=== PATIENT | female | born 1980 | race Caucasian/White ===

== ENCOUNTER 2019-05-26 18:03 | Observation (INO) | payer OTHER, SELFPAY ==
[2019-05-26] VITALS (8 sets, daily range): BP systolic 129–156; BP diastolic 66–86; PULSE 96–112; RESP 18–20; TEMP 36.6–36.7; O2SAT 95–99; BMI 58.2
--- NOTE | ~2019-05-26 | CT_ITS ---
EXAMINATION: CTA chest PE protocol DATE: 05/26/2019 19:54 COMMUTATOR TESTER INDICATION: Chest pain TECHNIQUE: Computed tomographic angiography (CTA) of the chest was performed with 100 mL Omnipaque-35 0 intravenous contrast. The dose-length product was 905.96 mGy-cm. Maximum intensity projection 3D-re constructions of the aorta and other arteries were constructed by the technologist on a separate work station. Automated exposure control and iterative reconstruction technique were employed. COMPARISON: Chest x-ray dated 05/26/2019 FINDINGS: The study is technically adequate without evidence for pulmonary embolism. No thoracic lymp hadenopathy. Heart size normal. No significant pleural or pericardial effusion. No evidence for aorti c dissection or aneurysm. The upper abdomen is unremarkable. No pneumothorax. No endobronchial lesion s. No focal airspace disease. No pulmonary nodules. IMPRESSION: 1. No acute cardiopulmonary disease. No evidence for pulmonary embolism. Reviewed, dictated and finalized at location A. UTATOR TESTER
--- NOTE | ~2019-05-26 | XR_ITS ---
EXAMINATION: XR chest 2V 05/26/2019 18:38 INDICATION: Midsternal chest pain PROCEDURE: 2 view chest COMPARISON: 12/01/2015 FINDINGS: The lungs are clear. The cardiomediastinal silhouette is within normal limits. There are no pleural effusions. There is no pneumothorax suspected. IMPRESSION: 1: NO ACUTE CARDIOPULMONARY DISEASE. Reviewed, dictated and finalized at location A. NISTRATIVE MANAGER
--- NOTE | 2019-05-26 18:12 | ECG_ITS ---
Measurements Intervals [place] Rate: 115 P: 42 DC: 137 QRS: 16 QRSD: 102 T: 5 QT: 307 QTc: 426 Interpretive Statements SINUS TACHYCARDIA INCOMPLETE RIGHT BUNDLE BRANCH BLOCK LOW QRS VOLTAGE IN PRECORDIAL LEADS BORDERLINE ST-T WAVE ABNORMALITY- INFERIOR LEADS BASELINE ARTIFACT- I, III, AVL, V2 ABNORMAL ECG Electronically Signed On 05-27-2019 7:09:16 WINDING DEPARTMENT SUPERVISOR by Melchor Arvizu D.O.
--- NOTE | 2019-05-26 18:15 | ED.CHESTPAIN ---
HPI - Chest Pain General Chief Complaint: Chest Pain Stated Complaint: cp Time Seen by Provider: 05/26/19 18:10 Source: patient Mode of arrival: EMS Limitations: no limitations History of Present Illness HPI narrative: A 38 y/o female presents to the ED, via EMS, with c/o constant midsternal CP that radiates to her back and jaw. Pt woke up with the pain this morning and states that it has worsened since onset. There are no aggravating or alleviating factors. Pt took Omeprazole and GasX at home with no relief. Pt notes that she has a PMHx of a cardiac ablation for SVT and her mother of an [place] at 38 years old. She reports SOB, nausea, and blurred vision, but denies leg pain and a PSHx of a cardiac catheterization. Pertinent past history: other (cardiac ablation for SVT) Onset (ago): hour(s) Timing of current episode: constant Onset: awoke with symptoms Pain location: other (midsternal) Pain radiation: back and jaw/teeth Relieving factors: nothing Exacerbating factors: nothing Related Data Home Medications Medication Instructions Recorded Confirmed omeprazole 20 mg PO DAILY 05/26/19 Allergies Allergy/AdvReac Type Severity Reaction Status Date / Time clarithromycin Allergy Unknown Hives Verified 05/26/19 18:19 metformin Allergy Unknown Rash Verified 05/26/19 18:19 Sulfa (Sulfonamide Allergy Unknown Hives Verified 05/26/19 18:19 Antibiotics) Review of Systems Review of Systems: All systems reviewed & are unremarkable except as noted in HPI and below Eyes: Comments: Reports: blurred vision Cardiovascular: Cardiovascular: Reports chest pain (midsternal, radiates to back and jaw) Respiratory: Respiratory: Reports dyspnea Gastrointestinal: Gastrointestinal: Reports nausea Musculoskeletal: Comments: Denies: leg pain [facility] Past Medical History Medical History (Updated 05/26/19 @ 20:45 by Ted Sykes DO) History of angina PCOS (polycystic ovarian syndrome) SVT (supraventricular tachycardia) with ablation Surgical History Surgical History (Updated 05/26/19 @ 18:18 by Africa Conley) History of cholecystectomy Family History Family History Other Diabetes mellitus Family history of arthritis Family history of cardiovascular disease Family history of malignant neoplasm Hypertension Social History Social History Smoking status: Never smoker Alcohol intake: current Gender identity (if verbalized by the patient): Female Comments No PCP on file. Exam Narrative: Exam Narrative: APPEARANCE: No acute distress, nontoxic, resting in bed EYES: EOMI HEENT: Normocephalic, atraumatic, OMM RESPIRATORY: No respiratory distress Clear to auscultation bilaterally with no rhonchi wheezing or rales. CARDIOVASCULAR: Regular rate and rhythm without murmurs rubs or gallops. ABDOMINAL: Obese soft, nontender, nondistended, no rebound or guarding MUSCULOSKELETAl: Moves all extremities. No clubbing, cyanosis or edema. NEURO: Awake and alert. Following commands, speech normal, no focal deficits SKIN:: Warm, dry. No rashes lesions or abrasions PSYCHIATRIC: Normal affect/mood, Course Course Emergency Course: Patient has no change in chest pain GI cocktail. States pain is resolved following morphine Discussed with patient and family results of workup and diagnosis. Discussed need for admission. Patient and family understand and agree to current treatment plan Consultations Consultation #1: Discussed case with Dr. Ordonez and accepts admission. Date: 05/26/19 Time: 20:31 Vital Signs Vital signs: Vital Signs Temperature 98.1 F 05/26/19 18:11 Pulse Rate 112 H 05/26/19 18:11 Respiratory Rate 20 05/26/19 18:11 Blood Pressure 154/86 H 05/26/19 18:11 Pulse Oximetry 98 05/26/19 18:11 Temperature 98.1 F 05/26/19 18:11 Pulse Rate 104 H 05/26/19 20:07 Respiratory Rate
[2019-05-26 18:50] LABS: Basophils Percent Auto 0.3 % (0.2-1.2); Eosinophils Absolute Auto 0.2 K/mm3 (0-0.3); Eosinophils Percent Auto 2.1 % (0-4.4); Hematocrit 44.3 % (37.0-47.0); Hemoglobin 13.7 g/dL (12.0-15.0); Immature Granulocyte Absolute 0.03 K/mm3 (0.00-0.031); Immature Granulocyte Percent A 0.3 % (0-0.5); Lymphocytes Absolute Auto 1.94 K/mm3 (0.9-3.2); Lymphocytes Percent Auto 21.1 % (18.3-44.2); Mean Corpuscular HGB Conc 30.9 g/dl (32-36); Mean Corpuscular Volume 87.4 fl (80-100); Mean Platelet Volume 9.1 fl (7.4-10.4); Monocytes Absolute Auto 0.6 K/mm3 (0.1-0.6); Neutrophils Absolute Auto 6.5 K/mm3 (1.3-6.7); Neutrophils Percent Auto 70.2 % (45.5-73.1); Platelet Count Result 226 k/mm3 (150-375); Red Blood Count 5.07 M/mm3 (4.2-5.4); Red Cell Distribution Width 14.7 % (11.5-14.5); White Blood Count 9.2 K/mm3 (4.5-10.0)
[2019-05-26 19:00] LABS: Prothrombin Time 12.9 Seconds (11.1-14.7)
[2019-05-26 19:01] LABS: Partial Thromboplastin Time 27.3 SECONDS (22.3-36.8)
[2019-05-26 19:03] LABS: Alanine Aminotransferase 79 U/L (4-35); Alkaline Phosphatase 108 U/L (38-126); Aspartate Amino Transferase 87 U/L (14-36); Bilirubin,Total 0.6 mg/dL (0.2-1.3); Blood Urea Nitrogen 11 mg/dL (7-17); Carbon Dioxide 27 mmol/L (22-30); Chloride 101 mmol/L (98-107); Estimated CRCL calculation 126 ml/min; Estimated Glomerular Filt Rate > 60; Glucose 217 mg/dL (65-105); Lipase 65 U/L (23-300); Potassium 4.2 mmol/L (3.4-5.0); Sodium 140 mmol/L (137-145)
[2019-05-26 19:14] LABS: Troponin I < 0.012 ng/mL (0.000-0.034)
[2019-05-26] MEDS: MORPHINE SULFATE 4 MG/ML INJ IV PUSH (19:36)
[2019-05-26 21:06] LABS: Cholesterol 157 mg/dL (0-200); HDL Direct 36 mg/dL; Triglycerides 118 mg/dL (<150)
[2019-05-26 21:17] LABS: LDL Cholesterol Direct 104 mg/dL
[2019-05-26 21:18] LABS: Troponin I < 0.012 ng/mL (0.000-0.034)
[2019-05-26] MEDS: LACTATED RINGERS 1,000 ML 999 ML IV CONT (21:19)
--- NOTE | 2019-05-26 22:30 | PC.NURSE ---
This patient, Latanya Haynes, was admitted to IMU Room 207-01. Patient/family oriented to hospital policies and general routines including ID bracelet, bed and alarms, visiting hours, pain management, procedures, bathroom and other care routines, personal items, smoking policy, room service/diet, and visiting hours. Valuables list has been completed. Information on how to activate the Rapid Response Team has been discussed. Patient/Family are encouraged to report perceived risks to care and to ask questions if they do not understand what they are told or what they should do.
[2019-05-27] VITALS (17 sets, daily range): BP systolic 101–143; BP diastolic 47–87; PULSE 63–114; RESP 16–20; TEMP 36.2–36.8; O2SAT 98–100
--- NOTE | 2019-05-27 00:10 | ADMIMU ---
This patient, Latanya Haynes, was admitted to IMU status, and placed in IMU Room 207-01 at 2150 05/26/19. Patient/family oriented to hospital policies and general routines including ID bracelet, bed and alarms, visiting hours, pain management, procedures, bathroom and other care routines, personal items, smoking policy, room service/diet, and visiting hours. Valuables list has been completed. Information on how to activate the Rapid Response Team has been discussed. Patient/Family are encouraged to report perceived risks to care and to ask questions if they do not understand what they are told or what they should do.
[2019-05-27] MEDS: NITROGLYCERIN SL 0.4 MG TABLET SUBLINGUAL ×2 (00:11→00:31)
[2019-05-27 00:56] LABS: Troponin I < 0.012 ng/mL (0.000-0.034)
--- NOTE | 2019-05-27 09:41 | PM.IMHP ---
H&P: HPI History of Present Illness Chief complaint: chest pain Narrative: Date of service: 05/27/2019 Chief complaint: Chest pain HPI: Latanya Haynes is a 38 year old female with past medical history of SVT status post radiofrequency ablation in 2007 in [facility] (as per patient, procedure report not available); PCOS, morbid obesity, depression. Patient was admitted to [facility] on 05/26/2019 with complaints of chest discomfort. She states that she was at a on the day of admission, started having substernal chest discomfort which she described as sharp chest pain with radiation to right shoulder and right jaw. Patient states that her chest discomfort was tolerable early in the morning, however, in the later part of the day, her chest pain got worse associated with some dizziness without syncope. She denies shortness of breath. With these symptoms, patient came to the [facility]. Patient's EKG which I personally evaluated shows sinus tachycardia, heart rate 115 beats per minute, incomplete right bundle-branch block, low voltage in the precordial leads, nonspecific ST-T abnormalities. Patient had CT scan of the chest in the emergency room which did not show pulmonary embolism. Chest x-ray is unremarkable. Serial troponins are negative. Patient's random blood sugar is elevated at 217. Patient's symptoms have resolved since admission to the hospital. Patient gives history of SVT. 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 She had radiofrequency ablation in 2007 at [place], [place]. Procedure note not available. She has not had cardiology follow-up over the years. 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 She is morbidly obese, but denies any major limitations to her activities from cardiovascular standpoint. Patient does not recall being diagnosed with diabetes in the past, however, her random blood sugars are significantly elevated. As regards patient's family history, she states her mother suddenly at age 38 from what she describes as heart attack , however, she states that she was told that she had tear of the aorta. Father had stents placed when he was in 60s. Review of Systems Constitutional: Constitutional: Denies chills, Denies fatigue, Denies fever(s) and Denies headache(s) Eyes: Eyes: Reports as per HPI, Denies change in vision, Denies loss of vision and Denies eye pain ENT: Reports as per HPI, Reports Normal hearing present, Denies headache(s), Denies lip swelling, Denies epistaxis and Denies sore throat Cardiovascular: Cardiovascular: Reports as per HPI, Reports chest pain, Denies syncope, Reports lightheadedness and Denies dyspnea Respiratory: Respiratory: Reports as per HPI, Denies cough, Denies dyspnea and Denies wheezing Gastrointestinal: Gastrointestinal: Reports as per HPI, Denies abdominal pain, Denies melena, Denies nausea and Denies vomiting Genitourinary: Genitourinary: Reports as per HPI Musculoskeletal: Musculoskeletal: Reports as per HPI, Denies myalgias, Denies muscle cramps and Denies muscle weakness Integumentary/Breasts: Skin/Breast: Reports as per HPI, Denies pruritus and Denies rash Neurologic: Reports as per HPI, Reports Normal hearing present, Denies behavioral changes, Denies syncope, Denies headache(s) and Denies loss of vision Psychiatric: Psychiatric: Reports as per HPI, Reports anxiety, Denies behavioral changes and Reports depression Endocrine: Endocrine: Reports as per HPI, Denies fatigue, Denies polydipsia and Denies polyuria Hematologic/Lymphatic: Hematologic/Lymphatic: Reports as per HPI, Denies easy bleeding and Denies easy bruising Allergic/Immunologic: Allergic/Immunologic: Reports as per HPI, Denies lip swelling and Denies wheezing [facility] Past Medical History Medical History History of angina PCOS (polyc
[2019-05-27 11:14] LABS: Hemoglobin A1C 7.5 % (<5.7)
[2019-05-27] MEDS: ASPIRIN 81 MG CHEWABLE TABLET PO (12:32)
[2019-05-27] MEDS: ACETAMINOPHEN 325 MG TABLET 650 MG PO (18:11)
[2019-05-27 20:40] LABS: Glucose Point of Care 208 (65-105)
[2019-05-28] VITALS (8 sets, daily range): BP systolic 123–135; BP diastolic 66–74; PULSE 62–93; RESP 16–20; TEMP 36–36.7; O2SAT 97–100; BMI 57.9
--- NOTE | 2019-05-28 | ECHO_ITS ---
Patient Info Name: Latanya Haynes Age: 38 years : 1980 Gender: Female Ht: 64 in Wt: 347 lbs BSA: 2.77 m2 HR: 61 bpm BP: 127 / 66 mmHg Heart Rhythm: Sinus Rhythm Technical Quality: Good Exam Date: 05/28/2019 9:36 AM Exam Location: [facility] Patient Status: Outpatient Admit Date: 05/26/2019 Staff Ordering Physician: Joe Maddox MD Fleet Sales Manager: Bigg Barker, RDCS, RT Attending Provider: Joe Maddox MD Exam Type: CA echo doppler color flow Study Info Indications R07.89 - Other chest pain Complete two-dimensional, color flow and Doppler transthoracic echocardiogram is performed. Summary 1. Left ventricular chamber dimension is normal. 2. Left ventricular systolic function is normal, estimated at 60-65%. 3. There is mildly increased left ventricular wall thickness. 4. Left ventricular septal wall motion is normal. 5. The left ventricular diastolic function is normal. 6. The mitral valve has thickened leaflets. 7. There is mild tricuspid valve regurgitation. Left Ventricle Left ventricular chamber dimension is normal. Left ventricular systolic function is normal, estimated at 60-65%. There is mildly increased left ventricular wall thickness. Left ventricular septal wall motion is normal. The left ventricular diastolic function is normal. Right Ventricle Right ventricular chamber dimension is normal. Right ventricular systolic function is normal. Left Atria Left atrial chamber dimension is normal. Right Atria Right atrial chamber dimension is normal. Atrial Septum Intact interatrial septum visualized by color flow imaging. Aortic Valve The aortic valve is trileaflet. There is no aortic valve sclerosis. There is no aortic valve stenosis. There is trace aortic valve regurgitation. Pulmonic Valve The pulmonic valve is normal. There is no pulmonic valve stenosis. There is trace pulmonic regurgitation. Mitral Valve The mitral valve has thickened leaflets. There is no mitral valve stenosis. There is trace mitral valve regurgitation. Tricuspid Valve The tricuspid valve leaflets are normal. There is no significant tricuspid valve stenosis. There is mild tricuspid valve regurgitation. No pulmonary hypertension, estimated pulmonary arterial systolic pressure is 31 mmHg. Pericardium/Pleural The pericardium appears normal. There is no pericardial effusion. Aorta The aortic root size at the sinus of Valsalva is normal. Left Ventricular Outflow Tract Name Value Normal LVOT 2D LVOT Diameter 2.0 cm LVOT Doppler LVOT Peak Gradient 4 mmHg LVOT Mean Gradient 2 mmHg LVOT VTI 19 cm LVOT VTI/AV VTI Ratio 0.6 LVOT Stroke Volume 56 ml LVOT CO 4.6 l/min LVOT CI 1.6 l/min/m2 Pulmonic Valve Name Value Normal
--- NOTE | 2019-05-28 00:12 | PM.IMCN ---
Assessment and Plan Assessment and plan (1) Diabetes mellitus, new onset: Code(s): E11.9 - Type 2 diabetes mellitus without complications Status: Acute Assessment and Plan: If the patient does negative turner apprentice to have coronary artery disease she would benefit from a medications such as Ozempic, Victoza, Trulicity, Jardiance or Invokana. Since Invokana is available on our hospital formulary I will initiate the patient on Invokana starting in the a.m.. Literature suggests that we could give the patient more time for diet and lifestyle modification to affect her hemoglobin A1c. However given that the patient has already lost 120 lb over the last 2 years with diet and lifestyle modification and her A1c demonstrates that she is still now diabetic will opt to start the patient on medication therapy. I would be surprised the patient's A1c had been higher when her weight was more elevated. (2) Morbid obesity: Code(s): E66.01 - Morbid (severe) obesity due to excess calories Status: Acute Assessment and Plan: Given the patient does have some history of snoring, issues with fatigue and history of cardiac arrhythmia she would benefit from an outpatient sleep study. By the time of my evaluation the patient was already 11:15 at night and too late to place the patient on an apnea link. I congratulated the patient on her significant weight loss over the last 2 years 10 encouraged her to continue with her current diet. She is typically on a ketogenic diet of approximately 30 carbohydrates. Her lipid panel is relatively good and she does not seem to have any significant adverse effects from her ketogenic diet. (3) Chest pain: Code(s): R07.9 - Chest pain, unspecified Status: Acute Assessment and Plan: Management per per Cardiology Service. HPI Data of Consult Consult date: 05/27/19 Requesting Physician: Jillian Ordonez DO Primary Care Provider: Aristides HernandezZoe Consult Narrative Narrative: Date and time of patient contact: 05/27/2019 at 23:15 Latanya Haynes is a 38 year old female with a past medical history of SVT, morbid obesity and PPI usage who presented to the ER via EMS from home with chest pain. The patient was admitted for chest pain rule out to the cardiology service. She reported that her chest pain was substernal in nature and radiating through to her back it also radiated up to her jaw. The pain is started on the morning of the and had been persistent all day long. It did not wax or wane to fluctuate in intensity until the end of the day were suddenly became worse and she had what sounds like a near syncopal event and became diaphoretic. The patient had 3 sets of negative cardiac enzymes. The patient is NPO at midnight in anticipation of echocardiogram and possible stress test. However the patient's glucose on arrival to the ER was 217 and subsequently hemoglobin A1c was performed. Patient's hemoglobin A1c came back at 7.5 in the hospitals with consulted to help manage the patient's diabetes. Patient denies any burning numbness or tingling to her hands or feet. She reported some blurred vision when she was having the worst of her chest pain. But overall she has not noticed any significant vision changes. Her blurred vision has since resolved. She denies any headaches, nausea or vomiting. She denies any increased urinary frequency. She has been on a ketogenic diet for the last 2 years and has lost 130 lb. She does occasionally snore. 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 She denies any polydipsia, polyuria or polyphagia. The patient has an allergy to metformin it causes overall pruritus. She had been prescribed it in the distant past due to her PCOS. Review of Systems Review of Systems: Narrative: Except as documented in the HPI, all other systems were reviewed and are negative. [facility] Past Medical History Me
[2019-05-28] MEDS: ASPIRIN 81 MG CHEWABLE TABLET PO (08:56)
[2019-05-28] MEDS: CANAGLIFLOZIN 100 MG TABLET PO (08:56)
[2019-05-28 09:21] LABS: Glucose Point of Care 152 (65-105)
--- NOTE | 2019-05-28 13:10 | PM.PNCARD ---
Progress Note: A&P Additional Plan Episode of atypical chest pain and not suggestive of myocardial ischemia and acute coronary syndrome has been ruled out. Echocardiogram done today shows no evidence of any ischemic wall motion abnormalities. My plan is to allow for discharge today follow-up will be with her PCP. I would not recommend initiating an ischemia workup at this time because of the atypical nature of her symptoms and the high probability with the morbid obesity a stress test will be high probability of being a false-positive and would potentially result in otherwise unnecessary angiogram needing to be done. Time Spent With Patient Time with patient: 15 - 25 minutes Subjective Date/time seen: Date of service: 05/28/19 13:10 Interval history: Follow-up visit for 38-year-old patient with atypical chest pain, also with morbid obesity and previous history of SVT. Patient has no complaints today and feels well would like to be discharged Review of chart demonstrates no evidence of acute coronary syndrome troponins are all negative and echocardiogram done today showed no ischemic wall motion abnormalities. Exam Const: General: comfortable and no acute distress Other: Morbidly obese white female sedated in bed with no complaints of any kind comfortable and cooperative. HENMT: Mouth: Yes moist mucous membranes Eyes: Sclera: sclerae normal Pupils: Equal, round and reactive pupils present Neck: Neck: supple Thyroid: thyroid normal Resp: Effort & Inspection: normal respiratory effort Auscultation: clear to auscultation bilaterally Cardio: Rate: regular rate Rhythm: regular rhythm Other: No murmur no gallop, PMI is not palpable because of her body habitus GI: Auscultation: normal bowel sounds Neuro: Cognition (Neuro): normal cognition Objective Data Vital Signs Vital Signs: Vital Signs - 24 hr 05/27/19 14:00 05/27/19 16:00 05/27/19 18:00 Temperature 36.7 C Pulse Rate 95 75 87 Respiratory Rate 20 Blood Pressure 139/83 Pulse Oximetry 98 05/27/19 20:00 05/27/19 20:20 05/27/19 22:00 Temperature 36.8 C Pulse Rate 90 75 75 Respiratory Rate 20 Blood Pressure 125/56 L Pulse Oximetry 98 98 05/27/19 23:55 05/28/19 00:00 05/28/19 02:00 Temperature 36.6 C Pulse Rate 63 70 71 Respiratory Rate 20 Blood Pressure 101/47 L Pulse Oximetry 98 05/28/19 04:00 05/28/19 06:00 05/28/19 08:00 Temperature 36.0 C L 36.5 C Pulse Rate 65 62 93 Respiratory Rate 20 16 Blood Pressure 127/66 123/74 Pulse Oximetry 97 100 05/28/19 10:00 05/28/19 12:00 Temperature Pulse Rate 87 87 Respiratory Rate Blood Pressure Pulse Oximetry Intake/Output Intake/Output: Intake & Output 05/25/19 05/26/19 05/27/19 05/28/19 23:59 23:59 23:59 23:59 Intake Total 770 350 Output Total 300 2225 550 Balance -300 -1455 -200 Meds/Results Medications: Active Medications Generic Name Dose Route Start Last Admin Trade Name Freq PRN Reason Stop Dose Admin Acetaminophen 650 mg 05/26/19 20:34 05/27/19 18:11 Tylenol Tablet PO 650 mg Q4H PRN Administration Mild Pain (1-3) Al Hydrox/Mg Hydrox/Simethicone 30 ml 05/26/19 20:34 Mylanta PO Q6H PRN Indigestion Aspirin 81 mg 05/27/19 08:00 05/28/19 08:56 Aspirin Chewable PO 81 mg DAILY@0800 [facility] Administration Canagliflozin 100 mg 05/28/19 08:00 05/28/19 08:56 Invokana PO 100 mg DAILY@0800 [facility] Administration Dextrose 12.5 gm 05/27/19 20:13 Dextrose 50% Syringe IV PUSH PRN PRN Hypoglycemia Protocol Glucagon 1 mg 05/27/19 20:13 Glucagon For Inj IM PRN PRN Hypoglycemia Protocol Glucose 15 gm 05/27/19 20:13 Glutose 15 PO PRN PRN Hypoglycemia Protocol Dextrose 1,000 mls @ 100 mls/hr 05/27/19 20:13 Dextrose 5% 1,000 Ml IVPB PRN PRN Hypoglycemia Protocol Insulin Aspart 2 - 5 units 05/28/19 08:
--- NOTE | 2019-05-28 13:13 | PM.DS ---
DS: Diagnosis Admitting Diagnosis Admitting Diagnosis: Chest pain, unspecified DS: Summary Hospital Course Reason for hospitalization: Chest pain Hospital Course: This is a 38-year-old white female with a history of supraventricular tachycardia that was ablated about 11 years ago. She also has a history of morbid obesity and came to the emergency room the day of admission reporting episodes of chest pain that were clinically very atypical of are not suggestive of myocardial ischemia. Following admission to the hospital there was no evidence of acute coronary syndrome troponins were negative x3 sets. An echocardiogram was done which was read this morning is showing normal appearing left ventricular function with no ischemic wall motion abnormalities. The patient was found to have evidence of non insulin-dependent diabetes at the time of this admission and for that reason the hospitalists were consulted. Medical therapy of this was initiated all again with recommendations for the PCP to follow-up this following discharge. Patient was stable for discharge today was no longer having any symptoms that would raise concern regarding the possibility of coronary disease and plans are for discharge again with follow-up with her PCP. Status at Discharge Functional status at discharge: independent ambulation Time Spent with Patient Time attestation: Total time spent providing and/or coordinating discharge services: Time spent: Less than 30 minutes Exam Const: General: comfortable and no acute distress Limitations: no limitations HENMT: Mouth: Yes moist mucous membranes Eyes: Sclera: sclerae normal Pupils: Equal, round and reactive pupils present Neck: Neck: supple Thyroid: thyroid normal Other: No bruits jet jugular veins cannot be assessed given obesity Resp: Effort & Inspection: normal respiratory effort Auscultation: clear to auscultation bilaterally Cardio: Rate: regular rate Rhythm: regular rhythm Other: No murmur no gallop no rub PMI is not palpable GI: GI Palp: Yes Soft to palpation Auscultation: normal bowel sounds Skin: General skin exam: normal color Extrem: General: normal to inspection DS: Data Data Completed and Pending Labs on day of discharge: Labs from last 24 hours 05/28/19 05/27/19 08:19 20:28 POC Capillary Glucose 152 H 208 H Discharge Plan Discharge Attending physician on discharge: Joe Maddox Consulting providers: Kerry Aguillon Discharging Clinician: Dwight Trevino Anticipated Discharge Date/Time: 05/28/19 13:16 Patient Disposition: Home, Self-Care Activity: as tolerated Diet: diabetic Discharge Instructions: Hospitalist service: Continue to eat a consistent carbohydrate, and in the the patient's case ketogenic diet seems to be working well for her, and is technically a consistent carbohydrate diet. Check fasting glucose each day prior to eating. You may also check your glucose 1-2 hours after eating 1 meal a day. Keep a log of these values in take them with you to your primary care physician follow-up in 1 week. This will help your primary care provider assess effectiveness of your medication. You will need a yearly dilated eye exam to monitor your eye health. Patient Instructions: Chest Pain (DC), Hypoglycemia in a Person with Diabetes (GEN), Antibiotic Form Stand Alone Forms: General Discharge Information Follow-up/Referrals: David,Aristides Dobson M.D. [Primary Care Provider] - Discharge Medications: New Invokana 100 mg tablet 100 mg PO DAILY Qty: 30 RF: 0 Continued omeprazole 20 mg Tablet,Delayed Release (Dr/Ec) 20 mg PO DAILY RF: 0 Date of admission: 05/26/19 20:34 Primary Care Provider: DavidAristides Admitting Provider: Joe Maddox Attending physician on admission: Joe Maddox Condition: Stable
[2019-05-28 13:15] LABS: Glucose Point of Care 103 (65-105)
--- NOTE | 2019-05-28 14:12 | PM.IMPN ---
Progress Note: A&P Assessment and Plan (1) Diabetes mellitus, new onset: Code(s): E11.9 - Type 2 diabetes mellitus without complications Status: Acute Assessment and Plan: If the patient does inspector returned materials to have coronary artery disease and new onset DM. HBaic is 7.5 diet, exercise, invokana ordered, pt to follow with pcp. pt met with DM educator prior to dischrage. (2) Morbid obesity: Code(s): E66.01 - Morbid (severe) obesity due to excess calories Status: Acute Assessment and Plan: Given the patient does have some history of snoring, issues with fatigue and history of cardiac arrhythmia she would benefit from an outpatient sleep study. (3) Chest pain: Code(s): R07.9 - Chest pain, unspecified Status: Acute Assessment and Plan: Pt cleared by cardiology stable for discharge Subjective Date/time seen: 05/28/19 14:12 Interval history: Latanya Haynes is a 38 year old female with a past medical history of SVT, morbid obesity and PPI usage who presented to the ER via EMS from home with chest pain. The patient was admitted for chest pain, troponins were negative. Echo shows EF 60%. Pt found to be a new DM, started on invokana by the hospitalist service. Pt seen by DM educator prior to discharge. Pt to follow with her PCP as DM is a new diagnosis. History of PCOS and obesity. Review of Systems Review of Systems: All systems reviewed & are unremarkable except as noted in HPI and below Exam Narrative: Exam Narrative: General: Morbidly obese HEENT: Mucous membranes are normal Neck: Trachea midline Respiratory: Clear to auscultation bilaterally, no increased work of breathing Cardiovascular: Normal S1-S2, no murmurs rubs or gallops, regular rate and rhythm Gastrointestinal: Soft, nontender, positive bowel sounds Skin: No jaundice, no pallor, Extremities: No clubbing, cyanosis or edema Neurological: Alert and oriented, speech is clear, no facial asymmetry Psychiatric: Appropriate mood and affect, pleasant and cooperative Objective Data Vital Signs Vital Signs: Vital Signs - 24 hr 05/27/19 16:00 05/27/19 18:00 05/27/19 20:00 Temperature 36.7 C Pulse Rate 75 87 90 Respiratory Rate 20 Blood Pressure 139/83 Pulse Oximetry 98 98 05/27/19 20:20 05/27/19 22:00 05/27/19 23:55 Temperature 36.8 C 36.6 C Pulse Rate 75 75 63 Respiratory Rate 20 20 Blood Pressure 125/56 L 101/47 L Pulse Oximetry 98 98 05/28/19 00:00 05/28/19 02:00 05/28/19 04:00 Temperature 36.0 C L Pulse Rate 70 71 65 Respiratory Rate 20 Blood Pressure 127/66 Pulse Oximetry 97 05/28/19 06:00 05/28/19 08:00 05/28/19 10:00 Temperature 36.5 C Pulse Rate 62 93 87 Respiratory Rate 16 Blood Pressure 123/74 Pulse Oximetry 100 05/28/19 12:00 Temperature Pulse Rate 87 Respiratory Rate Blood Pressure Pulse Oximetry Intake/Output Intake/Output: Intake & Output 05/25/19 05/26/19 05/27/19 05/28/19 23:59 23:59 23:59 23:59 Intake Total 770 350 Output Total 300 1265 550 Balance -300 -3865 -200 Meds/Results Medications: Active Medications Generic Name Dose Route Start Last Admin Trade Name Freq PRN Reason Stop Dose Admin Acetaminophen 650 mg 05/26/19 20:34 05/27/19 18:11 Tylenol Tablet PO 650 mg Q4H PRN Administration Mild Pain (1-3) Al Hydrox/Mg Hydrox/Simethicone 30 ml 05/26/19 20:34 Mylanta PO Q6H PRN Indigestion Aspirin 81 mg 05/27/19 08:00 05/28/19 08:56 Aspirin Chewable PO 81 mg DAILY@0800 [facility] Administration Canagliflozin 100 mg 05/28/19 08:00 05/28/19 08:56 Invokana PO 100 mg DAILY@0800 [facility] Administration Dextrose 12.5 gm 05/27/19 20:13 Dextrose 50% Syringe IV PUSH PRN PRN Hypoglycemia Protocol Glucagon 1 mg 05/27/19 20:13 Glucagon For Inj IM PRN PRN Hypoglycemia Protocol Glucose 15 gm 05/27/19 20:13 Glutose 15
== END 2019-05-28 14:55 | disposition home or self-care (01) ==
LOC: ANHED 20:45 → ANHIMU 05-27 00:08
PROVIDERS: Internal Medicine Cardiovascular Disease; Admitting Provider Internal Medicine Cardiovascular Disease; Emergency Provider Emergency Medicine; PCP Family Medicine; Visit Provider Specialist
DX: R07.89 Other chest pain (principal); E11.9 Type 2 diabetes mellitus without complications; E66.01 Morbid (severe) obesity due to excess calories; Z68.43 Body mass index [BMI] 50.0-59.9, adult; E28.2 Polycystic ovarian syndrome; Z79.899 Other long term (current) drug therapy; Z82.49 Family history of ischemic heart disease and other diseases of the circulatory system; Z86.79 Personal history of other diseases of the circulatory system; Z88.1 Allergy status to other antibiotic agents; Z88.2 Allergy status to sulfonamides; Z88.8 Allergy status to other drugs, medicaments and biological substances; Z98.890 Other specified postprocedural states
CPT/HCPCS: 36415; 71046; 71275; 80053; 80061; 81025; 83036; 83690; 84484; 85025; 85610; 85730; 93005; 93306; 96374; 99285; A9270; G0378; J2270; J7120; Q9967

== ENCOUNTER 2019-06-07 11:40 | Outpatient (CLI) | payer OTHER, SELFPAY ==
--- NOTE | ~2019-06-07 | MMUS_ITS ---
EXAMINATION: MM diagnostic carline BI w mounika, US breast RT limited HISTORY: Palpable right breast abnormality TECHNIQUE: Additional 3-D tomosynthesis images of were performed and synthetic 2-D images were genera evangelist. CAD analysis was submitted and interpreted. High resolution right breast ultrasound was performe d. COMPARISON: None FINDINGS: MAMMOGRAPHIC FINDINGS: Breast composed of scattered areas of fibroglandular density. There are no suspicious masses, calcifi cations or calcifications to suggest malignancy. There are benign appearing peripherally calcified oi l cysts in the medial aspect of the right breast. ULTRASOUND: Limited right breast ultrasound demonstrates multiple anechoic masses with echogenic rims exhibiting posterior shadowing, compatible with benign peripherally calcified oil cysts present on mammography. IMPRESSION: 1. No evidence for malignancy in the right breast. Benign oral cysts. 2. Routine yearly screening mammogram and regular clinical breast examination are recommended. BI-RADS Category 2: Benign finding(s). Reviewed, dictated and finalized at location A. ERLESS GRINDER IMPRESSION: 1. No evidence for malignancy in the right breast. Benign oral cysts. 2. Routine yearly screening mammogram and regular clinical breast examination a re recommended. BI-RADS Category 2: Benign finding(s).
== END 2019-06-07 11:41 | disposition home or self-care (01) ==
LOC: ANHIMG 11:43
PROVIDERS: PCP Family Medicine; Visit Provider Nurse Practitioner Women's Health
DX: N63.14 Unspecified lump in the right breast, lower inner quadrant (principal)
CPT/HCPCS: 76642; 77062; 77066; G0279

== ENCOUNTER 2020-05-02 06:38 | Outpatient (CLI) | payer OTHER, SELFPAY ==
[2020-05-02 07:55] LABS: Cholesterol 105 mg/dL (0-200); HDL Direct 35 mg/dL; Triglycerides 123 mg/dL (<150)
[2020-05-02 08:06] LABS: LDL Cholesterol Direct 48 mg/dL
[2020-05-02 08:16] LABS: Hemoglobin A1C 7.2 % (<5.7)
== END 2020-05-02 06:39 | disposition home or self-care (01) ==
LOC: ANHLAB 06:40
PROVIDERS: PCP Family Medicine; Visit Provider Family Medicine
DX: E11.69 Type 2 diabetes mellitus with other specified complication (principal); E78.5 Hyperlipidemia, unspecified
CPT/HCPCS: 36415; 80061; 83036

== ENCOUNTER 2020-08-06 09:30 | Outpatient (RCR) | payer OTHER, SELFPAY ==
--- NOTE | 2020-07-04 10:25 | PTOPEVAL ---
PHYSICAL THERAPY EVALUATION Thank you for referring Latanya Haynes to [facility].? Latanya was evaluated for the dx of low back pain with left leg radiculopathy. The patient is scheduled to be seen for therapy?2 x/week for 4 weeks. Please review, sign, date and return this plan of care SIRISHA. I agree with and certify that the following plan of care is medically necessary. Referring Physician Date Referring Provider: Aristides HernandezZoe *PT Outpatient Evaluation Start: 07/04/20 09:05 Freq: Status: Active Protocol: Document 07/04/20 09:05 MLV (Rec: 07/04/20 10:09 MLV [id number]) Therapy Assessment Status Assessment Status Evaluation Evaluation Information Problem Diagnosis low back pain with sciatica Onset mid May 2020 Cause scooting up in bed Additional Evaluation Detail Pt reports she was trying to scoot in bed on her elbows and felt a pop in her back. Pt has severe pain with most movements, especially rolling, supine to sit and sit to stand. The pain is at the low back but more at left hip to foot. Prior to scooting, the pt had no pain in these areas with daily activity. 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 The pt was given Naproxyn and flexoril but is not helping much. Pt has had no tests yet. Pain affects ability to roll over, son helps put her shoes on, son does laundry now, and unable to stand more than 1/2 hour. Previous Treatments Previous Treatments For This Problem none Pain Assessment Timing of Pain Assessment Timing of Pain Assessment Assessment Pain Scale Pain Scale Used Numeric (1 - 10) Self Report Pain Assessment Lower Back Reported Pain Level 8 Pain Description Sharp,Tightness Pain Frequency Continuous Greatest Pain Intensity 10 Pain Aggravating Factors Bending,Exercise/Activity, Lifting,Weight Bearing/ Standing Pain Behaviors Guarding Pain Score Pain Score 8: Self Report Interventions Used Interventions Used By Clinicians Education,Electrical Stimulation,Exercise,Heat Pain Relief Interventions Used By Heat,Inactivity/Rest,
--- NOTE | 2020-08-06 10:13 | PTOPEVAL ---
PHYSICAL THERAPY DISCHARGE Thank you for referring Latanya Haynes to [facility].? The patient has been seen 8 visits for dx of low back pain/sciatica. Her goals are partially met and status for skilled PT peaked. DC PT . Please review, sign, date and return this plan of care. I agree with and certify the following plan of care. Referring Physician Date Attending Provider: Aristides Hernandez, Zoe Referring Provider: Aristides HernandezZoe *PT Outpatient Discharge Start: 07/04/20 09:05 Freq: Status: Active Protocol: Document 08/06/20 09:25 MLV (Rec: 08/06/20 10:13 MLV [id number]) Therapy Assessment Status Assessment Status Assessment Status Discharge Evaluation Information Problem Diagnosis low back pain with sciatica Onset mid May 2020 Cause scooting up in bed Additional Evaluation Detail Overall, the patient feels she is about 50% better. The patient reports having pain down her leg and in her back for the last 4 days w/o a known cause for change. The patient does not have an appt with the MD but plans to make one. Pt denies trouble with HEP Pain Assessment Timing of Pain Assessment Timing of Pain Assessment Assessment Pain Scale Pain Scale Used Numeric (1 - 10) Self Report Pain Assessment Lower Back Reported Pain Level 7 Radicular Pain Location left leg pain 6 currently Other Pain Aggravating Factors rolling in bed, laying to sitting, and sit to stand Pain Score Pain Score 7: Self Report Interventions Used Interventions Used By Clinicians Electrical Stimulation,Heat, Manual Therapy Techniques Pain Relief Interventions Used By Exercise,Heat,Position Change Patient Other Alleviating Interventions naproxyn, muscle relaxer at night Cervical and Lumbar ROM Lumbar ROM Lumbar Flexion Active Knee,Mid Mi Query Text:Hands to: Lumbar Extension (0-40) 10 Query Text:Active in Degrees Lumbar Lateral Flexion Right (0-40) 30 Query Text:Active in Degrees Lumbar Lateral Flexion Left (0-40) 40 Query Text:Active in Degrees Lateral Rotation Right (0-45) 40 Query Text:Active in Degrees Lateral Rotation Left (0-45) 40 Query Text:Active in Degrees Lumbar Comments continues to have left back pain with right sidebend and
== END 2020-08-06 14:45 | disposition home or self-care (01) ==
LOC: ANHPT 09:30
PROVIDERS: PCP Family Medicine; Referring Provider Family Medicine; Visit Provider Family Medicine
DX: M54.5 Low back pain (principal)
CPT/HCPCS: 97014; 97110; 97140; 97162; G0283

== ENCOUNTER 2021-03-23 16:52 | Emergency (ER) | payer OTHER, SELFPAY ==
[2021-03-23 17:00] VITALS: BP 113/81; PULSE 114; RESP 16; TEMP 36.9; O2SAT 100
[2021-03-23 17:11] VITALS: BP 113/81; PULSE 114; RESP 16; TEMP 36.9; O2SAT 100
--- NOTE | 2021-03-23 17:26 | ED.URI ---
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 No fever, earache, sig cough, wheezing -she does have triggers/pets [dog] at home. Symptoms are mild worse when sleeping/supine; she reports a Biaxin allergy but can take a Z-Rohan. Related Data Home Medications Medication Instructions Recorded Confirmed omeprazole 40 mg PO DAILY 05/26/19 03/23/21 aspirin [Adult Low Dose Aspirin] 81 mg PO DAILY 03/23/21 03/23/21 atorvastatin 40 mg PO DAILY 03/23/21 03/23/21 cetirizine [Zyrtec] 10 mg PO DAILY 03/23/21 03/23/21 glipizide 10 mg PO BID 03/23/21 03/23/21 Allergies Allergy/AdvReac Type Severity Reaction Status Date / Time clarithromycin Allergy Unknown Hives Verified 03/23/21 17:10 metformin Allergy Unknown Rash Verified 03/23/21 17:10 Sulfa (Sulfonamide Allergy Unknown Hives Verified 03/23/21 17:10 Antibiotics) Review of Systems Review of Systems: General/Constitutional: No weight loss,fever Eyes: N0: Redness,discharge Ears/Nose/Throat: No: Epistaxis,ear discharge Respiratory: Denies: Hemoptysis Gastrointestinal: No Vomiting, Bleeding-rectal Skin: No Lumps, eruption Neurologic: No Focal Weakness,Sz Hematologic: Denies: Petechiae/Purpura Psychiatric: No: Suicida ideationl All Other Systems: Reviewed and Negative [facility] Past Medical History Medical History (Updated 03/23/21 @ 17:35 by Vic Yin MD) History of angina History of supraventricular tachycardia PCOS (polycystic ovarian syndrome) SVT (supraventricular tachycardia) with ablation 2007 Surgical History Surgical History (Updated 05/28/19 @ 00:28 by Kerry Aguillon DO) H/O LEEP 2017 History of chemical tubal occlusion essure tubal occlusion approximately 2010 History of cholecystectomy Family History Family History (Updated 05/28/19 @ 00:30 by Kerry Aguillon DO) Grandparent Acute myocardial infarction Diabetes mellitus History of blood clots Mother , Mother of coronary disease age 42 Acute myocardial infarction Hypertension Tobacco abuse disorder Father Hypertension Cerebrovascular accident Heart disease History of blood clots Sibling History of blood clots Hypertension Grandparent Diabetes mellitus Grandparent Colon cancer Sibling Hypertension Social History Social History (Updated 05/28/19 @ 00:33 by Kerry Aguillon DO) Social History: Primary care physician: Dr. Aristides Hernandez Code status: Full code Smoking status: Never smoker Second hand tobacco smoke exposure: Yes Alcohol intake: current Drinks per week: 0 Alcohol use details: The patient drinks approximately 1 drink a year. Substance use: never Additional living arrangements comments: Patient lives with her 14-year-old daughter and 9-year-old autistic son. 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 Gender identity (if verbalized by the patient): Female Spiritual care concerns: No Comments At time of signature, agree with nursing past medical, surgical, social and family history. There is no relevant family history pertinent to the presenting complaint Exam Narrative: General Appearance: Well appearing, overweight/well nourished EYE: PERRLA, Conjunctiva clear Ears: Auditory canal normal, TM normal Nose: Rhinorrhea, Mucousal erythema Mouth/Throat: MM moist, Uvula midline, Pharyngeal erythema Neck: Supple, No adenopathy Respiratory: No respiratory distress, distant BS equal, Clear to auscultation Cardiovascular: RRR, No JVD Musculoskeletal: Non ten
== END 2021-03-23 17:36 | disposition home or self-care (01) ==
PROVIDERS: Emergency Provider Emergency Medicine; PCP Family Medicine
DX: R07.0 Pain in throat (principal); I20.9 Angina pectoris, unspecified; E28.2 Polycystic ovarian syndrome
CPT/HCPCS: 99213; G0463

== ENCOUNTER 2024-11-22 09:02 | Outpatient (CLI) | payer BC, SELFPAY ==
--- OUTSIDE RECORDS SUMMARY | 2019-06-07 01:00 | XMS_ITS | Encounter Summary ---
Author Organization [facility] Healthcare Address [address] [place] [address] Care Team Providers Care Slip Tender Name Role Phone Aristides Hernandez MD Primary Care Provider [phone] [phone] Reason for Visit * Diagnostic Imaging (Routine) - Closed Specialty Diagnoses / Procedures Referred By Francesca cheung Referred To Contact Procedures Breast Imaging Diagnostic Outside Reference Evita Montenegro NP Phone: tel: fax: Referral ID Status Reason Start Date Expiration Date Visits Re quested Visits Authorized [id number] Closed 02/04/2022 03/06/2023 1 1 Encounter Details Date Type Department Care Team (Late st Contact Info) Description 06/07/2019 Hospital Encounter [facility] [address] [place] [id number] Social History Tobacco Use Types Packs/Day Years Used Date Smoking Tobacco: Never Smokeless Tobacco: Never Alcohol Use Standard [...] week 04/14/2022 How often do you attend chur or mu-ism services? Patient declined 04/14/2022 Do you belong to any clubs o r organizations such as yarsanism groups, unions, fraternal or athletic groups, or [...] on file Legal Sex Female 2:38 AM SCLEROSCOPE TESTER Gender Identity Female 12/30/2023 11:42 PM CDT Sexual Orientation Straight 12/13/2018 10 :54 AM CDT documented as of this encounter Functional Status * AUDIT-C Score Answer Date of Assessment Author 1 03/16/2023 7:36 AM SCLEROSCOPE TESTER Kash Augustin, RN * Question Answer Date of Assessment Author Q1: How often do you have a drink containing alcohol? Monthly or less 03/16/2023 7:36 AM Hallie Burns R N Q2: How many drinks containing alcohol do you have on a typical day when you are drinking? Patient does not drink 03/16/2023 7:36 AM Hallie Burns, MITCHELL Q3: How often do you have six or more drinks on one occasion? Never 03/16/2023 7:36 AM Hallie Burns, Elsy Downing documented as of this encounter Plan of Treatment Not on file documented as of this encounter Procedures Procedure Name Priority Date/Time Associated Diagnosis Comments BREAST IMAGING MG DIAGNOSTIC OUTSIDE REFERENCE Routine 06/07/2019 12:00 AM SCLEROSCOPE TESTER documented in this encounter Results * Breast Imaging Diagnostic Outside Reference (06/07/2019 12:00 AM SCLEROSCOPE TESTER) Impressions [facility] - 02/04/2022 1:34 PM CDT These images are for Reference purposes only and have not been reviewed by [facility] Radiology. There will be no report generated by a [facility] Radiologist. Narrative [facility] - 02/04/2022 1:34 PM CDT EXAMINATION: Images For Reference Purposes Only us Evita Montenegro WEIGHT REDUCING TECHNICIAN IMG MAMMO PROCEDURES Final Result [facility] documented in this encounter Visit Diagnoses Not on filedocumented in this encounter Care Teams Slip Tender Relationship Specialty Start Date End [place] [address] PCP - General Family Medicine 10/11/18 documented as of this encounter
--- OUTSIDE RECORDS SUMMARY | 2019-06-07 01:05 | XMS_ITS | Encounter Summary ---
Author Organization [facility] Healthcare Address [address] [place] [address] Care Team Providers Care Federal Java Developer Name Role Phone Aristides Hernandez MD Primary Care Provider [phone] [phone] Reason for Visit * Diagnostic Imaging (Routine) - Closed Specialty Diagnoses / Procedures Referred By Francesca cheung Referred To Contact Procedures Breast Imaging US Outside Reference Evita Montenegro NP Phone: tel: fax: Referral ID Status Reason Start Date Expiration Date Visits Re quested Visits Authorized [id number] Closed 02/04/2022 03/06/2023 1 1 Encounter Details Date Type Department Care Team (Late st Contact Info) Description 06/07/2019 12:05 AM COMMERCIAL SOLAR SALES CONSULTANT Hospital Encounter [facility]) [address] [place] [address] Social History Tobacco Use Types Packs/Day [...] week 04/14/2022 How often do you attend [facility] or zoroastrianism services? Patient declined 04/14/2022 Do you belong to any clubs o r organizations such as adventist groups, unions, fraternal or athletic groups, or [...] on file Legal Sex Female 2:38 AM COMMERCIAL SOLAR SALES CONSULTANT Gender Identity Female 12/30/2023 11:42 PM CDT [...] US OUTSIDE REFERENCE Routine 06/07/2019 12:05 AM COMMERCIAL SOLAR SALES CONSULTANT documented in this encounter Results * Breast Imaging US Outside Reference (06/07/2019 12:05 AM COMMERCIAL SOLAR SALES CONSULTANT) Impressions [facility] - 02/04/2022 1:34 PM CDT These images are for Reference purposes only and have not been reviewed by [facility]. There will be no report generated by a [facility] Radiologist. Narrative [facility] - 02/04/2022 1:34 PM CDT EXAMINATION: Images For Reference Purposes Only us Evita Montenegro PAINTER AND DECORATOR IMG MAMMO PROCEDURES Final Result [facility] documented in this encounter Visit Diagnoses Not on filedocumented in this encounter Care Teams Federal Java Developer Relationship Specialty Start Date End Date [place] [address] PCP - General Family Medicine 10/11/18 documented as of this encounter
--- NOTE | 2024-11-22 09:20 | ECG_ITS ---
Test Date: 2024-11-22 09:28:26 Measurements Intervals Marshall Rate: 49 P: 46 VT: 120 QRS: 30 QRSD: 110 T: 17 QT: 392 QTc: 354 Interpretive Statements SINUS BRADYCARDIA INCOMPLETE RIGHT BUNDLE BRANCH BLOCK BASELINE ARTIFACT- I, II, III, AVR, AVL, AVF, V1-V6 BORDERLINE ECG No previous ECG available for comparison Electronically Signed On 11-22-2024 09:30:51 CDT by Melchor Arvizu D.O.
--- OUTSIDE RECORDS SUMMARY | 2024-11-22 09:38 | XMS_ITS | Clinical Summary ---
Author Organization [facility] [address] [facility] Address [address] [place] [address] Care Team Providers Care Bindery Machine Tender Name Role Phone Aristides Hernandez MD Primary Care Provider [phone] Alonso Cason MD Unavailable [phone] Allergies Active Allergy Reactions Criticality Noted Date Comments Clarithromycin Rash Medium 10/10/2018 Latex Rash Medium 04/30/2022 Sensitivity, Metformin Itching Low 10/10/2018 Sulfa (Sulfonamide Antibiotics) Hives,Rash Medium 12/2018 Tissue Adhesive Itching,Rash Medium 04/12/2023 Dermabond Medications aspirin 81 mg enteric coated tablet Take 1 tablet (81 mg total) by mouth daily Active cetirizine (ZyrTEC) 10 mg tablet Take 1 tablet (10 mg total) by mouth daily Active vitamin B complex capsule Take 1 capsule by mouth daily Active calcium carbonate-vitami n D3 1,500 mg (600 mg elemental)-400 unit tablet,chewable Take by mouth 2 (two) times a day Active clobetasoL (TEMOVATE) 0.05 % cream Apply topically 2 (two) times a day APPLY TO AFFECTED AREA 04/01/20 Active fluticasone propionate (FLONASE) 50 mcg/actuation nasal spray 1 spray daily as needed 03/26/20 Active multivit with min-folic acid (Adult Multivitamin Gummies) 200 mcg tablet,chewable 03/21/20 23 Active metoprolol XL (TOPROL-XL) 50 mg extended release tablet Take 1 tablet (50 mg total) by mouth daily Active ascorbic acid/vitamin E/biotin (HAIR, SKIN, NAILS WITH BIOTIN ORAL) Take 1 tablet by mouth daily Active FLUoxetine (PROzac) 10 mg tablet/capsule Take 1 tablet/capsul e (10 mg total) by mouth daily 90 capsule 4 01/31/20 24 025 Active hydrOXYzine (ATARAX) 25 mg tablet Take 1 tablet (25 mg total) by mouth every 8 (eight) hours as needed for anxiety 30 tablet 1 01/31/20 24 Active famotidine (PEPCID) 20 mg tablet TAKE 1 TABLET BY MOUTH TWICE A DAY 180 tablet 3 07/11/19 25 Active Linzess 145 mcg capsuleIndicatio ns:Constipation, unspecified constipation type TAKE 1 CAPSULE BY MOUTH EVERY DAY 30 capsule 3 07/25/19 25 Active atorvastatin (LIPITOR) 40 mg tablet TAKE 1 TABLET BY MOUTH EVERY DAY 90 tablet 09/16/19 25 Active tirzepatide (Mounjaro) 10 mg/0.5 mL pen injector injection INJECT 10 MG UNDER THE SKIN EVERY 7 DAYS 2 mL 1 11/08/19 25 Active tirzepatide (Mounjaro) 10 mg/0.5 mL pen injector injection INJECT 10 MG UNDER THE SKIN EVERY 7 DAYS 2 mL 1 09/11/19 25 025 Discontinued Active Problems Problem Noted Date Diagnosed Date Type 2 diabetes mellitus with hyperlipidemia Assessment & Plan (10/08/2024 9:12 AM CDT): Continue atorvastatin. Will check lipid panel today and plan accordingly. Assessment & Plan (05/01/2024 10:35 AM WIND SITE MANAGER): Stable on atorvastatin and will continue to follow repsonse. Mood disorder 05/01/2024 Assessment & Plan (10/08/2024 9:12 AM CDT): Reports well controlled on fluoxetine and will continue. Assessment & Plan (05/01/2024 10:35 AM WIND SITE MANAGER): COntinues on fluoxetine. Good response. Excellent insight. Stress 01/31/2024 Assessment & Plan (01/31/2024 10:10 AM CDT): Discussed options. Will intitiate prozac and PRN hydroxyzine. Discuss possible sedative affect with hydroxyzine tab take with caution. She has follow-up scheduled in April and will keep to re-evaluate. We reviewed red flags. She is in agreement with plan states understanding. Hypertension associated with diabetes 01/31/2024 Assessment & Plan (10/08/2024 9:13 AM CDT): BP soft when rechecked by me. She is on half tablet metoprolol through Cardiology. Recommend monitoring and ensuring hydration. Change positions slowly. Continue following with cardiology. Need to ensure rate control as well. Red flags reviewed. Assessment & Plan (05/01/2024 10:35 AM WIND SITE MANAGER): Stable on metoprolol XL. COntinue on BP and HR montiring. Assessment & Plan (01/31/2024 9:56 AM CDT): Normotensive. Continue metoprolol. Will continue to monitor. Hospital discharge follow-up 01/31/2024 Assessment & Plan (01/31/2024 10:11 AM CDT): IGisell NP have personally reviewed pertinent inpatient and/or ED records, including discharge medications and Cl[employer]esk if applicable. This patient's discharge medication list has been reviewed and reconciled with her outpatient medication list and has also been reviewed with patient and/or caregiver. I have noted any changes. Fungal rash of torso 07/21/2023 Assessment & Plan (10/13/2023 10:01 AM CDT): I will make a referral to Plastic surgery for consideration for the persistent fungal infection in the pannus folds. Other constipation 05/26/2023 S/P gastric sleeve procedure 03/25/2023 Assessment & Plan (04/12/2023 11:04 AM WIND SITE MANAGER): It looks like she is trying to reject some sutures as there was clearly some suture material in the small incisions that opened. We have removed the sutures at bedside and remove the fibrinous tissue. We are going to pack the small openings with a little bit of a 4 x 4 cut to size and saline. She will change this daily. We will see her back next week to reassess. Abdominal pannus 03/25/2023 Assessment & Plan (04/12/2023 11:05 AM WIND SITE MANAGER): The patient continues to have significant issues with fungal infections in the pannus. The entirety of it is be read. She is tried the nystatin powder that we will continue her on. She was also going to try InterDry to try and help in wick the moisture away. I would like to see what her final weight is going to be prior to referring her to plastics her potential intervention, however we can not get these infections to clear up because of the moisture will have to send her there before all weight loss as completed Tonsil pain 02/28/2023 Heartburn 11/02/2022 Controlled type 2 diabetes tamia hickey without complication, without long-term current use of insulin 06/30/2022 Assessment & Plan (10/08/2024 9:11 AM CDT): Has been well controlled with Mounjaro and excellent weight loss. Will check A1c today and plan accordingly. Assessment & Plan (05/01/2024 10:34 AM WIND SITE MANAGER): Secondary prevneiton. Reviewed glycmeic control targets. No side effects to saxenda and responding well. Assessment & Plan (01/31/2024 10:10 AM CDT): Reports well controlled on Mounjaro and tolerating without side effects. Will continue to monitor. Assessment & Plan (06/30/2022 4:01 PM CDT): Lab Results Component Value Date HGBA1C 6.9 (H) 04/15/2022 HGBA1C 6.2 (H) 10/16/2021 HGBA1C 9.0 (H) 07/10/2021 Diabetes well controlled, a1c at goal of <7 %. No changes in current medication management. Will continue to monitor. Abnormal cardiovascular stress test 06/21/2022 SVT (supraventricular tachycardia) 05/07/2022 Chest pain 04/14/2022 Abnormal mammogram of right breast 03/24/2022 Atrial fibrillation with normal ventricular rate (CMS/HCC) 05/30/2019 Assessment & Plan (10/08/2024 9:11 AM CDT): Clinically sinus rhythm. Rate controlled. Following closely with Cardiology. Assessment & Plan (04/21/2022 3:38 PM WIND SITE MANAGER): Eliquis History of loop electrical excision procedure (L EEP) 05/15/2019 Assessment & Plan (07/20/2022 9:09 AM CDT): Given the persistent erythema a 1 cm incision was made at the inferior aspect of the wound. Predominantly serous fluid was removed with little bit of fat necrosis as well. The wound was then packed with [id number] iodoform packing. She will continue to do this on a daily basis. We will see her back next week to reassess the wound. Assessment & Plan (07/13/2022 10:52 AM CDT): Drain will be removed at bedside. I will send in a course of oral antibiotics for the superficial erythema at the inferior aspect of the incision. We will see her back next week to reassess. She will call sooner if anything changes Dysthymia 05/30/2017 Allergic rhinitis due to pollen 12/02/2016 Hyperglycemia 07/15/2016 Polycystic ovaries 04/16/2016 Idiopathic osteoarthritis 08/25/2015 Reaction to chronic stress 08/25/2015 Premature rupture of membranes 12/05/2009 labor 11/20/2009 Resolved Problems Problem Noted Date Diagnosed Date Resolved Date BMI 39.0-39.9,adult 05/01/2024 10/09/19 25 Assessment & Plan (05/01/2024 10:35 AM WIND SITE MANAGER): [place] 150min/week aerobic exercise. Healthy food chocies. Severe obesity (BMI 35.0-39. 9) with comorbidity 05/01/2024 10/08/2024 Assessment & Plan (05/01/2024 10:35 AM WIND SITE MANAGER): As aboive. Chest pain, unspecified type 01/23/2024 10/08/2024 Assessment & Plan (01/31/2024 10:09 AM CDT): Relates to stress episodes. Cardiac workup in the hospital unremarkable. Will initiate anxiety medication. Discussed referral to follow up with Cardiology but she declines today. I feel this is agreeable. Will monitor response with treating the stress. Red flags reviewed. Muscle strain 05/26/2023 10/08/2024 Mixed hyperlipidemia 02/28/2023 025 Newly diagnosed diabetes 02/28/202310/2024 Rhinosinusitis 02/28/2023 10/08/2024 Open wound anterior abdominal wall 07/28/2022 04/24/2024 Splenic artery aneurysm 07/05/2022 04/0 07/2022 Aneurysm, splenic artery 04/21/202207/2022 Assessment & Plan (06/08/2022 11:20 AM WIND SITE MANAGER): I have had discussions with the vascular surgeon that referred her to us. Unfortunately given the patient's anatomy coiling was not going to be possible. They referred her to us to discuss splenectomy. We have discussed risk of needing to do this via an open approach. We have discussed post splenectomy infections in the need for vaccinations. We have discussed hospital length of stay. She will get cardiac clearance given her multiple comorbid conditions and then we will set her up for surgery. I will also preemptively order vaccines in preparation for her splenectomy. Assessment & Plan (05/21/2022 11:13 AM WIND SITE MANAGER): Multiple splenic artery aneurysms, 1.8 cm saccular aneurysms in the hilum and about a 1 cm aneurysms in the mid splenic artery, discussed findings with the patient. Given her age we discussed the recommendation would be for intervention, coil embolization versus a splenectomy. Discussed given multiple aneurysms in 1 in the hilum a splenectomy may be more appropriate. We will discuss with our general surgery colleagues and get back to her. Assessment & Plan (04/21/2022 3:19 PM WIND SITE MANAGER): 1.8 cm splenic artery aneurysm found incidentally on CT PA. Discussed at length the management of splenic artery aneurysms with repair indicated for aneurysms measuring 3 cm or any aneurysms in a woman of childbearing age due to concern for rupture during . CTA abdomen pelvis ordered for further evaluation, pending this she is either going to need coil embolization or splenectomy. We will follow-up following her CT scan. Elevated d-dimer 04/14/2022 07/06/2022 Asymptomatic bacteriuria 04/14/202207/2022 Dyslipidemia 04/14/2022 10/08/2024 Assessment & Plan (06/30/2022 4:00 PM CDT): Reviewed labs, cholesterol well controlled. Continue atorvastatin 40 mg daily. Assessment & Plan (05/21/2022 11:13 AM WIND SITE MANAGER): Stable continue Lipitor 40 mg. Assessment & Plan (04/21/2022 3:38 PM WIND SITE MANAGER): Lipitor New onset a-fib 04/13/2022 10/08/2024 Assessment & Plan (06/30/2022 3:59 PM CDT): Scheduled with cardiology 04/28/2022, at [facility]. Denies any chest pain, palpitations, dizziness, syncope or fatigue. Rate controlled; patient is taking Eliquis and metoprolol or prescribed. Morbid (severe) obesity due to excess calories 07/10/2021 10/08/2024 Assessment & Plan (01/06/2023 9:04 AM CDT): The patient has done well during her six-months. She has shown nice consistent weight loss. She has had pre-admission laboratory testing with everything returning normal. She will continue to attend the monthly support group meetings. She will continue to work with the dietitian. Continue small frequent meals and cardiovascular exercise regimen as tolerates. Body mass index (BMI) 50.0-59.9, adult 07/10/2021 10/08/2024 Assessment & Plan (10/13/2023 10:03 AM CDT): Continue to work with her personal care assistant. Continue small frequent meals. Continue calcium, multivitamin vitamin-D. Continue to attend the weight loss groups. We will see her back in 6 months to reassess her progress. Assessment & Plan (02/07/2023 10:42 AM WIND SITE MANAGER): The patient has done well having lost a little over 12 lb since the start. We will encourage her to continue with an exercise regimen of at least 30 minutes today 3 times a week. We will encourage her to do small frequent meals with a goal calorie intake of 1600. She will continue to work with the dietitian. We will encourage her to continue to attend the monthly support group sessions. For the preoperative diet has been given to the patient which she knows to start 2 weeks before him. We will encourage her not to become for at least 18 months following surgery. We have discussed hospital length of stay and postoperative restrictions. All questions answered. Assessment & Plan (12/09/2022 8:19 AM CDT): Continue to work with the dietitian. We will encourage her to continue to attend the monthly support group meetings. Small frequent meals. Exercise as tolerates. We will see her back in 1 month to reassess her progress. Assessment & Plan (09/14/2022 9:08 AM CDT): The patient will continue to pack the small open area with 1 quarter-inch packing. She is back on track and has cut out sodas and carbohydrates from her diet. We will see her back in 1 month to reassess her progress. Continue to work with the dietitian and exercise as tolerates BMI 50.0-59.9, adult 05/30/2019 023 Assessment & Plan (05/21/2022 11:13 AM WIND SITE MANAGER): Super morbid obesity, discussed given her body habitus any repair would be more difficult and higher risk. Morbid obesity 05/15/2019 10/08/2024 Encounters Date Type Department Care Team Description 11/21/2024 Orders Only [facility] [address] [address] Aristides Hernandez MD Hypotension, unspecified hypotension type (Primary Dx) 10/09/2024 Results Follow-Up [facility] [address] [address] Gisell Walker, PRITI CBC with auto differential, Lipid panel, Hemoglobin A1c, Differential, auto 10/09/2024 Telephone [facility] [address] [address] Gisell Walker, PRITI 10/09/2024 Orders Only [facility] [address] [address] Gisell Walker, PRITI Elevated ferritin (Primary Dx) 10/08/2024 9:00 AM CDT Lab [facility] [address] [place] [address] Class 1 obesity due to excess calories with serious comorbidity and body mass index (BMI) of 34.0 to 34.9 in adult; Type 2 diabetes mellitus with hyperlipidemia (HCC); Hypertension associated with diabetes (HCC); Elevated ferritin 10/08/2024 8:30 AM CDT Office Visit [facility] [address] [address] Gislel Walker, PRITI Hypertension associated with diabetes (HCC) (Primary Dx); Class 1 obesity due to excess calories with serious comorbidity and body mass index (BMI) of 34.0 to 34.9 in adult; Type 2 diabetes mellitus with hyperlipidemia (HCC); Mood disorder; Controlled type 2 diabetes mellitus without complication, without long-term current use of insulin (HCC); Atrial fibrillation with normal ventricular rate (CMS/HCC) (HCC) 09/26/2024 Results Follow-Up [facility] [address] [place] [address] Fannie Son NP Vitamin D 25 hydroxy, TSH, Vitamin B12, Additional followed-up results: 3 09/25/2024 3:30 PM CDT Lab [facility] at [address] [address] 09/25/2024 3:25 PM CDT - 09/25/2024 11:59 PM CDT Hospital Encounter [address] [address] S/P gastric sleeve procedure; Elevated AST (SGOT) Discharge Disposition: Discharge to home or self care from Last 3 Months Immunizations Immunization Administration Dates Next Due DTP 10/15/1986, 6,08/06/1982,04/09,02/14/1982 Hep B Vaccine 02/14/2007 Hib (PRP-T) 06/15/2022 Influenza, Quadrivalent, Nina l Culture-based MDCK, Preservative Free, Antibiotic Free, Intramuscular 12/08/2022 Influenza, Trivalent, Cell Culture-based MDCK, Preservative Free, Antibiotic Free, Intramuscular 12/03/2023,12/08/2022 Influenza, Unspecified 01/06/2022,2021(Deferred: Patient Refused),01/06/2021,01/03/2020, 019,01/02/2018 MMR 09/11/1991,02/22/1984 Meningococcal Conjugate (Menveo) 06/09/2022 Moderna SARS-CoV-2 Monovalen t Vaccination (12+ YRS) 06/03/2020,05/06/2020 OPV 10/15/1986, 6,02/22/1984,04/09,02/14/1982 Pneumococcal Conjugate Pcv20 06/09/2022 Td, adsorbed 02/14/2007,09/22/1995 Tdap 01/01/2022,2009 Surgical History Surgery Date Site/Laterality Comments CHOLECYSTECTOMY 06/02/2002 - 07/02/2002 SPLENECTOMY ESSURE TUBAL LIGATION 04/04/2009 - 04/03/2010 SLEEVE GASTROPLASTY 03/16/2023 TUBAL LIGATION Essure procedure mar 2010 SPLENECTOMY, TOTAL 07/05/22 BARIATRIC SURGERY 03/16/23 COLPOSCOPY 10/01/2024 Dr. Beer in [place] Medical History Medical History Date Comments PCOS (polycystic ovarian syndrome) Depression SVT (supraventricular tachycardia) Cervical dysplasia 12/2016 Plantar fasciitis 2009 Atrial fibrillation (HCC) GERD (gastroesophageal reflux disease) Type 2 diabetes mellitus Aneurysm, splenic artery 04/21/2022 Splenic artery aneurysm 07/05/2022 Asymptomatic bacteriuria 04/14/2022 Elevated d-dimer 04/14/2022 Acute chest pain 04/14/2022 Open wound anterior abdominal wall 07/28/2022 Menstrual problem Since age 14 Family History Medical History Relation Name Comments COPD Father Lino Heart disease Father Lino Hyperlipidemia Father Lino Hypertension Father Lino Memory loss Father Lino Skin cancer Father Lino Stroke Father Lino Diabetes Maternal Grandmother Randee Heart attack Maternal Grandmother Randee Cancer Mother Mom Heart attack Mother Mom Heart disease Mother Mom Hypertension Mother Mom Obesity Mother Mom Diabetes Paternal Grandmother Alma Rosa Clotting disorder Sister 1 Estrella Mental illness Sister 1 Estrella Miscarriages / Stillbirths Sister 2 Ammi Relation Name Status Comments Father Lino Alive Maternal Grandmother Randee Alive Mother Mom Paternal Grandmother Alma Rosa Alive Sister 1 Estrella Alive Sister 2 Ammi Alive Social History Tobacco Use Types Packs/Day Years Used Date Smoking Tobacco: Never Smokeless Tobacco: Never Tobacco Cessation:Counseling Given: Not Answered Alcohol Use Standard Drinks/Week Comments Not Currently [...] week 04/14/2022 How often do you attend [facility] or restorationist services? Patient declined 04/14/2022 Do you belong to any clubs o r organizations such as latter-day groups, unions, fraternal or athletic groups, or [...] on file Legal Sex Female 2:38 AM WIND SITE MANAGER Gender Identity Female 12/30/2023 11:42 PM CDT Sexual Orientation Straight 12/13/2018 10 :54 AM CDT Obstetrics History Last Filed Vital Signs Vital Sign Reading Time Taken Comments Blood Pressure 98/56 10/08/2024 8:19 AM CDT Pulse 88 10/08/2024 8:19 AM CDT Temperature 36.4 C (97.5 F) 10/08/2024 8:19 AM CDT Respiratory Rate 20 10/08/2024 8:19 AM CDT Oxygen Saturation 99% 10/08/2024 8:19 AM CDT Inhaled Oxygen Concentration - - Weight 92.8 kg (204 lb 9.6 oz) 10/08/2024 8:19 A M CDT Height 165.1 cm (5' 5) 10/08/2024 8:19 AM CDT Body Mass Index 34.05 10/08/2024 8:19 AM CDT Plan of Treatment Health Maintenance Due Date Last Done Comments Cervical Cancer Screening 1981 Hepatitis C Screening 1981 HPV Vaccines (1 - 3-dose SCD M series) 2008 Regular Well Visit/Exam 18-64 07/10/2022 07/10/2021 Covid-19 Vaccine (3 - 2023-2 5 season) 2023 06/03/2020, 05/06/2020 Dilated Eye Exam 10/06/2024 10/07/2023 Influenza Vaccine (#1) 2024 , 12/08/2022, 12/08/2022, Additional history exists Foot Exam 01/30/2025 01/31/2024, 04/0 11/2021, 05/30/2019 Hemoglobin A1C 04/10/2025 10/08/2024, 04/05, 10/25/2023, Additional history exists Breast Cancer Screening-Mammogram 04/27/2025 04/27/2024, 04/14/2023, 04/14/2023, Additional history exists Albumin Creatinine Ratio, Urine 05/01/2025 05/01/2024, 10/25/2023, 09/28/2022, Additional history exists Depression Screening 05/01/2025 05/01/2024, 10/25/2023, 07/19/2023, Additional history exists eGFR 05/01/2025 05/01/2024, 01/03, 10/25/2023, Additional history exists Lipid Panel 10/08/2025 10/08/2024, 04/05, 10/25/2023, Additional history exists DTaP/Tdap/Td Vaccine (8 - Td or Tdap) 01/02/2032 01/01/2022, 2009, 02/14/2007, Additional history exists Hepatitis B Screening Completed 02/14/2007 Pneumococcal vaccine <65 Completed 06/09/2022 Varicella Vaccines Discontinued Medical Devices Implanted Type Area Functional Skills Tutor Device Identifier Shelf Expiration Date Model / Serial / Lot [employer] Symmetry Vesolock Large Clip Internal [id number] - [id number] Implanted:Qty: 3 on 07/05/2022 by Vic Castellon MD at [facility] N/A: Abdomen [employer] 10/03/2023 [id number] / [id number] Description:7 applied Procedures Procedure Name Priority Date/Time Associated Diagnosis Comments IRON PROFILE W/ IBC Routine 10/08/2024 8 :59 AM CDT Elevated ferritin DIFFERENTIAL AUTO Routine 10/08/2024 8:5 9 AM CDT Class 1 obesity due to excess calories with serious comorbidity and body mass index (BMI) of 34.0 to 34.9 in adult Type 2 diabetes mellitus with hyperlipidemia (HCC) Hypertension associated with diabetes (HCC) HEMOGLOBIN A1C Routine 10/08/2024 8:59 AM CDT Class 1 obesity due to excess calories with serious comorbidity and body mass index (BMI) of 34.0 to 34.9 in adult Type 2 diabetes mellitus with hyperlipidemia (HCC) Hypertension associated with diabetes (HCC) LIPID PANEL Routine 10/08/2024 8:59 AM CDT Class 1 obesity due to excess calories with serious comorbidity and body mass index (BMI) of 34.0 to 34.9 in adult Type 2 diabetes mellitus with hyperlipidemia (HCC) Hypertension associated with diabetes (HCC) CBC WITH AUTO DIFFERENTIAL Routine 10/08/2024 8:59 AM CDT Class 1 obesity due to excess calories with serious comorbidity and body mass index (BMI) of 34.0 to 34.9 in adult Type 2 diabetes mellitus with hyperlipidemia (HCC) Hypertension associated with diabetes (HCC) FOLATE Routine 09/25/2024 3:25 PM CDT S/P gastric sleeve procedure HEPATIC FUNCTION PANEL Routine 09/25/2024 3:25 PM CDT S/P gastric sleeve procedure Elevated AST (SGOT) FERRITIN Routine 09/25/2024 3:25 PM CDT S/P gastric sleeve procedure VITAMIN B12 Routine 09/25/2024 3:25 PM CDT S/P gastric sleeve procedure TSH Routine 09/25/2024 3:25 PM CDT S/P gastric sleeve procedure VITAMIN D 25 HYDROXY Routine 09/25/2024 3:25 PM CDT S/P gastric sleeve procedure EGFR Routine 05/01/2024 9:52 AM WIND SITE MANAGER Controlled type 2 diabetes mellitus with hyperglycemia, without long-term current use of insulin (HCC) ALBUMIN CREATININE RATIO, URINE Routine 05/01/2024 9:52 AM WIND SITE MANAGER Controlled type 2 diabetes mellitus with hyperglycemia, without long-term current use of insulin (HCC) SCREENING MAMMOGRAM BILATERAL W NAEL Schedule Routine, Read Routine (OP Routine) 04/27/2024 3:13 PM WIND SITE MANAGER 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 breast, unspecified estrogen receptor status, unspecified laterality (HCC) Abnormal mammogram of both breasts Abnormal mammogram of right breast HM DIABETES EYE EXAM Routine 10/07/2023 2:06 PM CDT from Last 3 Months or Most Recently Relevant to Health Maintenance Results * (ABNORMAL) Differential, auto (10/08/2024 8:59 AM CDT) Neutrophil abs 5.01 1.50 - 6.50 K/cumm Comment:Testing performed by : [facility], [address] [place] [address]., [id number] Imm gran abs 0.02 0.00 - 0.10 K/cumm ROBY YOUNG (LADAN) Comment:Testing performed by : [address] [address] Lymphocyte abs 4.65(H) 0.80 - 3.30 K/cumm ROBY YOUNG (LADAN) Comment:Testing performed by : [address], [address] Monocyte abs 1.05(H) 0.20 - 0.80 K/cumm [facility] ([place]) Comment:Testing performed by : [facility], [address] [place] [address]., [id number] Eosinophil abs 0.16 0.00 - 0.50 K/cumm [facility] ([place]AD[place]) Comment:Testing performed by : [facility], [address] [place] [address]., [id number] Basophil abs 0.10 0.00 - 0.10 K/cumm [facility] ([place]) Comment:Testing performed by : [facility], [address] [place] [address]., [id number] Neutrophil pct 45.5 % [facility] ([place]AD[place]) Comment: Interpretive Data Percent cell count reference ranges are not reported, since discordance with absolute values may lead to misinterpretation of CBC data. Current Interpretive Data was last revised on 2017. Testing performed by: [facility], [address] [place] [address]., [address] Imm gran pct 0.2 % [facility] (LADAN) Comment: Interpretive Data Percent cell count reference ranges are not reported, since discordance with absolute values may lead to misinterpretation of CBC data. Current Interpretive Data was last revised on 2017. Testing performed by: [address] [address] Lymphocyte pct 42.3 % [facility] (LADAN) Comment: Interpretive Data Percent cell count reference ranges are not reported, since discordance with absolute values may lead to misinterpretation of CBC data. Current Interpretive Data was last revised on 2017. Testing performed by: [address] [address] Monocyte pct 9.6 % [facility] ([place]AD[place]) Comment: Interpretive Data Percent cell count reference ranges are not reported, since discordance with absolute values may lead to misinterpretation of CBC data. Current Interpretive Data was last revised on 2017. Testing performed by: [address] [address] Eosinophil pct 1.5 % [facility] ([place]AD[place]) Comment: Interpretive Data Percent cell count reference ranges are not reported, since discordance with absolute values may lead to misinterpretation of CBC data. Current Interpretive Data was last revised on 2017. Testing performed by: [facility], [address] [place] [address]., [address] Basophil pct 0.9 % ROBY YOUNG (LADAN) Comment: Interpretive Data Percent cell count reference ranges are not reported, since discordance with absolute values may lead to misinterpretation of CBC data. Current Interpretive Data was last revised on 2017. Testing performed by: [facility], [address] [place] [address], [address] Blood 10/08/2024 8:59 AM CDT 10/08/2024 2:07 PM CDT Gisell Walker NP LAB BLOOD ORDERABLES Final Result Performing Organization Address [facility] Co de Phone Number ROBY YUONG (MONTREAL) 1 [facility] [address] * Iron profile w/ IBC (10/08/2024 8:59 AM CDT) Iron 78 35 - 145 mcg/dl Comment:Testing performed by : [facility], [address] [place] [address], [address] TIBC 264 250 - 400 mcg/dL ROBY YOUNG (LADAN) Comment:Testing performed by : [facility], [address] [place] [address], [address] Transferrin saturation 30 20 - 50 % ROBY YOUNG (LADAN) Comment:Testing performed by : [address] [address] Blood 10/08/2024 8:59 AM CDT 10/09/2024 3:34 PM CDT Gisell Walker NP LAB BLOOD ORDERABLES Final Result Performing Organization Address City/[facility] Co de Phone Number ROBY YOUNG (MONTREAL) 1 [facility] [place] [address] * (ABNORMAL) CBC with auto differential (10/08/2024 8:59 AM CDT) WBC 10.99(H) 3.80 - 9.90 K/cumm Comment:Testing performed by : [facility], [address] [place] [address], [address] Hgb 14.4 11.9 - 15.5 g/dL [facility] ([place]AD[place]) Comment:Testing performed by : [facility], [address] [place] [address], [address] Hct 46.9(H) 35.6 - 45.5 % [facility] ([place]AD[place]) Comment:Testing performed by : [facility], [address] [place] [address], [address] Plt 407(H) 150 - 400 K/cumm [facility] ([place]AD[place]) Comment:Testing performed by : [address], [address] MPV 10.3 9.1 - 12.3 fL [facility] ([place]AD[place]) Comment:Testing performed by : [address], [address] RBC 4.78 3.90 - 5.20 M/cumm [facility] ([place]) Comment:Testing performed by : [address], [address] MCV 98.1(H) 81.3 - 96.4 fL [facility] ([place]AD[place]) Comment:Testing performed by : [address], [address] MCH 30.1 27.1 - 33.3 pg [facility] ([place]) Comment:Testing performed by : [address], [address] MCHC 30.7(L) 32.3 - 35.7 g/dL [facility] ([place]) Comment:Testing performed by : [address], [address] RDW CV 15.0(H) 11.1 - 14.9 % [facility] ([place]AD[place]) Comment:Testing performed by : [address], [address] RDW SD 54.7(H) 35.7 - 48.1 fL [facility] ([place]AD[place]) Comment:Testing performed by : [address], [address] NRBC abs 0.00 0.00 - 0.01 K/cumm ROBY YOUNG (LADAN) Comment:Testing performed by : [facility], [address] [place] [address]., [address] Blood 10/08/2024 8:59 AM CDT 10/08/2024 2:07 PM CDT Gisell Walker NP LAB BLOOD ORDERABLES Final Result Performing Organization Address [facility] Co de Phone Number ROBY YOUNG (MONTREAL) 1 [facility] [place] [address] * Hemoglobin A1c (10/08/2024 8:59 AM CDT) Hgb A1C 5.3 4.0 - 5.6 % Comment:Testing performed by : [facility], [address] [place] [address]., [address] Estimated Average Glucose 105 mg/dL ROBY YOUNG (MONTREAL) Comment: The ADA recommends reporting an estimated Average Glucose (eAG) with all Hemoglobin A1c results using the equation derived from a study of 507 normal and diabetic adults. Minority populations were underrepresented and children were not included. (Diabetes Care 31:1389-4243, 2008). The eAG is not equivalent to a fasting glucose. Testing performed by: [facility], [address] [place] [address]., [address] Blood 10/08/2024 8:59 AM CDT 10/08/2024 2:07 PM CDT Gisell Walker NP LAB BLOOD ORDERABLES Final Result Performing Organization Address [facility] Co de Phone Number ROBY YOUNG (LADAN) 1 [facility] [place] [address] * Lipid panel (10/08/2024 8:59 AM CDT) Cholesterol 127 30 - 199 mg/dL Comment: Interpretive Data Ages < or = 19 years Acceptable: <170 mg/dL Borderline high: 170-199 mg/dL High: >or= 200 mg/dL Ages > or = 20 years Desirable: <200 mg/dL Borderline high: 200-239 mg/dL High: >or= 240 mg/dL Literature References: 1. Expert Panel on Integrated Guidelines for Cardiovascular Health and Risk Reduction in Children and Adolescents. Pediatrics 2011;128:S213 2. NCEP Expert Panel. Circulation 2004;110:227 Current Interpretive Data was last revised on 2017. Testing performed by: [facility], [address] [place] [address]., [address] Triglycerides 78 <=149 mg/dL [facility] ([place]ADAN) Comment: Interpretive Data Ages < or = 9 years Acceptable: <75 mg/dL Borderline high: 75-99 mg/dL High: >or= 100 mg/dL Ages 10 to 20 years Acceptable: <90 mg/dL Borderline high: 90-129 mg/dL High: >or= 130 mg/dL Ages > or = 20 years Desirable: <150 mg/dL Borderline high: 150-199 mg/dL High: 200-499 mg/dL Very high: >or= 499 mg/dL Literature References: 1. Expert Panel on Integrated Guidelines for Cardiovascular Health and Risk Reduction in Children and Adolescents. Pediatrics 2011;128:S213 2. NCEP Expert Panel. Circulation 2004;110:227 Current Interpretive Data was last revised on 2017. Testing performed by: [facility], [address] [place] [address]., [address] HDL 47 >=40 mg/dL ROBY STUART H (LADAN) Comment: Interpretive Data Ages < or = 19 years Acceptable: >45 mg/dL Borderline low: 40-45 mg/dL Low: <40 mg/dL Ages > or = 20 years Desirable: >or= 60 mg/dL Low: <40 mg/dL Literature References: 1. Expert Panel on Integrated Guidelines for Cardiovascular Health and Risk Reduction in Children and Adolescents. Pediatrics 2011;128:S213 2. NCEP Expert Panel. Circulation 2004;110:227 Current Interpretive Data was last revised on 2017. Testing performed by: [address] [address] LDL, calculated 64 <=129 mg/dL [facility] ([place]ADAN) Comment: Interpretive Data Ages < or = 19 years Acceptable: <110 mg/dL Borderline high: 110-129 mg/dL High: >or= 130 mg/dL Ages > or = 20 years Optimal: <100 mg/dL Near optimal: 100-129 mg/dL Borderline high: 130-159 mg/dL High: >160 mg/dL Calculated using the Mickey LDL-C estimating equation. This equation was implemented on 2023. Prior to this date LDL-C was estimated using the Friedewald equation. Literature References: 1. Expert Panel on Integrated Guidelines for Cardiovascular Health and Risk Reduction in Children and Adolescents. Pediatrics 2011;128:S213 2. NCEP Expert Panel. Circulation 2004;110:227 3. Mickey Rome et al. MARIBEL Cardiol. 2020 August 02;5(5):540-548. doi: 10.1001/jamacardio.2020.0013 Current Interpretive Data was last revised on 2023. Testing performed by: [address] [address] Non-HDL Cholesterol 80 mg/dL ROBY YOUNG (LADAN) Comment: Interpretive Data Ages < or = 19 years Acceptable: <120 mg/dL Borderline high: 120-144 mg/dL High: >145 mg/dL Ages > or = 20 years When triglycerides are >200 mg/dL, Non-HDL cholesterol is a secondary target of therapy with treatment goals that are 30 mg/dL greater than the LDL cholesterol target. Literature References: 1. Expert Panel on Integrated Guidelines for Cardiovascular Health and Risk Reduction in Children and Adolescents. Pediatrics 2011;128:S213 2. NCEP Expert Panel. Circulation 2004;110:227 Current Interpretive Data was last revised on 2017. Testing performed by: [address] [address] Chol/HDL ratio 3 DAPHNEY YOUNG (LADAN) Comment:Testing performed by : [address] [address] Blood 10/08/2024 8:59 AM CDT 10/08/2024 2:07 PM CDT us Gisell Walker NP LAB BLOOD ORDERABLES Final Result ROBY YOUNG (LADAN) 1 [facility] [place] [address] * Vitamin D 25 hydroxy (09/25/2024 3:25 PM CDT) Vitamin D 25-OH 54 30 - 80 ng/mL Blood 09/25/2024 3:25 PM CDT 09/25/2024 9:16 PM CDT Fannie Son CATTLE TRADER LAB BLOOD ORDERABLES Final Res ult Performing Organization Address [facility] Co de Phone Number ROBY BOUDREAUX [address] [address] [facility] [place] [address] * TSH (09/25/2024 3:25 PM CDT) Thyroid Stimulating Hormone 1.04 0.30 - 4.20 mcIUnit/mL Blood 09/25/2024 3:25 PM CDT 09/25/2024 9:16 PM CDT Fannie Son CATTLE TRADER LAB BLOOD ORDERABLES Final Res ult Performing Organization Address [facility] de Phone Number ROBY [phone] [facility] [place] [address] * Folate (09/25/2024 3:25 PM CDT) Pathologist [facility] Folic acid 5.9 >=5.0 ng/mL Comment:Hemolysis present. R esults may be affected. Blood 09/25/2024 3:25 PM CDT 09/25/2024 9:16 PM CDT Fannie Son CATTLE TRADER LAB BLOOD ORDERABLES Final Res ult Performing Organization Address [facility] de Phone Number MOSHEGRETTA [address] [facility] [place] [address] * (ABNORMAL) Ferritin (09/25/2024 3:25 PM CDT) Pathologist [facility] Ferritin 218(H) 13 - 150 ng/mL Blood 09/25/2024 3:25 PM CDT 09/25/2024 9:16 PM CDT Fannie Son CATTLE TRADER LAB BLOOD ORDERABLES Final Res ult Performing Organization Address City/[facility]/ZIP Co de Phone Number ROBY BOUDREAUX [phone] [facility] [place] [address] * Vitamin B12 (09/25/2024 3:25 PM CDT) Vitamin B12 979 230 - 1,250 pg/mL Blood 09/25/2024 3:25 PM CDT 09/25/2024 9:16 PM CDT Fannie Son CATTLE TRADER LAB BLOOD ORDERABLES Final Res ult Performing Organization Address [facility] de Phone Number ROBY BOUDREAUX [address] [place] [address] * Hepatic function panel (09/25/2024 3:25 PM CDT) Pathologist [facility] Bilirubin, total 0.4 0.1 - 1.2 mg/dL Bilirubin, direct 0.1 0.1 - 0.3 mg/dL [facility] Protein, pl 7.0 6.5 - 8.5 g/dL [facility] Albumin 4.0 3.5 - 5.0 g/dL [facility] Alk phos 75 40 - 130 Units/L [facility] ALT 16 7 - 45 Units/L [facility] AST 34 10 - 45 Units/L [facility] Blood 09/25/2024 3:25 PM CDT 09/25/2024 9:16 PM CDT Fannie Son CATTLE TRADER LAB BLOOD ORDERABLES Final Res ult Performing Organization Address [facility] Co de Phone Number ROBY BOUDREAUX [address] [facility] [place] [address] * eGFR (05/01/2024 9:52 AM WIND SITE MANAGER) eGFR >90 >=60 mL/min/1. 73 m2 Comment: Interpretive Data Reference Interval Normal >/= 90 mL/min/1.73m2 Mildly decreased* 60 - 89 mL/min/1.73m2 Mildly to moderately decreased 45 - 59 mL/min/1.73m2 Moderately to severely decreased 30 - 44 mL/min/1.73m2 Severely decreased 15 - 29 mL/min/1.73m2 Kidney Failure < 15 mL/min/1.73m2 *Relative to young adult level Estimated glomerular filtration rate is determined by the 2020 CKD-EPI equation recommended by the National Kidney Foundation (A Unifying Approach to GFR Estimation: Recommendations of the NKF-ASK Task Force on Reassessing the Inclusion of Race in Diagnosing Kidney Disease, JASN 2020). The CKD-EPI equation should not be used for patients with unstable renal function and has not been validated in children and those over 70. Current interpretive data was last reviewed 2021. Blood 05/01/2024 9:52 AM WIND SITE MANAGER 05/01/2024 5:02 PM WIND SITE MANAGER Aristides Hernandez MD LAB BLOOD ORDERABLES Abeba l Result Performing Organization Address [facility] Co de Phone Number ROBY [phone] [address] [place] [address] * Albumin Creatinine Ratio, Urine (05/01/2024 9:52 AM WIND SITE MANAGER) Albumin Ur 15.4 mg/L Comment: Interpretive Data No reference range established. Current interpretive data was last revised 2018. Creatinine Ur 226.6 mg/dL ROBY Comment: Interpretive Data No reference range established. Current interpretive data was last revised 2018. Albumin Creatinine Ratio, Ur 7 1 - 29 mg/g ROBY BOUDREAUX Urine 05/01/2024 9:52 AM WIND SITE MANAGER 05/01/2024 4:44 PM WIND SITE MANAGER Aristides Hernandez MD LAB URINE ORDERABLES Abeba l Result Performing Organization Address [facility] Co de Phone Number ROBY [phone] [facility] [place] [address] * Screening Mammogram Bilateral W Nael (04/27/2024 3:13 PM WIND SITE MANAGER) Anatomical Region Laterality Modality Breast Bilateral Mammography Narrative 04/30/2024 10:17 AM WIND SITE MANAGER Mammogram Technique: Bilateral Digital Breast Tomosynthesis, Bilateral C-view 2D Screening mammogram. Views obtained: bilateral craniocaudal and bilateral mediolateral oblique. Computer Aided Detection was performed. Mammogram Findings: The present examination has been compared to prior imaging studies performed at [facility] on 03/24/2022 and 04/14/2023, at [facility]. [facility] on 12/10/2021, and at [place], [place] on 06/07/2019. There are scattered areas of fibroglandular density. There is asymmetry in the central breast on the craniocaudal view of the left breast. There is no suspicious abnormality in the right breast. Impression: Asymmetry in the left breast requires additional evaluation. Diagnostic mammogram and possible ultrasound of the left breast are recommended at this time. OVERALL FINAL ASSESSMENT: BI-RADS CATEGORY 0: Incomplete: Need additional imaging evaluation. Procedure Note Germán Hernandez MD - 04/30/2024 Mammogram Technique: Bilateral Digital Breast Tomosynthesis, Bilateral C-view 2D Screening mammogram. Views obtained: bilateral craniocaudal and bilateral mediolateral oblique. Computer Aided Detection was performed. Mammogram Findings: The present examination has been compared to prior imaging studies performed at [facility] on 03/24/2022 and 04/14/2023, [facility]. [facility] on 12/10/2021, and at [place], [place] on 06/07/2019. There are scattered areas of fibroglandular density. There is asymmetry in the central breast on the craniocaudal view of the left breast. There is no suspicious abnormality in the right breast. Impression: Asymmetry in the left breast requires additional evaluation. Diagnostic mammogram and possible ultrasound of the left breast are recommended at this time. OVERALL FINAL ASSESSMENT: BI-RADS CATEGORY 0: Incomplete: Need additional imaging evaluation. Evita Montenegro NP IMG MAMMO PROCEDURES Final Result * DIABETES EYE EXAM (10/07/2023 2:06 PM CDT) SCRIBED DIABETIC DILATED EYE EXAM Normal Historical Provider HEALTH MAINTENANCE Edited Result - Final from Last 3 Months or Most Recently Relevant to Health Maintenance Insurance [id number] [id number] [facility] [facility] Advance Directives For more information, please contact: [phone] * Full Code (Latest Code Status on File) Date Activated Date Inactivated Comments 01/23/2024 11:09 AM 01/24/2024 10:02 PM * Full Code Date Activated Date Inactivated Comments 03/16/2023 12:28 PM 03/17/2023 4:33 PM * Full Code Date Activated Date Inactivated Comments 11/23/2022 1:06 PM 11/23/2022 7:34 PM * Full Code Date Activated Date Inactivated Comments 07/05/2022 2:26 PM 07/06/2022 7:35 PM * Full Code Date Activated Date Inactivated Comments 04/13/2022 3:22 PM 04/14/2022 4:35 PM Care Teams Bindery Machine Tender Relationship Specialty Start Date End Date Aristides Hernandez MD [address] [place] [address] PCP - General Family Medicine 10/11/18 Alonso Cason MD [address] [place] [address] [address] Graduate Recruiter Obstetrics and Gynecology 01/21/22
--- OUTSIDE RECORDS SUMMARY | 2024-11-22 09:38 | XMS_ITS | Encounter Summary ---
Author Organization [facility] Address [facility] [place] [address] Care Team Providers Care Tie Carrier Name Role Phone Aristides Hernandez MD Primary Care Provider [phone] Don Oliver MD Unavailable [phone] Encounter Details Date Type Department Care Team (Late Contact Info) Description 06/25/2022 Hospital Orders Only [facility] Host/Hostess Restaurant [employer] [address] [place] [address] Don Oliver MD [address] [place] [address] Social History Tobacco Use Types Packs/Day Years Used Date Smoking Tobacco: Never Passive Smoke Exposure: Never Smokeless Tobacco: Never Alcohol Use Standard Drinks/Week Comments Not Currently 0 (1 standard drink = 0.6 oz pur e alcohol) Comments Unknown Sex and Gender Information Value Date Recorded Sex Assigned at Female 05/11/2024 12:29 PM CUSTOMER CONTACT SPECIALIST Legal Sex Female 10:33 PM CDT Gender Identity Not on file Sexual Orientation Not on file 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 No / Unsure 06/24/2022 8:27 AM CDT documented as of this encounter Plan of Treatment Upcoming Encounters Date Type Department Care Team (Late Contact Info) Description 11/26/2024 9:30 AM CDT Office Visit [facility] eld [address] [place] [phone] Don Oliver MD [address] [place] [phone] 05/06/2025 2:30 PM CUSTOMER CONTACT SPECIALIST Office Visit [facility] [address] [place] [phone] Don Oliver MD [address] [place] [phone] documented as of this encounter Visit Diagnoses Not on filedocumented in this encounter Care Teams Tie Carrier Relationship Specialty Start Date End Date Aristides Hernandez MD [address] [place] [address] PCP - General INTERNAL MEDICINE 04/01/22 Don Oliver MD [address] [place] [phone] EP [employer] CLINICAL CARDIAC ELECTROPHYSIOLOGY 05/04/22 documented as of this encounter
--- OUTSIDE RECORDS SUMMARY | 2024-11-22 09:38 | XMS_ITS | Encounter Summary ---
Author Organization [facility] Address [address] [place] [address] Care Team Providers Care Racehorse Trainer Name Role Phone Aristides Hernandez MD Primary Care Provider [phone] Alonso Cason MD Unavailable [phone] Encounter Details Date Type Department Care Team (Late st Contact Info) Description 10/09/2024 Results [facility] [address] [address] Gisell Walker, PRIT[address] [place] [address] CBC with auto differential, Lipid panel, Hemoglobin A1c, Differential, auto Social History Tobacco Use Types Packs/Day Years [...] How often do you attend chur or buddhism services? Patient declined 04/14/2022 Do you belong to any clubs o r organizations such as congregational groups, unions, fraternal or athletic groups, or [...] on file Legal Sex Female 2:38 AM UNIFORM ATTENDANT Gender Identity Female 12/30/2023 11:42 PM CDT Sexual Orientation Straight 12/13/2018 10 :54 AM CDT documented as of this encounter Miscellaneous Notes * Result Encounter Note - Toya Gore CMA - 10/10/2024 8:29 AM CDT Patient reached out via patient message and forward to provider. documented in this encounter Plan of Treatment Not on file documented as of this encounter Visit Diagnoses Not on filedocumented in this encounter Care Teams Racehorse Trainer Relationship Specialty Start Date End Date Aristides Hernandez MD [address] [place] [address] PCP - General Family Medicine 10/11/18 Alonso Cason MD [address] [place] [address] [address] Bronze Plater Obstetrics and Gynecology 01/21/22 documented as of this encounter
--- OUTSIDE RECORDS SUMMARY | 2024-11-22 09:38 | XMS_ITS | Continuity of Care Document ---
Author Organization [facility] Address [address] [facility] [address] [place] [address] Insurance Providers Payer Plan Claims Address Claims Phone Policy Number Group Number Relation Employer Guarantor Name Guarantor Guarantor Address Guarantor Phone [facility] [place] [id number] [facility] Shree son [id number] Self Latanya Haynes 1980 [address], [place] [id number] [facility] [address] [address], [place] [address] Self Latanya Haynes 1980 [address], [place] [id number] [facility] [id number] Self Latanya Haynes 1980 [address], [place] [id number] Problems Condition ICD9 code ICD10 code SNOMED code Start Date End Date S tatus Encounter for screening for other metabolic disorders Z13.228 Results Test Value / Unit Interpretation Reference Ran Comp. Metabolic Panel (14)[[id number]] Collected: 11/27/2020 04:29 PM Specimen Received: 11/27/2020 05:00 AM Source: [facility] Glucose [518167] 160 mg/dL H 65-99 mg/dL BUN [002162] 9 mg/dL 6-20 mg/dL Creatinine [311625] 0.93 mg/dL 0.57-1.0 0 mg/dL eGFR If NonAfricn Am [352515] 78 mL/min/1.73 >59 mL/min/1.73 eGFR If Africn Am [652518] 90 mL/min/1.73 >59 mL/min/1.73 [facility] currently reports eGFR in compliance with the current recommendations of the National Kidney Foundation. [facility] will update reporting as new guidelines are published from the NKF-ASN Task force. BUN/Creatinine Ratio [679807] 10 9-23 Sodium [685122] 141 mmol/L 134-144 mmol /L Potassium [648601] 3.9 mmol/L 3.5-5.2 m mol/L Chloride [477124] 106 mmol/L 96-106 mmo l/L Carbon Dioxide, Total [897949] 23 mmol/L 20-29 mmol/L Calcium [122161] 8.9 mg/dL 8.7-10.2 mg /dL Protein, Total [496417] 6.9 g/dL 6.0- 8.5 g/dL Albumin [258204] 3.8 g/dL 3.8-4.8 g/d L Globulin, Total [360353] 3.1 g/dL 1.5 -4.5 g/dL A/G Ratio [507907] 1.2 1.2-2.2 Bilirubin, Total [358291] 0.6 mg/dL 0. 0-1.2 mg/dL Alkaline Phosphatase [749082] 136 IU/L H 48-121 IU/L AST (SGOT) [984258] 33 IU/L 0-40 IU/ L ALT (SGPT) [846319] 31 IU/L 0-32 IU/ L Lipid Panel[289005] Collected: 11/27/2020 04:29 PM Specimen Received: 11/27/2020 05:00 AM Source: [facility] Cholesterol, Total [034016] 156 mg/dL 100-199 mg/dL Triglycerides [905654] 112 mg/dL 0-149 mg/dL HDL Cholesterol [202961] 38 mg/dL L >39 mg/dL VLDL Cholesterol Kraig [527758] 20 mg/dL 5-40 mg/dL LDL Chol Calc (NIH) [819438] 98 mg/dL 0-99 mg/dL Albumin/Creatinine Ratio,Uri ne[165176] Collected: 11/27/2020 04:29 PM Specimen Received: 11/27/2020 05:00 AM Source: [facility] Creatinine, Urine [169467] 164.2 mg/dL N ot Estab. mg/dL Albumin, Urine [723717] 11.1 ug/mL Not Estab. ug/mL Alb/Creat Ratio [738267] 7 mg/g creat 0-2 9 mg/g creat Normal: 0 - 29 Moderately i ncreased: 30 - 300 Severely increased: >300 Hemoglobin A1c[555925] Collected: 11/27/2020 04:29 PM Specimen Received: 11/27/2020 05:00 AM Source: [facility] Hemoglobin A1c [868838] 7.8 % H 4.8- 5.6 % . Prediabetes: 5.7 - 6.4 Miguelina betes: >6.4 Glycemic control for adults with diabetes: 7.0 Allergies, adverse reactions, alerts No known allergies and adverse reactions Medications No administered medications reported Vital Signs No vital signs reported Social History No smoking Hx information available
--- OUTSIDE RECORDS SUMMARY | 2024-11-22 09:38 | XMS_ITS | Clinical Summary ---
Author Organization [facility] Address [facility] [place] [address] Care Team Providers Care Gas Appliance Servicer Helper Name Role Phone Aristides Hernandez MD Primary Care Provider [phone] Don Oliver MD Unavailable [phone] Allergies Active Allergy Reactions Criticality Noted Date Comments Clarithromycin Hives,Itching,Rash High 12/05/2009 Latex Other (see comment) 04/30/2022 Metformin Itching Low 10/10/2018 Sulfa Antibiotics Hives,Rash,Itching Medium 11/20/2009 Wound Dressing Adhesive Itching,Rash Medium 04/12/2023 Dermabond Medications aspirin EC (ECOTRIN) 81 MG tablet Take 1 tablet (81 mg total) by mouth daily. Active atorvastatin (LIPITOR) 40 MG tablet Take 1 tablet (40 mg total) by mouth daily. 2 Active B Complex Vitamins Cap Take 1 capsule by mouth daily. Active cetirizine (ZYRTEC) 10 MG tablet Take 1 tablet (10 mg total) by mouth daily. Active Vitamin D, Ergocalciferol, 28004 units Cap Take 1 tablet by mouth once a week. Active Ferrous Sulfate (IRON) 325 (65 Fe) MG tablet Take 325 mg by mouth daily with breakfast. 3 Active Pediatric Multivit-Minerals -C (CHEWABLES MULTIVITAMIN OR) 3 Active famotidine (PEPCID) 10 MG tablet Take 1 tablet (10 mg total) by mouth 2 (two) times daily. Active Calcium-Magnesium -Vitamin D (CALCIUM 1200+D3 OR) 3 Active FLUoxetine (PROZAC) 10 MG tablet Take 1 tablet (10 mg total) by mouth daily. Active linaCLOtide (LINZESS) 290 MCG capsule Take 1 capsule (290 mcg total) by mouth every morning before breakfast. Take on empty stomach at least 30 minutes prior to first meal of the day. Swallow whole. Do not open capsule or chew. Active metoprolol succinate ER (TOPROL XL) 12.5 mg TABLET SR 24 HR 24 hr tablet Take 1 split tab (12.5 mg total) by mouth daily. 90 tablet 1 5 Active Active Problems Problem Noted Date Diagnosed Date Abnormal cardiovascular stress test 06/21/2022 Other chest pain 05/09/2022 SVT (supraventricular tachycardia) ([facility]) 06/2022 Mixed hyperlipidemia Family history of coronary artery disease Overview (05/09/2022): Mother at 38 with mi; father with cad Encounters Date Type Department Care Team Description 11/15/2024 [facility] [address] [place] [address] Don Oliver MD Low blood pressure 10/09/2024 Ne[employer] Message [employer] field [address] [place] [address] Don Oliver MD Low blood pressure from Last 3 Months Family History Medical History Relation Comments Heart Attack Father Stent Cardiac Father Stroke Father Valve Disease Father Heart Attack Maternal Grandmother Stent Cardiac Maternal Grandmother Valve Disease Maternal Grandmother Heart Attack Mother Valve Disease Mother Relation Status Comments Father Maternal Grandfather Maternal Grandmother Mother Paternal Grandfather Social History Tobacco Use Types Packs/Day Years Used Date Smoking Tobacco: Never Passive Smoke Exposure: Never Smokeless Tobacco: Never Tobacco Cessation:Counseling Given: Not Answered Alcohol Use Standard Drinks/Week Comments Not Currently 0 (1 standard drink = 0.6 oz pur e alcohol) Comments Unknown Sex and Gender Information Value Date Recorded Sex Assigned at Female 05/11/2024 12:29 PM SALES AND EVENTS COORDINATOR Legal Sex Female 10:33 PM CDT Gender Identity Not on file Sexual Orientation Not on file 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 Not on file Last Filed Vital Signs Vital Sign Reading Time Taken Comments Blood Pressure 110/70 05/11/2024 1:20 PM SALES AND EVENTS COORDINATOR Pulse 65 05/11/2024 1:20 PM SALES AND EVENTS COORDINATOR Temperature 35.7 C (96.3 F) 07/01/2022 9:00 AM CDT Respiratory Rate 16 05/11/2024 1:20 PM SALES AND EVENTS COORDINATOR Oxygen Saturation 94% 05/11/2024 1:20 PM SALES AND EVENTS COORDINATOR Inhaled Oxygen Concentration - - Weight 107.3 kg (236 lb 9.6 oz) 05/11/2024 1:20 PM SALES AND EVENTS COORDINATOR Height 165.1 cm (5' 5) 05/11/2024 1:20 PM SALES AND EVENTS COORDINATOR Body Mass Index 39.37 05/11/2024 1:20 PM SALES AND EVENTS COORDINATOR Plan of Treatment Upcoming Encounters Date Type Department Care Team (Late st Contact Info) Description 11/26/2024 9:30 AM CDT Office Visit [facility] [address] [place] [address] Don Oliver MD [address] [place] [address] 05/06/2025 2:30 PM SALES AND EVENTS COORDINATOR [facility] [address] [place] [address] Don Oliver MD [address] [place] [address] Health Maintenance Due Date Last Done Comments Annual Physical 1984 Hepatitis B Vaccines (2 of 3 - 19+ 3-dose series) 03/14/2007 02/14/2007 HPV Vaccines (1 - 3-dose SCDM series) 2008 Cervical Cancer Screening Pap with HPV Testing (Age 30 to 64) Every 5 Years 12/07/2011 COVID-19 Vaccine ( season) 2023 06/03/2020, 05/06/2020 Mammogram Screening 04/27/2026 04/27/2024, 04/14/2023, 03/24/2022 Cervical Cancer Screening Pap Smear (Age 30 to 64) Every 3 Years 08/09/2026 08/10/2023, 05/31/2022, 05/29/2021, Additional history exists Cervical Cancer Screening with HPV 08/09/2026 DTaP, Tdap and Td Vaccines (8 - Td or Tdap) 01/02/2032 01/01/2022, 2009, 02/14/2007, Additional history exists Hepatitis C Completed 01/15/2022 Meningococcal Vaccine Aged Out 06/09/2022 No deepika rhea eligible based on patient's age to complete this topic Pneumococcal Vaccine: Pediatrics (0 to 5 Years) and At-Risk Patients (6 to 49 Years) Aged Out 06/09/2022 No longer eligible based on patient's age to complete this topic Meningococcal B Vaccine Aged Out No l onger eligible based on patient's age to complete this topic RSV Immunizations Under 20 Months Aged Out No longer eligible based on patient's age to complete this topic Insurance [facility] Advance Directives * Full Code (Latest Code Status on File) Date Activated Date Inactivated Comments 07/01/2022 12:00 PM 07/01/2022 3:52 PM Care Teams Gas Appliance Servicer Helper Relationship Specialty Start Date End Date Aristides Hernandez MD [address] [facility] [place] [address] PCP - General INTERNAL MEDICINE 04/01/22 Don Oliver MD [address] [place] [address] EP Stitcher Set Up Operator Automatic CLINICAL CARDIAC ELECTROPHYSIOLOGY 05/04/22
--- OUTSIDE RECORDS SUMMARY | 2024-11-22 09:38 | XMS_ITS | Clinical Summary ---
Author Organization [facility] Address [address] [place] [address] Phone Care Team Providers Care Examination Proctor Name Role Phone Provider, Unknown Primary Care Provider Unavaila ble Allergies Active Allergy Reactions Criticality Noted Date Comments Clarithromycin Rash Medium 10/10/2018 Metformin Itching Low 10/10/2018 Sulfa Antibiotics Hives,Rash Medium 10/10/2018 Medications aspirin EC 81 MG Tablet Delayed Response Take 81 mg by mouth. Active atorvastatin (LIPITOR) 40 MG Tablet TAKE ONE TABLET BY MOUTH DAILY 11/28/2019 Active omeprazole (PriLOSEC) 20 MG CAPSULE DELAYED RELEASE Take 20 mg by mouth. Active cetirizine (ZyrTEC) 10 MG Tablet Take 10 mg by mouth. Active Active Problems Problem Noted Date Diagnosed Date Family history of coronary artery disease 2024 Overview (04/16/2024): Mother at 38 with mi; father with cad Hypertension associated with diabetes 01/31/2024 S/P gastric sleeve procedure 03/25/2023 Mixed hyperlipidemia 02/28/2023 Controlled type 2 diabetes m ellitus with hyperglycemia, without long-term current use of insulin 06/30/2022 Abnormal cardiovascular stress test 06/21/2022 SVT (supraventricular tachycardia) 05/07/2022 Dyslipidemia 04/14/2022 Abnormal mammogram of right breast 03/24/2022 Morbid (severe) obesity due to excess calories 0 07/10/2021 Atrial fibrillation 05/30/2019 History of loop electrical excision procedure (L EEP) 05/15/2019 Dysthymia 05/30/2017 Allergic rhinitis due to pollen 12/02/2016 Polycystic ovaries 04/16/2016 Idiopathic osteoarthritis 08/25/2015 Encounters Date Type Department Care Team Description 10/22/2024 Telephone [facility] [address] [place] [address] Ewelina Ram RN [facility] 10/12/2024 Patient Outreach [facility] [address] [place] [address] Daiana Rodriguez, [employer] MEAT CUT[employer], [employer] from Last 3 Months Immunizations Immunization Administration Dates Next Due DTP Vaccine 10/15/1986, 6,08/06/1982,1982,02/14/1982 Hepatitis B Vaccine 02/14/2007 Influenza Vaccine,unspecifie d Formulation 01/03/2020,01/02/2019,01/02/2018 MMR Vaccine 09/11/1991,02/22/1984 OPV 10/15/1986, 6,02/22/1984,1982,02/14/1982 TD VACCINE 02/14/2007,09/22/1995 TDAP Vaccine 01/01/2022,2009 Social History Tobacco Use Types Packs/Day Years Used Date Smoking Tobacco: Never Smokeless Tobacco: Never Comments No Sex and Gender Information Value Date Recorded Sex Assigned at Not on file Legal Sex Female 11:08 AM TREADLE CUT OFF SAW OPERATOR Gender Identity Not on file Sexual Orientation Not on file Last Filed Vital Signs Vital Sign Reading Time Taken Comments Blood Pressure 146/80 03/09/2020 12:24 PM TREADLE CUT OFF SAW OPERATOR Pulse 81 03/09/2020 12:24 PM TREADLE CUT OFF SAW OPERATOR Temperature 36.4 C (97.6 F) 03/09/2020 12:24 PM TREADLE CUT OFF SAW OPERATOR Respiratory Rate 16 03/09/2020 12:24 PM TREADLE CUT OFF SAW OPERATOR Oxygen Saturation 98% 03/09/2020 12:24 PM TREADLE CUT OFF SAW OPERATOR Inhaled Oxygen Concentration - - Weight - - Height - - Body Mass Index - - Plan of Treatment Health Maintenance Due Date Last Done Comments Diabetes: Eye Exam 1980 Diabetes: Foot Exam 1980 Hepatitis C Virus (HCV) Screening 1980 Diabetes: Nephropathy Screening 12/07/1999 Pap Smear 2002 Hepatitis B Immunization (2 of 3 - 19+ 3-dose series) 03/14/2007 02/14/2007 Human Papillomavirus (HPV) Immunization (1 - 3-dose SCDM series) 2008 Cervical Cancer Screening (CCS) 12/07/2011 HPV/Cotest 12/07/2011 SARS-COV-2 Immunization ( season) 2023 06/03/2020, 05/06/2020 Influenza Immunization (#1) 12/03/202411/04, 12/08/2022, 01/06/2022, Additional history exists Diabetes: Hemoglobin A1c 04/10/2025 025, 10/25/2023, 09/28/2022, Additional history exists Mammogram 04/27/2025 04/27/2024, 04/14/2023 DTaP/Tdap/Td Immunization (8 - Td or Tdap) 01/02/2032 01/01/2022, 2009, 02/14/2007, Additional history exists Respiratory Syncytial Virus (RSV) Immunization (Adult) (1 - 1-dose 75+ series) 2056 Meningococcal Immunization (ACWY) Aged Out 06/09/2022 No longer eligible based on patient's age to complete this topic Pneumococcal Immunization Combined Completed 06/09/2022 Discussion re Starting/Frequency of Mammograms Completed 05/18/2024, 04/27/2024, 04/14/2023 Rotavirus Immunization Aged Out No lo nger eligible based on patient's age to complete this topic Insurance [facility] [employer] * Guarantor: [employer] Account Type Relation to Patient Date of Phone Billing Address Institutional Other [address] [place] [address] Care Teams Examination Proctor Relationship Specialty Start Date End Date Provider, Unknown UNKNOWN PCP - General 03/04/20
--- OUTSIDE RECORDS SUMMARY | 2024-11-22 09:38 | XMS_ITS | Encounter Summary ---
Author Organization [facility] Address [facility] [place] [address] Care Team Providers Care Civil Preparedness Coordinator Name Role Phone Aristides Hernandez MD Primary Care Provider [phone] Don Oliver MD Unavailable [phone] Encounter Details Date Type Department Care Team (Late Contact Info) Description 11/15/2024 MyChart Message [facility] [address] [place] [address] Don Oliver MD [address] [place] [address] Low blood pressure Social History Tobacco Use Types Packs/Day Years Used Date Smoking Tobacco: Never Passive Smoke Exposure: Never Smokeless Tobacco: Never Alcohol Use Standard Drinks/Week Comments Not Currently 0 (1 standard drink = 0.6 oz pur e alcohol) Comments Unknown Sex and Gender Information Value Date Recorded Sex Assigned at Female 05/11/2024 12:29 PM SENIOR SHAREPOINT ARCHITECT Legal Sex Female 10:33 PM CDT Gender Identity Not on file Sexual Orientation Not on file 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 Not on file documented as of this encounter Plan of Treatment Upcoming Encounters Date Type Department Care Team ([facility] Contact Info) Description 11/26/2024 9:30 AM CDT Office Visit [facility] [address] [place] [address] Don Oliver MD [address] [place] [address] 05/06/2025 2:30 PM SENIOR SHAREPOINT ARCHITECT Office Visit [facility] [address] [place] [address] Don Oliver MD [address] [place] [address] documented as of this encounter Visit Diagnoses Not on filedocumented in this encounter Care Teams Civil Preparedness Coordinator Relationship Specialty Start Date End Date Aristides Hernandez MD [address] [place] [address] PCP - General INTERNAL MEDICINE 04/01/22 Don Oliver MD [address] [place] [id number] EP Hops Farmworker CLINICAL CARDIAC ELECTROPHYSIOLOGY 05/04/22 documented as of this encounter
--- OUTSIDE RECORDS SUMMARY | 2024-11-22 09:38 | XMS_ITS ---
Author Organization [facility] Address [address] [place] [address] Phone Care Team Providers Care Mobile Sales Expert Name Role Phone Provider, Unknown Primary Care Provider Unavaila anival Chua Chronic Condition Monitoring Status:Enrolled (Active) Start date:03/16/2023 Enrollment date:03/17/2023 Current support & services provided:Diabetes Management, Hypertension Management Related social drivers of health:Intimate Partner Violence, Social Connections, Alcohol Use, Tobacco Use, Financial Resource Strain,Depression, Stress, Physical Activity, Food Insecurity, Transportation Needs, Housing Stability, Utilities Continued Care and Services Coordination
--- OUTSIDE RECORDS SUMMARY | 2024-11-22 09:38 | XMS_ITS | Encounter Summary ---
Author Organization [facility] Address [address] [place] [address] Phone Care Team Providers Care Construction Analyst Name Role Phone Provider, Unknown Primary Care Provider Unavaila ble Encounter Details Date Type Department Care Team (Late st Contact Info) Description 01/15/[address] [facility] [address] [place] [address] Nirali Coulter, REPRODUCTIVE SURGEON, BROOMCORN THRESHER [address] [place] [address] Encounter for pre-employment examination Social History Tobacco Use Types Packs/Day Years Used Date Smoking Tobacco: Never Smokeless Tobacco: Never Comments No Sex and Gender Information Value Date Recorded Sex Assigned at Not on file Legal Sex Female 11:08 AM FIRE HYDRANT OPERATOR Gender Identity Not on file Sexual Orientation Not on file COVID-19 Exposure Response Date Recorded In the last 10 days, have yo u been in contact with someone who was confirmed or suspected to have Coronavirus/COVID-19? No / Unsure 01/15/2022 9:41 AM CDT documented as of this encounter Plan of Treatment Not on file documented as of this encounter Procedures Procedure Name Priority Date/Time Associated Diagnosis Comments QUANTIFERON-TB GOLD PLUS Routine 01/15/2022 10:20 AM CDT Encounter for pre-employment examination MMRV PANEL Routine 01/15/2022 10:20 AM CDT Encounter for pre-employment examination MUMPS IGG Routine 01/15/2022 10:20 AM CDT Encounter for pre-employment examination HERPES ZOSTER (VARICELLA) IGG Routine 01/15/2022 10:20 AM CDT Encounter for pre-employment examination RUBEOLA (MEASLES) IGG Routine 01/15/2022 10:20 AM CDT Encounter for pre-employment examination RUBELLA IMMUNITY IGG Routine 01/15/2022 10:20 AM CDT Encounter for pre-employment examination HEPATITIS B SURFACE ANTIBODY (HBSAB) Routine 01/15/2022 10:20 AM CDT Encounter for pre-employment examination documented in this encounter Results * HERPES ZOSTER (VARICELLA) IGG (01/15/2022 10:20 AM CDT) VARICELLA ZOSTER IGG 3.6 >=1.1 AI 01/15/2022 10:30 PM CDT [facility] Blood No Phlebotomy Charged / Unknown 01/15/2022 10:20 AM CDT 01/15/2022 12:45 PM CDT Narrative [facility] - 01/15/2022 10:30 PM CDT <= 0.8 Negative. No detectable VZV IgG antibody. 0.9 - 1.0 Equivocal >=1.1 Positive Antibody testing was performed by multiplex flow immunoassay on the Tbricks platform. us Nirali L Behrends REPRODUCTIVE SURGEON, BROOMCORN THRESHER IMMUNOLOGY ORDERABL ES Final Result [facility] [address] [place] [address], * RUBEOLA (MEASLES) IGG (01/15/2022 10:20 AM CDT) MEASLES AB IGG 1.9 >=1.1 AI 01/15/2022 10:30 PM CDT [facility] Blood No Phlebotomy Charged / Unknown 01/15/2022 10:20 AM CDT 01/15/2022 12:45 PM CDT Narrative [facility] - 01/15/2022 10:30 PM CDT <= 0.8 Negative. No detectable Measles IgG antibody. 0.9 - 1.0 Equivocal >=1.1 Positive Antibody testing was performed by multiplex flow immunoassay on the BioPlex platform. us Nirali Coulter APRN, CNP IMMUNOLOGY ORDERABL ES Final Result Performing Organization Address [facility] Co de Phone Number [facility] [address] [place] [address], [place] * RUBELLA IMMUNITY IGG (01/15/2022 10:20 AM CDT) RUBELLA IMMUNITY Immune Immune, Invalid 01/15/2022 10:30 PM CDT [facility] Blood No Phlebotomy Charged / Unknown 01/15/2022 10:20 AM CDT 01/15/2022 12:45 PM CDT Narrative [facility] - 01/15/2022 10:30 PM CDT Antibody testing was performed by multiplex flow immunoassay on the BioPlex platform. us Nirali Coulter APRN, CNP CHEMISTRY ORDERABLE S Final Result Performing Organization Address [facility] Co de Phone Number [facility] [address] [place] [address], [place] * MUMPS IGG (01/15/2022 10:20 AM CDT) Mumps Ab IgG 2.8 >=1.1 AI 01/15/2022 10:30 PM CDT [facility] Blood No Phlebotomy Charged / Unknown 01/15/2022 10:20 AM CDT 01/15/2022 12:45 PM CDT Narrative [facility] - 01/15/2022 10:30 PM CDT <= 0.8 Negative. No detectable Mumps IgG antibody. 0.9 - 1.0 Equivocal >=1.1 Positive Antibody testing was performed by multiplex flow immunoassay on the Tbricks platform. us Nirali Coulter APRN, CNP IMMUNOLOGY ORDERABL ES Final Result [facility] [address] [place] [address], [place] * QUANTIFERON-TB GOLD PLUS (01/15/2022 10:20 AM CDT) NIL CONTROL 0.03 <8.01 IU/mL 01/18/2022 2:10 PM CDT [facility] TB ANTIGEN 1 0.00 <0.35 IU/mL 01/18/2022 2:10 PM CDT [facility] TB ANTIGEN 2 0.00 <0.35 IU/mL 01/18/2022 2:10 PM CDT [facility] MITOGEN CONTROL >10.00 >0.49 IU/mL 01/19/20 2:10 PM CDT [facility] INTEPRETATION TB NEGATIVE NEGATIVE, NEGATIVE (TB antigen response less than 25% of internal negative control value) 01/18/2022 2:10 PM CDT [facility] Comment:No immune response t o Mycobacterium tuberculosis antigens was noted. M. tuberculosis infection unlikely. Blood No Phlebotomy Charged / Unknown 01/15/2022 10:20 AM CDT 01/15/2022 12:45 PM CDT Narrative [facility] - 01/18/2022 2:10 PM CDT A POSITIVE QUANTIFERON-TB GOLD PLUS RESULT SHOULD NOT BE THE SOLE OR DEFINITIVE BASIS FOR DETERMINING INFECTION WITH M.TUBERCULOSIS. Diagnosing or excluding tuberculosis disease, and assessing the probability of LTBI, requires a combination of epidemiological, historical, medical and diagnostic findings (e.g., acid fast bacilli (AFB) smear and culture, chest xray) that should be taken into account when interpreting QFT-Plus results. Furthermore, the magnitude of the measured gamma interferon level cannot be correlated to stage or degree of infection, level of immune responsiveness, or likelihood for progression to active disease. The Nil control adjusts for background (e.g., elevated levels of circulating gamma interferon or presence of heterophile antibodies). The Mitogen control serves as an internal positive control and verifies each specimen tested can produce a gamma interferon response. Low mitogen may occur with insufficient lymphocytes, reduced lymphocyte activity due to improper specimen handling, filling/mixing of the mitogen tube, or inability of the patient's lymphocytes to generate gamma interferon. Infection with other Mycobacteria, including M. kansasii, M. szulgai, and M. marinum, may cause false positive results. A negative QuantiFERON-TB Gold Plus result does not preclude the possibility of M. tuberculosis infection or tuberculosis disease: false negative results can be due to incorrect blood sample collection/ improper handling of the specimen, stage of infection (e.g., specimen obtained prior to the development of cellular immune response), co-morbid conditions which affect immune function, or other individual immunological factors. The minimum number of lymphocytes required for a reliable test has not been established and may also be variable. Diagnostic testing for Mycobacterium tuberculosis using Interferon Gamma Release Assays should follow applicable published guidelines, including when testing in populations such as children, women, and HIV-infected or otherwise immunocompromised individuals. https://www.cdc.gov/tb/publications/guidelines/testing.htm us Nirali Coulter REPRODUCTIVE SURGEON, BROOMCORN THRESHER IMMUNOLOGY ORDERABL ES Final Result Performing Organization Address [facility] Co de Phone Number [facility] [address] [place] [address], * HEPATITIS B SURFACE ANTIBODY (HBSAB) (01/15/2022 10:20 AM CDT) HEPATITIS B SURFACE ANTIBODY 134.00 mIU/mL [facility] ARCH [id number] 01/15/2022 10:17 PM CDT [facility] Comment: Detected Range: >12.00 Individual is considered immune to HBV infection Blood No Phlebotomy Charged / Unknown 01/15/2022 10:20 AM CDT 01/15/2022 12:45 PM CDT us Nirali Coulter REPRODUCTIVE SURGEON, BROOMCORN THRESHER CHEMISTRY ORDERABLE S Final Result Performing Organization Address [facility] Co de Phone Number [facility] [address] [place] [address], documented in this encounter Visit Diagnoses Diagnosis Encounter for pre-employment examination Health examination of defined subpopulation documented in this encounter Care Teams Construction Analyst Relationship Specialty Start Date End Date Provider, Unknown UNKNOWN PCP - General 03/04/20 documented as of this encounter
--- OUTSIDE RECORDS SUMMARY | 2024-11-22 09:38 | XMS_ITS | Encounter Summary ---
Author Organization [facility] Address [address] [place] [address] Care Team Providers Care Program Project Analyst Name Role Phone Aristides Hernandez MD Primary Care Provider [phone] Alonso Cason MD Unavailable [phone] Encounter Details Date Type Department Care Team (Late st Contact Info) Description 11/21/2024 Orders Only [facility] [address] [facility] [place] [address] Aristides Hernandez MD [address] [place] [address] Hypotension, unspecified hypotension type (Primary Dx) Social History Tobacco Use Types Packs/Day Years [...] How often do you attend chur or confucianist services? Patient declined 04/14/2022 Do you belong to any clubs o r organizations such as jew groups, unions, fraternal or athletic groups, or [...] money to buy more. Never true 04/14/19 Within the past 12 months, t he [...] on file Legal Sex Female 2:38 AM INTERNATIONAL PROJECT MANAGER Gender Identity Female 12/30/2023 11:42 PM CDT Sexual Orientation Straight 12/13/2018 10 :54 AM CDT documented as of this encounter Plan of Treatment Scheduled Orders Name Type Priority Associated Diagnoses Orde r Schedule Cortisol Lab Routine Hypotension, unspecified hypotension type Expected: 11/24/2024, Expires: 11/21/2025 TSH Lab Routine Hypotension, unspecified hypotension type Expected: 11/24/2024, Expires: 11/21/2025 T4, free Lab Routine Hypotension, unspecified hypotension type Expected: 11/24/2024, Expires: 11/21/2025 documented as of this encounter Visit Diagnoses Diagnosis Hypotension, unspecified hypotension type- Primary documented in this encounter Care Teams Program Project Analyst Relationship Specialty Start Date End Date Aristides Hernandez MD [address] [place] [address] PCP - General Family Medicine 10/11/18 Alonso Cason MD [address] [place] [address] [address] Yellow Pages Space Salesperson Obstetrics and Gynecology 01/21/22 documented as of this encounter
[2024-11-22 10:04] LABS: Anion Gap 8 mmol/L (4-12); Blood Urea Nitrogen 12 mg/dL (7-17); Calcium 9.6 mg/dL (8.4-10.2); Carbon Dioxide 23 mmol/L (22-30); Chloride 108 mmol/L (98-107); Estimated Glomerular Filt Rate > 60; Glucose 109 mg/dL (65-110); Potassium 3.9 mmol/L (3.4-5.0); Sodium 139 mmol/L (137-145)
== END 2024-11-22 09:03 | disposition home or self-care (01) ==
PROVIDERS: Anesthesiology; PCP Family Medicine; Visit Provider Obstetrics & Gynecology
DX: Z01.818 Encounter for other preprocedural examination (principal); R94.31 Abnormal electrocardiogram [ECG] [EKG]; R10.2 Pelvic and perineal pain
CPT/HCPCS: 36415; 80048; 86850; 86900; 86901; 93005

== ENCOUNTER 2024-11-28 00:29 | Day surgery (SDC) | payer BC, SELFPAY ==
--- OUTSIDE RECORDS SUMMARY | 2019-06-07 01:00 | XMS_ITS | Encounter Summary ---
Author Organization [facility] Healthcare Address [address] [place] [address] Care Team Providers Care Ring Packer Name Role Phone Aristides Hernandez MD Primary Care Provider [phone] Reason for Visit * Diagnostic Imaging (Routine) - Closed Specialty Diagnoses / Procedures Referred By Francesca cheung Referred To Contact Procedures Breast Imaging Diagnostic Outside Reference Evita Montenegro NP Phone: tel: fax: Referral ID Status Reason Start Date Expiration Date Visits Re quested Visits Authorized [id number] Closed 02/04/2022 03/06/2023 1 1 Encounter Details Date Type Department Care Team (Late st Contact Info) Description 06/07/2019 Hospital Encounter [facility] [address] [place] [id number] Social History Tobacco Use Types Packs/Day Years [...] How often do you attend chur or mormon services? Patient declined 04/14/2022 Do you belong to any clubs o r organizations such as yarsani groups, unions, fraternal or athletic groups, or [...] on file Legal Sex Female 2:38 AM COST ACCOUNTING MANAGER Gender Identity Female 12/30/2023 11:42 PM CDT Sexual Orientation Straight 12/13/2018 10 :54 AM CDT documented as of this encounter Functional Status * AUDIT-C Score Answer Date of Assessment Author 1 03/16/2023 7:36 AM COST ACCOUNTING MANAGER Kash Augustin, RN * Question Answer Date [...] DIAGNOSTIC OUTSIDE REFERENCE Routine 06/07/2019 12:00 AM COST ACCOUNTING MANAGER documented in this encounter Results * Breast Imaging Diagnostic Outside Reference (06/07/2019 12:00 AM COST ACCOUNTING MANAGER) Impressions [facility] - 02/04/2022 1:34 PM CDT These images are for Reference purposes only and have not been reviewed by [facility] Radiology. There will be no report generated by a [facility] Radiologist. Narrative [facility] - 02/04/2022 1:34 PM CDT EXAMINATION: Images For Reference Purposes Only us Evita Montenegro COMBINE MECHANIC IMG MAMMO PROCEDURES Final Result [facility] documented in this encounter Visit Diagnoses Not on filedocumented in this encounter Care Teams Ring Packer Relationship Specialty Start Date End [place] [address] PCP - General Family Medicine 10/11/18 documented as of this encounter
--- OUTSIDE RECORDS SUMMARY | 2019-06-07 01:05 | XMS_ITS | Encounter Summary ---
Author Organization [facility] Healthcare Address [address] [place] [address] Care Team Providers Care News Videotape Editor Name Role Phone Aristides Hernandez MD Primary Care Provider [phone] Reason for Visit * Diagnostic Imaging (Routine) - Closed Specialty Diagnoses / Procedures Referred By Francesca cheung Referred To Contact Procedures Breast Imaging US Outside Reference Evita Montenegro NP Phone: tel: fax: Referral ID Status Reason Start Date Expiration Date Visits Re quested Visits Authorized [id number] Closed 02/04/2022 03/06/2023 1 1 Encounter Details Date Type Department Care Team (Late st Contact Info) Description 06/07/2019 12:05 AM PONY ROUGHER Hospital Encounter [facility] [address] [place] [address] Social History Tobacco Use Types Packs/Day [...] week 04/14/2022 How often do you attend [facility] or hindu services? Patient declined 04/14/2022 Do you belong to any clubs o r organizations such as taoist groups, unions, fraternal or athletic groups, or [...] on file Legal Sex Female 2:38 AM PONY ROUGHER Gender Identity Female 12/30/2023 11:42 PM CDT [...] US OUTSIDE REFERENCE Routine 06/07/2019 12:05 AM PONY ROUGHER documented in this encounter Results * Breast Imaging US Outside Reference (06/07/2019 12:05 AM PONY ROUGHER) Impressions [facility] - 02/04/2022 1:34 PM CDT These images are for Reference purposes only and have not been reviewed by [facility]. There will be no report generated by a [facility] Radiologist. Narrative [facility] - 02/04/2022 1:34 PM CDT EXAMINATION: Images For Reference Purposes Only us Evita Montenegro BAIT PAINTER IMG MAMMO PROCEDURES Final Result [facility] documented in this encounter Visit Diagnoses Not on filedocumented in this encounter Care Teams News Videotape Editor Relationship Specialty Start Date End Date [place] [place] [address] PCP - General Family Medicine 10/11/18 documented as of this encounter
--- NOTE | 2024-11-20 12:50 | SUR.PREOP ---
Report to the Outpatient Waiting Room, entrance under the green pavilion located off [facility], at time _1130_ on date _11/28/24_. Planned Procedure Time: _1330_.? Time changes happen often and if your time is changed the preop area will call you the afternoon before. - You and your visitor will be asked to self-screen and do not enter if you have any COVID symptoms. Please call surgeon if you need to reschedule. - A mask is optional within the hospital at this time. Patients may have clear liquids (water, carbonated beverages, clear teas, apple juice) until 3 hours (1030) prior to surgery with a maximum of 20 ounces. - No food from midnight until time of surgery and no smoking, or chewing tobacco (or any form of nicotine). No chewing gum, candy or mints. Take only the following medications with a SIP of water on the morning of surgery: _FLUOXETINE, METOPROLOL_ DO NOT STOP ANY OF YOUR OTHER PRESCRIPTION MEDICATIONS PRIOR TO SURGERY EXCEPT THE FOLLOWING Hold all vitamins and supplements for 3 days per anesthesiologist. Medications to discontinue per physician _NA_ Please no make-up, nail greek, hairspray, perfume, deodorant, or body powder the day of surgery.? No jewelry (including any body piercings) or valuables the day of surgery, leave them at home.? Please take a shower or bath the night before, or the morning of, surgery with an antibacterial soap.? Wear comfortable, loose fitting clothing.? - Jewelry must be removed prior to entering the operating room.? Rings and piercings that are not removed may be cut off. - The hospital will not accept responsibility for valuables.? - Please leave all valuables, including medications, at home the day of surgery. If you are going home after surgery, a licensed cryogenic transport driver must drive you home.? - NO public transportation without another adult if you receive anesthesia. - We recommend that an adult stay with you for 24 hours following discharge. - We also recommend that you do not drive, make important decision, drink alcoholic beverages, or take any drugs that were not prescribed by your health care provider for at least 24 hours after your discharge time. Follow any additional instructions given to you from your surgeon. Telephone instructions given to _DAIANA_and asked if any additional questions and then verbalized understanding. Patient advised to call surgeon office or pre surgery nurse liaison [phone] if any additional questions.
[2024-11-20 12:59] VITALS: BMI 33.5
[2024-11-28] VITALS (12 sets, daily range): BP systolic 95–130; BP diastolic 41–77; PULSE 66–98; RESP 16–18; TEMP 36.2–37.1; O2SAT 95–100
--- OUTSIDE RECORDS SUMMARY | 2024-11-28 00:33 | XMS_ITS | Encounter Summary ---
Author Organization [facility] Address [address] [place] [address] Phone Care Team Providers Care Boiling Off Winder Name Role Phone Provider, Unknown Primary Care Provider Unavaila ble Encounter Details Date Type Department Care Team (Late st Contact Info) Description 01/15/2022 Lab Requisition [facility] [address] [place] [address] Nirali Coulter, LETTER OF CREDIT CLERK, POLYMERIZATION OVEN TENDER [address] [place] [address] Encounter for pre-employment examination Social History Tobacco Use Types Packs/Day Years Used Date Smoking Tobacco: Never Smokeless Tobacco: Never Comments No Sex and Gender Information Value Date Recorded Sex Assigned at Not on file Legal Sex Female 11:08 AM 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 No detectable VZV IgG antibody. 0.9 - 1.0 Equivocal >=1.1 Positive Antibody testing was performed by multiplex flow immunoassay on the VytronUS platform. us Nirali L Behrends LETTER OF CREDIT CLERK, POLYMERIZATION OVEN TENDER IMMUNOLOGY ORDERABL ES Final Result [facility] [address] [place] [address], * RUBEOLA (MEASLES) IGG (01/15/2022 10:20 AM CDT) MEASLES AB IGG 1.9 >=1.1 AI 01/15/2022 10:30 PM CDT [facility] Blood No Phlebotomy Charged / Unknown 01/15/2022 10:20 AM CDT 01/15/2022 12:45 PM CDT Narrative [facility] - 01/15/2022 10:30 PM CDT <= 0.8 Negative. No detectable Measles IgG antibody. 0.9 - 1.0 Equivocal >=1.1 Positive Antibody testing was performed by multiplex flow immunoassay on the BioPlex platform. us Nirali Coulter APRN, CNP IMMUNOLOGY ORDERABL ES Final Result Performing Organization Address [facility] Co de Phone Number [facility] [address] [place] [address], [place] * RUBELLA IMMUNITY IGG (01/15/2022 10:20 AM CDT) RUBELLA IMMUNITY Immune Immune, Invalid 01/15/2022 10:30 PM CDT [facility] Blood No Phlebotomy Charged / Unknown 01/15/2022 10:20 AM CDT 01/15/2022 12:45 PM CDT Narrative [facility] - 01/15/2022 10:30 PM CDT Antibody testing was performed by multiplex flow immunoassay on the BioPlex platform. us Nirali Coulter APRN, CNP CHEMISTRY ORDERABLE S Final Result Performing Organization Address [facility] Co de Phone Number [facility] [address] [place] [address], [place] * MUMPS IGG (01/15/2022 10:20 AM CDT) Mumps Ab IgG 2.8 >=1.1 AI 01/15/2022 10:30 PM CDT [facility] Blood No Phlebotomy Charged / Unknown 01/15/2022 10:20 AM CDT 01/15/2022 12:45 PM CDT Narrative [facility] - 01/15/2022 10:30 PM CDT <= 0.8 Negative. No detectable Mumps IgG antibody. 0.9 - 1.0 Equivocal >=1.1 Positive Antibody testing was performed by multiplex flow immunoassay on the VytronUS platform. us Nirali Coulter APRN, CNP IMMUNOLOGY ORDERABL ES Final Result [facility] [address] [place] [address], [place] * QUANTIFERON-TB GOLD PLUS (01/15/2022 10:20 AM CDT) NIL CONTROL 0.03 <8.01 IU/mL 01/18/2022 2:10 PM CDT [facility] TB ANTIGEN 1 0.00 <0.35 IU/mL 01/18/2022 2:10 PM CDT [facility] TB ANTIGEN 2 0.00 <0.35 IU/mL 01/18/2022 2:10 PM CDT [facility] MITOGEN CONTROL >10.00 >0.49 IU/mL 01/19/20 2:10 PM CDT [facility] INTEPRETATION TB NEGATIVE NEGATIVE, NEGATIVE (TB antigen response less than 25% of internal negative control value) 01/18/2022 2:10 PM CDT [facility] Comment:No immune response t o Mycobacterium tuberculosis antigens was noted. M. tuberculosis infection unlikely. Blood No Phlebotomy Charged / Unknown 01/15/2022 10:20 AM CDT 01/15/2022 12:45 PM CDT Narrative [facility] - 01/18/2022 2:10 PM CDT A [...] otherwise immunocompromised individuals. https://www.cdc.gov/tb/publications/guidelines/testing.htm us Nirali Coulter LETTER OF CREDIT CLERK, POLYMERIZATION OVEN TENDER IMMUNOLOGY ORDERABL ES Final Result Performing Organization Address [facility] Co de Phone Number [facility] [address] [place] [address], * HEPATITIS B SURFACE ANTIBODY (HBSAB) (01/15/2022 10:20 AM CDT) HEPATITIS B SURFACE ANTIBODY 134.00 mIU/mL [facility] ARCH [id number] B 01/15/2022 10:17 PM CDT [facility] Comment: Detected Range: >12.00 Individual is considered immune to HBV infection Blood No Phlebotomy Charged / Unknown 01/15/2022 10:20 AM CDT 01/15/2022 12:45 PM CDT us Nirali Coulter LETTER OF CREDIT CLERK, POLYMERIZATION OVEN TENDER CHEMISTRY ORDERABLE S Final Result Performing Organization Address [facility] Co de Phone Number [facility] [address] [place] [address], documented in this encounter Visit Diagnoses Diagnosis Encounter for pre-employment examination Health examination of defined subpopulation documented in this encounter Care Teams Boiling Off Winder Relationship Specialty Start Date End Date Provider, Unknown UNKNOWN PCP - General 03/04/20 documented as of this encounter
--- OUTSIDE RECORDS SUMMARY | 2024-11-28 00:33 | XMS_ITS | Clinical Summary ---
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..] patient's age to complete this topic Insurance [facility] [employer] * Guarantor: [employer] Account Type Relation to Patient Date of Phone Billing Address Institutional Other [id number] [place] [address] Care Teams Chicken Sexer Relationship Specialty Start Date End Date Provider, Unknown UNKNOWN PCP - General 03/04/20
--- OUTSIDE RECORDS SUMMARY | 2024-11-28 00:33 | XMS_ITS | Clinical Summary ---
Author Organization [facility] [address] [facility] Address [address] [place] [address] Care Team Providers Care Square Dance Caller Name Role Phone Aristides Hernandez MD Primary Care Provider [phone] Alonso Cason MD Unavailable [phone] Allergies Active Allergy Reactions Criticality Noted [...] accordingly. Assessment & Plan (05/01/2024 10:35 AM LINOTYPE MACHINIST): Stable on atorvastatin and will continue to follow repsonse. Mood disorder 05/01/2024 Assessment & Plan (10/08/2024 9:12 AM CDT): Reports well controlled on fluoxetine and will continue. Assessment & Plan (05/01/2024 10:35 AM LINOTYPE MACHINIST): COntinues on fluoxetine. Good response. Excellent insight. [...] reviewed. Assessment & Plan (05/01/2024 10:35 AM LINOTYPE MACHINIST): Stable on metoprolol XL. COntinue on BP [...] 03/25/2023 Assessment & Plan (04/12/2023 11:04 AM LINOTYPE MACHINIST): It looks like she is trying to [...] 03/25/2023 Assessment & Plan (04/12/2023 11:05 AM LINOTYPE MACHINIST): The patient continues to have significant issues [...] accordingly. Assessment & Plan (05/01/2024 10:34 AM LINOTYPE MACHINIST): Secondary prevneiton. Reviewed glycmeic control targets. No [...] Cardiology. Assessment & Plan (04/21/2022 3:38 PM LINOTYPE MACHINIST): Eliquis History of loop electrical excision procedure (L EEP) 05/15/2019 Assessment & Plan (07/20/2022 9:09 AM CDT): Given the persistent erythema a 1 cm incision was made at the inferior aspect of the wound. Predominantly serous fluid was removed with little bit of fat necrosis as well. The wound was then packed with [id number] iodoform packing. She will continue to do [...] 25 Assessment & Plan (05/01/2024 10:35 AM LINOTYPE MACHINIST): [place]cor[place] 150min/week aerobic exercise. Healthy food chocies. Severe obesity (BMI 35.0-39. 9) with comorbidity 05/01/2024 10/08/2024 Assessment & Plan (05/01/2024 10:35 AM LINOTYPE MACHINIST): As aboive. Chest pain, unspecified type 01/23/2024 [...] 04/21/202207/2022 Assessment & Plan (06/08/2022 11:20 AM LINOTYPE MACHINIST): I have had discussions with the vascular [...] splenectomy. Assessment & Plan (05/21/2022 11:13 AM LINOTYPE MACHINIST): Multiple splenic artery aneurysms, 1.8 cm saccular [...] her. Assessment & Plan (04/21/2022 3:19 PM LINOTYPE MACHINIST): 1.8 cm splenic artery aneurysm found incidentally [...] daily. Assessment & Plan (05/21/2022 11:13 AM LINOTYPE MACHINIST): Stable continue Lipitor 40 mg. Assessment & Plan (04/21/2022 3:38 PM LINOTYPE MACHINIST): Lipitor New onset a-fib 04/13/2022 10/08/2024 Assessment & Plan (06/30/2022 3:59 PM CDT): Scheduled [facility]20[facility]. Denies any chest pain, palpitations, dizziness, syncope [...] AM CDT): Continue to work with her certified personal trainer. Continue small frequent meals. Continue calcium, multivitamin vitamin-D. Continue to attend the weight loss groups. We will see her back in 6 months to reassess her progress. Assessment & Plan (02/07/2023 10:42 AM LINOTYPE MACHINIST): The patient has done well having lost [...] 023 Assessment & Plan (05/21/2022 11:13 AM LINOTYPE MACHINIST): Super morbid obesity, discussed given her body habitus any repair would be more difficult and higher risk. Morbid obesity 05/15/2019 10/08/2024 Encounters Date Type Department Care Team Description 11/23/2024 7:20 AM CDT Lab [facility] [address] [place], [place] Hypotension, unspecified hypotension type 11/22/2024 Orders Only [facility] Health Information Management [address] [place] [id number] Scanning, Provider 11/21/2024 Orders Only [facility] [address] [address] Aristides Hernandez MD Hypotension, unspecified hypotension type (Primary Dx) 10/09/2024 Results Follow-Up [facility] [address] [address] Gisell Walker, PRITI CBC with auto differential, Lipid panel, Hemoglobin A1c, Differential, auto 10/09/2024 Telephone [facility] [address] [address] Gisell Walker NP 10/09/2024 Orders Only [facility] [address] [address] Gisell Walker, STRINGS TEACHER Elevated ferritin (Primary Dx) 10/08/2024 9:00 AM CDT Lab [facility] Laboratory [address] [place] [address] Class 1 obesity due to excess calories with serious comorbidity and body mass index (BMI) of 34.0 to 34.9 in adult; Type 2 diabetes mellitus with hyperlipidemia (HCC); Hypertension associated with diabetes (HCC); Elevated ferritin 10/08/2024 8:30 AM CDT Office Visit [facility] [address] [address] Gisell Walker, PRITI Hypertension associated with diabetes (HCC) [...] ventricular rate (CMS/HCC) (HCC) 09/26/2024 Results Follow-Up [facility] [address] [place] [address] Fannie Son NP Vitamin D 25 hydroxy, TSH, Vitamin B12, Additional followed-up results: 3 09/25/2024 3:30 PM CDT Lab [facility] Outpatient Lab at [address] [address] 09/25/2024 3:25 PM CDT - 09/25/2024 11:59 PM CDT Hospital Encounter [place] [id number] S/P gastric sleeve procedure; Elevated AST (SGOT) [...] 07/05/22 BARIATRIC SURGERY 03/16/23 COLPOSCOPY 10/01/2024 Dr. Barrett in [place] Medical History Medical History Date Comments PCOS [...] 04/14/2022 How often do you attend chur ch or hoahaoism services? Patient declined 04/14/2022 Do you belong to any clubs o r organizations such as sabianism groups, unions, fraternal or athletic groups, or [...] on file Legal Sex Female 2:38 AM LINOTYPE MACHINIST Gender Identity Female 12/30/2023 11:42 PM CDT [...] Visit/Exam 18-64 07/10/2022 07/10/2021 Covid-19 Vaccine (3 2023-2 5 season) 2023 06/03/2020, 05/06/2020 Dilated Eye Exam 10/06/2024 10/07/2023 Influenza Vaccine (#1) 2024 , 12/08/2022, 12/08/2022, Additional history exists Foot Exam 01/30/2025 01/31/2024, 04/0 11/2021, 05/30/2019 Hemoglobin A1C 04/10/2025 10/08/2024, 04/05, 10/25/2023, Additional history exists Breast Cancer Screening-Mammogram 04/27/2025 04/27/2024, 04/14/2023, 12/10/2021 Albumin Creatinine Ratio, Urine 05/01/2025 05/01/2024, 10/25/2023, [...] Vaccines Discontinued Medical Devices Implanted Type Area Electrician Helper [employer]otive Device Identifier Shelf Expiration Date Model / Serial / Lot [employer] Symmetry Vesolock Large Clip Internal [id number] - [id number] Implanted:Qty: 3 on 07/05/2022 by Vic Castellon MD at [facility] N/A: Abdomen [employer] 10/03/2023 [id number] / / [id number] Description:7 applied Procedures Procedure Name Priority Date/Time Associated Diagnosis Comments CORTISOL Routine 11/23/2024 7:18 AM CDT Hypotension, unspecified hypotension type TSH Routine 11/23/2024 7:18 AM CDT Hypotension, unspecified hypotension type T4, FREE Routine 11/23/2024 7:18 AM CDT Hypotension, unspecified hypotension type SCAN - LABS 11/22/2024 IRON PROFILE W/ IBC Routine 10/08/2024 8 [...] sleeve procedure EGFR Routine 05/01/2024 9:52 AM LINOTYPE MACHINIST Controlled type 2 diabetes mellitus with hyperglycemia, without long-term current use of insulin (HCC) ALBUMIN CREATININE RATIO, URINE Routine 05/01/2024 9:52 AM LINOTYPE MACHINIST Controlled type 2 diabetes mellitus with hyperglycemia, without long-term current use of insulin (HCC) SCREENING MAMMOGRAM BILATERAL W NAEL Schedule Routine, Read Routine (OP Routine) 04/27/2024 3:13 PM LINOTYPE MACHINIST 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 breast, unspecified estrogen receptor status, unspecified laterality (HCC) Abnormal mammogram of both breasts Abnormal mammogram of right breast HM DIABETES EYE EXAM Routine 10/07/2023 2:06 PM CDT from Last 3 Months or Most Recently Relevant to Health Maintenance Results * TSH (11/23/2024 7:18 AM CDT) Pathologist [facility] [place] Thyroid Stimulating Hormone 1.40 0.30 - 4.20 mcIUnit/mL ROYB YOUNG (CONDON) Blood 11/23/2024 7:18 AM CDT 11/23/2024 10:45 AM CDT Aristides Hernandez MD LAB BLOOD ORDERABLES Abeba l Result ROBY YOUNG (CONDON) 1 [facility] [place] [address] * T4, free (11/23/2024 7:18 AM CDT) Pathologist [facility] [place] Free T4 1.12 0.90 - 1.70 ng/dL ROBY YOUNG (CONDON) Blood 11/23/2024 7:18 AM CDT 11/23/2024 10:45 AM CDT Aristides Hernandez MD LAB BLOOD ORDERABLES Abeba l Result Performing Organization Address [facility] de Phone Number ROBY YOUNG (CONDON) 1 [place] [address] * (ABNORMAL) Cortisol (11/23/2024 7:18 AM CDT) [facility] Cortisol 4.1(L) 4.8 - 19.5 mcg/dl Comment: Interpretive Data Normal Range: 4.8 - 19.5 mcg/dL; Evening: Half of morning value. This analyte undergoes marked diurnal variation. Ranges indicated apply to morning specimens. Current interpretive data was last revised 2018. Testing performed by: [facility], [address] [place] [address], [place]., [address] Blood 11/23/2024 7:18 AM CDT 11/23/2024 3:24 PM CDT Aristides Hernandez MD LAB BLOOD ORDERABLES Abeba l Result [facility] (LADAN) 1 [facility] Department [place] [address] * SCAN - LABS (11/22/2024) us Provider Scanning Final Result * (ABNORMAL) Differential, auto (10/08/2024 8:59 AM CDT) Neutrophil abs 5.01 1.50 - 6.50 K/cumm Comment:Testing performed by : [facility], [address] [place] [address]., [address] Imm gran abs 0.02 0.00 - 0.10 K/cumm [facility] (LADAN) Comment:Testing performed by : [address] [address] Lymphocyte abs 4.65(H) 0.80 - 3.30 K/cumm [facility] (LADAN) Comment:Testing performed by : [facility], [address] [place] [address], [address] Monocyte abs 1.05(H) 0.20 - 0.80 K/cumm [facility] (LADAN) Comment:Testing performed by : [facility], [address] [place] [address]., [address] Eosinophil abs 0.16 0.00 - 0.50 K/cumm [facility] (LADAN) Comment:Testing performed by : [address], [address] Basophil abs 0.10 0.00 - 0.10 K/cumm [facility] (LADAN) Comment:Testing performed by : [address], [address] Neutrophil pct 45.5 % [facility] (LADAN) Comment: Interpretive Data Percent cell count reference ranges are not reported, since discordance with absolute values may lead to misinterpretation of CBC data. Current Interpretive Data was last revised on 2017. Testing performed by: [address], [address] Imm gran pct 0.2 % [facility] (LADAN) Comment: Interpretive Data Percent cell count reference ranges are not reported, since discordance with absolute values may lead to misinterpretation of CBC data. Current Interpretive Data was last revised on 2017. Testing performed by: [facility], [address] [place] [address]., [address] Lymphocyte pct 42.3 % [facility] (LADAN) Comment: Interpretive Data Percent cell count reference ranges are not reported, since discordance with absolute values may lead to misinterpretation of CBC data. Current Interpretive Data was last revised on 2017. Testing performed by: [address] [address] Monocyte pct 9.6 % [facility] (LADAN) Comment: Interpretive Data Percent cell count reference ranges are not reported, since discordance with absolute values may lead to misinterpretation of CBC data. Current Interpretive Data was last revised on 2017. Testing performed by: [facility], [address] [place] [address]., [address] Eosinophil pct 1.5 % [facility] (LADAN) Comment: Interpretive Data Percent cell count reference ranges are not reported, since discordance with absolute values may lead to misinterpretation of CBC data. Current Interpretive Data was last revised on 2017. Testing performed by: [address] [address] Basophil pct 0.9 % [facility] (LADAN) Comment: Interpretive Data Percent cell count reference ranges are not reported, since discordance with absolute values may lead to misinterpretation of CBC data. Current Interpretive Data was last revised on 2017. Testing performed by: [address] [address] Blood 10/08/2024 8:59 AM CDT 10/08/2024 2:07 PM CDT us Gisell Walker NP LAB BLOOD ORDERABLES Final Result ROBY YOUGN (LADAN) 1 [facility] Department [place] [address] * Iron profile w/ IBC (10/08/2024 8:59 AM CDT) [facility] Iron 78 35 - 145 mcg/dl Comment:Testing performed by : [address] [address] TIBC 264 250 - 400 mcg/dL [facility] (LADAN) Comment:Testing performed by : [facility], [address] [place] [address], [address] Transferrin saturation 30 20 - 50 % [facility] (LADAN) Comment:Testing performed by : [facility], [address] [place] [address], [address] Blood 10/08/2024 8:59 AM CDT 10/09/2024 3:34 PM CDT Gisell Walker STRINGS TEACHER LAB BLOOD ORDERABLES Final Result [facility] (LADAN) 1 [facility] Department [place] [address] * (ABNORMAL) CBC with auto differential (10/08/2024 8:59 AM CDT) WBC 10.99(H) 3.80 - 9.90 K/cumm Comment:Testing performed by : [address], [address] Hgb 14.4 11.9 - 15.5 g/dL [facility] (LADAN) Comment:Testing performed by : [address], [address] Hct 46.9(H) 35.6 - 45.5 % [facility] (LADAN) Comment:Testing performed by : [address], [address] Plt 407(H) 150 - 400 K/cumm [facility] (LADAN) Comment:Testing performed by : [address], [address] MPV 10.3 9.1 - 12.3 fL [facility] (LADAN) Comment:Testing performed by : [address], [address] RBC 4.78 3.90 - 5.20 M/cumm [facility] (LADAN) Comment:Testing performed by : [address], [address] MCV 98.1(H) 81.3 - 96.4 fL ROBY YOUNG (LADAN) Comment:Testing performed by : [facility], [address] [place] [address]., [address] MCH 30.1 27.1 - 33.3 pg ROBY YOUNG (LADAN) Comment:Testing performed by : [facility], [address] [place] [address], [address] MCHC 30.7(L) 32.3 - 35.7 g/dL ROBY YOUNG (LADAN) Comment:Testing performed by : [facility], [address] [place] [address], [address] RDW CV 15.0(H) 11.1 - 14.9 % ROBY YOUNG (LADAN) Comment:Testing performed by : [facility], [address] [place] [address], [address] RDW SD 54.7(H) 35.7 - 48.1 fL ROBY YOUNG (LADAN) Comment:Testing performed by : [facility], [address] [place] [address], [address] NRBC abs 0.00 0.00 - 0.01 K/cumm ROBY YOUNG (LADAN) Comment:Testing performed by : [facility], [address] [place] [address], [address] Blood 10/08/2024 8:59 AM CDT 10/08/2024 2:07 PM CDT Gisell Walker NP LAB BLOOD ORDERABLES Final Result ROBY YOUNG (LADAN) 1 [facility] Department [place] [address] * Hemoglobin A1c (10/08/2024 8:59 AM CDT) [facility] Hgb A1C 5.3 4.0 - 5.6 % Comment:Testing performed by : [address], [address] Estimated Average Glucose 105 mg/dL ROBY YOUNG (LADAN) Comment: The ADA recommends reporting an estimated Average Glucose (eAG) with all Hemoglobin A1c results using the equation derived from a study of 507 normal and diabetic adults. Minority populations were underrepresented and children were not included. (Diabetes Care 31:2557-3116, 2008). The eAG is not equivalent to a fasting glucose. Testing performed by: [facility], [address] [place] [address]., [address] Blood 10/08/2024 8:59 AM CDT 10/08/2024 2:07 PM CDT Gisell Walker NP LAB BLOOD ORDERABLES Final Result ROBY YOUNG (CONDON) 1 [facility] Department [place] [address] * Lipid panel (10/08/2024 8:59 AM CDT) [...] last revised on 2017. Testing performed by: [facility], [address] [place] [address]., [address] Triglycerides 78 <=149 mg/dL ROBY YOUNG (LADAN) Comment: Interpretive Data [...] last revised on 2017. Testing performed by: [facility], [address] [place] [address]., [address] HDL 47 >=40 mg/dL ROBY Hinds (LAADN) Comment: Interpretive Data Ages < or = [...] last revised on 2017. Testing performed by: [address] [address] LDL, calculated 64 <=129 mg/dL ROBY YOUNG (LADAN) Comment: Interpretive Data [...] NCEP Expert Panel. Circulation 2004;110:227 3. Mickey Godinez al. MARIBEL Cardiol. 2020 August 02;5(5):540-548. doi: 10.1001/jamacardio.2020.0013 Current Interpretive Data was last revised on 2023. Testing performed by: [facility], [address] [place] [address]., [address] Non-HDL Cholesterol 80 mg/dL ROBY YOUNG (LADAN) [...] last revised on 2017. Testing performed by: [facility], [address] [place] [address]., [address] Chol/HDL ratio 3 DAPHNEY YOUNG (CONDON) Comment:Testing performed by : [facility], [address] [place] [address]., [address] Blood 10/08/2024 8:59 AM CDT 10/08/2024 2:07 PM CDT Gisell Walker STRINGS TEACHER LAB BLOOD ORDERABLES Final Result Performing Organization Address [facility] de Phone Number ROBY YOUNG (CONDON) 1 [facility] Department [place] [address] * Vitamin D 25 hydroxy (09/25/2024 3:25 PM CDT) Vitamin D 25-OH 54 30 - 80 ng/mL Blood 09/25/2024 3:25 PM CDT 09/25/2024 9:16 PM CDT Fannie Son STRINGS TEACHER LAB BLOOD ORDERABLES Final Re sult Performing Organization Address [facility] Co de Phone Number [facility] [address] [facility] [place] [address] * TSH (09/25/2024 3:25 PM CDT) Thyroid Stimulating Hormone 1.04 0.30 - 4.20 mcIUnit/mL Blood 09/25/2024 3:25 PM CDT 09/25/2024 9:16 PM CDT Fannie Son STRINGS TEACHER LAB BLOOD ORDERABLES Final Re sult Performing Organization Address [facility] Co de Phone Number ROBY BOUDREAUX [phone] [address] [facility] [address] * Folate (09/25/2024 3:25 PM CDT) Pathologist [facility] [place] Folic acid 5.9 >=5.0 ng/mL Comment:Hemolysis present. R esults may be affected. Blood 09/25/2024 3:25 PM CDT 09/25/2024 9:16 PM CDT Fannie Son STRINGS TEACHER LAB BLOOD ORDERABLES Final Re sult Performing Organization Address [facility] Co de Phone Number ROBY BOUDREAUX [phone] [address] [facility] [address] * (ABNORMAL) Ferritin (09/25/2024 3:25 PM CDT) Pathologist [facility] [place] Ferritin 218(H) 13 - 150 ng/mL Blood 09/25/2024 3:25 PM CDT 09/25/2024 9:16 PM CDT Fannie Son STRINGS TEACHER LAB BLOOD ORDERABLES Final Re sult Performing Organization Address [facility] de Phone Number ROBY BOUDREAUX [address] [address] [facility] [address] * Vitamin B12 (09/25/2024 3:25 PM CDT) Pathologist [facility] [place] Vitamin B12 979 230 - 1,250 pg/mL Blood 09/25/2024 3:25 PM CDT 09/25/2024 9:16 PM CDT Fannie Son STRINGS TEACHER LAB BLOOD ORDERABLES Final Re sult Performing Organization Address [facility] Co de Phone Number ROBY BOUDREAUX [phone] [address] [facility] [address] [place], [place] [id number] * Hepatic function panel (09/25/2024 3:25 PM CDT) Pathologist [facility] [place] Bilirubin, total 0.4 0.1 - 1.2 mg/dL [...] 3:25 PM CDT 09/25/2024 9:16 PM CDT us Fannie Son STRINGS TEACHER LAB BLOOD ORDERABLES Final Re sult Performing Organization Address City/[facility]/ZIP Co de Phone Number [facility] [address] [address] [place] [address] * eGFR (05/01/2024 9:52 AM LINOTYPE MACHINIST) eGFR >90 >=60 mL/min/1. 73 m2 Comment: [...] last reviewed 2021. Blood 05/01/2024 9:52 AM LINOTYPE MACHINIST 05/01/2024 5:02 PM LINOTYPE MACHINIST us Aristides Hernandez MD LAB BLOOD ORDERABLES Abeba l Result ROBY BOUDREAUX [address] [address] [place] [address] * Albumin Creatinine Ratio, Urine (05/01/2024 9:52 AM LINOTYPE MACHINIST) Albumin Ur 15.4 mg/L Comment: Interpretive Data No reference range established. Current interpretive data was last revised 2018. Creatinine Ur 226.6 mg/dL [facility] Comment: Interpretive Data No reference range established. Current interpretive data was last revised 2018. Albumin Creatinine Ratio, Ur 7 1 - 29 mg/g [facility] Urine 05/01/2024 9:52 AM LINOTYPE MACHINIST 05/01/2024 4:44 PM LINOTYPE MACHINIST us Aristides Hernandez MD LAB URINE ORDERABLES Abeba hoffman Result Performing Organization Address [facility] Co de Phone Number ROBY BOUDREAUX [address] [address] [place] [address] * Screening Mammogram Bilateral W Nael (04/27/2024 3:13 PM LINOTYPE MACHINIST) Anatomical Region Laterality Modality Breast Bilateral Mammography Narrative 04/30/2024 10:17 AM LINOTYPE MACHINIST Mammogram Technique: Bilateral Digital Breast Tomosynthesis, Bilateral C-view 2D Screening mammogram. Views obtained: bilateral craniocaudal and bilateral mediolateral oblique. Computer Aided Detection was performed. Mammogram Findings: The present examination has been compared to prior imaging studies performed at [facility] on 03/24/2022 and 04/14/2023, at [facility] on 12/10/2021, and at [facility] [place], [place] on 06/07/2019. There are scattered areas [...] compared to prior imaging studies performed at [facility] on 03/24/2022 and 04/14/2023, [facility] on 12/10/2021, and at [place], [place] on 06/07/2019. There are scattered areas [...] Most Recently Relevant to Health Maintenance Insurance [facility] BLUE ACCESS [place] BLUE ACCESS [place] Advance Directives For more information, please contact: [phone] * Full Code (Latest Code Status on [...] 3:22 PM 04/14/2022 4:35 PM Care Teams Square Dance Caller Relationship Specialty Start Date End Date Aristides Hernandez MD [address] [place] [address] PCP - General Family Medicine 10/11/18 Alonso Cason MD [address] [place] [address] [place] [address] Automotive Customer Experience Advisor Obstetrics and Gynecology 01/21/22
--- OUTSIDE RECORDS SUMMARY | 2024-11-28 00:33 | XMS_ITS | Encounter Summary ---
Author Organization [facility] Address [address] [place] [address] Care Team Providers Care Manager Event Name Role Phone Aristides Hernandez MD Primary Care Provider [phone] Alonso Cason MD Unavailable [phone] Encounter Details Date Type Department Care Team (Late st Contact Info) Description 10/09/2024 Results Follow-Up [facility] [address] [address] Gisell Walker, PRITI [address] [place] [address] CBC with auto differential, Lipid panel, Hemoglobin [...] How often do you attend chur or latter-day services? Patient declined 04/14/2022 Do you belong to any clubs o r organizations such as anglican groups, unions, fraternal or athletic groups, or [...] on file Legal Sex Female 2:38 AM TRANSFORMATION ARCHITECT Gender Identity Female 12/30/2023 11:42 PM CDT [...] on filedocumented in this encounter Care Teams Manager Event Relationship Specialty Start Date End Date Aristides Hernandez MD [address] [place] [address] PCP - General Family Medicine 10/11/18 Alonso Cason MD [address] [place] [address] [address] Instructional Leader Obstetrics and Gynecology 01/21/22 documented as of this encounter
--- OUTSIDE RECORDS SUMMARY | 2024-11-28 00:33 | XMS_ITS ---
Author Organization [facility] Address [address] [place] [address] Phone Care Team Providers Care Retail Merchandiser Technician Name Role Phone Provider, Unknown Primary Care [...]
--- OUTSIDE RECORDS SUMMARY | 2024-11-28 00:33 | XMS_ITS | Encounter Summary ---
Author Organization [facility] Healthcare Address [address] [place] [address] Care Team Providers Care Color Maker Formulator Name Role Phone Aristides Hernandez MD Primary Care Provider [phone] Alonso Cason MD Unavailable [phone] Encounter Details Date Type Department Care Team (Late st Contact Info) Description 11/22/2024 Orders Only [facility] Information Management [address] [place] [id number] Scanning, Provider Social History Tobacco Use Types Packs/Day Years [...] often do you attend chur ch or tenriism services? Patient declined 04/14/2022 Do you belong to any clubs o r organizations such as shinto groups, unions, fraternal or athletic groups, or [...] on file Legal Sex Female 2:38 AM COLUMNIST Gender Identity Female 12/30/2023 11:42 PM CDT Sexual Orientation Straight 12/13/2018 10 :54 AM CDT documented as of this encounter Plan of Treatment Not on file documented as of this encounter Procedures Procedure Name Priority Date/Time Associated Diagnosis Comments SCAN - LABS 11/22/2024 documented in this encounter Results * SCAN - LABS (11/22/2024) us Provider Scanning Final Result documented in this encounter Visit Diagnoses Not on filedocumented in this encounter Care Teams Color Maker Formulator Relationship Specialty Start Date End Date Aristides Hernandez MD [address] [place] [address] PCP - General Family Medicine 10/11/18 Alonso Cason MD [address] [place] [address] [address] Public Records Researcher Obstetrics and Gynecology 01/21/22 documented as of this encounter
[2024-11-28 12:14] LABS: BEDSIDEPREGUCG Negative (Negative)
[2024-11-28] MEDS: LACTATED RINGERS 1,000 ML 30 ML IV CONT ×2 (12:14→15:58)
--- NOTE | 2024-11-28 12:48 | WPDHPUPDATE1 ---
History and Physical Update Update Date/Time: 11/28/24 12:48 History and Physical has been reviewed, including an updated exam of the patient. There are NO changes in the patient's condition. Risks, benefits, and alternatives have been discussed and questions answered. Patient agrees to proceed with procedure.
[2024-11-28] MEDS: KETOROLAC 15 MG/ML VIAL (*BKC) IV PUSH (13:00)
[2024-11-28] MEDS: ACETAMINOPHEN 500 MG TABLET 1000 MG PO ×2 (13:00→19:30)
--- NOTE | 2024-11-28 13:13 | WPDANESEPPF ---
Anes - Initial Pre Proc Eval Procedure: Operation Date: 11/28/24 13:30 Proposed Procedures p Robotic Assisted Hysterectomy with Bilateral Salpingectomy, Bilateral Salpingo Oophorectomy - Lai Barrett MD Date/Time: 11/28/24 13:13 Surgeon: Lai Barrett MD Pre Op Diagnosis: pelvic pain Patient Data Age: 43 Gender: F Height: 1.63 m Weight: 87.6 kg Last Vital Signs Temp 37.1 C 11/28/24 11:45 Pulse 79 11/28/24 11:45 Resp 18 11/28/24 11:45 BP 129/51 L 11/28/24 11:45 Pulse Ox 100 11/28/24 11:45 O2 Del Method Room Air 11/28/24 11:45 Allergies Allergy/AdvReac Type Severity Reaction Status Date / Time latex Allergy Mild Rash Verified 11/20/24 12:32 clarithromycin Allergy Unknown Hives Verified 11/20/24 12:32 metformin Allergy Unknown Rash Verified 11/20/24 12:32 Sulfa (Sulfonamide Allergy Unknown Hives Verified 11/20/24 12:32 Antibiotics) dermabond Allergy Intermediate Rash Uncoded 11/20/24 12:32 Home Medications ?Medication ?Instructions ?Recorded ?Confirmed ?Type atorvastatin 40 mg tablet 40 mg PO DAILY 03/23/21 11/20/24 History cetirizine 10 mg tablet (Zyrtec) 10 mg PO DAILY 03/23/21 11/20/24 History azelastine 137 mcg (0.1 %) nasal 137 mcg intranasal Q12H PRN 11/20/24 11/20/24 History spray allergy symptoms famotidine 20 mg tablet 20 mg PO DAILY 11/20/24 11/20/24 History fluoxetine 10 mg capsule 10 mg PO DAILY 11/20/24 11/20/24 History linaclotide 145 mcg capsule 145 mcg PO DAILY 11/20/24 11/20/24 History (Linzess) metoprolol succinate 25 mg 12.5 mg PO DAILY 11/20/24 11/20/24 History tablet,extended release 24 hr tirzepatide 10 mg/0.5 mL 10 mg subcut WEEKLY 11/20/24 11/20/24 History subcutaneous pen injector (Jessica) Laboratory Tests 11/28/24 11:45 POC Urine HCG, Qual Negative (Negative) Patient hx anesthesia problems: none Family hx anesthesia problems: none Results Review: All pre-operative results and documents have been reviewed as part of the pre-operative evaluation. [facility] Past Medical History Medical History (Updated 11/27/24 @ 14:22 by Sunny Pemberton DO) Diabetes type 2, controlled GERD (gastroesophageal reflux disease) History of supraventricular tachycardia PCOS (polycystic ovarian syndrome) History of angina SVT (supraventricular tachycardia) with ablation 2007 Surgical History Surgical History (Updated 11/27/24 @ 14:22 by Sunny Pemberton DO) History of gastric bypass H/O LEEP 2017 History of chemical tubal occlusion essure tubal occlusion approximately 2009 History of cholecystectomy Family History Family History (Updated 05/28/19 @ 00:30 by Kerry Aguillon DO) Grandparent Acute myocardial infarction Diabetes mellitus History of blood clots Mother , Mother of coronary disease age 42 Acute myocardial infarction Hypertension Tobacco abuse disorder Father Hypertension Cerebrovascular accident Heart disease History of blood clots Sibling History of blood clots Hypertension Grandparent Diabetes mellitus Grandparent Colon cancer Sibling Hypertension Social History Social History (Updated 05/28/19 @ 00:33 by Kerry Aguillon DO) Social History: Primary care physician: Dr. Aristides Hernandez Code status: Full code Smoking status: Never smoker Second hand tobacco smoke exposure: No Alcohol intake: never Drinks per week: 0 Alcohol use details: The patient drinks approximately 1 drink a year. Substance use: never Substance use type: does not use Living arrangements: with friend(s) Additional living arrangements comments: Patient lives with her 14-year-old daughter and 9-year-old autistic son. 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 Gender identity (if verbalized by the patient): Female Spiritual care concerns: No Anes - Eval Final PreProcedure Day of Procedure 11/28/24 13:13 Patient weight: obese Heart: regular rate and rhythm Lungs: clear to auscultation Airway: Mallampati scale class III Neurological: alert and oriented Last oral intake: >/= 8 hours ASA classification: III Emergent: no Anesthetic plan: proceed Anesthesia type and monitoring: general ETT and standard monitoring Results Review: All pre-operative results and documents have been reviewed as part of the pre-operative evaluation. Informed Consent: The patient's anesthetic plan and its attendant risks and benefits were discussed with the patient/family/POA. Questions were solicited and answers provided to the satisfaction of the patient/family/POA.
[2024-11-28] MEDS: DEXTROSE 50% 25 GM/50 ML SYRINGE IV PUSH (13:25)
[2024-11-28] MEDS: ceFAZolin 2 GM in SODIUM CHLORIDE 0.9% IV 50 ML 100 ML IVPB (14:28)
--- NOTE | 2024-11-28 15:06 | S_PTH ---
PATIENT: Latanya Haynes LOC: [facility] U#:[id number] AGE/SX: 43/F ROOM: RE11/28/[address]: Lai Barrett MD : 1980 BED: DIS: 11/29/2024 SPEC #: [id number] RECD: 11/29/24 07:31 STATUS: TOM REDee #: [id number] TRAVIS: 11/28/24 15:[address]: Lai Barrett DEPT: [facility] Surgical RECD BY: Luann Cerda ENTERED: 11/29/24 07:33 SP TYPE: Surgical OTHR DR: Aristides Hernandez, MJenniferDJennifer Tissues: A - Uterus Procedures: Hematoxylin and Eosin Stain Gross and Microscopic Level 5
[2024-11-28] MEDS: METHYLENE BLUE 0.5% INJ 10 ML AMPULE 5 ML IV PUSH (15:08)
--- NOTE | 2024-11-28 15:38 | W.PM.PROC2 ---
Procedure Note - Detailed Date of Procedure 11/28/24 Pre-op Diagnosis pelvic pain Post-op Diagnosis Same Procedure Performed Robot assisted Total hysterectomy with bilateral salpingo-oophorectomy. Surgeon Lai Barrett MD Anesthesia General Indications heavy vaginal bleeding, pelvic pain Findings normal-appearing uterus, ovaries, and Fallopian tubes Description of Procedure This patient was taken to the operating room. She was prepped and draped in the dorsal lithotomy position after induction of general anesthesia. The uterine manipulator and Ashia cup were placed. This was done with a speculum and tenaculum. The speculum was placed. The cervix was grasped with a tenaculum. The stay sutures were placed at 3 and 9:00 a.m.. The stay sutures of 0 Vicryl were tied to the appropriately Size scope after it was slipped around the cervix.. The tip of the POLO manipulator was placed in the intrauterine cavity. The cup was slid into place around the cervix and into the fornices. It was locked into place. The sutures were then wrapped around the handle and tied under tension. A 8 mm skin incision was made in the left upper quadrant the abdomen. a 5 mm Visiport trocar was inserted into abdominal cavity and pneumoperitoneum was achieved. A 8 mm supraumbilical incision was made and a 8 mm trocar was inserted into the intrauterine cavity under direct visualization of the scope. an 8 mm incision was made in the right upper quadrant of the abdomen and an 8 mm robotic trocar was placed the inter uterine cavity under direct visualization the scope. An 11 mm trocar was inserted in the right upper quadrant of the abdomen rectal is a cystoscope after an incision was made there as well. The robot was docked. Electronic Orientation of the robot was performed. Bilateral ureteral lysis was performed. This was done from the pelvic brim down to the uterine artery. This was done with careful dissection using sharp and blunt dissection.Bilateral salpingo-oophorectomy was performed. The bilateral infundibulopelvic ligaments were cauterized thoroughly and transected after visualization of the ureter passing over the pelvic brim. In stepwise fashion around the ovary the mesosalpinx was cauterized transected. The Fallopian tube tissue/ mesosalpinx was cauterized transected a stepwise fashion medially to the cornua of the uterus. the tube was transected at the cornua and cauterized thoroughly. The bilateral tubes and ovaries were taken out through the large air lock port. Then In a stepwise fashion along the lateral aspects of the uterus the round ligament and broad ligaments were cauterized transected down to the level of the uterine arteries. A bladder flap was created in the bladder was moved distally to the end of the cervix and over the Ashia cup. The bilateral uterine arteries were cauterized and transected. Colpotomy was then performed. In a circumferential fashion the vagina was transected using unipolar cautery. The incision was made down on the Ashia cup. The uterus and cervix were taken out through the vagina. A pneumo occluder was placed in the vagina. The vaginal cuff was closed with a 0 V lock suture in a running fashion. The pelvis was irrigated with copious amounts antibiotic irrigation. The ureters were again examined and found to be intact and flowing freely under the uterine arteries into the bladder. The bladder was intact. It was examined directly. Cystoscopy was performed after administration of methylene blue. The cystoscope was inserted. Bladder was distended with fluid. The ureteric meatus was observed bilaterally. Blue fluid was seen to egress bilaterally. The bladder was drained and the cystoscope was withdrawn. The vagina was irrigated with Betadine solution after removal of the Pneumo occluder. the trocars were removed after the robot was undocked. The skin was closed with subacute or Dermabond. The patient was taken to recovery room. She was stable condition. Sponge lap and needle counts were correct x2. Estimated Blood Loss 125 Urine Output 800 Drains Yes Packing No Pathology Yes Complications No immediate complications Condition Stable Disposition Floor
[2024-11-28] MEDS: fentaNYL CITRATE INJ (*CRX) 100 MCG/2 ML VIAL 25 MCG IV PUSH ×2 (16:40→16:42)
[2024-11-28] MEDS: ONDANSETRON INJ 4 MG/2 ML VIAL IV PUSH (17:11)
--- NOTE | 2024-11-28 17:17 | SUR.PHASEI ---
1714: RN tried to call report but floor RN has to call back.
--- NOTE | 2024-11-28 17:35 | SUR.PHASEI ---
1650: Patient meets PACU discharge criteria, Floor RN unavailable for report. Patient placed in extended recovery status.
[2024-11-28] MEDS: SIMETHICONE 80 MG TAB.CHEW PO (18:57)
[2024-11-28] MEDS: oxyCODONE HCL (*CRX) 5 MG TAB IR PO (18:58)
[2024-11-28] MEDS: DOCUSATE SODIUM 100 MG CAPSULE PO (18:58)
[2024-11-28] MEDS: DEXTROSE 5%/0.45% SOD CHL 1,000 ML 125 ML IV CONT ×2 (19:01→22:40)
[2024-11-28] MEDS: KETOROLAC 30 MG/ML VIAL (*BKC) IV PUSH (19:28)
[2024-11-29] VITALS: BP 118/65; PULSE 66; RESP 16; TEMP 36.3; O2SAT 99
[2024-11-29] MEDS: KETOROLAC 30 MG/ML VIAL (*BKC) IV PUSH ×2 (01:26→08:12)
[2024-11-29] MEDS: ACETAMINOPHEN 500 MG TABLET 1000 MG PO ×2 (01:26→08:14)
[2024-11-29 04:10] VITALS: BP 94/55; PULSE 67; RESP 16; TEMP 36.4; O2SAT 99
[2024-11-29 07:30] VITALS: BP 97/50; PULSE 72; RESP 16; TEMP 36.3; O2SAT 100
[2024-11-29] MEDS: DOCUSATE SODIUM 100 MG CAPSULE PO (08:13)
[2024-11-29] MEDS: LINACLOTIDE 145 MCG CAPSULE PO (08:13)
[2024-11-29] MEDS: FAMOTIDINE 20 MG TABLET PO (08:13)
[2024-11-29] MEDS: SIMETHICONE 80 MG TAB.CHEW PO (08:13)
[2024-11-29] MEDS: ATORVASTATIN 40 MG TABLET PO (08:13)
[2024-11-29] MEDS: LORATADINE 10 MG TABLET PO (08:14)
[2024-11-29 08:15] VITALS: PULSE 72
--- NOTE | 2024-11-29 09:47 | WPDANESPN ---
Anes - Prog Note Post-Op Date/Time: 11/29/24 09:47 Cardiovascular status: normal Respiratory status: normal Airway patency: baseline Mental status: baseline Post-Op hydration status: normal Vital Signs: Last Vital Signs Temp 36.3 C L 11/29/24 07:30 Pulse 72 11/29/24 08:15 Resp 16 11/29/24 07:30 BP 97/50 L 11/29/24 07:30 Pulse Ox 100 11/29/24 07:30 O2 Del Method Room Air 11/29/24 07:12 O2 Flow Rate 8 11/28/24 16:25 Pain Score (VAS): 2 I/O: Intake & Output 11/28/24 11/29/24 11/29/24 23:59 07:59 15:59 Intake Total 2000 1500 Output Total 150 550 250 Balance 1850 950 -250 11/28/24 11/28/24 11/28/24 11:45 13:21 13:22 POC Capillary Glucose 52 L* 56 L* POC Urine HCG, Qual Negative 11/28/24 16:15 POC Capillary Glucose 90 POC Urine HCG, Qual Patient Feedback: Patient satisfied with anesthetic care.
== END 2024-11-29 10:20 | disposition home or self-care (01) ==
LOC: ANHSURGERY 16:34 → ANHOB2 18:01
PROVIDERS: PCP Family Medicine; Visit Provider Obstetrics & Gynecology
PROC: (CPT 58571; principal; 2024-11-28 13:30)
DX: R10.2 Pelvic and perineal pain (principal); N92.0 Excessive and frequent menstruation with regular cycle; E11.9 Type 2 diabetes mellitus without complications; E66.9 Obesity, unspecified; Z68.33 Body mass index [BMI] 33.0-33.9, adult
CPT/HCPCS: 58571; S2900; 82948; 88307; 99199; J0690; A9270; J1100; J1200; J1885; J2003; J2250; J2405; J3010; J7030; J7120; Q9968

== ENCOUNTER 2024-12-05 18:35 | Emergency (ER) | payer BC, SELFPAY ==
--- OUTSIDE RECORDS SUMMARY | 2019-06-07 01:00 | XMS_ITS | Encounter Summary ---
Author Organization [facility] Healthcare Address [address] [place] [address] Care Team Providers Care Poultry Breeder Name Role Phone Aristides Hernandez MD Primary Care Provider [phone] [phone] Reason for Visit * Diagnostic Imaging (Routine) - Closed Specialty Diagnoses / Procedures Referred By Francesca cheung Referred To Contact Procedures Breast Imaging Diagnostic Outside Reference Evita Montenegro NP Phone: tel: fax: Referral ID Status Reason Start Date Expiration Date Visits Re quested Visits Authorized [id number] Closed 02/04/2022 03/06/2023 1 1 Encounter Details Date Type Department Care Team (Late st Contact Info) Description 06/07/2019 Hospital Encounter [facility] [address] [place] [id number] Social History Tobacco Use Types Packs/Day Years Used Date Smoking Tobacco: Never Passive Smoke Exposure: Never Smokeless Tobacco: Never Alcohol Use Standard Drinks/Week Comments Not Currently 0 (1 standard drink = 0.6 oz pur e alcohol) Social Connection and Isolation Panel Answer Date Recorded In a typical week, how many times do you talk on the phone with family, friends, or neighbors? More than three times a week 04/14/2022 How often do you get togethe r with friends or relatives? More than three times a week 04/14/2022 How often do you attend [facility] or alevism services? Patient declined 04/14/2022 Do you belong to any clubs o r organizations such as protestant groups, unions, fraternal or athletic groups, or school groups? No 04/14/2022 How often do you attend meet ings of the clubs or organizations you belong to? Patient declined 04/14/2022 Marital Status Not on file 04/14/2022 AUDIT-C Answer Date Recorded Q1: How often do you have a drink containing alcohol? Monthly or less 03/16/2023 Q2: How many drinks containi ng alcohol do you have on a typical day when you are drinking? Patient does not drink Q3: How often do you have si x or more drinks on one occasion? Never 03/16/2023 Overall Financial Resource Strain (CARDIA) Answe r Date Recorded How hard is it for you to pa y for the very basics like food, housing, medical care, and heating? Not hard at all 04/14/2022 PHQ-2 Answer Date Recorded PHQ-2 Total Score (If total score is 3 or more points, staff should administer the PHQ-9) 0 05/01/2024 Hunger Vital Sign Answer Date Recorded Within the past 12 months, y ou worried that your food would run out before you got the money to buy more. Never true 04/14/19 23 Within the past 12 months, t he food you bought just didn't last and you didn't have money to get more. Never true 04/14/2022 PRAPARE - Transportation Answer Date Re corded In the past 12 months, has l ack of transportation kept you from medical appointments or from getting medications? No 04/04 In the past 12 months, has l ack of transportation kept you from meetings, work, or from getting things needed for daily living? No 04/14/2022 Personal Safety Answer Date Recorded Have you ever been in or are you currently in a harmful physical or emotional relationship or is someone making you feel afraid or unsafe? Denies 01/23/2024 Comments No Sex and Gender Information Value Date Recorded Sex Assigned at Not on file Legal Sex Female 2:38 AM AIRPORT ATTENDANT Gender Identity Female 12/30/2023 11:42 PM CDT Sexual Orientation Straight 12/13/2018 10 :54 AM CDT documented as of this encounter Functional Status * AUDIT-C Score Answer Date of Assessment Author 1 03/16/2023 7:36 AM Kash Burns, RN * Question Answer Date of Assessment Author Q1: How often do you have a drink containing alcohol? Monthly or less 03/16/2023 7:36 AM Hallie Burns, Elsy N Q2: How many drinks containing alcohol do you have on a typical day when you are drinking? Patient does not drink 03/16/2023 7:36 AM Hallie Burns, RN Q3: How often do you have six or more drinks on one occasion? Never 03/16/2023 7:36 AM Hallie Burns, R N documented as of this encounter Plan of Treatment Not on file documented as of this encounter Procedures Procedure Name Priority Date/Time Associated Diagnosis Comments BREAST IMAGING MG DIAGNOSTIC OUTSIDE REFERENCE Routine 06/07/2019 12:00 AM AIRPORT ATTENDANT documented in this encounter Results * Breast Imaging Diagnostic Outside Reference (06/07/2019 12:00 AM AIRPORT ATTENDANT) Impressions [facility] - 02/04/2022 1:34 PM CDT These images are for Reference purposes only and have not been reviewed by [facility] Radiology. There will be no report generated by a [facility] Radiologist. Narrative [facility] - 02/04/2022 1:34 PM CDT EXAMINATION: Images For Reference Purposes Only us Evita Montenegro ASSISTANT ASSOCIATE FULL PROFESSOR IMG MAMMO PROCEDURES Final Result [facility] documented in this encounter Visit Diagnoses Not on filedocumented in this encounter Care Teams Poultry Breeder Relationship Specialty Start Date End Date [place] [address] [place] [id number] PCP - General Family Medicine 10/11/18 documented as of this encounter
--- OUTSIDE RECORDS SUMMARY | 2019-06-07 01:05 | XMS_ITS | Encounter Summary ---
Author Organization [facility] Healthcare Address [address] [place] [address] Care Team Providers Care Zinc Plate Cutter Name Role Phone Aristides Hernandez MD Primary Care Provider [phone] [phone] Reason for Visit * Diagnostic Imaging (Routine) - Closed Specialty Diagnoses / Procedures Referred By Francesca cheung Referred To Contact Procedures Breast Imaging US Outside Reference Evita Montenegro NP Phone: tel: fax: Referral ID Status Reason Start Date Expiration Date Visits Re quested Visits Authorized [id number] Closed 02/04/2022 03/06/2023 1 1 Encounter Details Date Type Department Care Team (Late st Contact Info) Description 06/07/2019 12:05 AM INSPECTOR SALVAGE Hospital Encounter [facility]) [address] [place] [id number] Social History Tobacco Use Types Packs/Day Years [...] week 04/14/2022 How often do you attend [facility] or tenriism services? Patient declined 04/14/2022 Do you belong to any clubs o r organizations such as hindu groups, unions, fraternal or athletic groups, or [...] on file Legal Sex Female 2:38 AM INSPECTOR SALVAGE Gender Identity Female 12/30/2023 11:42 PM CDT [...] Priority Date/Time Associated Diagnosis Comments BREAST IMAGING US OUTSIDE REFERENCE Routine 06/07/2019 12:05 AM INSPECTOR SALVAGE documented in this encounter Results * Breast Imaging US Outside Reference (06/07/2019 12:05 AM INSPECTOR SALVAGE) Impressions [facility] - 02/04/2022 1:34 PM CDT These images are for Reference purposes only and have not been reviewed by [facility]. There will be no report generated by a [facility]iologist. Narrative [facility] - 02/04/2022 1:34 PM CDT EXAMINATION: Images For Reference Purposes Only us Evita Montenegro PAPER CLEANER IMG MAMMO PROCEDURES Final Result [facility] documented in this encounter Visit Diagnoses Not on filedocumented in this encounter Care Teams Zinc Plate Cutter Relationship Specialty Start Date End [place] [address] PCP - General Family Medicine 10/11/18 documented as of this encounter
--- OUTSIDE RECORDS SUMMARY | 2024-11-26 09:30 | XMS_ITS | Encounter Summary ---
Author Organization [facility] Address [facility] [place] [address] Care Team Providers Care City Engineer Name Role Phone Aristides Hernandez MD Primary Care Provider [phone] Bren Carmichael MD Unavailable [phone] Reason for Visit * Reason Comments Follow Up Encounter Details Date Type Department Care Team ([facility] Contact Info) Description 11/26/2024 9:30 AM CDT [facility] [address] [place] [address] Bren Carmichael MD [address] [place] [id number] Follow Up Social History Tobacco Use Types Packs/Day Years Used Date Smoking Tobacco: Never Passive Smoke Exposure: Never Smokeless Tobacco: Never Alcohol Use Standard Drinks/Week Comments Not Currently 0 (1 standard drink = 0.6 oz pur e alcohol) Comments Unknown Sex and Gender Information Value Date Recorded Sex Assigned at Female 05/11/2024 12:29 PM TRADE 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 Legal Sex Female 10:33 PM CDT Gender Identity Not on file Sexual Orientation Not on file 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 Not on file documented as of this encounter Last Filed Vital Signs Vital Sign Reading Time Taken Comments Blood Pressure 112/74 11/26/2024 9:22 AM CDT Pulse 83 11/26/2024 9:22 AM CDT Temperature - - Respiratory Rate 16 11/26/2024 9:22 AM CDT Oxygen Saturation 99% 11/26/2024 9:22 AM CDT Inhaled Oxygen Concentration - - Weight 88.8 kg (195 lb 12.8 oz) 11/26/2024 9:22 AM CDT Height 165.1 cm (5' 5) 11/26/2024 9:22 AM CDT Body Mass Index 32.58 11/26/2024 9:22 AM CDT documented in this encounter Patient Instructions * Attachments The following attachments cannot be sent through Care Everywhere. * Heart Healthy Diet (Divehi) documented in this encounter Progress Notes * Bren Carmichael MD - 11/26/2024 9:30 AM CDT Reason for Visit: hld History of Present Illness: This is a 43-year-old female with the following diagnosis. Patient Active Problem List Diagnosis Date Noted Orthostatic hypotension 12/03/2024 Abnormal cardiovascular stress test 06/21/2022 Other chest pain 05/09/2022 Mixed hyperlipidemia Family history of coronary artery disease Mother at 38 with mi; father with cad SVT (supraventricular tachycardia) ([facility]) 05/07/2022 Since last seen she denies syncope, denies TIA, denies CVA, denies palpitations, denies angina or anginal equivalents, denies fevers, chills, or rigor. No change in color or composition of stool. Pt with recent tot cortisol level - was somewhat low - random Has continued lightheaded spells with orthostatic challenge Also has had splenectomy for splenic aneurysms Pt feeling much better already since gastric sleeve. Had had a cc 2022 - negative Has lost 140# since weight loss surgery Metoprolol has helped tremendously with palpitations when used in assoc weight loss, but bp drifting lower Os sat 99% B12 and folate levels wnl Recommendations and Plan: Palpitations - metoprolol Hld - weight loss and statin Orthostatic hypotension symptoms - cortrosyn stim test, plan [facility]RISSIE Medications: Outpatient Medications Marked as Taking for the 05/06/23 encounter (Office Visit) with Bren Carmichael MD Medication Sig Dispense Refill aspirin EC (ECOTRIN) 81 MG tablet Take 1 tablet (81 mg total) by mouth daily. atorvastatin (LIPITOR) 40 MG tablet Take 1 tablet (40 mg total) by mouth daily. B Complex Vitamins Cap Take 1 capsule by mouth daily. Yhdzcet-Peboctyti-Xskzbue D (CALCIUM 1200+D3 OR) cetirizine (ZYRTEC) 10 MG tablet Take 1 tablet (10 mg total) by mouth daily. famotidine (PEPCID) 10 MG tablet Take 1 tablet (10 mg total) by mouth 2 (two) times daily. Ferrous Sulfate (IRON) 325 (65 Fe) MG tablet Take 325 mg by mouth daily with breakfast. glipiZIDE XL 5 MG 24 hr tablet Take 1 tablet (5 mg total) by mouth daily with breakfast. Do not break or crush tablet metoprolol succinate ER (TOPROL-XL) 50 MG 24 hr tablet TAKE 1 TABLET BY MOUTH EVERY DAY 90 tablet 1 MOUNJARO 7.5 MG/0.5ML injection Inject 7.5 mg into the skin once a week. Pediatric Glyjvbre-Ltxsrphb-B (CHEWABLES MULTIVITAMIN OR) Vitamin D, Ergocalciferol, 88425 units Cap Take 1 tablet by mouth once a week. Review of patient's allergies indicates: Allergen Reactions Clarithromycin Hives, Itching and Rash Sulfa Antibiotics Hives, Rash and Itching Wound Dressing Adhesive Itching and Rash Dermabond Latex Other (see comment) Tape Unknown Metformin Itching Past Medical History: Diagnosis Date Gallbladder disease GERD (gastroesophageal reflux disease) Mixed hyperlipidemia Type 2 diabetes mellitus without complications ([facility]) Past Surgical History: Procedure Laterality Date ESSURE PROCEDURE 2009 CATHETER ABLATION NON-CARDIAC ENDO T1 2008 LAPAROSCOPIC CHOLECYSTECTOMY 2003 Social History Tobacco Use Smoking status: Never Passive exposure: Never Smokeless tobacco: Never Vaping Use Vaping status: Never Used Substance Use Topics Alcohol use: Not Currently Drug use: Not Currently Family History Problem Relation Name Age of Onset Valve Disease Mother Heart Attack Mother Valve Disease Father Stroke Father Stent Cardiac Father Heart Attack Father Valve Disease Maternal Grandmother Stent Cardiac Maternal Grandmother Heart Attack Maternal Grandmother Family Status Relation Name Status Mother Father (Not Specified) MGM (Not Specified) MGF PGF No partnership data on file Review of Systems Constitutional: Positive for fatigue. Negative for recent unintentional weight gain and recent unintentional weight loss. HENT: Positive for headaches. Negative for new or significant hearing loss. Eyes: Positive for blurred vision. Negative for double vision. Respiratory: Negative for cough, new or significant shortness of breath and snoring. Cardiovascular: See HPI. Positive for light-headedness. Gastrointestinal: Positive for constipation. Negative for blood in stool and melena. Genitourinary: Negative for dysuria. Musculoskeletal: Negative for myalgias and new or worsening joint stiffness/pain. Skin: Negative for rash. Neurological: Positive for dizziness. Negative for tingling/numbness and focal weakness. Endo/Heme/Allergies: Negative for new or significant bruising/bleeding and polydipsia. Psychiatric/Behavioral: Negative for depression and new or significant memory loss. Vitals: 11/26/24 0922 BP: 112/74 Patient Position: Sitting BP Location: Right arm Pulse: 83 Weight: 88.8 kg (195 lb 12.8 oz) Height: 1.651 m (5' 5) Body mass index is 32.58 kg/m??. Cardiac Exam Rate/Rhythm: Normal rate and regular rhythm. PMI: PMI is not displaced. Pulses: Normal pulses. Femoral pulses are 2+ on the right side and 2+ on the left side. Heart Sounds: Normal heart sounds. Normal S1 sounds. Normal S2 sounds. No gallop present. No S3. NoS4. Murmurs: Physical Exam Constitutional: No distress. Healthy Appearance. HENT: Oropharynx clear. Eyes: Pupils equal, round, and reactive to light. Conjunctivae normal. Neck: Neck supple. No JVD. Abdomen: Abdomen soft. Bowel sounds normal. No tenderness. No mass. No hepatomegaly. No splenomegaly. Abdominal aorta not palpably enlarged. No abdominal bruit present. Pulmonary: Effort normal. Breath sounds normal. Skin: No rash. No cyanosis. No clubbing. No xanthoma. Musculoskeletal: No kyphosis. Normal ROM. Neurological: Alert. Oriented x 3. Appropriate mood and affect. Normal motor skills. Normal gait. Comments: Diagnoses/Impression: 1. SVT (supraventricular tachycardia) (HHS/HCC) ELECTROCARDIOGRAM 2. Family history of coronary artery disease ELECTROCARDIOGRAM 3. Mixed hyperlipidemia 4. Orthostatic hypotension Referring Provider: No ref. provider found PCP: ARISTIDES HERNANDEZ MD documented in this encounter Plan of Treatment Upcoming Encounters Date Type Department Care Team (Late st Contact Info) Description 12/26/2024 12:00 PM CDT Appointment [facility] Transition [facility]gr [address] [place] [address] Bren Carmichael MD [address] [place] [address] 05/06/2025 2:30 PM TRADE ECONOMIST Office Visit [facility] eld [address] [place] [address] Bren Carmichael MD [address] [place] [address] documented as of this encounter Procedures Procedure Name Priority Date/Time Associated Diagnosis Comments ELECTROCARDIOGRAM (NON MIDMARK ACQUIRED) Routine 11/26/2024 9:33 AM CDT SVT (supraventricular tachycardia) ([facility]) Family history of coronary artery disease documented in this encounter Results * ELECTROCARDIOGRAM (11/26/2024 9:33 AM CDT) 11/26/2024 9:33 AM CDT Narrative [facility] - 11/26/2024 5:[address] PM CDT [facility] [address] [place] [address] Test Date: 2024-11-26 Pat Name: DAIANA HAYNES Department: 105 Room: Gender: Female Floral Associate: : 1980 Requested By: BREN CARMICHAEL Order Number: [id number] Reading MD: Bren Carmichael Measurements Intervals [place] Rate: 63 P: 54 [place]: 123 QRS: 74 QRSD: 110 T: 53 QT: 426 QTc: 438 Interpretive Statements SINUS RHYTHM WITH SINUS ARRHYTHMIA INCOMPLETE RIGHT BUNDLE BRANCH BLOCK nondiagnostic inferior/lateral q-waves Procedure Note Bren Carmichael MD - 11/26/[address] [facility] [address] [place] [address] Test Date: 2024-11-26 Pat Name: DAIANA HAYNES Department: 105 Room: Gender: Female Floral Associate: : 1980 Requested By: BREN CARMICHAEL Order Number: [id number] Reading MD: Bren Carmichael Measurements Intervals [place] Rate: 63 P: 54 [place]: 123 QRS: 74 QRSD: 110 T: 53 QT: 426 QTc: 438 Interpretive Statements SINUS RHYTHM WITH SINUS ARRHYTHMIA INCOMPLETE RIGHT BUNDLE BRANCH BLOCK nondiagnostic inferior/lateral q-waves us Bren Carmichael MD PROCEDURES-ORDERABLE NO CHARGE Final Result [facility] documented in this encounter Visit Diagnoses Diagnosis SVT (supraventricular tachycardia) (HHS/HCC)- Primary Other specified cardiac dysrhythmias Family history of coronary artery disease Family history of ischemic heart disease Mixed hyperlipidemia Orthostatic hypotension documented in this encounter Care Teams City Engineer Relationship Specialty Start Date End Date Aristides Hernandez MD [address] [facility] [address] PCP - General INTERNAL MEDICINE 04/01/22 Bren Carmichael MD [address] [place] [address] EP Temperature Regulator Pyrometer CLINICAL CARDIAC ELECTROPHYSIOLOGY 05/04/22 documented as of this encounter
--- NOTE | ~2024-12-05 | US_ITS ---
EXAMINATION:US venous doppler UE LT INDICATION:Left arm pain and swelling TECHNIQUE: Multiple grayscale, color flow and Doppler images of the left lower extremity deep venous systems were obtained and reviewed. COMPARISON:No prior studies for comparison. FINDINGS: The common femoral, superficial femoral and popliteal veins demonstrate normal respiratory variation, augmentation and compressibility. Color flow is also seen within the posterior tibial, peroneal, greater saphenous and profunda veins. IMPRESSION: 1: No lower extremity deep venous thrombosis. Reviewed, dictated and finalized at location O.
--- OUTSIDE RECORDS SUMMARY | 2024-12-05 10:53 | XMS_ITS | Encounter Summary ---
Author Organization [facility] Address [address] [place] [address] Care Team Providers Care Non Categorical Preschool Teacher Name Role Phone Aristides Hernandez MD Primary Care Provider [phone] Alonso Cason MD Unavailable [phone] Reason for Referral * Diagnostic Imaging (Routine) - Closed Specialty Diagnoses / Procedures Referred By Francesca cheung Referred To Contact Diagnoses Abnormal finding on breast imaging Procedures US Breast Left Limited Kamla White NP [address] [phone] [place] [address] Phone: tel: fax: [address] [phone] Referral ID Status Reason Start Date Expiration Date Visits Re quested Visits Authorized [id number] Closed 05/21/2024 06/20/2025 1 1 Reason for Visit * Diagnostic Imaging (Routine) - Closed Specialty Diagnoses / Procedures Referred By Contayah t Referred To Contact Diagnoses Abnormal finding on breast imaging Procedures US Breast Left Limited Kamla White NP [address] [facility] [place] [phone] [place] [address] Phone: tel: fax: [facility] [address] [facility] [place] [address] Referral ID Status Reason Start Date Expiration Date Visits Re quested Visits Authorized [id number] Closed 05/21/2024 06/20/2025 1 1 Encounter Details Date Type Department Care Team (Latest Contact Info) Description 12/05/2024 10:53 AM CDT Hospital Encounter [facility] [place] - Breast Imaging [address] [facility] [address] [place] [address] Abnormal finding on breast imaging Social History Tobacco Use Types Packs/Day Years [...] week 04/14/2022 How often do you attend [facility] or catholic services? 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 Gender Identity Female 12/30/2023 11:42 PM CDT Sexual Orientation Straight 12/13/2018 10 :54 AM CDT documented as of this encounter Last Filed Vital Signs Vital Sign Reading Time Taken Comments Blood Pressure - - Pulse - - Temperature - - Respiratory Rate - - Oxygen Saturation - - Inhaled Oxygen Concentration - - Weight 90.5 kg (199 lb 8.3 oz) 12/05/2024 11:05 AM CDT Height 165.1 cm (5' 5) 12/05/2024 11:05 AM CDT Body Mass Index 33.2 12/05/2024 11:05 AM CDT documented in this encounter Plan of Treatment Not on file documented as of this encounter Procedures Procedure Name Priority Date/Time Associated Diagnosis Comments US BREAST LEFT LIMITED Schedule Routine, Read Routine (OP Routine) 12/05/2024 11:30 AM CDT Abnormal finding on breast imaging documented in this encounter Results * US Breast Left Limited (12/05/2024 11:30 AM CDT) Anatomical Region Laterality Modality Breast Left Ultrasound 12/05/2024 12:1 0 PM CDT Impressions 12/05/2024 12:10 PM CDT Short-term follow-up shows no residual left 11:00 small echogenic oval mass, consistent with resolution of prior hematoma/fat necrosis OVERALL FINAL ASSESSMENT: BI-RADS Category 1: Negative. RECOMMENDATION: Annual screening mammography is recommended. Electronically signed by: Shahnaz Guerin MD Narrative 12/05/2024 12:10 PM CDT EXAMINATION: LEFT BREAST ULTRASOUND HISTORY: Short term follow-up of left 11:00 area of presumed fat necrosis with associated asymmetry at mammography. Patient had been on baby aspirin but was not aware of recent trauma. COMPARISON: Mammography and ultrasound left breast 05/18/2024 TECHNIQUE: Directed ultrasound evaluation of the LEFT breast was performed. ULTRASOUND FINDINGS: In the 11:00 breast 11 cm from nipple at anterior depth, the previously seen 1.4 cm echogenic oval mass has now resolved. Procedure Note Shahnaz Guerin MD - 12/05/2024 EXAMINATION: LEFT BREAST ULTRASOUND HISTORY: Short term follow-up of left 11:00 area of presumed fat necrosis with associated asymmetry at mammography. Patient had been on baby aspirin but was not aware of recent trauma. COMPARISON: Mammography and ultrasound left breast 05/18/2024 TECHNIQUE: Directed ultrasound evaluation of the LEFT breast was performed. ULTRASOUND FINDINGS: In the 11:00 breast 11 cm from nipple at anterior depth, the previously seen 1.4 cm echogenic oval mass has now resolved. IMPRESSION: Short-term follow-up shows no residual left 11:00 small echogenic oval mass, consistent with resolution of prior hematoma/fat necrosis OVERALL FINAL ASSESSMENT: BI-RADS Category 1: Negative. RECOMMENDATION: Annual screening mammography is recommended. Electronically signed by: Shahnaz Guerin MD Kamla White RECORDS MANAGEMENT DIRECTOR IMG MAMMO PROCEDURES Final Result documented in this encounter Visit Diagnoses Diagnosis Abnormal finding on breast imaging documented in this encounter Care Teams Non Categorical Preschool Teacher Relationship Specialty Start Date End Date [place] [address] PCP - General Family Medicine 10/11/18 Alonso Cason MD [address] [place] [address] [address] Manager Water Obstetrics and Gynecology 01/21/22 documented as of this encounter
--- OUTSIDE RECORDS SUMMARY | 2024-12-05 11:00 | XMS_ITS | Encounter Summary ---
Author Organization [facility] Address [address] [facility] [address] [place] [address] Phone Care Team Providers Care Sql Tech Name Role Phone Aristides Hernandez MD Primary Care Provider [phone] Alonso Cason MD Unavailable [phone] Reason for Referral * Diagnostic Imaging (Routine) - Authorized Specialty Diagnoses / Procedures Referred By Francesca chueng Referred To Contact Diagnoses Encounter for screening mammogram for malignant neoplasm of breast Procedures Screening Mammogram Bilateral W Kamla Weinstein NP [address] [facility] [id number] [place] [address] Phone: tel: fax: [facility] [address] [place] [address] Referral ID Status Reason Start Date Expiration Date V isits Requested Visits Authorized [id number] Authorized 12/05/2024 01/04/2026 1 1 Encounter Details Date Type Department Care Team (Late st Contact Info) Description 12/05/2024 11:00 AM CDT Office Visit [facility] Floor [address] [place] [address] Kamla White NP [address] [facility] [phone] [place] [address] Abnormal finding on breast imaging (Primary Dx); Encounter for screening mammogram for malignant neoplasm of breast Social History Tobacco Use Types Packs/Day Years [...] How often do you attend chur or moravian services? 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 Gender Identity Female 12/30/2023 11:42 PM CDT Sexual Orientation Straight 12/13/2018 10 :54 AM CDT documented as of this encounter Last Filed Vital Signs Vital Sign Reading Time Taken Comments Blood Pressure - - Pulse - - Temperature - - Respiratory Rate - - Oxygen Saturation - - Inhaled Oxygen Concentration - - Weight 90.5 kg (199 lb 9.6 oz) 12/05/2024 10:40 AM CDT Height 165.1 cm (5' 5) 12/05/2024 10:40 AM CDT Body Mass Index 33.22 12/05/2024 10:40 AM CDT documented in this encounter Progress Notes * Kamal White, PRITI - 12/05/2024 11:00 AM CDT NAME: Latanya Haynes : 1980 DATE: 12/05/2024 REFERRING PROVIDER: Physician No CHIEF COMPLAINT: Follow-up of abnormal imaging of the left breast. HISTORY OF PRESENT ILLNESS: Latanya Haynes is a 43 y.o. woman who presents for follow-up for her abnormal imaging of her left breast. Patient was undergoing her routine mammography in April, when she was alerted to an abnormality in the left breast. She underwent additional diagnostic imaging and was recommended to return in 6 months for short interval follow-up. She presents today for this purpose. She denies any palpable masses in either breast. She denies any change in the appearance ofeither of her breasts or the skin of either of her breasts. She denies bilateral nipple discharge. She has no other systemic complaints and otherwise feels well today. ROS: Please see HPI. The patient's review of systems were reviewed as per the chart today and no other findings were noted other than noted in HPI. The patient's past medical history, social history, and family history are listed on their questionnaire and has been reviewed and can be found in the chart. PHYSICAL EXAMINATION: GENERAL: She is a well-developed, well-nourished woman in no acute distress. HEENT: Within normal limits. NECK: Neck is supple without lymphadenopathy. EXTREMITIES: Warm without edema. NEUROLOGICAL: She is alert and oriented x 3. BREAST EXAMINATION: Bilateral breast examination reveals normal ptotic breasts bilaterally. The right breast is without any dominant masses, skin changes, nipple discharge, or axillary adenopathy. The left breast is without any dominant masses, skin changes, nipple discharge, or axillary adenopathy. IMAGING: I personally reviewed the patient's breast imaging. Patient's prior imaging impression: IMPRESSION: 1. The questioned asymmetry on recent screening mammogram reflected superimposition of normal breast tissue. 2. Small 1.5 cm oval mass at the area of subtle skin bruising in the LEFT breast, 11 o'clock position, 11 cm from the nipple likely represents fat necrosis. Recommend short-term interval follow-up in 6 months. OVERALL FINAL ASSESSMENT: BI-RADS Category 3: Probably Benign. RECOMMENDATION: Recommend follow-up diagnostic breast imaging in 6 months with LEFT breast ultrasound. Drs. Vazquez and Анна discussed the above findings and recommendations with the patient, who expressed her understanding of the management plan. Dictated by: Zara Jj MD The radiology attending physician has personally reviewed this study, and had reviewed and/or edited this written report and agrees with it. Electronically signed by: Idania Vazquez M.D. Today the patient underwent a left breast ultrasound, which I personally reviewed. Her imaging was assigned a BI-RADS category 2, Benign. EXAMINATION: LEFT BREAST ULTRASOUND HISTORY: Short term [...] recommended. Electronically signed by: Shahnaz Guerin MD IMPRESSION: Latanya Haynes is a 43 y.o. woman who presents today for follow-up of abnormal imaging ofthe left breast. Clinical breast examination performed today is unremarkable, demonstrating normal breast parenchyma. Today she underwent a left breast ultrasound. Imaging completed in the office today was given a BI- RADS: Category 2, Benign. It is recommended the patient to her annual screening mammography. PLAN: I will plan to see the patient back in 6 months at which time she will be due for her clinical breast examination and bilateral screening mammograms. I encouraged her to perform breast self examinations on a monthly basis and to alert me of any changes. I answered all of her questions thoroughly, and she does seem pleased with this plan of approach. I encouraged her to contact me in the interim if any new questions or concerns arise. Kamla White NP Portions of this note were dictated using [employer] Direct speech recognition software. Please excuse any plastering supervisor errors. documented in this encounter Plan of Treatment Scheduled Orders Name Type Priority Associated Diagnoses Orde r Schedule Screening Mammogram Bilateral W Nael Imaging Schedule Routine, Read Routine (OP Routine) Encounter for screening mammogram for malignant neoplasm of breast Expected: 06/04/2025, Expires: 06/04/2026 documented as of this encounter Visit Diagnoses Diagnosis Abnormal finding on breast imaging- Primary Encounter for screening mammogram for malignant neoplasm of breast documented in this encounter Discontinued Medications Medication Sig Discontinue Reason Start Date End Da te aspirin 81 mg enteric coated tablet Take 1 tablet (81 mg total) by mouth daily Patient Reported 12/05/2024 hydrOXYzine (ATARAX) 25 mg tablet Take 1 tablet (25 mg total) by mouth every 8 (eight) hours as needed for anxiety Patient Reported 01/31/2024 12/05/2024 metoprolol XL (TOPROL-XL) 50 mg extended release tablet Take 1 tablet (50 mg total) by mouth daily Patient Reported 12/05/2024 vitamin B complex capsule Take 1 capsule by mouth daily Patient Reported 12/05/2024 documented as of this encounter Historical Medications * This list may reflect changes made after this encounter. metoprolol XL (TOPROL-XL) 25 mg extended release tablet TAKE ONE HALF TABLET BY MOUTH DAILY. 10/10/2024 HYDROcodone-aceta minophen (NORCO) 5-325 mg per tablet 1 - 2 TABLET ORALLY EVERY 6 HOURS NEEDED FOR PAIN 11/29/2024 added in this encounter Care Teams Sql Tech Relationship Specialty Start Date End Date Aristides Hernandez MD [address] [place] [address] PCP - General Family Medicine 10/11/18 Alonso Cason MD [address] [place] [address] [address] Academic Coordinator Obstetrics and Gynecology 01/21/22 documented as of this encounter
[2024-12-05 18:35] VITALS: BP 147/65; PULSE 102; RESP 16; TEMP 37; O2SAT 98
--- OUTSIDE RECORDS SUMMARY | 2024-12-05 18:36 | XMS_ITS | Clinical Summary ---
Author Organization [facility] Address [facility] [place] [address] Care Team Providers Care Mutual Fund Sales Agent Name Role Phone Aristides Hernandez MD Primary Care Provider [phone] Don Carmichael MD Unavailable [phone] Allergies Active Allergy Reactions Criticality Noted Date Comments Clarithromycin Hives,Itching,Rash High 12/05/2009 Latex Other (see comment) 04/30/2022 Metformin Itching Low 10/10/2018 Sulfa Antibiotics Hives,Rash,Itching Medium 11/20/2009 Tape Unknown 11/26/2024 Wound Dressing Adhesive Itching,Rash Medium 04/12/2023 Dermabond [...] by mouth daily. Active Vitamin D, Ergocalciferol, 54159 units Cap Take 1 tablet by mouth [...] mouth daily. 90 tablet 1 5 Active MOUNJARO 10 MG/0.5ML injection INJECT 10 MG UNDER THE SKIN EVERY 7 DAYS 4 Active Active Problems Problem Noted Date Diagnosed Date Orthostatic hypotension 12/03/2024 Abnormal cardiovascular stress test 06/21/2022 Other chest pain 05/09/2022 SVT (supraventricular tachycardia) ([facility]) 06/2022 Mixed hyperlipidemia Family history of coronary artery disease Overview (05/09/2022): Mother at 38 with mi; father with cad Encounters Date Type Department Care Team Description 11/28/2024 Telephone [facility] [address] [place] [address] Don Carmichael MD Schedule Procedure 11/26/2024 9:30 AM CDT Office Visit [facility] [place] [address] [place] [address] Don Carmichael MD Follow Up 11/26/2024 Travel 11/15/2024 MyChart Message Enc [facility] [address] [place] [address] Don Carmichael MD Low blood pressure 10/09/2024 MyChart Message Enc [facility] [address] [place] [address] Don Carmichael MD Low blood pressure from Last 3 [...] Sex Assigned at Female 05/11/2024 12:29 PM TRANSPORTATION SECURITY SCREENER Legal Sex Female 10:33 PM CDT Gender Identity Not on file Sexual Orientation Not on file 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 Not on file Last Filed Vital Signs Vital Sign Reading Time Taken Comments Blood Pressure 112/74 11/26/2024 9:22 AM CDT Pulse 83 11/26/2024 9:22 AM CDT Temperature 35.7 C (96.3 F) 07/01/2022 9:00 AM CDT Respiratory Rate 16 11/26/2024 9:22 AM CDT Oxygen Saturation 99% 11/26/2024 9:22 AM CDT Inhaled Oxygen Concentration - - Weight 88.8 kg (195 lb 12.8 oz) 11/26/2024 9:22 AM CDT Height 165.1 cm (5' 5) 11/26/2024 9:22 AM CDT Body Mass Index 32.58 11/26/2024 9:22 AM CDT Plan of Treatment Upcoming Encounters Date Type Department Care Team (Late st Contact Info) Description 12/26/2024 12:00 PM CDT Appointment [facility] Citrix Administrator [address] [place] [address] Don Carmichael MD [address] [place] [address] 05/06/2025 2:30 PM TRANSPORTATION SECURITY SCREENER Office Visit [facility] eld [address] [place] [address] Don Carmichael MD [address] [place] [address] Health Maintenance Due Date Last Done Comments Annual Physical 1984 Hepatitis B Vaccines (2 of 3 - 19+ 3-dose series) 03/14/2007 02/14/2007 HPV Vaccines (1 - 3-dose SCDM series) 2008 Cervical Cancer Screening Pap with HPV Testing (Age 30 to 64) Every 5 Years 12/07/2011 COVID-19 Vaccine ( - 2024- season) 2024 06/03/2020, 05/06/2020 Mammogram Screening 05/18/2026 05/18/2024, 04/27/2024, 04/14/2023, Additional history exists Cervical Cancer Screening Pap Smear (Age 30 to 64) Every 3 Years 08/23/2027 08/22/2024, 08/10/2023, 05/31/2022, Additional history exists Cervical Cancer Screening with HPV 08/23/2027 DTaP, Tdap and Td Vaccines (8 - [...] on patient's age to complete this topic Procedures Procedure Name Priority Date/Time Associated Diagnosis Comments ELECTROCARDIOGRAM (NON MIDMARK ACQUIRED) Routine 11/26/2024 9:33 AM CDT SVT (supraventricular tachycardia) (HHS/HCC) Family history of coronary artery disease from Last 3 Months Results * ELECTROCARDIOGRAM (11/26/2024 9:33 AM CDT) 11/26/2024 9:33 AM CDT Narrative [facility] - 11/26/2024 5:22 PM CDT [facility] [address] [place] [address] Test Date: 2024-11-26 Pat Name: DAIANA HAYNES Department: 105 Room: Gender: Female Wholesale And Retail Merchant: : 1980 Requested By: DON CARMICHAEL Order Number: [id number] Reading JANE Carmichael Measurements Intervals [place] Rate: 63 P: 54 IA: 123 QRS: 74 QRSD: 110 T: 53 QT: 426 QTc: 438 Interpretive Statements SINUS RHYTHM WITH SINUS ARRHYTHMIA INCOMPLETE RIGHT BUNDLE BRANCH BLOCK nondiagnostic inferior/lateral q-waves Procedure Note Don Carmichael MD - 11/26/2024 [facility] [address] [place] [address] Test Date: 2024-11-26 Pat Name: DAIANA MINO Department: 105 Room: Gender: Female Wholesale And Retail Merchant: : 1980 Requested By: DON CARMICHAEL Order Number: [id number] Reading JANE Carmichael Measurements Intervals [place] Rate: 63 P: 54 IA: 123 QRS: 74 QRSD: 110 T: 53 QT: 426 QTc: 438 Interpretive Statements SINUS RHYTHM WITH SINUS ARRHYTHMIA INCOMPLETE RIGHT BUNDLE BRANCH BLOCK nondiagnostic inferior/lateral q-waves us Don Carmichael MD PROCEDURES-ORDERABLE NO CHARGE Final Result [facility] from Last 3 Months Insurance [facility] Advance Directives * Full Code (Latest Code Status on File) Date Activated Date Inactivated Comments 07/01/2022 12:00 PM 07/01/2022 3:52 PM Care Teams Mutual Fund Sales Agent Relationship Specialty Start Date End Date Aristides Hernandez MD [address] [facility] [address] PCP - General INTERNAL MEDICINE 04/01/22 Don Carmichael MD [address] [place] [address] EP Parts Finisher CLINICAL CARDIAC ELECTROPHYSIOLOGY 05/04/22
--- OUTSIDE RECORDS SUMMARY | 2024-12-05 18:36 | XMS_ITS ---
Author Organization [facility] Address [address] [place] [address] Phone Care Team Providers Care Cigarette Examiner Name Role Phone Provider, Unknown Primary Care [...]
--- OUTSIDE RECORDS SUMMARY | 2024-12-05 18:37 | XMS_ITS | Encounter Summary ---
Author Organization [facility] Address [facility] [place] [address] Care Team Providers Care Jump Roll Operator Name Role Phone Aristides Hernandez MD Primary Care Provider [phone] Don Oliver MD Unavailable [phone] Encounter Details Date Type Department Care Team (Late Contact Info) Description 11/15/2024 [email or web address] Message Enc [facility] [address] [place] [address] Don Oliver MD [address] [place] [address] Low blood pressure Social History Tobacco Use Types Packs/Day Years Used Date Smoking Tobacco: Never Passive Smoke Exposure: Never Smokeless Tobacco: Never Alcohol Use Standard Drinks/Week Comments Not Currently 0 (1 standard drink = 0.6 oz pur e alcohol) Comments Unknown Sex and Gender Information Value Date Recorded Sex Assigned at Female 05/11/2024 12:29 PM METAL FURNITURE POLISHER Legal Sex Female 10:33 PM CDT Gender Identity Not on file Sexual Orientation Not on file 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 Not on file documented as of this encounter Plan of Treatment Upcoming Encounters Date Type Department Care Team (Late Contact Info) Description 12/26/2024 12:00 PM CDT Appointment [facility] Rug Cleaner Hand [address] [place] [address] Don Oliver MD [address] [place] [address] 05/06/2025 2:30 PM METAL FURNITURE POLISHER Office Visit [facility] el [address] [place] [address] Don Oliver MD [address] [place] [address] documented as of this encounter Visit Diagnoses Not on filedocumented in this encounter Care Teams Jump Roll Operator Relationship Specialty Start Date End Date Aristides Hernandez MD [address] [place] [address] PCP - General INTERNAL MEDICINE 04/01/22 Don Oliver MD [address] [place] [address] EP Mysql Dba CLINICAL CARDIAC ELECTROPHYSIOLOGY 05/04/22 documented as of this encounter
--- OUTSIDE RECORDS SUMMARY | 2024-12-05 18:37 | XMS_ITS | Clinical Summary ---
Author Organization [facility] Address [address] [place] [address] Phone Care Team Providers Care Application Support Engineer Name Role Phone Provider, Unknown Primary Care [...] Description 10/22/2024 Telephone [facility] [address] [place] [address] Ewelina Ram RN [facility] 10/12/2024 Patient Outreach [facility] [address] [place] [address] Daiana Rodriguez, GARAGE HELPER, MEDICAL LIBRARY ASSISTANT from Last 3 Months Immunizations Immunization Administration [...] on file Legal Sex Female 11:08 AM ELECTROMECHANICAL TECHNOLOGIST Gender Identity Not on file Sexual Orientation Not on file Last Filed Vital Signs Vital Sign Reading Time Taken Comments Blood Pressure 146/80 03/09/2020 12:24 PM ELECTROMECHANICAL TECHNOLOGIST Pulse 81 03/09/2020 12:24 PM ELECTROMECHANICAL TECHNOLOGIST Temperature 36.4 C (97.6 F) 03/09/2020 12:24 PM ELECTROMECHANICAL TECHNOLOGIST Respiratory Rate 16 03/09/2020 12:24 PM ELECTROMECHANICAL TECHNOLOGIST Oxygen Saturation 98% 03/09/2020 12:24 PM ELECTROMECHANICAL TECHNOLOGIST Inhaled Oxygen Concentration - - Weight - [...] Cervical Cancer Screening (CCS) 12/07/2011 HPV/Cotest 12/07/2011 Influenza Immunization (#1) 2024 08/3 04/2023, 12/08/2022, 01/06/2022, Additional history exists SARS-COV-2 Immunization ( season) 2024 06/03/2020, 05/06/2020 Diabetes: Hemoglobin A1c 04/10/2025 025, 10/25/2023, 09/28/2022, [...] patient's age to complete this topic Insurance [facility] [employer] * Guarantor: [employer] Account Type Relation to Patient Date of Phone Billing Address Institutional Other [id number] [place] [address] Care Teams Application Support Engineer Relationship Specialty Start Date End Date Provider, Unknown UNKNOWN PCP - General 03/04/20
--- OUTSIDE RECORDS SUMMARY | 2024-12-05 18:37 | XMS_ITS | Encounter Summary ---
Author Organization [facility] Address [address] [place] [address] Care Team Providers Care Machine Cleaner Name Role Phone Aristides Hernandez MD Primary Care Provider [phone] Alonso Cason MD Unavailable [phone] Encounter Details Date Type Department Care Team (Late st Contact Info) Description 10/09/2024 Results [facility] [address] [address] Gisell Walker, PRITI [address] [place] [address] CBC with auto differential, Lipid panel, Hemoglobin [...] How often do you attend chur or mormonism services? Patient declined 04/14/2022 Do you belong [...] on file Legal Sex Female 2:38 AM TAX INVESTIGATOR Gender Identity Female 12/30/2023 11:42 PM CDT [...] on filedocumented in this encounter Care Teams Machine Cleaner Relationship Specialty Start Date End Date Aristides Hernandez MD [address] [place] [address] PCP - General Family Medicine 10/11/18 Alonso Cason MD [address] [place] [address] [address] Mailroom Coordinator Obstetrics and Gynecology 01/21/22 documented as of this encounter
--- OUTSIDE RECORDS SUMMARY | 2024-12-05 18:37 | XMS_ITS | Encounter Summary ---
Author Organization [facility] Address [facility] [place] [address] Care Team Providers Care Asbestos Cement Sheet Supervisor Name Role Phone Aristides Hernandez MD Primary Care Provider [phone] Don Oliver MD Unavailable [phone] Encounter Details Date Type Department Care Team (Late Contact Info) Description 06/25/2022 Hospital Orders Only [facility] Sample Maker Hand Pre/Post [address] [place] [address] Don Oliver MD [address] [place] [address] Social History Tobacco Use Types Packs/Day Years Used Date Smoking Tobacco: Never Passive Smoke Exposure: Never Smokeless Tobacco: Never Alcohol Use Standard Drinks/Week Comments Not Currently 0 (1 standard drink = 0.6 oz pur e alcohol) Comments Unknown Sex and Gender Information Value Date Recorded Sex Assigned at Female 05/11/2024 12:29 PM UPHOLSTERY COVERS INSPECTOR Legal Sex Female 10:33 PM CDT Gender [...] Info) Description 12/26/2024 12:00 PM CDT Appointment [facility] Sample Maker Hand [address] [place] [address] Don Oliver MD [address] [place] [address] 05/06/2025 2:30 PM UPHOLSTERY COVERS INSPECTOR Office Visit [facility] eld [address] [place] [address] Don Oliver MD [address] [place] [address] documented as of this encounter Visit Diagnoses Not on filedocumented in this encounter Care Teams Asbestos Cement Sheet Supervisor Relationship Specialty Start Date End Date Aristides Hernandez MD [address] [place] [address] PCP - General INTERNAL MEDICINE 04/01/22 Don Oliver MD [address] [place] [address] EP Surfboard Maker CLINICAL CARDIAC ELECTROPHYSIOLOGY 05/04/22 documented as of this encounter
--- OUTSIDE RECORDS SUMMARY | 2024-12-05 18:37 | XMS_ITS | Clinical Summary ---
Author Organization [facility] [address] [facility] lt Address [address] [place] [address] Care Team Providers Care Processing Operator Name Role Phone Aristides Hernandez MD Primary Care Provider [phone] Alonso Cason MD Unavailable [phone] Allergies Active Allergy Reactions Criticality Noted Date Comments Clarithromycin Rash Medium 10/10/2018 Latex Rash Medium 04/30/2022 Sensitivity, Metformin Itching Low 10/10/2018 Sulfa (Sulfonamide Antibiotics) Hives,Rash Medium 12/2018 Tissue Adhesive Itching,Rash Medium 04/12/2023 Dermabond Medications cetirizine (ZyrTEC) 10 mg tablet Take 1 tablet (10 mg total) by mouth daily Active calcium carbonate-vitam in D3 1,500 mg (600 mg elemental)-400 unit tablet,chewable Take by mouth 2 (two) times a day Active clobetasoL (TEMOVATE) 0.05 % cream Apply topically 2 (two) times a day APPLY TO AFFECTED AREA 04/01/20 Active fluticasone propionate (FLONASE) 50 mcg/actuation nasal spray 1 spray daily as needed 03/26/20 Active multivit with min-folic acid (Adult Multivitamin Gummies) 200 mcg tablet,chewable 03/21/20 Active ascorbic acid/vitamin E/biotin (HAIR, SKIN, NAILS WITH BIOTIN ORAL) Take 1 tablet by mouth daily Active FLUoxetine (PROzac) 10 mg tablet/capsule Take 1 tablet/capsu le (10 mg total) by mouth daily 90 capsule 4 01/31/20 24 025 Active famotidine (PEPCID) 20 mg tablet TAKE 1 TABLET BY MOUTH TWICE A DAY 180 tablet 3 07/11/19 25 Active Linzess 145 mcg capsuleIndicati ons:Constipatio n, unspecified constipation type TAKE 1 CAPSULE BY MOUTH EVERY DAY 30 capsule 3 07/25/19 25 Active atorvastatin (LIPITOR) 40 mg tablet TAKE 1 TABLET BY MOUTH EVERY DAY 90 tablet 09/16/19 25 Active tirzepatide (Mounjaro) 10 mg/0.5 mL pen injector injection INJECT 10 MG UNDER THE SKIN EVERY 7 DAYS 2 mL 1 11/08/19 25 Active HYDROcodone-karina taminophen (NORCO) 5-325 mg per tablet 1 - 2 TABLET ORALLY EVERY 6 HOURS NEEDED FOR PAIN 11/30/19 25 Active metoprolol XL (TOPROL-XL) 25 mg extended release tablet TAKE ONE HALF TABLET BY MOUTH DAILY. 10/11/19 25 Active aspirin 81 mg enteric coated tablet Take 1 tablet (81 mg total) by mouth daily 025 Discontinued(Gustavo olivas Reported) vitamin B complex capsule Take 1 capsule by mouth daily 025 Discontinued(Gustavo olivas Reported) metoprolol XL (TOPROL-XL) 50 mg extended release tablet Take 1 tablet (50 mg total) by mouth daily 025 Discontinued(Gustavo olivas Reported) hydrOXYzine (ATARAX) 25 mg tablet Take 1 tablet (25 mg total) by mouth every 8 (eight) hours as needed for anxiety 30 tablet 1 01/31/20 24 025 Discontinued(Gustavo olivas Reported) tirzepatide (Mounjaro) 10 mg/0.5 mL pen injector injection INJECT 10 MG UNDER THE SKIN EVERY 7 DAYS 2 mL 1 09/11/19 25 025 Discontinued Active Problems Problem Noted Date Diagnosed Date Type 2 diabetes mellitus with hyperlipidemia Assessment & Plan (10/08/2024 9:12 AM CDT): Continue atorvastatin. Will check lipid panel today and plan accordingly. Assessment & Plan (05/01/2024 10:35 AM INSULATION BOARD COATER OPERATOR): Stable on atorvastatin and will continue to follow repsonse. Mood disorder 05/01/2024 Assessment & Plan (10/08/2024 9:12 AM CDT): Reports well controlled on fluoxetine and will continue. Assessment & Plan (05/01/2024 10:35 AM INSULATION BOARD COATER OPERATOR): COntinues on fluoxetine. Good response. Excellent insight. [...] reviewed. Assessment & Plan (05/01/2024 10:35 AM INSULATION BOARD COATER OPERATOR): Stable on metoprolol XL. COntinue on BP and HR montiring. Assessment & Plan (01/31/2024 9:56 AM CDT): Normotensive. Continue metoprolol. Will continue to monitor. Hospital discharge follow-up 01/31/2024 Assessment & Plan (01/31/2024 10:11 AM CDT): Gisell Deutsch NP have personally reviewed pertinent inpatient and/or [...] 03/25/2023 Assessment & Plan (04/12/2023 11:04 AM INSULATION BOARD COATER OPERATOR): It looks like she is trying to [...] 03/25/2023 Assessment & Plan (04/12/2023 11:05 AM INSULATION BOARD COATER OPERATOR): The patient continues to have significant issues [...] 02/28/2023 Heartburn 11/02/2022 Controlled type 2 diabetes m edelmira without complication, without long-term current use of insulin 06/30/2022 Assessment & Plan (10/08/2024 9:11 AM CDT): Has been well controlled with Mounjaro and excellent weight loss. Will check A1c today and plan accordingly. Assessment & Plan (05/01/2024 10:34 AM INSULATION BOARD COATER OPERATOR): Secondary prevneiton. Reviewed glycmeic control targets. No [...] Cardiology. Assessment & Plan (04/21/2022 3:38 PM INSULATION BOARD COATER OPERATOR): Eliquis History of loop electrical excision procedure (L EEP) 05/15/2019 Assessment & Plan (07/20/2022 9:09 AM CDT): Given the persistent erythema a 1 cm incision was made at the inferior aspect of the wound. Predominantly serous fluid was removed with little bit of fat necrosis as well. The wound was then packed with [id number] iodoform packing. She will continue to do [...] Date Resolved Date BMI 39.0-39.9,adult 05/01/2024 10/09/19 Assessment & Plan (05/01/2024 10:35 AM INSULATION BOARD COATER OPERATOR): [place] 150min/week aerobic exercise. Healthy food chocies. Severe obesity (BMI 35.0-39. 9) with comorbidity 05/01/2024 10/08/2024 Assessment & Plan (05/01/2024 10:35 AM INSULATION BOARD COATER OPERATOR): As aboive. Chest pain, unspecified type 01/23/2024 [...] 04/21/202207/2022 Assessment & Plan (06/08/2022 11:20 AM INSULATION BOARD COATER OPERATOR): I have had discussions with the vascular [...] splenectomy. Assessment & Plan (05/21/2022 11:13 AM INSULATION BOARD COATER OPERATOR): Multiple splenic artery aneurysms, 1.8 cm saccular [...] her. Assessment & Plan (04/21/2022 3:19 PM INSULATION BOARD COATER OPERATOR): 1.8 cm splenic artery aneurysm found incidentally [...] daily. Assessment & Plan (05/21/2022 11:13 AM INSULATION BOARD COATER OPERATOR): Stable continue Lipitor 40 mg. Assessment & Plan (04/21/2022 3:38 PM INSULATION BOARD COATER OPERATOR): Lipitor New onset a-fib 04/13/2022 10/08/2024 Assessment & Plan (06/30/2022 3:59 PM CDT): Scheduled with cardiology 04/28/2022, at [facility]. 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 Continue small frequent meals. Continue calcium, multivitamin vitamin-D. Continue to attend the weight loss groups. We will see her back in 6 months to reassess her progress. Assessment & Plan (02/07/2023 10:42 AM INSULATION BOARD COATER OPERATOR): The patient has done well having lost [...] 023 Assessment & Plan (05/21/2022 11:13 AM INSULATION BOARD COATER OPERATOR): Super morbid obesity, discussed given her body habitus any repair would be more difficult and higher risk. Morbid obesity 05/15/2019 10/08/2024 Encounters Date Type Department Care Team Description 12/05/2024 11:00 AM CDT Office Visit [facility] Medicine Surgery [address] [facility] [facility] Floor 8 [place] [address] Kamla White NP Abnormal finding on breast imaging (Primary Dx); Encounter for screening mammogram for malignant neoplasm of breast 12/05/2024 10:53 AM CDT Hospital Encounter [facility] - Breast Imaging [address] [place] [address] Floor 8 [place] [address] Abnormal finding on breast imaging 11/23/2024 7:20 AM CDT Lab [address] Hypotension, unspecified hypotension type 11/22/2024 Orders Only [facility] Health Information Management [address] [place] [address] Scanning, Provider 11/21/2024 Orders Only [facility] [address] [address] Aristides Hernandez MD Hypotension, unspecified hypotension type (Primary Dx) 10/09/2024 Results Follow-Up [facility] [address] [address] Gisell Walker, PRITI CBC with auto differential, Lipid panel, Hemoglobin A1c, Differential, auto 10/09/2024 Telephone [facility] [address] [address] Gisell Walker, PRITI 10/09/2024 Orders Only [facility] [address] [address] Gisell Walker NP Elevated ferritin (Primary Dx) 10/08/2024 9:00 AM CDT Lab [facility] [address] [place] [phone] Class 1 obesity due to excess calories with serious comorbidity and body mass index (BMI) of 34.0 to 34.9 in adult; Type 2 diabetes mellitus with hyperlipidemia (HCC); Hypertension associated with diabetes (HCC); Elevated ferritin 10/08/2024 8:30 AM CDT Office Visit [facility] [place] [address] [place] [id number] Gisell Walker NP Hypertension associated with diabetes (HCC) (Primary Dx); Class 1 obesity due to excess calories with serious comorbidity and body mass index (BMI) of 34.0 to 34.9 in adult; Type 2 diabetes mellitus with hyperlipidemia (HCC); Mood disorder; Controlled type 2 diabetes mellitus without complication, without long-term current use of insulin (HCC); Atrial fibrillation with normal ventricular rate (CMS/HCC) (HCC) 09/26/2024 Results Follow-Up [address] [place] [address] Fannie Son NP Vitamin D 25 hydroxy, TSH, Vitamin B12, Additional followed-up results: 3 09/25/2024 3:30 PM CDT Lab [facility] Outpatient Lab at [address] [address] 09/25/2024 3:25 PM CDT - 09/25/2024 11:59 PM CDT Hospital Encounter [address] [address] S/P gastric sleeve procedure; Elevated AST (SGOT) [...] SURGERY 03/16/23 COLPOSCOPY 10/01/2024 Dr. Barrett in [place] HYSTERECTOMY 11/28/2024 Bilateral OOPHORECTOMY 11/28/2024 Medical History Medical History Date Comments PCOS [...] Mom Hypertension Mother Mom Obesity Mother Mom Colon cancer Paternal Grandfather Breast cancer Paternal Grandmother Alma Rosa Diabetes Paternal Grandmother Alma Rosa Clotting disorder Sister 1 Estrella Mental illness Sister 1 Estrella Miscarriages / Stillbirths Sister 2 Ammi Relation Name Status Comments Father Lino Alive Maternal Grandmother Randee Alive Mother Mom Paternal Grandfather Paternal Grandmother Alma Rosa Alive Sister 1 [...] How often do you attend chur or druze services? Patient declined 04/14/2022 Do you belong to any clubs o r organizations such as hoahaoism groups, unions, fraternal or athletic groups, or [...] on file Legal Sex Female 2:38 AM INSULATION BOARD COATER OPERATOR Gender Identity Female 12/30/2023 11:42 PM CDT Sexual Orientation Straight 12/13/2018 10 :54 AM CDT Obstetrics History Para Term AB IAB SAB Ectopic Multiple Livin g Live Births 3 2 Date Outcome GA Total Labor Labor/2nd/3rd Weight Sex Type Anes PTL Mary A1 A5 Name Clin Last Filed Vital Signs Vital Sign Reading Time Taken Comments Blood Pressure 98/56 10/08/2024 8:19 AM CDT Pulse 88 10/08/2024 8:19 AM CDT Temperature 36.4 C (97.5 F) 10/08/2024 8:19 AM CDT Respiratory Rate 20 10/08/2024 8:19 AM CDT Oxygen Saturation 99% 10/08/2024 8:19 AM CDT Inhaled Oxygen Concentration - - Weight 90.5 kg (199 lb 8.3 oz) 12/05/2024 11:05 AM CDT Height 165.1 cm (5' 5) 12/05/2024 11:05 AM CDT Body Mass Index 33.2 12/05/2024 11:05 AM CDT Plan of Treatment Health Maintenance Due Date Last Done Comments Hepatitis C Screening 1981 HPV Vaccines (1 - 3-dose SCD M series) 2008 Regular Well Visit/Exam 18-64 07/10/2022 07/10/2021 Dilated Eye Exam 10/06/2024 10/07/2023 Covid-19 Vaccine ( 2024-2 6 season) 2024 06/03/2020, 05/06/2020 Influenza Vaccine (#1) 2024 , 12/08/2022, 12/08/2022, [...] Vaccines Discontinued Medical Devices Implanted Type Area Associate Director Qa Device Identifier Shelf Expiration Date Model / Serial / Lot [employer] Symmetry Vesolock Large Clip Internal [id number] - [id number] Implanted:Qty: 3 on 07/05/2022 by Vic Castellon MD at [facility] N/A: Abdomen [employer] 10/03/2023 [id number] / / [id number] Description:7 applied Procedures Procedure Name Priority Date/Time Associated Diagnosis Comments US BREAST LEFT LIMITED Schedule Routine, Read Routine (OP Routine) 12/05/2024 11:30 AM CDT Abnormal finding on breast imaging SCAN - LABS 11/28/2024 CORTISOL Routine 11/23/2024 7:18 AM CDT Hypotension, [...] sleeve procedure EGFR Routine 05/01/2024 9:52 AM INSULATION BOARD COATER OPERATOR Controlled type 2 diabetes mellitus with hyperglycemia, without long-term current use of insulin (HCC) ALBUMIN CREATININE RATIO, URINE Routine 05/01/2024 9:52 AM INSULATION BOARD COATER OPERATOR Controlled type 2 diabetes mellitus with hyperglycemia, without long-term current use of insulin (HCC) SCREENING MAMMOGRAM BILATERAL W NAEL Schedule Routine, Read Routine (OP Routine) 04/27/2024 3:13 PM INSULATION BOARD COATER OPERATOR 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 breast, unspecified estrogen receptor status, unspecified laterality (HCC) Abnormal mammogram of both breasts Abnormal mammogram of right breast HM DIABETES EYE EXAM Routine 10/07/2023 2:06 PM CDT from Last 3 Months or Most Recently Relevant to Health Maintenance Results * US Breast Left Limited (12/05/2024 11:30 AM CDT) Anatomical Region Laterality Modality Breast Left Ultrasound 12/05/2024 12:1 0 PM CDT Impressions 12/05/2024 12:10 PM CDT Short-term follow-up shows no residual left 11:00 small echogenic oval mass, consistent with resolution of prior hematoma/fat necrosis OVERALL FINAL ASSESSMENT: BI-RADS Category 1: Negative. RECOMMENDATION: Annual screening mammography is recommended. Electronically signed by: MD Phil Goins 12/05/2024 12:10 PM CDT EXAMINATION: LEFT BREAST [...] signed by: Shahnaz Guerin MD Kamla White NP IMG MAMMO PROCEDURES Final Result * SCAN - LABS (11/28/2024) us Provider Scanning Edited Result - Final * TSH (11/23/2024 7:18 AM CDT) Thyroid Stimulating Hormone 1.40 0.30 - 4.20 mcIUnit/mL ROBY YOUNG (LADAN) Blood 11/23/2024 7:18 AM CDT 11/23/2024 10:45 AM CDT Aristides Hernandez MD LAB BLOOD ORDERABLES Abeba dalton Result ROBY YOUNG (LADAN) [address] [facility] [place] [address] * T4, free (11/23/2024 7:18 AM CDT) Pathologist [facility] Free T4 1.12 0.90 - 1.70 ng/dL ROBY YOUNG (LADAN) Blood 11/23/2024 7:18 AM CDT 11/23/2024 10:45 AM CDT Aristides Hernandez MD LAB BLOOD ORDERABLES Abeba l Result Performing Organization Address City/[facility]/ZIP Co de Phone Number ROBY YOUNG (MOHAWK) 1 [place] [address] * (ABNORMAL) Cortisol (11/23/2024 7:18 AM CDT) [facility] Cortisol 4.1(L) 4.8 - 19.5 mcg/dl Comment: Interpretive Data Normal Range: 4.8 - 19.5 mcg/dL; Evening: Half of morning value. This analyte undergoes marked diurnal variation. Ranges indicated apply to morning specimens. Current interpretive data was last revised 2018. Testing performed by: [address] [address] Blood 11/23/2024 7:18 AM CDT 11/23/2024 3:24 PM CDT Aristides Hernandez MD LAB BLOOD ORDERABLES Abeba l Result Performing Organization Address City/[facility]/ZIP Co de Phone Number ROBY SilvaLADAN) 1 [place] [address] * SCAN - LABS (11/22/2024) Provider Scanning Final Result * (ABNORMAL) Differential, auto (10/08/2024 8:59 AM CDT) Neutrophil abs 5.01 1.50 - 6.50 K/cumm Comment:Testing performed by : [address] [place]., [address] Imm gran abs 0.02 0.00 - 0.10 K/cumm [facility] (LADAN) Comment:Testing performed by : [facility], [address] [place] [address]., [address] Lymphocyte abs 4.65(H) 0.80 - 3.30 K/cumm [facility] (LADAN) Comment:Testing performed by : [facility], [address] [place] [address]., [address] Monocyte abs 1.05(H) 0.20 - 0.80 K/cumm [facility] (LADAN) Comment:Testing performed by : [facility], [address] [place] [address]., [address] Eosinophil abs 0.16 0.00 - 0.50 K/cumm [facility] (LADAN) Comment:Testing performed by : [facility], [address] [place] [address], [address] Basophil abs 0.10 0.00 - 0.10 K/cumm [facility] (LADAN) Comment:Testing performed by : [facility], [address] [place] [address]., [address] Neutrophil pct 45.5 % [facility] (LADAN) Comment: Interpretive Data Percent cell count reference ranges are not reported, since discordance with absolute values may lead to misinterpretation of CBC data. Current Interpretive Data was last revised on 2017. Testing performed by: [facility], [address] [place] [address]., [address] Imm gran pct 0.2 % [facility] (LADAN) Comment: Interpretive Data Percent cell count reference ranges are not reported, since discordance with absolute values may lead to misinterpretation of CBC data. Current Interpretive Data was last revised on 2017. Testing performed by: [facility], [address] [place] [address]., [address] Lymphocyte pct 42.3 % [facility] (LADAN) Comment: Interpretive Data Percent cell count reference ranges are not reported, since discordance with absolute values may lead to misinterpretation of CBC data. Current Interpretive Data was last revised on 2017. Testing performed by: [address], [address] Monocyte pct 9.6 % [facility] (LADAN) Comment: Interpretive Data Percent cell count reference ranges are not reported, since discordance with absolute values may lead to misinterpretation of CBC data. Current Interpretive Data was last revised on 2017. Testing performed by: [facility], [address] [place] [address], [address] Eosinophil pct 1.5 % DAPHNEY YOUNG (LADAN) Comment: Interpretive Data Percent cell count reference ranges are not reported, since discordance with absolute values may lead to misinterpretation of CBC data. Current Interpretive Data was last revised on 2017. Testing performed by: [facility], [address] [place] [address], [address] Basophil pct 0.9 % ROBY YOUNG (LADAN) Comment: Interpretive Data Percent cell count reference ranges are not reported, since discordance with absolute values may lead to misinterpretation of CBC data. Current Interpretive Data was last revised on 2017. Testing performed by: [address], [address] Blood 10/08/2024 8:59 AM CDT 10/08/2024 2:07 PM CDT Gisell Walker SPANISH TRANSLATOR LAB BLOOD ORDERABLES Final Result ROBY YOUNG (LADAN) 1 [facility] [place] [address] * Iron profile w/ IBC (10/08/2024 8:59 AM CDT) Iron 78 35 - 145 mcg/dl Comment:Testing performed by : [address] [address] TIBC 264 250 - 400 mcg/dL ROBY YOUNG (LADAN) Comment:Testing performed by : [address], [address] Transferrin saturation 30 20 - 50 % ROBY YOUNG (LADAN) Comment:Testing performed by : [address], [address] Blood 10/08/2024 8:59 AM CDT 10/09/2024 3:34 PM CDT Gisell Walker SPANISH TRANSLATOR LAB BLOOD ORDERABLES Final Result [facility] (LADAN) 1 [facility] [place] [address] * (ABNORMAL) CBC with auto differential (10/08/2024 8:59 AM CDT) WBC 10.99(H) 3.80 - 9.90 K/cumm Comment:Testing performed by : [facility], [address] [place] [address], [address] Hgb 14.4 11.9 - 15.5 g/dL [facility] (LADAN) Comment:Testing performed by : [address], [address] Hct 46.9(H) 35.6 - 45.5 % [facility] (LADAN) Comment:Testing performed by : [address], [address] Plt 407(H) 150 - 400 K/cumm [facility] (LADAN) Comment:Testing performed by : [address], [address] MPV 10.3 9.1 - 12.3 fL [facility] (LADAN) Comment:Testing performed by : [address], [address] RBC 4.78 3.90 - 5.20 M/cumm [facility] (LADAN) Comment:Testing performed by : [address], [address] MCV 98.1(H) 81.3 - 96.4 fL [facility] (LADAN) Comment:Testing performed by : [address], [address] MCH 30.1 27.1 - 33.3 pg [facility] (LADAN) Comment:Testing performed by : [address], [address] MCHC 30.7(L) 32.3 - 35.7 g/dL [facility] (LADAN) Comment:Testing performed by : [address], [place]., [address] RDW CV 15.0(H) 11.1 - 14.9 % ROBY YOUNG (LADAN) Comment:Testing performed by : [facility], [address] [place] [address], [address] RDW SD 54.7(H) 35.7 - 48.1 fL ROBY YOUNG (LADAN) Comment:Testing performed by : [facility], [address] [place] [address], [address] NRBC abs 0.00 0.00 - 0.01 K/cumm ROBY YOUNG (LADAN) Comment:Testing performed by : [facility], [address] [place] [address], [address] Blood 10/08/2024 8:59 AM CDT 10/08/2024 2:07 PM CDT Gisell Walker NP LAB BLOOD ORDERABLES Final Result Performing Organization Address [facility] de Phone Number ROBY YOUNG (MOHAWK) 1 [facility] [place] [address] * Hemoglobin A1c (10/08/2024 8:59 AM CDT) [facility] Hgb A1C 5.3 4.0 - 5.6 % Comment:Testing performed by : [address], [address] Estimated Average Glucose 105 mg/dL ROBY YOUNG (LADAN) Comment: The ADA recommends reporting an estimated Average Glucose (eAG) with all Hemoglobin A1c results using the equation derived from a study of 507 normal and diabetic adults. Minority populations were underrepresented and children were not included. (Diabetes Care 31:9462-3309, 2008). The eAG is not equivalent to a fasting glucose. Testing performed by: [address] [address] Blood 10/08/2024 8:59 AM CDT 10/08/2024 2:07 PM CDT Gisell Walker NP LAB BLOOD ORDERABLES Final Result Performing Organization Address [facility] Co de Phone Number ROBY YOUNG (LADAN) 1 [facility] [place] [address] * Lipid panel (10/08/2024 8:59 AM CDT) [...] last revised on 2017. Testing performed by: [facility], [address] [place] [address]., [address] Triglycerides 78 <=149 mg/dL ROBY YUONG (LADAN) Comment: Interpretive Data Ages < or [...] last revised on 2017. Testing performed by: [facility], [address] [place] [address]., [address] HDL 47 >=40 mg/dL ROBY Hinds (LADAN) Comment: Interpretive Data Ages < or [...] last revised on 2017. Testing performed by: [address] [address] LDL, calculated 64 <=129 mg/dL ROBY YOUNG [...] 2004;110:227 3. Mickey Godinez al. MARIBEL Cardiol. 2019August 02;5(5):540-548. doi: 10.1001/jamacardio.2020.0013 Current Interpretive Data was last revised on 2023. Testing performed by: [address] [address] Non-HDL Cholesterol 80 mg/dL ROBY YOUNG (LADAN) [...] last revised on 2017. Testing performed by: [address] [address] Chol/HDL ratio 3 DAPHNEY YOUNG (LADAN) Comment:Testing performed by : [address], [place]., [address] Blood 10/08/2024 8:59 AM CDT 10/08/2024 2:07 PM CDT Gisell Walker SPANISH TRANSLATOR LAB BLOOD ORDERABLES Final Result Performing Organization Address [facility]/ZIP Co de Phone Number [facility] ([place]WK) 1 [facility] of [facility] [place] [id number] * Vitamin D 25 hydroxy (09/25/2024 3:25 PM CDT) Vitamin D 25-OH 54 30 - 80 ng/mL Blood 09/25/2024 3:25 PM CDT 09/25/2024 9:16 PM CDT Fannie Son SPANISH TRANSLATOR LAB BLOOD ORDERABLES Final Re sult Performing Organization Address [facility] Co de Phone Number ROBY [id number] [facility] [place] [address] * TSH (09/25/2024 3:25 PM CDT) Thyroid Stimulating Hormone 1.04 0.30 - 4.20 mcIUnit/mL Blood 09/25/2024 3:25 PM CDT 09/25/2024 9:16 PM CDT Fannie Son SPANISH TRANSLATOR LAB BLOOD ORDERABLES Final Re sult Performing Organization Address [facility] Co de Phone Number ROBY [phone] [facility] [place] [address] * Folate (09/25/2024 3:25 PM CDT) Folic acid 5.9 >=5.0 ng/mL Comment:Hemolysis present. R esults may be affected. Blood 09/25/2024 3:25 PM CDT 09/25/2024 9:16 PM CDT Fannie Son SPANISH TRANSLATOR LAB BLOOD ORDERABLES Final Re sult Performing Organization Address [facility]/ZIP Co de Phone Number ROBY BOUDREAUX [phone] [address] [facility] [place] [address] * (ABNORMAL) Ferritin (09/25/2024 3:25 PM CDT) Ferritin 218(H) 13 - 150 ng/mL Blood 09/25/2024 3:25 PM CDT 09/25/2024 9:16 PM CDT Fannie Son SPANISH TRANSLATOR LAB BLOOD ORDERABLES Final Re sult Performing Organization Address [facility] Co de Phone Number ROBY BOUDREAUX [phone] [address] [facility] [place] [address] * Vitamin B12 (09/25/2024 3:25 PM CDT) Pathologist [facility] Vitamin B12 979 230 - 1,250 pg/mL Blood 09/25/2024 3:25 PM CDT 09/25/2024 9:16 PM CDT Fannie Son SPANISH TRANSLATOR LAB BLOOD ORDERABLES Final Re sult Performing Organization Address [facility] Co de Phone Number ROBY BOUDREAUX [phone] [address] [facility] [place] [address] * Hepatic function panel (09/25/2024 3:25 PM CDT) Bilirubin, total 0.4 0.1 - 1.2 mg/dL Bilirubin, direct 0.1 0.1 - 0.3 mg/dL CERNER Protein, pl 7.0 6.5 - 8.5 g/dL CERNER CH Albumin 4.0 3.5 - 5.0 g/dL CERNER CH Alk phos 75 40 - 130 Units/L CERNER CH ALT 16 7 - 45 Units/L CERNER CH AST 34 10 - 45 Units/L CERNER CH Blood 09/25/2024 3:25 PM CDT 09/25/2024 9:16 PM CDT us Fannie Son SPANISH TRANSLATOR LAB BLOOD ORDERABLES Final Re sult Performing Organization Address [facility] Co de Phone Number ROBY BOUDREAUX [phone] [address] [place] [address] * eGFR (05/01/2024 9:52 AM INSULATION BOARD COATER OPERATOR) eGFR >90 >=60 mL/min/1. 73 m2 Comment: [...] last reviewed 2021. Blood 05/01/2024 9:52 AM INSULATION BOARD COATER OPERATOR 05/01/2024 5:02 PM INSULATION BOARD COATER OPERATOR us Aristides Hernandez MD LAB BLOOD ORDERABLES Abeba l Result Performing Organization Address [facility]/ZIP Co de Phone Number MOSHEGRETTA BOUDREAUX [phone] [address] [place] [address] * Albumin Creatinine Ratio, Urine (05/01/2024 9:52 AM INSULATION BOARD COATER OPERATOR) Albumin Ur 15.4 mg/L Comment: Interpretive Data No reference range established. Current interpretive data was last revised 2018. Creatinine Ur 226.6 mg/dL ROBY BOUDREAUX Comment: Interpretive Data No reference range established. Current interpretive data was last revised 2018. Albumin Creatinine Ratio, Ur 7 1 - 29 mg/g ROBY Urine 05/01/2024 9:52 AM INSULATION BOARD COATER OPERATOR 05/01/2024 4:44 PM INSULATION BOARD COATER OPERATOR us Aristides Hernandez MD LAB URINE ORDERABLES Abeba hoffman Result ROBY [address] [address] [place] [address] * Screening Mammogram Bilateral W Nael (04/27/2024 3:13 PM INSULATION BOARD COATER OPERATOR) Anatomical Region Laterality Modality Breast Bilateral Mammography Narrative 04/30/2024 10:17 AM INSULATION BOARD COATER OPERATOR Mammogram Technique: Bilateral Digital Breast Tomosynthesis, Bilateral C-view 2D Screening mammogram. Views obtained: bilateral craniocaudal and bilateral mediolateral oblique. Computer Aided Detection was performed. Mammogram Findings: The present examination has been compared to prior imaging studies performed at [facility] on 03/24/2022 and 04/14/2023, at [facility] on 12/10/2021, and at [place], [place] on 06/07/2019. There are scattered areas [...] compared to prior imaging studies performed at [facility] on 03/24/2022 and 04/14/2023, [facility] on 12/10/2021, and at [facility] [place], [place] on 06/07/2019. There are scattered areas [...] Most Recently Relevant to Health Maintenance [place]5 [place] [employer] Advance Directives For more information, please contact: [phone] * Full Code (Latest Code Status on [...] 3:22 PM 04/14/2022 4:35 PM Care Teams Processing Operator Relationship Specialty Start Date End Date Aristides Hernandez MD [address] [facility] [address] PCP - General Family Medicine 10/11/18 Alonso Cason MD [address] [place] [address] [place] [address] Quality Assurance Lab Technician Obstetrics and Gynecology 01/21/22
--- OUTSIDE RECORDS SUMMARY | 2024-12-05 18:37 | XMS_ITS | Encounter Summary ---
Author Organization [facility] Address [address] [place] [address] Phone Care Team Providers Care Acetylene Cylinder Packing Mixer Name Role Phone Provider, Unknown Primary Care Provider Unavaila ble Encounter Details Date Type Department Care Team (Late st Contact Info) Description 01/15/2022 Lab Requisition [facility] Services [address] [place] [address] Nirali Coulter, WAITER/WAITRESS, BLOOD DONOR UNIT ASSISTANT [address] [place] [address] Encounter for pre-employment examination Social History Tobacco Use Types Packs/Day Years Used Date Smoking Tobacco: Never Smokeless Tobacco: Never Comments No Sex and Gender Information Value Date Recorded Sex Assigned at Not on file Legal Sex Female 11:08 AM SHAMPOO TECHNICIAN Gender Identity Not on file Sexual Orientation [...] 3.6 >=1.1 AI 01/15/2022 10:30 PM CDT [facility] Blood No Phlebotomy Charged / Unknown 01/15/2022 10:20 AM CDT 01/15/2022 12:45 PM CDT Narrative [facility] - 01/15/2022 10:30 PM CDT <= 0.8 Negative. No detectable VZV IgG antibody. 0.9 - 1.0 Equivocal >=1.1 Positive Antibody testing was performed by multiplex flow immunoassay on the [facility] platform. us Nirali L Behrends WAITER/WAITRESS, BLOOD DONOR UNIT ASSISTANT IMMUNOLOGY ORDERABL ES Final Result [facility] [address] [place] [address], * RUBEOLA (MEASLES) IGG (01/15/2022 10:20 AM CDT) MEASLES AB IGG 1.9 >=1.1 AI 01/15/2022 10:30 PM CDT [facility] Blood No Phlebotomy Charged / Unknown 01/15/2022 10:20 AM CDT 01/15/2022 12:45 PM CDT Narrative [facility] - 01/15/2022 10:30 PM CDT <= 0.8 Negative. No detectable Measles IgG antibody. 0.9 - 1.0 Equivocal >=1.1 Positive Antibody testing was performed by multiplex flow immunoassay on the [employer] platform. us Nirali Coulter APRN, CNP IMMUNOLOGY ORDERABL ES Final Result Performing Organization Address [facility] Co de Phone Number [facility] [address] [place] [address], [place] * RUBELLA IMMUNITY IGG (01/15/2022 10:20 AM CDT) RUBELLA IMMUNITY Immune Immune, Invalid 01/15/2022 10:30 PM CDT [facility] Blood No Phlebotomy Charged / Unknown 01/15/2022 10:20 AM CDT 01/15/2022 12:45 PM CDT Narrative [facility] - 01/15/2022 10:30 PM CDT Antibody testing was performed by multiplex flow immunoassay on the [employer] platform. us Nirali Coulter APRN, CNP CHEMISTRY ORDERABLE S Final Result Performing Organization Address [facility] Co de Phone Number [facility] [address] [place] [address], [place] * MUMPS IGG (01/15/2022 10:20 AM CDT) Mumps Ab IgG 2.8 >=1.1 AI 01/15/2022 10:30 PM CDT [facility] Blood No Phlebotomy Charged / Unknown 01/15/2022 10:20 AM CDT 01/15/2022 12:45 PM CDT Narrative [facility] - 01/15/2022 10:30 PM CDT <= 0.8 Negative. No detectable Mumps IgG antibody. 0.9 - 1.0 Equivocal >=1.1 Positive Antibody testing was performed by multiplex flow immunoassay on the [facility] platform. us Nirali Coulter APRN, CNP IMMUNOLOGY ORDERABL ES Final Result [facility] [address] [place] [address], [place] * QUANTIFERON-TB GOLD PLUS (01/15/2022 10:20 AM CDT) NIL CONTROL 0.03 <8.01 IU/mL 01/18/2022 2:10 PM CDT [facility] TB ANTIGEN 1 0.00 <0.35 IU/mL 01/18/2022 2:10 PM CDT [facility] TB ANTIGEN 2 0.00 <0.35 IU/mL 01/18/2022 2:10 PM CDT [facility] MITOGEN CONTROL >10.00 >0.49 IU/mL 01/19/20 2:10 PM CDT [facility] INTEPRETATION TB NEGATIVE NEGATIVE, NEGATIVE (TB antigen response less than 25% of internal negative control value) 01/18/2022 2:10 PM CDT [facility] Comment:No immune response t o Mycobacterium tuberculosis antigens was noted. M. tuberculosis infection unlikely. Blood No Phlebotomy Charged / Unknown 01/15/2022 10:20 AM CDT 01/15/2022 12:45 PM CDT Narrative [facility] - 01/18/2022 2:10 PM CDT A [...] otherwise immunocompromised individuals. https://www.cdc.gov/tb/publications/guidelines/testing.htm us Nirali Coulter WAITER/WAITRESS, BLOOD DONOR UNIT ASSISTANT IMMUNOLOGY ORDERABL ES Final Result Performing Organization Address [facility] Co de Phone Number [facility] [address] [place] [address], * HEPATITIS B SURFACE ANTIBODY (HBSAB) (01/15/2022 10:20 AM CDT) HEPATITIS B SURFACE ANTIBODY 134.00 mIU/mL [facility] ARCH [id number] B 01/15/2022 10:17 PM CDT [facility] Comment: Detected Range: >12.00 Individual is considered immune to HBV infection Blood No Phlebotomy Charged / Unknown 01/15/2022 10:20 AM CDT 01/15/2022 12:45 PM CDT us Nirali Coulter WAITER/WAITRESS, BLOOD DONOR UNIT ASSISTANT CHEMISTRY ORDERABLE S Final Result Performing Organization Address [facility] Co de Phone Number [facility] [address] [place] [address], documented in this encounter Visit Diagnoses Diagnosis Encounter for pre-employment examination Health examination of defined subpopulation documented in this encounter Care Teams Acetylene Cylinder Packing Mixer Relationship Specialty Start Date End Date Provider, Unknown UNKNOWN PCP - General 03/04/20 documented as of this encounter
[2024-12-05 19:15] VITALS: BP 106/53; PULSE 99; RESP 17; TEMP 37.1; O2SAT 100
--- NOTE | 2024-12-05 19:41 | ED.RECABL ---
HPI - Recheck/Abnormal Lab/Rx General Chief Complaint: Recheck/Abnormal Lab/Rx Stated Complaint: post op problems Time Seen by Provider: 12/05/24 19:11 History of Present Illness HPI narrative: 43-year-old female presents emergency department for pain and swelling to her IV site after an IV was placed in her left upper extremity 1 week ago. Patient underwent a hysterectomy 1 week ago. She states since the IV was removed she has had pain and swelling from the side of the AV that extends proximally up into her left axilla. She denies any fever, hemoptysis, history of VTE, current chest pain or shortness of breath. Related Data Home Medications ?Medication ?Instructions ?Recorded ?Confirmed ?Last Taken ?Type atorvastatin 40 mg tablet 40 mg PO DAILY 03/23/21 11/28/24 11/27/24 History cetirizine 10 mg tablet (Zyrtec) 10 mg PO DAILY 03/23/21 11/28/24 11/27/24 History azelastine 137 mcg (0.1 %) nasal 137 mcg intranasal Q12H PRN 11/20/24 11/28/24 Unknown History spray allergy symptoms famotidine 20 mg tablet 20 mg PO DAILY 11/20/24 11/28/24 11/27/24 History fluoxetine 10 mg capsule 10 mg PO DAILY 11/20/24 11/28/24 11/28/24 History linaclotide 145 mcg capsule 145 mcg PO DAILY 11/20/24 11/28/24 11/27/24 History (Linzess) metoprolol succinate 25 mg 12.5 mg PO DAILY 11/20/24 11/28/24 11/28/24 History tablet,extended release 24 hr tirzepatide 10 mg/0.5 mL 10 mg subcut WEEKLY 11/20/24 11/28/24 11/26/24 History subcutaneous pen injector (Mounjaro) Allergies Allergy/AdvReac Type Severity Reaction Status Date / Time latex Allergy Mild Rash Verified 11/28/24 13:31 clarithromycin Allergy Unknown Hives Verified 11/28/24 13:31 metformin Allergy Unknown Rash Verified 11/28/24 13:31 Sulfa (Sulfonamide Allergy Unknown Hives Verified 11/28/24 13:31 Antibiotics) dermabond Allergy Intermediate Rash Uncoded 11/28/24 13:31 Review of Systems Review of Systems: All systems reviewed & are unremarkable except as noted in HPI and below PMFSH Past Medical History Medical History Diabetes type 2, controlled GERD (gastroesophageal reflux disease) History of supraventricular tachycardia PCOS (polycystic ovarian syndrome) History of angina SVT (supraventricular tachycardia) with ablation 2007 Surgical History Surgical History History of gastric bypass H/O LEEP 2017 History of chemical tubal occlusion essure tubal occlusion approximately 2009 History of cholecystectomy Family History Family History Grandparent Acute myocardial infarction Diabetes mellitus History of blood clots Mother , Mother of coronary disease age 42 Acute myocardial infarction Hypertension Tobacco abuse disorder Father Hypertension Cerebrovascular accident Heart disease History of blood clots Sibling History of blood clots Hypertension Grandparent Diabetes mellitus Grandparent Colon cancer Sibling Hypertension Social History Social History Social History: Primary care physician: Dr. Aristides Hernandez Code status: Full code Smoking status: Never smoker Second hand tobacco smoke exposure: No Alcohol intake: never Drinks per week: 0 Alcohol use details: The patient drinks approximately 1 drink a year. Substance use: never Substance use type: does not use Living arrangements: with friend(s) Additional living arrangements comments: Patient lives with her 14-year-old daughter and 9-year-old autistic son. 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 Gender identity (if verbalized by the patient): Female Spiritual care concerns: No Exam Narrative: GENERAL: Well-appearing, well-nourished, and in no acute distress. HEAD: Normocephalic, atraumatic. EYES: EOMI. ENT: Nares clear, no rhinorrhea or epistaxis. Mucous membranes moist. NECK: Supple. CHEST: Clear to auscultation. No respiratory distress. HEART: Regular rate and rhythm. No murmur heard. Normal peripheral pulses. EXTREMITIES: Swelling of ecchymosis to the volar aspect of the left distal forearm with palpable cord extending proximally to the left elbow with tenderness and minimal overlying warmth and erythema. No pitting edema to the left upper extremity. No crepitus. Radial pulses 2+. Sensation intact. SKIN: Warm, dry, no rash. NEURO: No focal deficits. Alert and oriented x3 Course Vital Signs Vital signs: Vital Signs Temperature 98.6 F 12/05/24 18:35 Pulse Rate 102 H 12/05/24 18:35 Respiratory Rate 16 12/05/24 18:35 Blood Pressure 147/65 H 12/05/24 18:35 Pulse Oximetry 98 12/05/24 18:35 Temperature 98.7 F 12/05/24 19:15 Pulse Rate 99 12/05/24 19:15 Respiratory Rate 17 12/05/24 19:15 Blood Pressure 106/53 L 12/05/24 19:15 Pulse Oximetry 100 12/05/24 19:15 Oxygen Delivery Room Air 12/05/24 19:15 MDM - Recheck/Abnormal Lab/Rx MDM Narrative Medical decision making narrative: 43-year-old female presents emergency department for left upper extremity pain and swelling to her IV site after she had an IV placed for hysterectomy 1 week ago. Vital stable. Exam is significant for the above. Left upper extremity ultrasound shows patent left upper extremity veins with no evidence of DVT. Patient updated on results. Presentation is consistent with superficial thrombophlebitis. Unfortunately patient has a history of gastric sleeves and therefore cannot take NSAIDs. Encouraged Tylenol and warm compresses and close follow-up with PCP. Discussed strict ED return precautions including signs or symptoms of DVT or suppurative thrombophlebitis. Patient is agreeable with the plan verbalized understanding. Discharged in stable condition. Discharge Plan Discharge Clinical Impression: Superficial thrombophlebitis Qualifiers: Superficial thrombophlebitis-Involved body area: upper extremity Laterality: left Qualified Code(s): I80.8 - Phlebitis and thrombophlebitis of other sites Patient Disposition: Home Condition: Stable Instructions: Antibiotic Form, Superficial Thrombophlebitis (ED) Additional Instructions: Please take [id number] Tylenol as directed use warm compresses on her arm as discussed. Please follow-up closely with her primary care provider. If you develop increased swelling, pain, increased redness or fever or other concerning symptoms report back to the emergency department for further evaluation. Patient Language: Polish Prescriptions: No Action atorvastatin 40 mg Tablet 40 mg PO DAILY cetirizine [Zyrtec] 10 mg Tablet 10 mg PO DAILY fluoxetine 10 mg capsule 10 mg PO DAILY Mounjaro 10 mg/0.5 mL pen injector 10 mg SUBCUT WEEKLY Patient Comments: takes ON MONDAYS FOR DIABETES metoprolol succinate 25 mg tablet extended release 24 hr 12.5 mg PO DAILY famotidine 20 mg tablet 20 mg PO DAILY Linzess 145 mcg capsule 145 mcg PO DAILY azelastine 137 mcg (0.1 %) aerosol,spray 137 mcg NASAL Q12H PRN (Reason: allergy symptoms) Rx Instructions: administer into each nostril hydrocodone-acetaminophen 5-325 mg tablet 1 - 2 tablet PO Q6H PRN (Reason: pain) Qty: 25 0RF Follow-up/Referrals: Harms,Aristides Dobson M.D. [Primary Care Provider]
[2024-12-05 20:53] VITALS: BP 103/53; PULSE 76; RESP 16; TEMP 36.7; O2SAT 98
== END 2024-12-05 20:56 | disposition home or self-care (01) ==
PROVIDERS: Emergency Provider Physician Assistant; PCP Family Medicine
DX: T81.72XA Complication of vein following a procedure, not elsewhere classified, initial encounter (principal); I80.8 Phlebitis and thrombophlebitis of other sites; Z90.710 Acquired absence of both cervix and uterus; E11.9 Type 2 diabetes mellitus without complications; K21.9 Gastro-esophageal reflux disease without esophagitis; E28.2 Polycystic ovarian syndrome; Z98.84 Bariatric surgery status; Z90.49 Acquired absence of other specified parts of digestive tract; Y84.8 Other medical procedures as the cause of abnormal reaction of the patient, or of later complication, without mention of misadventure at the time of the procedure; Z79.85 Long-term (current) use of injectable non-insulin antidiabetic drugs; Z79.899 Other long term (current) drug therapy
CPT/HCPCS: 93971; 99284

== ENCOUNTER 2024-12-14 18:57 | Observation (INO) | payer BC, SELFPAY ==
--- OUTSIDE RECORDS SUMMARY | 2019-06-07 01:00 | XMS_ITS | Encounter Summary ---
Author Organization [facility] Healthcare Address [address] [place] [address] Care Team Providers Care Final Cigar And Box Examiner Name Role Phone Aristides Hernandez MD Primary Care Provider [phone] [phone] Reason for Visit * Diagnostic Imaging (Routine) - Closed Specialty Diagnoses / Procedures Referred By Francesca cheung Referred To Contact Procedures Breast Imaging Diagnostic Outside Reference Evita Montenegro NP Phone: tel: fax: Referral ID Status Reason Start Date Expiration Date Visits Re quested Visits Authorized [id number] Closed 02/04/2022 03/06/2023 1 1 Encounter Details Date Type Department Care Team (Late st Contact Info) Description 06/07/2019 Hospital Encounter [facility] [address] [place] [id number] Social History Tobacco Use Types Packs/Day Years [...] week 04/14/2022 How often do you attend [facility] or mosque services? Patient declined 04/14/2022 Do you belong to any clubs o r organizations such as yazidi groups, unions, fraternal or athletic groups, or [...] on file Legal Sex Female 2:38 AM INFORMATICA DEVELOPER Gender Identity Female 12/30/2023 11:42 PM CDT [...] DIAGNOSTIC OUTSIDE REFERENCE Routine 06/07/2019 12:00 AM INFORMATICA DEVELOPER documented in this encounter Results * Breast Imaging Diagnostic Outside Reference (06/07/2019 12:00 AM INFORMATICA DEVELOPER) Impressions [facility] - 02/04/2022 1:34 PM CDT These images are for Reference purposes only and have not been reviewed by [facility] Radiology. There will be no report generated by a [facility] Radiologist. Narrative [facility] - 02/04/2022 1:34 PM CDT EXAMINATION: Images For Reference Purposes Only us Evita Montenegro MATERIAL ASSISTANT IMG MAMMO PROCEDURES Final Result [facility] documented in this encounter Visit Diagnoses Not on filedocumented in this encounter Care Teams Final Cigar And Box Examiner Relationship Specialty Start Date End Date [place] [place] [id number] PCP - General Family Medicine 10/11/18 documented as of this encounter
--- OUTSIDE RECORDS SUMMARY | 2019-06-07 01:00 | XMS_ITS | Encounter Summary ---
Author Organization [facility] Healthcare Address [address] [place] [address] Care Team Providers Care Crate Opener Name Role Phone Aristides Hernandez MD Primary Care Provider [phone] [phone] Reason for Visit * Diagnostic Imaging (Routine) - Closed Specialty Diagnoses / Procedures Referred By Francesca cheung Referred To Contact Procedures Breast Imaging Diagnostic Outside Reference Evita Montenergo NP Phone: tel: fax: Referral ID Status Reason Start Date Expiration Date Visits Re quested Visits Authorized [id number] Closed 02/04/2022 03/06/2023 1 1 Encounter Details Date Type Department Care Team (Late st Contact Info) Description 06/07/2019 Hospital Encounter [facility] [address] [place] [id number] Social History Tobacco Use Types Packs/Day Years [...] week 04/14/2022 How often do you attend [facility] or uatsdin services? Patient declined 04/14/2022 Do you belong to any clubs o r organizations such as taoism groups, unions, fraternal or athletic groups, or [...] on file Legal Sex Female 2:38 AM POCKET BUILDER Gender Identity Female 12/30/2023 11:42 PM CDT [...] DIAGNOSTIC OUTSIDE REFERENCE Routine 06/07/2019 12:00 AM POCKET BUILDER documented in this encounter Results * Breast Imaging Diagnostic Outside Reference (06/07/2019 12:00 AM POCKET BUILDER) Impressions [facility] - 02/04/2022 1:34 PM CDT These images are for Reference purposes only and have not been reviewed by [facility] Radiology. There will be no report generated by a [facility] Radiologist. Narrative [facility] - 02/04/2022 1:34 PM CDT EXAMINATION: Images For Reference Purposes Only us Evita Montenegro SUPERVISOR PROPELLANT CHARGE LOADING IMG MAMMO PROCEDURES Final Result [facility] documented in this encounter Visit Diagnoses Not on filedocumented in this encounter Care Teams Crate Opener Relationship Specialty Start Date End Date [place] [address] [place] [id number] PCP - General Family Medicine 10/11/18 documented as of this encounter
--- OUTSIDE RECORDS SUMMARY | 2019-06-07 01:05 | XMS_ITS | Encounter Summary ---
Author Organization [facility] Healthcare Address [address] [place] [address] Care Team Providers Care Sales Assistant Entertainment And Media Name Role Phone Aristides Hernandez MD Primary Care Provider [phone] [phone] Reason for Visit * Diagnostic Imaging (Routine) - Closed Specialty Diagnoses / Procedures Referred By Francesca cheung Referred To Contact Procedures Breast Imaging US Outside Reference Evita Montenegro NP Phone: tel: fax: Referral ID Status Reason Start Date Expiration Date Visits Re quested Visits Authorized [id number] Closed 02/04/2022 03/06/2023 1 1 Encounter Details Date Type Department Care Team (Late st Contact Info) Description 06/07/2019 12:05 AM FELLER OPERATOR Hospital Encounter [facility]) [address] [place] [address] Social History Tobacco Use Types Packs/Day [...] week 04/14/2022 How often do you attend [facility] or adventist services? Patient declined 04/14/2022 Do you belong to any clubs o r organizations such as scientology groups, unions, fraternal or athletic groups, or [...] on file Legal Sex Female 2:38 AM FELLER OPERATOR Gender Identity Female 12/30/2023 11:42 PM CDT [...] US OUTSIDE REFERENCE Routine 06/07/2019 12:05 AM FELLER OPERATOR documented in this encounter Results * Breast Imaging US Outside Reference (06/07/2019 12:05 AM FELLER OPERATOR) Impressions [facility] - 02/04/2022 1:34 PM CDT These images are for Reference purposes only and have not been reviewed by [facility]. There will be no report generated by a [facility] Radiologist. Narrative [facility] - 02/04/2022 1:34 PM CDT EXAMINATION: Images For Reference Purposes Only us Evita Montenegro STEEL PAN FORM PLACING SUPERVISOR IMG MAMMO PROCEDURES Final Result [facility] documented in this encounter Visit Diagnoses Not on filedocumented in this encounter Care Teams Sales Assistant Entertainment And Media Relationship Specialty Start Date End [place] [address] PCP - General Family Medicine 10/11/18 documented as of this encounter
--- OUTSIDE RECORDS SUMMARY | 2019-06-07 01:05 | XMS_ITS | Encounter Summary ---
Author Organization [facility] Healthcare Address [address] [place] [address] Care Team Providers Care Pattern Keeper Name Role Phone Aristides Hernandez MD Primary Care Provider [phone] [phone] Reason for Visit * Diagnostic Imaging (Routine) - Closed Specialty Diagnoses / Procedures Referred By Francesca cheung Referred To Contact Procedures Breast Imaging US Outside Reference Evita Montenegro NP Phone: tel: fax: Referral ID Status Reason Start Date Expiration Date Visits Re quested Visits Authorized [id number] Closed 02/04/2022 03/06/2023 1 1 Encounter Details Date Type Department Care Team (Late st Contact Info) Description 06/07/2019 12:05 AM ACCOUNTS PAYABLE ASSISTANT Hospital Encounter [facility] [address] [place] [address] Social History Tobacco Use Types Packs/Day [...] week 04/14/2022 How often do you attend [facility] or mandaeism services? Patient declined 04/14/2022 Do you belong to any clubs o r organizations such as episcopal groups, unions, fraternal or athletic groups, or [...] on file Legal Sex Female 2:38 AM ACCOUNTS PAYABLE ASSISTANT Gender Identity Female 12/30/2023 11:42 PM CDT [...] US OUTSIDE REFERENCE Routine 06/07/2019 12:05 AM ACCOUNTS PAYABLE ASSISTANT documented in this encounter Results * Breast Imaging US Outside Reference (06/07/2019 12:05 AM ACCOUNTS PAYABLE ASSISTANT) Impressions [facility] - 02/04/2022 1:34 PM CDT These images are for Reference purposes only and have not been reviewed by [facility]. There will be no report generated by a [facility] Radiologist. Narrative [facility] - 02/04/2022 1:34 PM CDT EXAMINATION: Images For Reference Purposes Only us Eivta Montenegro [employer]ATMAN IMG MAMMO PROCEDURES Final Result [facility] documented in this encounter Visit Diagnoses Not on filedocumented in this encounter Care Teams Pattern Keeper Relationship Specialty Start Date End [place] [address] PCP - General Family Medicine 10/11/18 documented as of this encounter
[2024-12-14] VITALS (17 sets, daily range): BP systolic 98–119; BP diastolic 50–65; PULSE 93–125; RESP 14–25; TEMP 37.8; O2SAT 96–100
--- NOTE | ~2024-12-14 | XR_ITS ---
XR chest 2V 12/14/2024 19:15 Indication: Chest pain with inspiration. Recent surgery. Procedure: 2 view chest Comparison: 2 view chest Findings: Heart size normal. No focal air space disease, pulmonary edema, pleural effusion or suspected pneumothorax. There is free intraperitoneal air beneath the diaphragm, compatible with recent surgery. There are cholecystectomy clips. Impression: 1: Free intraperitoneal air, compatible with recent surgery per clinical history. Dr. Jesús Lynch discussed with Dr. Yamil De Dios at 12/14/2024 19:28 CDT. Reviewed, dictated and finalized at location O. Impression: 1: Free intraperitoneal air, compatible with recent surgery per clinical histor y. Dr. Jesús Lynch discussed with Dr. Yamil De Dios at 12/14/2024 19:28 CDT.
--- NOTE | ~2024-12-14 | CT_ITS ---
CTA CHEST CT ABDOMEN PELVIS CLINICAL HISTORY: cp, sob, abd pain, recent hysterectomy . COMPARISON: X-rays same day CTA chest 05/26/2019 TECHNIQUE: Helical CT performed from thoracic inlet to symphysis pubis IV contrast information not listed in PACS Coronal, sagittal reformats. Multiplanar MIPS CT images acquired with automatic exposure control for dose reduction DLP: 1621 mGy-cm FINDINGS: CHEST- Thoracic Aorta: No dissection. No aneurysm. Pulmonary arteries: Normal caliber. No PE. Lungs/Pleura: Clear. Heart: Unremarkable. Tracheobronchial tree: Patent. Nodes: No enlarged nodes. Small mediastinal calcifications. Bones: No acute bony abnormality. Soft tissues: Unremarkable. ABDOMEN/PELVIS- Liver: Unremarkable. Gallbladder: Removed. Spleen: Removed. Pancreas: Unremarkable. Adrenal glands: Unremarkable. Kidneys: Right kidney- No hydronephrosis. No renal stones. Left kidney- No hydronephrosis. No renal stones. Distal esophagus/stomach: Unremarkable. Small bowel loops: Distended loops left upper quadrant. Colon: Normal caliber and wall thickness. Appendix not identified. Nodes: No enlarged nodes. Peritoneum: No ascites. Free air. Urinary bladder: Unremarkable. Uterus: Removed. Adnexa: No masses. Pelvic free fluid with mild peripheral enhancement. Bones: No acute bony abnormality. Soft tissues: Unremarkable. Abdominal aorta: Unremarkable. IVC: Unremarkable. Main portal vein, SMV: Patent. IMPRESSION: CHEST- 1. No acute cardiopulmonary findings. ABDOMEN/PELVIS- 1. Small free fluid within pelvis, not necessarily unexpected after hysterectomy. 2. Free air, also not unexpected after surgery. 3. Focally distended small bowel loops left upper quadrant, possibly ileus, may account for pain. 4. Otherwise no acute abnormality. Reviewed, dictated and finalized at location R. IMPRESSION: CHEST- 1. No acute cardiopulmonary findings. ABDOMEN/PELVIS- 1. Small free fluid within pelvis, not necessarily unexpected after hysterecto my. 2. Free air, also not unexpected after surgery. 3. Focally distended small bowel loops left upper quadrant, possibly ileus, ma y account for pain. 4. Otherwise no acute abnormality.
--- NOTE | 2024-12-14 18:57 | ECG_ITS ---
Test Date: 2024-12-14 19:01:40 Measurements Intervals [place] Rate: 115 P: 68 IN: 126 QRS: 64 QRSD: 101 T: 5 QT: 320 QTc: 443 Interpretive Statements SINUS TACHYCARDIA POSSIBLE LEFT ATRIAL ENLARGEMENT [-0.1mV P-WAVE IN V1/V2] INCOMPLETE RIGHT BUNDLE BRANCH BLOCK [90+ ms QRS DURATION, TERMINAL R IN V1/V2, 40+ ms S IN I/aVL/V4/V5/V6] NONSPECIFIC ST AND T-WAVE ABNORMALITY ABNORMAL ECG Compared to ECG 11/22/2024 09:28:26 T-wave abnormality now present Sinus bradycardia no longer present Electronically Signed On 12-15-2024 12:17:10 CDT by Vic Joyce M.D.
--- OUTSIDE RECORDS SUMMARY | 2024-12-14 18:59 | XMS_ITS | Encounter Summary ---
Author Organization [facility] Address [facility] [place] [address] Care Team Providers Care Plating And Point Assembly Supervisor Name Role Phone Aristides Hernandez MD Primary Care Provider [phone] Don Oliver MD Unavailable [phone] Encounter Details Date Type Department Care Team (Late Contact Info) Description 11/15/2024 Somewhere Message [facility] [address] [place] [address] Don Oliver MD [address] [place] [address] Low blood pressure Social History Tobacco Use Types Packs/Day Years Used Date Smoking Tobacco: Never Passive Smoke Exposure: Never Smokeless Tobacco: Never Alcohol Use Standard Drinks/Week Comments Not Currently 0 (1 standard drink = 0.6 oz pur e alcohol) Comments Unknown Sex and Gender Information Value Date Recorded Sex Assigned at Female 05/11/2024 12:29 PM CASTER HELPER Legal Sex Female 10:33 PM CDT Gender Identity Not on file Sexual Orientation Not on file 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 Not on file documented as of this encounter Plan of Treatment Upcoming Encounters Date Type Department Care Team (Late Contact Info) Description 12/26/2024 12:00 PM CDT Appointment [facility] Real Estate Appraiser [address] [place] [address] Don Oliver MD [address] [place] [address] 05/06/2025 2:30 PM CASTER HELPER Office Visit [facility] el [address] [place] [address] Don Oliver MD [address] [place] [address] documented as of this encounter Visit Diagnoses Not on filedocumented in this encounter Care Teams Plating And Point Assembly Supervisor Relationship Specialty Start Date End Date Aristides Hernandez MD [address] [place] [address] PCP - General INTERNAL MEDICINE 04/01/22 Don Oliver MD [address] [place] [id number] EP Personal Loan Specialist CLINICAL CARDIAC ELECTROPHYSIOLOGY 05/04/22 documented as of this encounter
--- OUTSIDE RECORDS SUMMARY | 2024-12-14 18:59 | XMS_ITS | Clinical Summary ---
Author Organization [facility] Address [facility] [place] [address] Care Team Providers Care Lines Tender Name Role Phone Aristides Hernandez MD Primary Care Provider Don Carmichael MD Unavailable [phone] Allergies Active Allergy Reactions Criticality Noted [...] by mouth daily. Active Vitamin D, Ergocalciferol, 18479 units Cap Take 1 tablet by mouth [...] Other chest pain 05/09/2022 SVT (supraventricular tachycardia) ([facility]) 06/2022 Mixed hyperlipidemia Family history of coronary artery disease Overview (05/09/2022): Mother at 38 with mi; father with cad Encounters Date Type Department Care Team Description 11/28/2024 Telephone [facility] [address] [place] [address] Don Carmichael MD Schedule Procedure 11/26/2024 9:30 AM CDT Office Visit [facility] [facility] [id number] [place] [address] Don Carmichael MD Follow Up 11/26/2024 Travel 11/15/2024 MyChart Message Enc [facility] [address] [place] [address] Don Carmichael MD Low blood pressure 10/09/2024 MyChart Message Enc [facility] [address] [place] [address] Don Carmichael MD Low blood pressure from [...] Sex Assigned at Female 05/11/2024 12:29 PM STAFF WRITER Legal Sex Female 10:33 PM CDT Gender [...] Info) Description 12/26/2024 12:00 PM CDT Appointment [facility] Draw Frame Tender [address] [place] [address] Don Carmichael MD [address] [place] [phone] 05/06/2025 2:30 PM STAFF WRITER Office Visit [facility] eld [address] [place] [address] Don Carmichael MD [address] [place] [phone] Health Maintenance Due Date Last Done Comments [...] [facility] - 11/26/2024 5:22 PM CDT [facility] [address] [place] [address] Test Date: 2024-11-26 Pat Name: DAIANA HAYNES Department: 105 Room: Gender: Female General Activities Therapist: : 1980 Requested By: DON CARMICHAEL Order Number: [id number] Reading JANE Carmichael Measurements Intervals [place] Rate: 63 P: 54 VT: 123 QRS: 74 QRSD: 110 T: 53 QT: 426 QTc: 438 Interpretive Statements SINUS RHYTHM WITH SINUS ARRHYTHMIA INCOMPLETE RIGHT BUNDLE BRANCH BLOCK nondiagnostic inferior/lateral q-waves Procedure Note Don Carmichael MD - 11/26/2024 [facility] [address] [place] [address] Test Date: 2024-11-26 Pat Name: DAIANA MINO Department: 105 Room: Gender: Female General Activities Therapist: : 1980 Requested By: DON CARMICHAEL Order Number: [id number] Reading JANE Carmichael Measurements Intervals [place] Rate: 63 P: 54 VT: 123 QRS: 74 QRSD: 110 T: 53 QT: 426 QTc: 438 Interpretive Statements SINUS RHYTHM WITH SINUS ARRHYTHMIA INCOMPLETE RIGHT BUNDLE BRANCH BLOCK nondiagnostic inferior/lateral q-waves us Don Carmichael MD PROCEDURES-ORDERABLE NO CHARGE Final Result [facility] from Last 3 Months Insurance [facility] Advance Directives * Full Code (Latest Code Status on File) Date Activated Date Inactivated Comments 07/01/2022 12:00 PM 07/01/2022 3:52 PM Care Teams Lines Tender Relationship Specialty Start Date End Date Aristides Hernandez MD [address] [facility] [place] [address] PCP - General INTERNAL MEDICINE 04/01/22 Don Carmichael MD [address] [place] [address] [facility] CLINICAL CARDIAC ELECTROPHYSIOLOGY 05/04/22
--- OUTSIDE RECORDS SUMMARY | 2024-12-14 18:59 | XMS_ITS | Clinical Summary ---
Author Organization [facility] Address [address] [place] [address] Phone Care Team Providers Care Assistant Director Of Residence Life Name Role Phone Provider, Unknown Primary Care [...] Description 10/22/2024 Telephone [facility] [address] [place] [address] Ewelina Ram RN [facility] 10/12/2024 Patient Outreach [facility] [address] [place] [address] Daiana Rodriguez, CUFF SETTER LOCKSTITCH, ROLLER INSPECTOR from Last 3 Months Immunizations Immunization Administration [...] on file Legal Sex Female 11:08 AM INVESTMENT PROFESSIONAL Gender Identity Not on file Sexual Orientation Not on file Last Filed Vital Signs Vital Sign Reading Time Taken Comments Blood Pressure 146/80 03/09/2020 12:24 PM INVESTMENT PROFESSIONAL Pulse 81 03/09/2020 12:24 PM INVESTMENT PROFESSIONAL Temperature 36.4 C (97.6 F) 03/09/2020 12:24 PM INVESTMENT PROFESSIONAL Respiratory Rate 16 03/09/2020 12:24 PM INVESTMENT PROFESSIONAL Oxygen Saturation 98% 03/09/2020 12:24 PM INVESTMENT PROFESSIONAL Inhaled Oxygen Concentration - - Weight - [...] patient's age to complete this topic Insurance [facility] [employer] * Guarantor: [employer] Account Type Relation to Patient Date of Phone Billing Address Institutional Other [id number] [place] [address] Care Teams Assistant Director Of Residence Life Relationship Specialty Start Date End Date Provider, Unknown UNKNOWN PCP - General 03/04/20
--- OUTSIDE RECORDS SUMMARY | 2024-12-14 18:59 | XMS_ITS | Encounter Summary ---
Author Organization [facility] Address [address] [place] [address] Phone Care Team Providers Care Physical Therapist Center Manager Name Role Phone Provider, Unknown Primary Care Provider Unavaila ble Encounter Details Date Type Department Care Team (Late st Contact Info) Description 01/15/2022 Lab Requisition [facility] [address] [place] [address] Nirali Coulter, SUPERVISOR [employer]PA[employer], BUSINESS DEVELOPMENT SPECIALIST [address] [place] [address] Encounter for pre-employment examination Social History Tobacco Use Types Packs/Day Years Used Date Smoking Tobacco: Never Smokeless Tobacco: Never Comments No Sex and Gender Information Value Date Recorded Sex Assigned at Not on file 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 No detectable VZV IgG antibody. 0.9 - 1.0 Equivocal >=1.1 Positive Antibody testing was performed by multiplex flow immunoassay on the Hiptype platform. us Nirali L [employer] SUPERVISOR [employer]ING REPAIR, BUSINESS DEVELOPMENT SPECIALIST IMMUNOLOGY ORDERABL ES Final Result [facility] [address] [facility] [place] [address], * RUBEOLA (MEASLES) IGG (01/15/2022 10:20 AM CDT) MEASLES AB IGG 1.9 >=1.1 AI 01/15/2022 10:30 PM CDT [facility] Blood No Phlebotomy Charged / Unknown 01/15/2022 10:20 AM CDT 01/15/2022 12:45 PM CDT Narrative [facility] - 01/15/2022 10:30 PM CDT <= 0.8 Negative. No detectable Measles IgG antibody. 0.9 - 1.0 Equivocal >=1.1 Positive Antibody testing was performed by multiplex flow immunoassay on the BioPlex platform. us Nirali Coulter APRN, CNP IMMUNOLOGY ORDERABL ES Final Result Performing Organization Address [facility] Co de Phone Number [facility] [address] [place] [address], [place] * RUBELLA IMMUNITY IGG (01/15/2022 10:20 AM CDT) RUBELLA IMMUNITY Immune Immune, Invalid 01/15/2022 10:30 PM CDT [facility] Blood No Phlebotomy Charged / Unknown 01/15/2022 10:20 AM CDT 01/15/2022 12:45 PM CDT Narrative [facility] - 01/15/2022 10:30 PM CDT Antibody testing was performed by multiplex flow immunoassay on the BioPlex platform. us Nirali Coulter APRN, CNP CHEMISTRY ORDERABLE S Final Result Performing Organization Address [facility] Co de Phone Number [facility] [address] [place] [address], [place] * MUMPS IGG (01/15/2022 10:20 AM CDT) Mumps Ab IgG 2.8 >=1.1 AI 01/15/2022 10:30 PM CDT [facility] Blood No Phlebotomy Charged / Unknown 01/15/2022 10:20 AM CDT 01/15/2022 12:45 PM CDT Narrative [facility] - 01/15/2022 10:30 PM CDT <= 0.8 Negative. No detectable Mumps IgG antibody. 0.9 - 1.0 Equivocal >=1.1 Positive Antibody testing was performed by multiplex flow immunoassay on the Hiptype platform. us Nirali Coulter APRN, CNP IMMUNOLOGY ORDERABL ES Final Result [facility] [address] [place] [address], [place] * QUANTIFERON-TB GOLD PLUS (01/15/2022 10:20 AM CDT) NIL CONTROL 0.03 <8.01 IU/mL 01/18/2022 2:10 PM CDT [facility] TB ANTIGEN 1 0.00 <0.35 IU/mL 01/18/2022 2:10 PM CDT [facility] TB ANTIGEN 2 0.00 <0.35 IU/mL 01/18/2022 2:10 PM CDT [facility] MITOGEN CONTROL >10.00 >0.49 IU/mL 01/19/20 2:10 PM CDT [facility] INTEPRETATION TB NEGATIVE NEGATIVE, NEGATIVE (TB antigen response less than 25% of internal negative control value) 01/18/2022 2:10 PM CDT [facility] Comment:No immune response t o Mycobacterium tuberculosis antigens was noted. M. tuberculosis infection unlikely. Blood No Phlebotomy Charged / Unknown 01/15/2022 10:20 AM CDT 01/15/2022 12:45 PM CDT Narrative [facility] - 01/18/2022 2:10 PM CDT A POSITIVE [...] otherwise immunocompromised individuals. https://www.cdc.gov/tb/publications/guidelines/testing.htm us Nirali Coulter SUPERVISOR [employer] REPA[employer], BUSINESS DEVELOPMENT SPECIALIST IMMUNOLOGY ORDERABL ES Final Result Performing Organization Address [facility] Co de Phone Number [facility] [address] [place] [address], * HEPATITIS B SURFACE ANTIBODY (HBSAB) (01/15/2022 10:20 AM CDT) HEPATITIS B SURFACE ANTIBODY 134.00 mIU/mL [facility] ARCH [id number] B 01/15/2022 10:17 PM CDT [facility] Comment: Detected Range: >12.00 Individual is considered immune to HBV infection Blood No Phlebotomy Charged / Unknown 01/15/2022 10:20 AM CDT 01/15/2022 12:45 PM CDT us Nirali Coulter SUPERVISOR [employer] REPAIR, BUSINESS DEVELOPMENT SPECIALIST CHEMISTRY ORDERABLE S Final Result Performing Organization Address [facility] Co de Phone Number [facility] [address] [place] [address], documented in this encounter Visit Diagnoses Diagnosis Encounter for pre-employment examination Health examination of defined subpopulation documented in this encounter Care Teams Physical Therapist Center Manager Relationship Specialty Start Date End Date Provider, Unknown UNKNOWN PCP - General 03/04/20 documented as of this encounter
--- OUTSIDE RECORDS SUMMARY | 2024-12-14 18:59 | XMS_ITS ---
Author Organization [facility] Address [address] [place] [address] Phone Care Team Providers Care Quality Control Representative Name Role Phone Provider, Unknown Primary Care [...]
--- OUTSIDE RECORDS SUMMARY | 2024-12-14 18:59 | XMS_ITS | Clinical Summary ---
Author Organization [facility] [address] [facility] lt Address [address] [place] [address] Care Team Providers Care Direct Support Staff Member Name Role Phone Aristides Hernandez MD Primary Care Provider [phone] Alonso Cason MD Unavailable [phone] Allergies Active Allergy Reactions Criticality Noted [...] DAY 180 tablet 3 07/11/19 25 Active atorvastatin (LIPITOR) 40 mg tablet [...] TABLET BY MOUTH DAILY. 10/11/19 25 Active Linzess 145 mcg capsuleIndicati ons:Constipatio n, unspecified constipation type TAKE 1 CAPSULE BY MOUTH EVERY DAY 30 capsule 3 12/12/19 25 Active aspirin 81 mg enteric coated [...] 1 01/31/20 24 025 Discontinued(Gustavo olivas Reported) Linzess 145 mcg capsuleIndicati ons:Constipatio n, unspecified constipation type TAKE 1 CAPSULE BY MOUTH EVERY DAY 30 capsule 3 07/25/19 25 025 Discontinued Active Problems Problem Noted Date Diagnosed Date Type 2 diabetes mellitus with hyperlipidemia Assessment & Plan (10/08/2024 9:12 AM CDT): Continue atorvastatin. Will check lipid panel today and plan accordingly. Assessment & Plan (05/01/2024 10:35 AM PLANT BUYER): Stable on atorvastatin and will continue to follow repsonse. Mood disorder 05/01/2024 Assessment & Plan (10/08/2024 9:12 AM CDT): Reports well controlled on fluoxetine and will continue. Assessment & Plan (05/01/2024 10:35 AM PLANT BUYER): COntinues on fluoxetine. Good response. Excellent insight. [...] reviewed. Assessment & Plan (05/01/2024 10:35 AM PLANT BUYER): Stable on metoprolol XL. COntinue on BP [...] 03/25/2023 Assessment & Plan (04/12/2023 11:04 AM PLANT BUYER): It looks like she is trying to [...] 03/25/2023 Assessment & Plan (04/12/2023 11:05 AM PLANT BUYER): The patient continues to have significant issues [...] accordingly. Assessment & Plan (05/01/2024 10:34 AM PLANT BUYER): Secondary prevneiton. Reviewed glycmeic control targets. No [...] Cardiology. Assessment & Plan (04/21/2022 3:38 PM PLANT BUYER): Eliquis History of loop electrical excision procedure (L EEP) 05/15/2019 Assessment & Plan (07/20/2022 9:09 AM CDT): Given the persistent erythema a 1 cm incision was made at the inferior aspect of the wound. Predominantly serous fluid was removed with little bit of fat necrosis as well. The wound was then packed with [id number] iodoform packing. She will continue to do [...] 10/09/19 Assessment & Plan (05/01/2024 10:35 AM PLANT BUYER): [place] 150min/week aerobic exercise. Healthy food chocies. Severe obesity (BMI 35.0-39. 9) with comorbidity 05/01/2024 10/08/2024 Assessment & Plan (05/01/2024 10:35 AM PLANT BUYER): As aboive. Chest pain, unspecified type 01/23/2024 [...] 04/21/202207/2022 Assessment & Plan (06/08/2022 11:20 AM PLANT BUYER): I have had discussions with the vascular [...] splenectomy. Assessment & Plan (05/21/2022 11:13 AM PLANT BUYER): Multiple splenic artery aneurysms, 1.8 cm saccular [...] her. Assessment & Plan (04/21/2022 3:19 PM PLANT BUYER): 1.8 cm splenic artery aneurysm found incidentally [...] daily. Assessment & Plan (05/21/2022 11:13 AM PLANT BUYER): Stable continue Lipitor 40 mg. Assessment & Plan (04/21/2022 3:38 PM PLANT BUYER): Lipitor New onset a-fib 04/13/2022 10/08/2024 Assessment & Plan (06/30/2022 3:59 PM CDT): Scheduled with cardiology 04/28/2022, at [facility]. Denies any chest pain, palpitations, dizziness, syncope [...] AM CDT): Continue to work with her personalized living assistant. Continue small frequent meals. Continue calcium, multivitamin vitamin-D. Continue to attend the weight loss groups. We will see her back in 6 months to reassess her progress. Assessment & Plan (02/07/2023 10:42 AM PLANT BUYER): The patient has done well having lost [...] 023 Assessment & Plan (05/21/2022 11:13 AM PLANT BUYER): Super morbid obesity, discussed given her body habitus any repair would be more difficult and higher risk. Morbid obesity 05/15/2019 10/08/2024 Encounters Date Type Department Care Team Description 12/05/2024 11:00 AM CDT Office Visit [facility] Medicine Surgery [address] [place] [address] Kamla White NP Abnormal finding on breast imaging (Primary Dx); Encounter for screening mammogram for malignant neoplasm of breast 12/05/2024 10:53 AM CDT - 12/05/2024 11:59 PM CDT Hospital Encounter [facility] - Breast Imaging [address] [place] [address] Floor 8 [place] [address] Abnormal finding on breast imaging Discharge Disposition: Discharge to home or self care 12/05/2024 Orders Only [facility] Information Management [address] [place] [address] Scanning, Provider 11/23/2024 7:20 AM CDT [facility] [address] [place], [place] Hypotension, unspecified hypotension type 11/22/2024 Orders Only [facility] Information [facility] [address] [place] [address] Scanning, Provider 11/21/2024 Orders Only [facility] [address] [address] Aristides Hernandez MD Hypotension, unspecified hypotension type (Primary Dx) 10/09/2024 Results Follow-Up [facility] [address] [address] Gisell Walker NP CBC with auto differential, Lipid panel, Hemoglobin A1c, Differential, auto 10/09/2024 Telephone [facility] [address] [address] Gisell Walker NP 10/09/2024 Orders Only [facility] [address] [place] [phone] Gisell Walker NP Elevated ferritin (Primary Dx) 10/08/2024 9:00 AM CDT Lab [facility] [address] [place] [phone] Class 1 obesity due to excess calories with serious comorbidity and body mass index (BMI) of 34.0 to 34.9 in adult; Type 2 diabetes mellitus with hyperlipidemia (HCC); Hypertension associated with diabetes (HCC); Elevated ferritin 10/08/2024 8:30 AM CDT Office Visit [facility] [address] [place] [phone] Gisell Walker NP Hypertension associated with diabetes [...] ventricular rate (CMS/HCC) (HCC) 09/26/2024 Results Follow-Up [facility] [address] [place] [address] Fannie Son NP Vitamin D 25 hydroxy, TSH, Vitamin B12, Additional followed-up results: 3 09/25/2024 3:30 PM CDT Lab [facility] at [address] [address] 09/25/2024 3:25 PM CDT - 09/25/2024 11:59 PM CDT Hospital Encounter [address] [address] S/P gastric sleeve procedure; Elevated AST (SGOT) [...] SURGERY 03/16/23 COLPOSCOPY 10/01/2024 Dr. Barrett in [place] HYSTERECTOMY 11/28/2024 Bilateral OOPHORECTOMY 11/28/2024 Medical History [...] often do you attend chur ch or catholic services? Patient declined 04/14/2022 Do [...] on file Legal Sex Female 2:38 AM PLANT BUYER Gender Identity Female 12/30/2023 11:42 PM CDT [...] Dilated Eye Exam 10/06/2024 10/07/2023 Covid-19 Vaccine (3 - 2024-2 6 season) 2024 06/03/2020, 05/06/2020 Influenza [...] Vaccines Discontinued Medical Devices Implanted Type Area Mechanical Service Technician Device Identifier Shelf Expiration Date Model / Serial / Lot [employer] Symmetry Vesolock Large Clip Internal [id number] - [id number] Implanted:Qty: 3 on 07/05/2022 by Vic Castellon MD at [facility] N/A: Abdomen [employer] 10/03/2023 [id number] / / [id number] Description:7 applied Procedures Procedure Name Priority Date/Time Associated Diagnosis Comments US BREAST LEFT LIMITED Schedule Routine, Read Routine (OP Routine) 12/05/2024 11:30 AM CDT Abnormal finding on breast imaging SCAN - RADIOLOGY/IMAGING 12/05/2024 SCAN - LABS 11/28/2024 CORTISOL Routine 11/23/2024 [...] sleeve procedure EGFR Routine 05/01/2024 9:52 AM PLANT BUYER Controlled type 2 diabetes mellitus with hyperglycemia, without long-term current use of insulin (HCC) ALBUMIN CREATININE RATIO, URINE Routine 05/01/2024 9:52 AM PLANT BUYER Controlled type 2 diabetes mellitus with hyperglycemia, without long-term current use of insulin (HCC) SCREENING MAMMOGRAM BILATERAL W NAEL Schedule Routine, Read Routine (OP Routine) 04/27/2024 3:13 PM PLANT BUYER 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 us Kamla White NP IMG MAMMO PROCEDURES Final Result * SCAN - RADIOLOGY/IMAGING (12/05/2024) Anatomical Region Laterality Modality Other us Provider Scanning Final Result * SCAN - LABS (11/28/2024) us Provider Scanning Edited Result - Final * TSH (11/23/2024 7:18 AM CDT) Thyroid Stimulating Hormone 1.40 0.30 - 4.20 mcIUnit/mL [facility] ([place]) Blood 11/23/2024 7:18 AM CDT 11/23/2024 10:45 AM CDT us Aristides Hernandez MD LAB BLOOD ORDERABLES Abeba l Result [facility] ([place]) [address] Department of Laboratories [place], [place] [id number] * T4, free (11/23/2024 7:18 AM CDT) Free T4 1.12 0.90 - 1.70 ng/dL [facility] ([place]) Blood 11/23/2024 7:18 AM CDT 11/23/2024 10:45 AM CDT Aristides Hernandez MD LAB BLOOD ORDERABLES Abeba l Result Performing Organization Address [facility] de Phone Number ROBY [facility] ([place]) [address] [place] [address] * (ABNORMAL) Cortisol (11/23/2024 7:18 AM CDT) Cortisol 4.1(L) 4.8 - 19.5 mcg/dl Comment: Interpretive Data Normal Range: 4.8 - 19.5 mcg/dL; Evening: Half of morning value. This analyte undergoes marked diurnal variation. Ranges indicated apply to morning specimens. Current interpretive data was last revised 2018. Testing performed by: [address], [address] Blood 11/23/2024 7:18 AM CDT 11/23/2024 3:24 PM CDT Aristides Hernandez MD LAB BLOOD ORDERABLES Abeba l Result Performing Organization Address [facility] de Phone Number ROBY YOUNG ([place]) 1 [facility] [place] [address] * SCAN - LABS (11/22/2024) Provider Scanning Final Result * (ABNORMAL) Differential, auto (10/08/2024 8:59 AM CDT) Neutrophil abs 5.01 1.50 - 6.50 K/cumm Comment:Testing performed by : [facility], [address] [place] [address]., [address] Imm gran abs 0.02 0.00 - 0.10 K/cumm ROBY YOUNG ([place]) Comment:Testing performed by : [address], [address] Lymphocyte abs 4.65(H) 0.80 - 3.30 K/cumm [facility]Y [facility] ([place]) Comment:Testing performed by : [facility], [address] [place] [address]., [address] Monocyte abs 1.05(H) 0.20 - 0.80 K/cumm [facility] ([place]) Comment:Testing performed by : [facility], [address] [place] [address]., [address] Eosinophil abs 0.16 0.00 - 0.50 K/cumm [facility] ([place]) Comment:Testing performed by : [facility], [address] [place] [address]., [address] Basophil abs 0.10 0.00 - 0.10 K/cumm [facility] ([place]) Comment:Testing performed by : [facility], [address] [place] [address]., [address] Neutrophil pct 45.5 % [facility] ([place]) Comment: Interpretive Data Percent cell count reference ranges are not reported, since discordance with absolute values may lead to misinterpretation of CBC data. Current Interpretive Data was last revised on 2017. Testing performed by: [facility], [address] [place] [address]., [address] Imm gran pct 0.2 % [facility] ([place]) Comment: Interpretive Data Percent cell count reference ranges are not reported, since discordance with absolute values may lead to misinterpretation of CBC data. Current Interpretive Data was last revised on 2017. Testing performed by: [facility], [address] [place] [address]., [address] Lymphocyte pct 42.3 % [facility] ([place]) Comment: Interpretive Data Percent cell count reference ranges are not reported, since discordance with absolute values may lead to misinterpretation of CBC data. Current Interpretive Data was last revised on 2017. Testing performed by: [address] [address] Monocyte pct 9.6 % [facility] ([place]) Comment: Interpretive Data Percent cell count reference ranges are not reported, since discordance with absolute values may lead to misinterpretation of CBC data. Current Interpretive Data was last revised on 2017. Testing performed by: [facility], [address] [place] [address]., [address] Eosinophil pct 1.5 % [facility] ([place]) Comment: Interpretive Data Percent cell count reference ranges are not reported, since discordance with absolute values may lead to misinterpretation of CBC data. Current Interpretive Data was last revised on 2017. Testing performed by: [facility], [address] [place] [address]., [address] Basophil pct 0.9 % ROBY YOUNG (LADAN) Comment: Interpretive Data Percent cell count reference ranges are not reported, since discordance with absolute values may lead to misinterpretation of CBC data. Current Interpretive Data was last revised on 2017. Testing performed by: [facility], [address] [place] [address], [address] Blood 10/08/2024 8:59 AM CDT 10/08/2024 2:07 PM CDT Gisell Walker NP LAB BLOOD ORDERABLES Final Result Performing Organization Address [facility] de Phone Number ROBY YOUNG ([place]) [address] [facility] [place] [address] * Iron profile w/ IBC (10/08/2024 8:59 AM CDT) Iron 78 35 - 145 mcg/dl Comment:Testing performed by : [facility], [address] [place] [address], [address] TIBC 264 250 - 400 mcg/dL [facility] ([place]) Comment:Testing performed by : [address], [address] Transferrin saturation 30 20 - 50 % [facility] ([place]) Comment:Testing performed by : [address], [address] Blood 10/08/2024 8:59 AM CDT 10/09/2024 3:34 PM CDT Gisell Walker NP LAB BLOOD ORDERABLES Final Result Performing Organization Address [facility] Co de Phone Number ROBY YOUNG ([place]AD[place]) [address] [facility] [place] [address] * (ABNORMAL) CBC with auto differential (10/08/2024 8:59 AM CDT) WBC 10.99(H) 3.80 - 9.90 K/cumm Comment:Testing performed by : [address], [address] Hgb 14.4 11.9 - 15.5 g/dL [facility] ([place]) Comment:Testing performed by : [address], [address] Hct 46.9(H) 35.6 - 45.5 % [facility] ([place]) Comment:Testing performed by : [address], [address] Plt 407(H) 150 - 400 K/cumm [facility] ([place]) Comment:Testing performed by : [address], [address] MPV 10.3 9.1 - 12.3 fL [facility] ([place]) Comment:Testing performed by : [address], [address] RBC 4.78 3.90 - 5.20 M/cumm [facility] ([place]) Comment:Testing performed by : [address], [address] MCV 98.1(H) 81.3 - 96.4 fL [facility] ([place]) Comment:Testing performed by : [address], [address] MCH 30.1 27.1 - 33.3 pg [facility] ([place]) Comment:Testing performed by : [address], [address] MCHC 30.7(L) 32.3 - 35.7 g/dL [facility] ([place]) Comment:Testing performed by : [address], [address] RDW CV 15.0(H) 11.1 - 14.9 % [facility] ([place]) Comment:Testing performed by : [address], [address] RDW SD 54.7(H) 35.7 - 48.1 fL [facility] ([place]) Comment:Testing performed by : [facility], [address] [place] [address]., [address] NRBC abs 0.00 0.00 - 0.01 K/cumm ROBY YOUNG ([place]) Comment:Testing performed by : [facility], [address] [place] [address]., [address] Blood 10/08/2024 8:59 AM CDT 10/08/2024 2:07 PM CDT Gisell Walker NP LAB BLOOD ORDERABLES Final Result MOSHEGRETTA YOUNG ([place]) [address] [place] [address] * Hemoglobin A1c (10/08/2024 8:59 AM CDT) Hgb A1C 5.3 4.0 - 5.6 % Comment:Testing performed by : [facility], [address] [place] [address], [address] Estimated Average Glucose 105 mg/dL ROB[facility] YOU[facility] ([place]) Comment: The ADA recommends reporting an estimated Average Glucose (eAG) with all Hemoglobin A1c results using the equation derived from a study of 507 normal and diabetic adults. Minority populations were underrepresented and children were not included. (Diabetes Care 31:4266-2205, 2008). The eAG is not equivalent to a fasting glucose. Testing performed by: [facility], [address] [place] [address]., [address] Blood 10/08/2024 8:59 AM CDT 10/08/2024 2:07 PM CDT us Gisell Walker NP LAB BLOOD ORDERABLES Final Result Performing Organization Address City/[facility]/ZIP Co de Phone Number ROBY YOUNG ([place]) [address] [place] [place] [address] * Lipid panel (10/08/2024 8:59 AM CDT) [...] last revised on 2017. Testing performed by: [facility], [address] [place] [address]., [address] Triglycerides 78 <=149 mg/dL [facility] ([place]) Comment: Interpretive Data Ages < [...] last revised on 2017. Testing performed by: [facility], [address] [place] [address]., [address] HDL 47 >=40 mg/dL [facility] ([place]) Comment: Interpretive Data Ages < [...] last revised on 2017. Testing performed by: [address] [address] LDL, calculated 64 <=129 mg/dL [facility] ([place]) Comment: Interpretive Data Ages < [...] NCEP Expert Panel. Circulation 2004;110:227 3. Mickey M et al. MARIBEL Cardiol. 2020 August 02;5(5):540-548. doi: 10.1001/jamacardio.2020.0013 Current Interpretive Data was last revised on 2023. Testing performed by: [address] [address] Non-HDL Cholesterol 80 mg/dL ROBY YOUNG ([place]ADAN) [...] last revised on 2017. Testing performed by: [facility], [address] [place] [address]., [address] Chol/HDL ratio 3 DAPHNEY YOUNG ([place]ADAN) Comment:Testing performed by : [address] [address] Blood 10/08/2024 8:59 AM CDT 10/08/2024 2:07 PM CDT us Gisell Walker NP LAB BLOOD ORDERABLES Final Result [facility] YOUNG ([place]) [address] [facility] Department [place] [address] * Vitamin D 25 hydroxy (09/25/2024 3:25 PM CDT) Pathologist [facility] Vitamin D 25-OH 54 30 - 80 ng/mL Blood 09/25/2024 3:25 PM CDT 09/25/2024 9:16 PM CDT Fannie Son FLUID PUMP OPERATOR LAB BLOOD ORDERABLES Final Re sult Performing Organization Address [facility] de Phone Number MOSHEGRETTA BOUDREAUX [address] [place] [address] * TSH (09/25/2024 3:25 PM CDT) Pathologist [facility] Thyroid Stimulating Hormone 1.04 0.30 - 4.20 mcIUnit/mL Blood 09/25/2024 3:25 PM CDT 09/25/2024 9:16 PM CDT Fannie Son FLUID PUMP OPERATOR LAB BLOOD ORDERABLES Final Re sult Performing Organization Address [facility] de Phone Number ROBY KANIKA [address] [facility] [place] [address] * Folate (09/25/2024 3:25 PM CDT) Pathologist [facility] Folic acid 5.9 >=5.0 ng/mL Comment:Hemolysis present. R esults may be affected. Blood 09/25/2024 3:25 PM CDT 09/25/2024 9:16 PM CDT Fannie Son FLUID PUMP OPERATOR LAB BLOOD ORDERABLES Final Re sult Performing Organization Address [facility] de Phone Number ROBY BOUDREAUX [address] [facility] [address] [place], [place] [id number] * (ABNORMAL) Ferritin (09/25/2024 3:25 PM CDT) Pathologist [facility] Ferritin 218(H) 13 - 150 ng/mL Blood 09/25/2024 3:25 PM CDT 09/25/2024 9:16 PM CDT Fannie Son FLUID PUMP OPERATOR LAB BLOOD ORDERABLES Final Re sult Performing Organization Address [facility]/ZIP Co de Phone Number MOSHEGRETTA BOUDREAUX [address] [address] [facility] [address] [place], [place] [id number] * Vitamin B12 (09/25/2024 3:25 PM CDT) Pathologist [facility] Vitamin B12 979 230 - 1,250 pg/mL Blood 09/25/2024 3:25 PM CDT 09/25/2024 9:16 PM CDT Fannie Son FLUID PUMP OPERATOR LAB BLOOD ORDERABLES Final Re sult Performing Organization Address [facility] de Phone Number ROBY KANIKA [address] [facility] [place] [address] * Hepatic function panel (09/25/2024 3:25 PM CDT) Pathologist [facility] Bilirubin, total 0.4 0.1 - 1.2 mg/dL [...] CDT 09/25/2024 9:16 PM CDT Fannie Son FLUID PUMP OPERATOR LAB BLOOD ORDERABLES Final Re sult Performing Organization Address [facility]/ZIP Co de Phone Number MOSHEGRETTA BOUDREAUX [address] [facility] [place] [address] * eGFR (05/01/2024 9:52 AM PLANT BUYER) eGFR >90 >=60 mL/min/1. 73 m2 Comment: [...] last reviewed 2021. Blood 05/01/2024 9:52 AM PLANT BUYER 05/01/2024 5:02 PM PLANT BUYER Aristides Hernandez MD LAB BLOOD ORDERABLES Abeba l Result Performing Organization Address [facility] de Phone Number [facility] [address] [place] [address] * Albumin Creatinine Ratio, Urine (05/01/2024 9:52 AM PLANT BUYER) Albumin Ur 15.4 mg/L Comment: Interpretive Data No reference range established. Current interpretive data was last revised 2018. Creatinine Ur 226.6 mg/dL ROBY Comment: Interpretive Data No reference range established. Current interpretive data was last revised 2018. Albumin Creatinine Ratio, Ur 7 1 - 29 mg/g ROBY BOUDREAUX Urine 05/01/2024 9:52 AM PLANT BUYER 05/01/2024 4:44 PM PLANT BUYER Aristides Hernandez MD LAB URINE ORDERABLES Abeba l Result Performing Organization Address [facility] Co de Phone Number ROBY BOUDREAUX [address] [facility] [place] [address] * Screening Mammogram Bilateral W Nael (04/27/2024 3:13 PM PLANT BUYER) Anatomical Region Laterality Modality Breast Bilateral Mammography Narrative 04/30/2024 10:17 AM PLANT BUYER Mammogram Technique: Bilateral Digital Breast Tomosynthesis, Bilateral C-view 2D Screening mammogram. Views obtained: bilateral craniocaudal and bilateral mediolateral oblique. Computer Aided Detection was performed. Mammogram Findings: The present examination has been compared to prior imaging studies performed at [facility] on 03/24/2022 and 04/14/2023, at [facility]. [facility] on 12/10/2021, and at [place], [place] on 06/07/2019. There are scattered areas [...] compared to prior imaging studies performed at [facility] on 03/24/2022 and 04/14/2023, [facility] on 12/10/2021, and at [place], [place] on 06/07/2019. There are scattered areas [...] Most Recently Relevant to Health Maintenance Insurance [employer] [place] [employer] [place] [facility] Advance Directives For more information, please contact: [phone] * Full Code (Latest Code Status on [...] 3:22 PM 04/14/2022 4:35 PM Care Teams Direct Support Staff Member Relationship Specialty Start Date End Date Aristides Hernandez MD [address] [place] [address] PCP - General Family Medicine 10/11/18 Alonso Cason MD [address] [place] [address] [address] [employer] Technician Obstetrics and Gynecology 01/21/22
--- OUTSIDE RECORDS SUMMARY | 2024-12-14 18:59 | XMS_ITS | Encounter Summary ---
Author Organization [facility] Address [facility] [place] [address] Care Team Providers Care Telephone Engineer Name Role Phone Aristides Hernandez MD Primary Care Provider [phone] Don Oliver MD Unavailable [phone] Encounter Details Date Type Department Care Team (Late Contact Info) Description 06/25/[address] [facility] House Fellow Pre/Post [address] [place] [address] Don Oliver MD [address] [place] [address] Social History Tobacco Use Types Packs/Day Years Used Date Smoking Tobacco: Never Passive Smoke Exposure: Never Smokeless Tobacco: Never Alcohol Use Standard Drinks/Week Comments Not Currently 0 (1 standard drink = 0.6 oz pur e alcohol) Comments Unknown Sex and Gender Information Value Date Recorded Sex Assigned at Female 05/11/2024 12:29 PM SHIP PROPELLER FINISHER Legal Sex Female 10:33 PM CDT Gender [...] Info) Description 12/26/2024 12:00 PM CDT Appointment [facility] House Fellow [address] [place] [address] Don Oliver MD [address] [place] [phone] 05/06/2025 2:30 PM SHIP PROPELLER FINISHER Office Visit [facility] eld [address] [place] [phone] Don Oliver MD [address] [place] [address] documented as of this encounter Visit Diagnoses Not on filedocumented in this encounter Care Teams Telephone Engineer Relationship Specialty Start Date End Date Aristides Hernandez MD [address] [place] [address] PCP - General INTERNAL MEDICINE 04/01/22 Don Oliver MD [address] [place] [phone] EP Remote Sensing Research Scientist CLINICAL CARDIAC ELECTROPHYSIOLOGY 05/04/22 documented as of this encounter
--- NOTE | 2024-12-14 19:59 | ED.CHESTPAIN ---
HPI - Chest Pain General Chief Complaint: Chest Pain <Lamar Alvarez PA-C - Last Filed: 12/15/24 00:09> Stated Complaint: chest pain, SOB <Lamar Alvarez PA-C - Last Filed: 12/15/24 00:09> Time Seen by Provider: 12/14/24 19:50 <Lamar Alvarez PA-C - Last Filed: 12/15/24 00:09> Source: patient <Lamar Alvarez PA-C - Last Filed: 12/15/24 00:09> Mode of arrival: ambulatory <Lamar Alvarez PA-C - Last Filed: 12/15/24 00:09> Limitations: no limitations <Lamar Alvarez PA-C - Last Filed: 12/15/24 00:09> History of Present Illness HPI narrative: This is a 44-year-old female that presents to the emergency department for lower abdominal pain. Reports she had a hysterectomy a couple of weeks ago. She had a bowel movement today and after felt sudden onset lower abdominal/pelvic pressure. Reports she has had some abnormal vaginal discharge. This happened around 12:00 p.m. today. Since she has been having some worsening chest discomfort. Patient noted to be febrile in the ER. <Lamar Alvarez PA-C - Last Filed: 12/15/24 00:09> Related Data Home Medications: Home Medications ?Medication ?Instructions ?Recorded ?Confirmed ?Last Taken ?Type atorvastatin 40 mg tablet 40 mg PO DAILY 03/23/21 12/15/24 12/14/24 History cetirizine 10 mg tablet (Zyrtec) 10 mg PO DAILY 03/23/21 12/15/24 12/14/24 History azelastine 137 mcg (0.1 %) nasal 137 mcg intranasal Q12H PRN 11/20/24 12/15/24 12/14/24 History spray allergy symptoms famotidine 20 mg tablet 20 mg PO DAILY 11/20/24 12/15/24 12/14/24 History linaclotide 145 mcg capsule 145 mcg PO DAILY 11/20/24 12/15/24 12/14/24 History (Linzess) metoprolol succinate 25 mg 12.5 mg PO DAILY 08/12/15/24 12/14/24 History tablet,extended release 24 hr tirzepatide 10 mg/0.5 mL 10 mg subcut WEEKLY 11/20/24 12/15/24 12/10/24 History subcutaneous pen injector (Jessica) calcium 600 mg capsule 600 mg PO DAILY 12/15/24 12/15/24 12/14/24 History fluoxetine 20 mg capsule (Prozac) 20 mg PO DAILY 12/15/24 12/15/24 12/14/24 History estradiol 1 mg tablet 1 mg PO DAILY 12/16/24 12/16/24 12/14/24 History <Lamar Alvarez PA-C - Last Filed: 12/15/24 00:09> Allergies/Adverse Reactions: Allergies Allergy/AdvReac Type Severity Reaction Status Date / Time latex Allergy Mild Rash Verified 11/28/24 13:31 clarithromycin Allergy Unknown Hives Verified 11/28/24 13:31 metformin Allergy Unknown Rash Verified 11/28/24 13:31 Sulfa (Sulfonamide Allergy Unknown Hives Verified 11/28/24 13:31 Antibiotics) dermabond Allergy Intermediate Rash Uncoded 11/28/24 13:31 <Lamar Alvarez PA-C - Last Filed: 12/15/24 00:09> Review of Systems Review of Systems: All systems reviewed & are unremarkable except as noted in HPI and below <Lamar Alvarez PA-C - Last Filed: 12/15/24 00:09> [facility] Past Medical History Medical History: Medical History Diabetes type 2, controlled GERD (gastroesophageal reflux disease) History of supraventricular tachycardia PCOS (polycystic ovarian syndrome) History of angina SVT (supraventricular tachycardia) with ablation 2007 <Lamar Alvarez PA-C - Last Filed: 12/15/24 00:09> Surgical History Surgical History: Surgical History History of gastric bypass H/O LEEP 2017 History of chemical tubal occlusion essure tubal occlusion approximately 2009 History of cholecystectomy <Lamar Alvarez PA-C - Last Filed: 12/15/24 00:09> Family History Family History: Family History Grandparent Acute myocardial infarction Diabetes mellitus History of blood clots Mother , Mother of coronary disease age 42 Acute myocardial infarction Hypertension Tobacco abuse disorder Father Hypertension Cerebrovascular accident Heart disease History of blood clots Sibling History of blood clots Hypertension Grandparent Diabetes mellitus Grandparent Colon cancer Sibling Hypertension <Lamar Alvarez PA-C - Last Filed: 12/15/24 00:09> Social History Social History: Social History Social History: Primary care physician: Dr. Aristides Hernandez Code status: Full code Smoking status: Never smoker Second hand tobacco smoke exposure: No Alcohol intake: never Drinks per week: 0 Alcohol use details: The patient drinks approximately 1 drink a year. Substance use: current Substance use type: does not use Lack of Transportation: No Lack of Food: Never True Current Housing: I Have Housing Concerned About Future Housing: No Difficulty Paying Gas/Electric Bills: No Difficulty Paying for Meds: No Currently Unemployed: No Education: Master's Degree or Higher Difficulty w/ Childcare or Family Care: No Living arrangements: with friend(s) Additional living arrangements comments: Patient lives with her 14-year-old daughter and 9-year-old autistic son. 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 Gender identity (if verbalized by the patient): Female Spiritual care concerns: No <Lamar Alvarez PA-C - Last Filed: 12/15/24 00:09> Exam Narrative: GENERAL: Well-appearing, well-nourished, and in no acute distress. HEAD: Normocephalic, atraumatic. EYES: EOMI. CHEST: Clear to auscultation. No respiratory distress. No wheezes rales or rhonchi HEART: Tachycardic, regular rhythm. No murmur heard. Normal peripheral pulses. ABDOMEN: Soft, nontender, nondistended, normal active bowel sounds. EXTREMITIES: Normal range of motion. No edema. SKIN: Warm, dry, no rash. NEURO: No focal deficits. Alert and oriented x3. PSYCH: Normal mood and affect PELVIC: Yellow/bloody discharge in the vaginal vault, small area of dehiscence of the vaginal cuff noted <Lamar Alvarez PA-C - Last Filed: 12/15/24 00:09> Course Course Emergency Course: Patient updated on workup and need for admission. Dr. Barrett came to bedside to evaluate patient <Lamar Alvarez PA-C - Last Filed: 12/15/24 00:09> SENIOR TREASURY ANALYST/PA Physician Supervision This visit was performed by both a physician and an APC. I performed all aspects of the MDM as documented. History, exam, lab and imaging findings consistent with dehiscence of vaginal cuff and free air in the abdomen. Antibiotics ordered. Specialty consultation made and patient will be admitted to Gynecology. <Yamil De Dios MD - Last Filed: 12/16/24 19:58> Vital Signs Vital signs: Vital Signs Temperature 100.0 F H 12/14/24 19:33 Pulse Rate 125 H 12/14/24 19:33 Respiratory Rate 18 12/14/24 19:33 Blood Pressure 119/65 12/14/24 19:33 Pulse Oximetry 97 12/14/24 19:33 Oxygen Delivery Room Air 12/14/24 19:33 Temperature 97.4 F L 12/16/24 08:46 Pulse Rate 69 12/16/24 08:51 Respiratory Rate 16 12/16/24 08:51 Blood Pressure 106/65 12/16/24 08:46 Pulse Oximetry 99 12/16/24 08:51 Oxygen Delivery Room Air 12/16/24 08:51 <Lamar Alvarez PA-C - Last Filed: 12/15/24 00:09> Vital Signs Temperature 100.0 F H 12/14/24 19:33 Pulse Rate 125 H 12/14/24 19:33 Respiratory Rate 18 12/14/24 19:33 Blood Pressure 119/65 12/14/24 19:33 Pulse Oximetry 97 12/14/24 19:33 Oxygen Delivery Room Air 12/14/24 19:33 Temperature 97.4 F L 12/16/24 08:46 Pulse Rate 69 12/16/24 08:51 Respiratory Rate 16 12/16/24 08:51 Blood Pressure 106/65 12/16/24 08:46 Pulse Oximetry 99 12/16/24 08:51 Oxygen Delivery Room Air 12/16/24 08:51 <Yamil De Dios MD - Last Filed: 12/16/24 19:58> MDM - Chest Pain MDM Narrative Medical decision making narrative: Patient presents to the emergency department for sudden onset pelvic pain after a bowel movement today. Recent hysterectomy. Patient borderline febrile, tachycardic upon arrival. Blood pressure is stable. Patient hydrated with IV fluids in the ER. Blood cultures obtained, patient started on IV antibiotics. Pelvic exam concerning for area of dehiscence of the vaginal cuff with abnormal drainage noted. CBC with leukocytosis to 17.2. Metabolic panel without concerning findings. Lactic acid is not elevated. EKG without acute ST changes, baseline troponin negative. Patient updated on workup and need for admission. Dr. Barrett came to bedside to evaluate patient. Plan will be for exam under anesthesia in the morning <Lamar Alvarez PA-C - Last Filed: 12/15/24 00:09> Differential Diagnosis Differential diagnosis: Likely stable angina, costochondritis and other (Pneumoperitoneum, vaginal cuff dehiscence, abscess) <Lamar Alvarez PA-C - Last Filed: 12/15/24 00:09> Lab Data Attestation: I reviewed the patient's lab results. <Lamar Alvarez PA-C - Last Filed: 12/15/24 00:09> Result diagrams: 12/14/24 20:25 12/14/24 20:25 <Lamar Alvarez PA-C - Last Filed: 12/15/24 00:09> Labs: Lab Results 12/14/24 12/14/24 Range/Units 20:25 21:54 WBC 17.2 H (4.5-10.0) K/mm3 RBC 4.20 (4.2-5.4) M/mm3 Hgb 12.7 (12.0-15.0) g/dL Hct 39.9 (37.0-47.0) % MCV 95.0 (80-100) fl MCH 30.2 (26-34) pg MCHC 31.8 L (32-36) g/dl RDW 15.7 H (11.5-14.5) % Plt Count 406 H D (150-375) k/mm3 MPV 10.0 (7.4-10.4) fl Immature Gran % (Auto) 0.5 (0-0.5) % Neut % (Auto) 78.0 H (45.5-73.1) % Lymph % (Auto) 12.2 L (18.3-44.2) % Cambria % (Auto) 7.1 (2.6-8.5) % Eos % (Auto) 1.8 (0-4.4) % Baso % (Auto) 0.4 (0.2-1.2) % Lymph # (Auto) 2.09 (0.9-3.2) K/mm3 Cambria # (Auto) 1.2 H (0.1-0.6) K/mm3 Eos # (Auto) 0.3 (0-0.3) K/mm3 Baso # (Auto) 0.1 (0.0-0.1) K/mm3 Abs Immat Gran (auto) 0.09 H (0.00-0.031) K/mm3 Absolute Neuts (auto) 13.4 H (1.3-6.7) K/mm3 Absolute Nucleated RBC 0.000 (0.0-0.012) K/mm3 Nucleated RBC % 0.0 (0.0-0.2) % PT 14.1 (11.1-14.7) Seconds INR 1.1 APTT 26.1 (22.3-36.8) Seconds Sodium 138 (137-145) mmol/L Potassium 4.0 (3.4-5.0) mmol/L Chloride 108 H (98-107) mmol/L Carbon Dioxide 23 (22-30) mmol/L Anion Gap 7 (4-12) mmol/L BUN 17 (7-17) mg/dL Creatinine 0.70 (0.7-1.0) mg/dL Estim Creat Clear Calc 97 ml/min Estimated GFR > 60 (59 - ) Glucose 119 H (65-110) mg/dL Lactic Acid 0.9 (0.7-2.0) mmol/L Calcium 9.3 (8.4-10.2) mg/dL Total Bilirubin 1.0 (0.2-1.3) mg/dL AST 34 (14-36) U/L ALT 19 (6-35) U/L Alkaline Phosphatase 68 (38-126) U/L Troponin I < 0.012 < 0.012 (0.000-0.034) ng/mL Total Protein 7.2 (6.3-8.2) g/dL Albumin 4.1 (3.5-5.1) g/dL Lipase 123 (23-300) U/L <Lamar Alvarez PA-C - Last Filed: 12/15/24 00:09> Lab Results 12/14/24 12/14/24 Range/Units 20:25 21:54 WBC 17.2 H (4.5-10.0) K/mm3 RBC 4.20 (4.2-5.4) M/mm3 Hgb 12.7 (12.0-15.0) g/dL Hct 39.9 (37.0-47.0) % MCV 95.0 (80-100) fl MCH 30.2 (26-34) pg MCHC 31.8 L (32-36) g/dl RDW 15.7 H (11.5-14.5) % Plt Count 406 H D (150-375) k/mm3 MPV 10.0 (7.4-10.4) fl Immature Gran % (Auto) 0.5 (0-0.5) % Neut % (Auto) 78.0 H (45.5-73.1) % Lymph % (Auto) 12.2 L (18.3-44.2) % Cambria % (Auto) 7.1 (2.6-8.5) % Eos % (Auto) 1.8 (0-4.4) % Baso % (Auto) 0.4 (0.2-1.2) % Lymph # (Auto) 2.09 (0.9-3.2) K/mm3 Cambria # (Auto) 1.2 H (0.1-0.6) K/mm3 Eos # (Auto) 0.3 (0-0.3) K/mm3 Baso # (Auto) 0.1 (0.0-0.1) K/mm3 Abs Immat Gran (auto) 0.09 H (0.00-0.031) K/mm3 Absolute Neuts (auto) 13.4 H (1.3-6.7) K/mm3 Absolute Nucleated RBC 0.000 (0.0-0.012) K/mm3 Nucleated RBC % 0.0 (0.0-0.2) % PT 14.1 (11.1-14.7) Seconds INR 1.1 APTT 26.1 (22.3-36.8) Seconds Sodium 138 (137-145) mmol/L Potassium 4.0 (3.4-5.0) mmol/L Chloride 108 H (98-107) mmol/L Carbon Dioxide 23 (22-30) mmol/L Anion Gap 7 (4-12) mmol/L BUN 17 (7-17) mg/dL Creatinine 0.70 (0.7-1.0) mg/dL Estim Creat Clear Calc 97 ml/min Estimated GFR > 60 (59 - ) Glucose 119 H (65-110) mg/dL Lactic Acid 0.9 (0.7-2.0) mmol/L Calcium 9.3 (8.4-10.2) mg/dL Total Bilirubin 1.0 (0.2-1.3) mg/dL AST 34 (14-36) U/L ALT 19 (6-35) U/L Alkaline Phosphatase 68 (38-126) U/L Troponin I < 0.012 < 0.012 (0.000-0.034) ng/mL Total Protein 7.2 (6.3-8.2) g/dL Albumin 4.1 (3.5-5.1) g/dL Lipase 123 (23-300) U/L <Yamil De Dios MD - Last Filed: 12/16/24 19:58> Imaging Data Radiologist's impression: CTA chest PE with abdomen pelvis: No acute findings. No visceral organ injury or free fluid. Pneumoperitoneum related to previous hysterectomy. <Lamar Alvarez PA-C - Last Filed: 12/15/24 00:09> Critical Care Time Critical Care Time Critical Care Time: No <Lamar Alvarez PA-C - Last Filed: 12/15/24 00:09> Discharge Plan Discharge Clinical Impression: Post-operative complication Qualifiers: Surgical complication system/body Area: genitourinary Surgical complication type: unspecified Procedure type: genitourinary Qualified Code(s): N99.89 - Other postprocedural complications and disorders of genitourinary system <Lamar Alvarez PA-C - Last Filed: 12/15/24 00:09> Patient Disposition: Still a Patient <Lamar Alvarez PA-C - Last Filed: 12/15/24 00:09> Condition: Stable <Lamar Alvarez PA-C - Last Filed: 12/15/24 00:09>
--- OUTSIDE RECORDS SUMMARY | 2024-12-14 20:20 | XMS_ITS | Clinical Summary ---
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 Gender Identity Not on file Sexual Orientation Not on file Last Filed Vital Signs Vital Sign Reading Time Taken Comments Blood Pressure 146/80 03/09/2020 12:24 PM JOURNEYMAN OPERATOR ASSISTANT Pulse 81 03/09/2020 12:24 PM JOURNEYMAN OPERATOR ASSISTANT Temperature 36.4 C (97.6 F) 03/09/2020 12:24 PM JOURNEYMAN OPERATOR ASSISTANT Respiratory Rate 16 03/09/2020 12:24 PM JOURNEYMAN OPERATOR ASSISTANT Oxygen Saturation 98% 03/09/2020 12:24 PM JOURNEYMAN OPERATOR ASSISTANT Inhaled Oxygen Concentration - - Weight - [...] patient's age to complete this topic Insurance [facility] [employer] * Guarantor: [employer] Account Type Relation to Patient Date of Phone Billing Address Institutional Other [address] [place] [address] Care Teams Electrician Radio Relationship Specialty Start Date End Date Provider, Unknown UNKNOWN PCP - General 03/04/20
--- OUTSIDE RECORDS SUMMARY | 2024-12-14 20:20 | XMS_ITS | Encounter Summary ---
Author Organization [facility] Address [address] [place] [address] Phone Care Team Providers Care Unit Controller Name Role Phone Provider, Unknown Primary Care Provider Unavaila ble Encounter Details Date Type Department Care Team (Late st Contact Info) Description 01/15/2022 Lab Requisition [facility] [address] [place] [address] Nirali Coulter, PERFORATOR LOADER, CONCRETE PLANT LABORER [address] [place] [address] Encounter for pre-employment examination Social History Tobacco Use Types Packs/Day Years Used Date Smoking Tobacco: Never Smokeless Tobacco: Never Comments No Sex and Gender Information Value Date Recorded Sex Assigned at Not on file 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 No detectable VZV IgG antibody. 0.9 - 1.0 Equivocal >=1.1 Positive Antibody testing was performed by multiplex flow immunoassay on the Twelve platform. us Nirali L Behrends PERFORATOR LOADER, CONCRETE PLANT LABORER IMMUNOLOGY ORDERABL ES Final Result [facility] [address] [place] [address], * RUBEOLA (MEASLES) IGG (01/15/2022 10:20 AM CDT) MEASLES AB IGG 1.9 >=1.1 AI 01/15/2022 10:30 PM CDT [facility] Blood No Phlebotomy Charged / Unknown 01/15/2022 10:20 AM CDT 01/15/2022 12:45 PM CDT Narrative [facility] - 01/15/2022 10:30 PM CDT <= 0.8 Negative. No detectable Measles IgG antibody. 0.9 - 1.0 Equivocal >=1.1 Positive Antibody testing was performed by multiplex flow immunoassay on the BioPlex platform. us Nirali Coulter APRN, CNP IMMUNOLOGY ORDERABL ES Final Result Performing Organization Address [facility] Co de Phone Number [facility] [address] [place] [address], [place] * RUBELLA IMMUNITY IGG (01/15/2022 10:20 AM CDT) RUBELLA IMMUNITY Immune Immune, Invalid 01/15/2022 10:30 PM CDT [facility] Blood No Phlebotomy Charged / Unknown 01/15/2022 10:20 AM CDT 01/15/2022 12:45 PM CDT Narrative [facility] - 01/15/2022 10:30 PM CDT Antibody testing was performed by multiplex flow immunoassay on the BioPlex platform. us Nirali Coulter APRN, CNP CHEMISTRY ORDERABLE S Final Result Performing Organization Address [facility] Co de Phone Number [facility] [address] [place] [address], [place] * MUMPS IGG (01/15/2022 10:20 AM CDT) Mumps Ab IgG 2.8 >=1.1 AI 01/15/2022 10:30 PM CDT [facility] Blood No Phlebotomy Charged / Unknown 01/15/2022 10:20 AM CDT 01/15/2022 12:45 PM CDT Narrative [facility] - 01/15/2022 10:30 PM CDT <= 0.8 Negative. No detectable Mumps IgG antibody. 0.9 - 1.0 Equivocal >=1.1 Positive Antibody testing was performed by multiplex flow immunoassay on the Twelve platform. us Nirali Coulter APRN, CNP IMMUNOLOGY ORDERABL ES Final Result [facility] [address] [place] [address], [place] * QUANTIFERON-TB GOLD PLUS (01/15/2022 10:20 AM CDT) NIL CONTROL 0.03 <8.01 IU/mL 01/18/2022 2:10 PM CDT [facility] TB ANTIGEN 1 0.00 <0.35 IU/mL 01/18/2022 2:10 PM CDT [facility] TB ANTIGEN 2 0.00 <0.35 IU/mL 01/18/2022 2:10 PM CDT [facility] MITOGEN CONTROL >10.00 >0.49 IU/mL 01/19/20 2:10 PM CDT [facility] INTEPRETATION TB NEGATIVE NEGATIVE, NEGATIVE (TB antigen response less than 25% of internal negative control value) 01/18/2022 2:10 PM CDT [facility] Comment:No immune response t o Mycobacterium tuberculosis antigens was noted. M. tuberculosis infection unlikely. Blood No Phlebotomy Charged / Unknown 01/15/2022 10:20 AM CDT 01/15/2022 12:45 PM CDT Narrative [facility] - 01/18/2022 2:10 PM CDT A [...] otherwise immunocompromised individuals. https://www.cdc.gov/tb/publications/guidelines/testing.htm us Nirali Coulter PERFORATOR LOADER, CONCRETE PLANT LABORER IMMUNOLOGY ORDERABL ES Final Result Performing Organization Address [facility] Co de Phone Number [facility] [address] [place] [address], * HEPATITIS B SURFACE ANTIBODY (HBSAB) (01/15/2022 10:20 AM CDT) HEPATITIS B SURFACE ANTIBODY 134.00 mIU/mL [facility] ARCH [id number] B 01/15/2022 10:17 PM CDT [facility] Comment: Detected Range: >12.00 Individual is considered immune to HBV infection Blood No Phlebotomy Charged / Unknown 01/15/2022 10:20 AM CDT 01/15/2022 12:45 PM CDT us Nirali Coulter PERFORATOR LOADER, CONCRETE PLANT LABORER CHEMISTRY ORDERABLE S Final Result Performing Organization Address [facility] Co de Phone Number [facility] [address] [place] [address], documented in this encounter Visit Diagnoses Diagnosis Encounter for pre-employment examination Health examination of defined subpopulation documented in this encounter Care Teams Unit Controller Relationship Specialty Start Date End Date Provider, Unknown UNKNOWN PCP - General 03/04/20 documented as of this encounter
--- OUTSIDE RECORDS SUMMARY | 2024-12-14 20:20 | XMS_ITS | Encounter Summary ---
Author Organization [facility] Address [facility] [place] [address] Care Team Providers Care Decorating Consultant Name Role Phone Aristides Hernandez MD Primary Care Provider [phone] Don Oliver MD Unavailable [phone] Encounter Details Date Type Department Care Team (Late Contact Info) Description 11/15/2024 PeopleGoal Message [facility] [address] [place] [address] Don Oliver MD [address] [place] [address] Low blood pressure Social History Tobacco Use Types Packs/Day Years Used Date Smoking Tobacco: Never Passive Smoke Exposure: Never Smokeless Tobacco: Never Alcohol Use Standard Drinks/Week Comments Not Currently 0 (1 standard drink = 0.6 oz pur e alcohol) Comments Unknown Sex and Gender Information Value Date Recorded Sex Assigned at Female 05/11/2024 12:29 PM MARKET RISK ANALYST Legal Sex Female 10:33 PM CDT Gender Identity Not on file Sexual Orientation Not on file 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 Not on file documented as of this encounter Plan of Treatment Upcoming Encounters Date Type Department Care Team (Late Contact Info) Description 12/26/2024 12:00 PM CDT Appointment [facility] Acquisition Cost Estimator [address] [place] [address] Don Oliver MD [address] [place] [address] 05/06/2025 2:30 PM MARKET RISK ANALYST Office Visit [facility] [address] [place] [address] Don Oliver MD [address] [place] [address] documented as of this encounter Visit Diagnoses Not on filedocumented in this encounter Care Teams Decorating Consultant Relationship Specialty Start Date End Date Aristides Hernandez MD [address] [place] [address] PCP - General INTERNAL MEDICINE 04/01/22 Don Oliver MD [address] [place] [id number] EP Dock Boss CLINICAL CARDIAC ELECTROPHYSIOLOGY 05/04/22 documented as of this encounter
--- OUTSIDE RECORDS SUMMARY | 2024-12-14 20:20 | XMS_ITS ---
Author Organization [facility] Address [address] [place] [address] Phone Care Team Providers Care Telecommunications Engineer Name Role Phone Provider, Unknown Primary [...]
--- OUTSIDE RECORDS SUMMARY | 2024-12-14 20:20 | XMS_ITS | Encounter Summary ---
Author Organization [facility] Address [facility] [place] [address] Care Team Providers Care Wirer Maintenance Name Role Phone Aristides Hernandez MD Primary Care Provider [phone] Don Oliver MD Unavailable [phone] Encounter Details Date Type Department Care Team (Late Contact Info) Description 06/25/2022 Hospital Orders Only [facility] Sweet Pickled Fruit Maker Pre/Post [address] [place] [address] Don Oliver MD [address] [place] [address] Social History Tobacco Use Types Packs/Day Years Used Date Smoking Tobacco: Never Passive Smoke Exposure: Never Smokeless Tobacco: Never Alcohol Use Standard Drinks/Week Comments Not Currently 0 (1 standard drink = 0.6 oz pur e alcohol) Comments Unknown Sex and Gender Information Value Date Recorded Sex Assigned at Female 05/11/2024 12:29 PM APPRAISER Legal Sex Female 10:33 PM CDT Gender [...] Info) Description 12/26/2024 12:00 PM CDT Appointment [facility] Sweet Pickled Fruit Maker [address] [place] [address] Don Oliver MD [address] [place] [phone] 05/06/2025 2:30 PM APPRAISER Office Visit [facility] eld [address] [place] [address] Don Oliver MD [address] [place] [address] documented as of this encounter Visit Diagnoses Not on filedocumented in this encounter Care Teams Wirer Maintenance Relationship Specialty Start Date End Date Aristides Hernandez MD [address] [place] [address] PCP - General INTERNAL MEDICINE 04/01/22 Don Oliver MD [address] [place] [phone] EP Sludge Filtration Attendant CLINICAL CARDIAC ELECTROPHYSIOLOGY 05/04/22 documented as of this encounter
--- OUTSIDE RECORDS SUMMARY | 2024-12-14 20:20 | XMS_ITS | Clinical Summary ---
Author Organization [facility] Address [facility] [place] [address] Care Team Providers Care Pointing Machine Operator Name Role Phone Aristides Hernandez MD Primary Care Provider [phone] Don Carmichael MD Unavailable [phone] Allergies Active Allergy Reactions Criticality Noted [...] by mouth daily. Active Vitamin D, Ergocalciferol, 00876 units Cap Take 1 tablet by mouth [...] Other chest pain 05/09/2022 SVT (supraventricular tachycardia) ([facility]) 06/2022 Mixed hyperlipidemia Family history of coronary artery disease Overview (05/09/2022): Mother at 38 with mi; father with cad Encounters Date Type Department Care Team Description 11/28/2024 Telephone [facility] [address] [place] [address] Don Carmichael MD Schedule Procedure 11/26/2024 9:30 AM CDT Office Visit [facility] [place] [address] [place] [address] Don Carmichael MD Follow Up 11/26/2024 Travel 11/15/2024 MyChart Message Enc [facility] [address] [place] [address] Don Carmichael MD Low blood pressure 10/09/2024 MyChart Message Enc [facility] [address] [place] [address] Don Carmichael MD Low blood pressure from [...] Sex Assigned at Female 05/11/2024 12:29 PM BUNDLE CUTTER Legal Sex Female 10:33 PM CDT Gender [...] Info) Description 12/26/2024 12:00 PM CDT Appointment [facility] Participant Administrator [address] [place] [address] Don Carmichael MD [address] [place] [phone] 05/06/2025 2:30 PM BUNDLE CUTTER Office Visit [facility] eld [address] [place] [phone] Don Carmichael MD [address] [place] [address] Health Maintenance Due Date Last Done Comments [...] [facility] - 11/26/2024 5:22 PM CDT [facility] [address] [place] [address] Test Date: 2024-11-26 Pat Name: DAIANA HAYNES Department: 105 Room: Gender: Female 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: : 1980 Requested By: DON CARMICHAEL Order Number: [id number] Reading JANE Carmichael Measurements Intervals [place] Rate: 63 P: 54 [place]: 123 QRS: 74 QRSD: 110 T: 53 QT: 426 QTc: 438 Interpretive Statements SINUS RHYTHM WITH SINUS ARRHYTHMIA INCOMPLETE RIGHT BUNDLE BRANCH BLOCK nondiagnostic inferior/lateral q-waves Procedure Note Don Carmichael MD - 11/26/2024 [facility] [address] [place] [address] Test Date: 2024-11-26 Pat Name: DAIANA MINO Department: 105 Room: Gender: Female 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: : 1980 Requested By: DON CARMICHAEL Order Number: [id number] Reading JANE Carmichael Measurements Intervals [place] Rate: 63 P: 54 [place]: 123 QRS: 74 QRSD: 110 T: 53 QT: 426 QTc: 438 Interpretive Statements SINUS RHYTHM WITH SINUS ARRHYTHMIA INCOMPLETE RIGHT BUNDLE BRANCH BLOCK nondiagnostic inferior/lateral q-waves us Don Carmichael MD PROCEDURES-ORDERABLE NO CHARGE Final Result [facility] from Last 3 Months Insurance [facility] Advance Directives * Full Code (Latest Code Status on File) Date Activated Date Inactivated Comments 07/01/2022 12:00 PM 07/01/2022 3:52 PM Care Teams Pointing Machine Operator Relationship Specialty Start Date End Date Aristides Hernandez MD [address] [place] [address] PCP - General INTERNAL MEDICINE 04/01/22 Don Carmichael MD [address] [place] [address] EP Nozzle Operator CLINICAL CARDIAC ELECTROPHYSIOLOGY 05/04/22
--- OUTSIDE RECORDS SUMMARY | 2024-12-14 20:21 | XMS_ITS | Clinical Summary ---
Author Organization [facility] [address] [facility] lt Address [address] [place] [address] Care Team Providers Care Director Business Travel Name Role Phone Aristides Hernandez MD Primary Care Provider [phone] Alonso Cason MD Unavailable [phone] Allergies Active Allergy Reactions Criticality Noted [...] accordingly. Assessment & Plan (05/01/2024 10:35 AM TRIP FOLLOWER): Stable on atorvastatin and will continue to follow repsonse. Mood disorder 05/01/2024 Assessment & Plan (10/08/2024 9:12 AM CDT): Reports well controlled on fluoxetine and will continue. Assessment & Plan (05/01/2024 10:35 AM TRIP FOLLOWER): COntinues on fluoxetine. Good response. Excellent insight. [...] reviewed. Assessment & Plan (05/01/2024 10:35 AM TRIP FOLLOWER): Stable on metoprolol XL. COntinue on BP [...] 03/25/2023 Assessment & Plan (04/12/2023 11:04 AM TRIP FOLLOWER): It looks like she is trying to [...] 03/25/2023 Assessment & Plan (04/12/2023 11:05 AM TRIP FOLLOWER): The patient continues to have significant issues [...] accordingly. Assessment & Plan (05/01/2024 10:34 AM TRIP FOLLOWER): Secondary prevneiton. Reviewed glycmeic control targets. No [...] Cardiology. Assessment & Plan (04/21/2022 3:38 PM TRIP FOLLOWER): Eliquis History of loop electrical excision procedure (L EEP) 05/15/2019 Assessment & Plan (07/20/2022 9:09 AM CDT): Given the persistent erythema a 1 cm incision was made at the inferior aspect of the wound. Predominantly serous fluid was removed with little bit of fat necrosis as well. The wound was then packed with [id number] iodoform packing. She will continue to do [...] 10/09/19 Assessment & Plan (05/01/2024 10:35 AM TRIP FOLLOWER): [place] 150min/week aerobic exercise. Healthy food chocies. Severe obesity (BMI 35.0-39. 9) with comorbidity 05/01/2024 10/08/2024 Assessment & Plan (05/01/2024 10:35 AM TRIP FOLLOWER): As aboive. Chest pain, unspecified type 01/23/2024 [...] 04/21/202207/2022 Assessment & Plan (06/08/2022 11:20 AM TRIP FOLLOWER): I have had discussions with the vascular [...] splenectomy. Assessment & Plan (05/21/2022 11:13 AM TRIP FOLLOWER): Multiple splenic artery aneurysms, 1.8 cm saccular [...] her. Assessment & Plan (04/21/2022 3:19 PM TRIP FOLLOWER): 1.8 cm splenic artery aneurysm found incidentally [...] daily. Assessment & Plan (05/21/2022 11:13 AM TRIP FOLLOWER): Stable continue Lipitor 40 mg. Assessment & Plan (04/21/2022 3:38 PM TRIP FOLLOWER): Lipitor New onset a-fib 04/13/2022 10/08/2024 Assessment & Plan (06/30/2022 3:59 PM CDT): Scheduled with cardiology 04/28/2022, at [facility]. 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 Continue small frequent meals. Continue calcium, multivitamin vitamin-D. Continue to attend the weight loss groups. We will see her back in 6 months to reassess her progress. Assessment & Plan (02/07/2023 10:42 AM TRIP FOLLOWER): The patient has done well having lost [...] 023 Assessment & Plan (05/21/2022 11:13 AM TRIP FOLLOWER): Super morbid obesity, discussed given her body habitus any repair would be more difficult and higher risk. Morbid obesity 05/15/2019 10/08/2024 Encounters Date Type Department Care Team Description 12/05/2024 11:00 AM CDT Office Visit [facility] Medicine Surgery [address] [facility] Floor 8 [place] [address] Kmala White NP Abnormal finding on breast imaging (Primary Dx); Encounter for screening mammogram for malignant neoplasm of breast 12/05/2024 10:53 AM CDT - 12/05/2024 11:59 PM CDT Hospital Encounter [facility] - Breast Imaging [address] [place] [address] Floor 8 [place] [address] Abnormal finding on breast imaging Discharge Disposition: Discharge to home or self care 12/05/2024 Orders Only [facility] Information Management [address] [place] [address] Scanning, Provider 11/23/2024 7:20 AM CDT [facility] [address] [place], [place] Hypotension, unspecified hypotension type 11/22/2024 Orders Only [facility] Information [facility] [address] [place] [address] Scanning, Provider 11/21/2024 Orders Only [facility] [address] [address] Aristides Hernandez MD Hypotension, unspecified hypotension type (Primary Dx) 10/09/2024 Results Follow-Up [facility] [address] [address] Gisell Walker NP CBC with auto differential, Lipid panel, Hemoglobin A1c, Differential, auto 10/09/2024 Telephone [facility] [address] [address] Gisell Walker NP 10/09/2024 Orders Only [facility] [address] [place] [phone] Gisell Walker NP Elevated ferritin (Primary Dx) 10/08/2024 9:00 AM CDT Lab [facility] [address] [place] [phone] Class 1 obesity due to excess calories with serious comorbidity and body mass index (BMI) of 34.0 to 34.9 in adult; Type 2 diabetes mellitus with hyperlipidemia (HCC); Hypertension associated with diabetes (HCC); Elevated ferritin 10/08/2024 8:30 AM CDT Office Visit [facility] [address] [place] [phone] Gisell Walker NP Hypertension associated with diabetes [...] ventricular rate (CMS/HCC) (HCC) 09/26/2024 Results Follow-Up [facility] [address] [facility] [address] [place] [address] Fannie Son NP Vitamin D 25 hydroxy, TSH, Vitamin B12, Additional followed-up results: 3 09/25/2024 3:30 PM CDT Lab [facility] Outpatient Lab at [address] [address] 09/25/2024 3:25 PM CDT - 09/25/2024 11:59 PM CDT Hospital Encounter [address] [address] S/P gastric sleeve procedure; Elevated AST (SGOT) [...] SURGERY 03/16/23 COLPOSCOPY 10/01/2024 Dr. Barrett in [place] HYSTERECTOMY 11/28/2024 Bilateral OOPHORECTOMY 11/28/2024 Medical History [...] often do you attend chur ch or yarsanism services? Patient declined 04/14/2022 Do you belong to any clubs o r organizations such as voodoo groups, unions, fraternal or athletic groups, or [...] on file Legal Sex Female 2:38 AM TRIP FOLLOWER Gender Identity Female 12/30/2023 11:42 PM CDT [...] Vaccines Discontinued Medical Devices Implanted Type Area Ice Cream Freezer Device Identifier Shelf Expiration Date Model / Serial / Lot [employer] Symmetry Vesolock Large Clip Internal [id number] - [id number] Implanted:Qty: 3 on 07/05/2022 by Vic Castellon MD at [facility] N/A: Abdomen [employer] 10/03/2023 [id number] / / [id number] Description:7 applied Procedures Procedure Name Priority Date/Time [...] sleeve procedure EGFR Routine 05/01/2024 9:52 AM TRIP FOLLOWER Controlled type 2 diabetes mellitus with hyperglycemia, without long-term current use of insulin (HCC) ALBUMIN CREATININE RATIO, URINE Routine 05/01/2024 9:52 AM TRIP FOLLOWER Controlled type 2 diabetes mellitus with hyperglycemia, without long-term current use of insulin (HCC) SCREENING MAMMOGRAM BILATERAL W NAEL Schedule Routine, Read Routine (OP Routine) 04/27/2024 3:13 PM TRIP FOLLOWER 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 [...] Abeba l Result [facility] ([place]) [address] [facility] Department of Laboratories [place], [place] [id number] * T4, free (11/23/2024 7:18 AM CDT) Free T4 1.12 0.90 - 1.70 ng/dL [facility] ([place]) Blood 11/23/2024 7:18 AM CDT 11/23/2024 10:45 AM CDT Aristides Hernandez MD LAB BLOOD ORDERABLES Abeba l Result Performing Organization Address [facility] de Phone Number ROBY YOUNG ([place]) 1 [place] [address] * (ABNORMAL) Cortisol (11/23/2024 7:18 AM CDT) Cortisol 4.1(L) 4.8 - 19.5 mcg/dl Comment: Interpretive Data Normal Range: 4.8 - 19.5 mcg/dL; Evening: Half of morning value. This analyte undergoes marked diurnal variation. Ranges indicated apply to morning specimens. Current interpretive data was last revised 2018. Testing performed by: [address], [address] Blood 11/23/2024 7:18 AM CDT 11/23/2024 3:24 PM CDT Aristides Hernandez MD LAB BLOOD ORDERABLES Abeba l Result Performing Organization Address [facility] de Phone Number ROBY YOUNG ([place]) [address] [facility] [place] [place] [address] * SCAN - LABS (11/22/2024) Provider Scanning Final Result * (ABNORMAL) Differential, auto (10/08/2024 8:59 AM CDT) Neutrophil abs 5.01 1.50 - 6.50 K/cumm Comment:Testing performed by : [facility] [place] [facility], [address] [place] [address]., [address] Imm gran abs 0.02 0.00 - 0.10 K/cumm ROBY YOUNG ([place]) Comment:Testing performed by : [address], [address] Lymphocyte abs 4.65(H) 0.80 - 3.30 K/cumm ROBY YOUNG ([place]) Comment:Testing performed by : [facility] [place] [facility], [address] [place] [address]., [address] Monocyte abs 1.05(H) 0.20 - 0.80 K/cumm [facility] ([place]) Comment:Testing performed by : [facility] [place] [facility], [address] [place] [address]., [address] Eosinophil abs 0.16 0.00 - 0.50 K/cumm [facility] ([place]) Comment:Testing performed by : [facility] [place] [facility], [address] [place] [address]., [address] Basophil abs 0.10 0.00 - 0.10 K/cumm [facility] ([place]) Comment:Testing performed by : [facility] [place] [facility], [address] [place] [address]., [address] Neutrophil pct 45.5 % [facility] ([place]) Comment: Interpretive Data Percent cell count reference ranges are not reported, since discordance with absolute values may lead to misinterpretation of CBC data. Current Interpretive Data was last revised on 2017. Testing performed by: [facility] [place] [facility], [address] [place] [address]., [address] Imm gran pct 0.2 % [facility] ([place]) Comment: Interpretive Data Percent cell count reference ranges are not reported, since discordance with absolute values may lead to misinterpretation of CBC data. Current Interpretive Data was last revised on 2017. Testing performed by: [facility] [place] [facility], [address] [place] [address]., [address] Lymphocyte pct 42.3 % [facility] ([place]) Comment: Interpretive Data Percent cell count reference ranges are not reported, since discordance with absolute values may lead to misinterpretation of CBC data. Current Interpretive Data was last revised on 2017. Testing performed by: [address] [address] Monocyte pct 9.6 % [facility] ([place]) Comment: Interpretive Data Percent cell count reference ranges are not reported, since discordance with absolute values may lead to misinterpretation of CBC data. Current Interpretive Data was last revised on 2017. Testing performed by: [facility] [place] [facility], [address] [place] [address]., [address] Eosinophil pct 1.5 % [facility] ([place]) Comment: Interpretive Data Percent cell count reference ranges are not reported, since discordance with absolute values may lead to misinterpretation of CBC data. Current Interpretive Data was last revised on 2017. Testing performed by: [facility] [place] [facility], [address] [place] [address]., [address] Basophil pct 0.9 % ROBY YOUNG ([place]) Comment: Interpretive Data Percent cell count reference ranges are not reported, since discordance with absolute values may lead to misinterpretation of CBC data. Current Interpretive Data was last revised on 2017. Testing performed by: [facility] [place] [facility], [address] [place] [address], [address] Blood 10/08/2024 8:59 AM CDT 10/08/2024 2:07 PM CDT Gisell Walker NP LAB BLOOD ORDERABLES Final Result Performing Organization Address [facility] de Phone Number ROBY YOUNG ([place]) [address] [place] [address] * Iron profile w/ IBC (10/08/2024 8:59 AM CDT) Iron 78 35 - 145 mcg/dl Comment:Testing performed by : [facility] [place] [facility], [address] [place] [address], [address] TIBC 264 250 - 400 mcg/dL ROBY YOUNG ([place]) Comment:Testing performed by : [address], [address] Transferrin saturation 30 20 - 50 % ROBY YOUNG ([place]) Comment:Testing performed by : [address], [address] Blood 10/08/2024 8:59 AM CDT 10/09/2024 3:34 PM CDT Gisell Walker NP LAB BLOOD ORDERABLES Final Result Performing Organization Address [facility] Co de Phone Number ROBY YOUNG ([place]) [address] [place] [place] [address] * (ABNORMAL) CBC with auto differential (10/08/2024 8:59 AM CDT) WBC 10.99(H) 3.80 - 9.90 K/cumm Comment:Testing performed by : [address], [address] Hgb 14.4 11.9 - 15.5 g/dL [facility] ([place]) Comment:Testing performed by : [address], [address] Hct 46.9(H) 35.6 - 45.5 % [facility] ([place]) Comment:Testing performed by : [address], [address] Plt 407(H) 150 - 400 K/cumm [facility] ([place]) Comment:Testing performed by : [address], [address] MPV 10.3 9.1 - 12.3 fL [facility] ([place]) Comment:Testing performed by : [address], [address] RBC 4.78 3.90 - 5.20 M/cumm [facility] ([place]) Comment:Testing performed by : [address], [address] MCV 98.1(H) 81.3 - 96.4 fL [facility] ([place]) Comment:Testing performed by : [address], [address] MCH 30.1 27.1 - 33.3 pg [facility] ([place]) Comment:Testing performed by : [address], [address] MCHC 30.7(L) 32.3 - 35.7 g/dL [facility] ([place]) Comment:Testing performed by : [address], [address] RDW CV 15.0(H) 11.1 - 14.9 % [facility] ([place]) Comment:Testing performed by : [address], [address] RDW SD 54.7(H) 35.7 - 48.1 fL [facility] ([place]) Comment:Testing performed by : [facility], [address] [place] [address]., [address] NRBC abs 0.00 0.00 - 0.01 K/cumm ROBY YOUNG ([place]) Comment:Testing performed by : [facility] [place] [facility], [address] [place] [address]., [address] Blood 10/08/2024 8:59 AM CDT 10/08/2024 2:07 PM CDT Gisell Walker NP LAB BLOOD ORDERABLES Final Result MOSHEGRETTA YOUNG ([place]) [address] [facility] [place] [address] * Hemoglobin A1c (10/08/2024 8:59 AM CDT) Hgb A1C 5.3 4.0 - 5.6 % Comment:Testing performed by : [facility] [place] [facility], [address] [place] [address], [address] Estimated Average Glucose 105 mg/dL ROBY YOU[facility] ([place]) Comment: The ADA recommends reporting an estimated Average Glucose (eAG) with all Hemoglobin A1c results using the equation derived from a study of 507 normal and diabetic adults. Minority populations were underrepresented and children were not included. (Diabetes Care 31:3729-4946, 2008). The eAG is not equivalent to a fasting glucose. Testing performed by: [facility] [place] [facility], [address] [place] [address]., [address] Blood 10/08/2024 8:59 AM CDT 10/08/2024 2:07 PM CDT us Gisell Walker NP LAB BLOOD ORDERABLES Final Result Performing Organization Address City/[facility]/ZIP Co de Phone Number ROBY YOUNG ([place]) [address] [facility] [place] [place] [address] * Lipid panel (10/08/2024 8:59 AM CDT) [...] Testing performed by: [facility], [address] [place] [address]., [address] Triglycerides 78 <=149 mg/dL [facility] ([place]) [...] Testing performed by: [facility], [address] [place] [address]., [address] HDL 47 >=40 mg/dL ROB[facility] AM H [...] last revised on 2017. Testing performed by: [address] [address] LDL, calculated 64 <=129 mg/dL [facility] [...] last revised on 2023. Testing performed by: [address] [address] Non-HDL Cholesterol 80 mg/dL ROBY YOUNG ([place]) [...] Testing performed by: [facility] [place] [facility], [address] [place] [address]., [address] Chol/HDL ratio 3 DAPHNEY YOUNG ([place]) Comment:Testing performed by : [address] [address] Blood 10/08/2024 8:59 AM CDT 10/08/2024 2:07 PM CDT us Gisell Walker NP LAB BLOOD ORDERABLES Final Result ROBY YOUNG ([place]) [address] [facility] [place] [address] * Vitamin D 25 hydroxy (09/25/2024 3:25 PM CDT) Pathologist [facility] Vitamin D 25-OH 54 30 - 80 ng/mL Blood 09/25/2024 3:25 PM CDT 09/25/2024 9:16 PM CDT Fannie Son [employer] LAB BLOOD ORDERABLES Final Re sult Performing Organization Address [facility] de Phone Number MOSHEGRETTA BOUDREAUX [address] [place] [address] * TSH (09/25/2024 3:25 PM CDT) Pathologist [facility] Thyroid Stimulating Hormone 1.04 0.30 - 4.20 mcIUnit/mL Blood 09/25/2024 3:25 PM CDT 09/25/2024 9:16 PM CDT Fannie Son [employer] LAB BLOOD ORDERABLES Final Re sult Performing Organization Address [facility] de Phone Number ROBY KANIKA [address] [address] [facility] [place] [address] * Folate (09/25/2024 3:25 PM CDT) Pathologist [facility] Folic acid 5.9 >=5.0 ng/mL Comment:Hemolysis present. R esults may be affected. Blood 09/25/2024 3:25 PM CDT 09/25/2024 9:16 PM CDT Fannie Son [employer] LAB BLOOD ORDERABLES Final Re sult Performing Organization Address [facility] de Phone Number ROBY BOUDREAUX [address] [address] [facility] [employer] [place], [place] [id number] * (ABNORMAL) Ferritin (09/25/2024 3:25 PM CDT) Pathologist [facility] Ferritin 218(H) 13 - 150 ng/mL Blood 09/25/2024 3:25 PM CDT 09/25/2024 9:16 PM CDT Fannie Son [employer] LAB BLOOD ORDERABLES Final Re sult Performing Organization Address [facility]/ZIP Co de Phone Number MOSHEGRETTA BOUDREAUX [address] [facility] [employer] [place], [place] [id number] * Vitamin B12 (09/25/2024 3:25 PM CDT) Pathologist [facility] Vitamin B12 979 230 - 1,250 pg/mL Blood 09/25/2024 3:25 PM CDT 09/25/2024 9:16 PM CDT Fannie Son [employer] LAB BLOOD ORDERABLES Final Re sult Performing Organization Address [facility] de Phone Number ROBY KANIKA [address] [address] [facility] [place] [address] * Hepatic function panel (09/25/2024 3:25 PM CDT) Pathologist [facility] Bilirubin, total 0.4 0.1 - 1.2 mg/dL [...] CDT 09/25/2024 9:16 PM CDT Fannie Son [employer] LAB BLOOD ORDERABLES Final Re sult Performing Organization Address [facility]/ZIP Co de Phone Number MOSHEGRETTA BOUDREAUX [address] [address] [facility] [place] [address] * eGFR (05/01/2024 9:52 AM TRIP FOLLOWER) eGFR >90 >=60 mL/min/1. 73 m2 Comment: [...] last reviewed 2021. Blood 05/01/2024 9:52 AM TRIP FOLLOWER 05/01/2024 5:02 PM TRIP FOLLOWER Aristides Hernandez MD LAB BLOOD ORDERABLES Abeba l Result Performing Organization Address [facility] de Phone Number [facility] [address] Department [place] [address] * Albumin Creatinine Ratio, Urine (05/01/2024 9:52 AM TRIP FOLLOWER) Albumin Ur 15.4 mg/L Comment: Interpretive Data No reference range established. Current interpretive data was last revised 2018. Creatinine Ur 226.6 mg/dL ROBY Comment: Interpretive Data No reference range established. Current interpretive data was last revised 2018. Albumin Creatinine Ratio, Ur 7 1 - 29 mg/g ROBY BOUDREAUX Urine 05/01/2024 9:52 AM TRIP FOLLOWER 05/01/2024 4:44 PM TRIP FOLLOWER Aristides Hernandez MD LAB URINE ORDERABLES Abeba l Result Performing Organization Address [facility] Co de Phone Number ROBY BOUDREAUX [address] [facility] Department [place] [address] * Screening Mammogram Bilateral W Nael (04/27/2024 3:13 PM TRIP FOLLOWER) Anatomical Region Laterality Modality Breast Bilateral Mammography Narrative 04/30/2024 10:17 AM TRIP FOLLOWER Mammogram Technique: Bilateral Digital Breast Tomosynthesis, Bilateral C-view 2D Screening mammogram. Views obtained: bilateral craniocaudal and bilateral mediolateral oblique. Computer Aided Detection was performed. Mammogram Findings: The present examination has been compared to prior imaging studies performed at [facility] on 03/24/2022 and 04/14/2023, at [facility]. [facility] on 12/10/2021, and at [place], [place] on 06/07/2019. There are scattered areas [...] compared to prior imaging studies performed at [facility] on 03/24/2022 and 04/14/2023, [facility] on 12/10/2021, and at [place], [place] on 06/07/2019. There are scattered areas [...] Most Recently Relevant to Health Maintenance Insurance [employer] * Guarantor: Latanya Haynes Account Type Relation to Patient Date of Phone Billing Address Personal/Family Self 1980 [address] [place] [address] [employer] [facility] Advance Directives For more information, please contact: [phone] * Full Code (Latest Code Status on [...] 3:22 PM 04/14/2022 4:35 PM Care Teams Director Business Travel Relationship Specialty Start Date End Date Aristides Hernandez MD [address] [place] [address] PCP - General Family Medicine 10/11/18 Alonso Cason MD [address] [place] [address] [address] [employer] Obstetrics [facility] Gynecology 01/21/22
[2024-12-14 20:33] LABS: Hematocrit 39.9 % (37.0-47.0); Hemoglobin 12.7 g/dL (12.0-15.0); Immature Granulocyte Percent A 0.5 % (0-0.5); Lymphocytes Absolute Auto 2.09 K/mm3 (0.9-3.2); Mean Corpuscular HGB Conc 31.8 g/dl (32-36); Mean Corpuscular Hemoglobin 30.2 pg (26-34); Mean Corpuscular Volume 95.0 fl (80-100); Nucleated Red Blood Cells Absolute Auto 0.000 K/mm3 (0.0-0.012); Nucleated Red Blood Cells Perc 0.0 % (0.0-0.2); Platelet Count Result 406 k/mm3 (150-375); Red Blood Count 4.20 M/mm3 (4.2-5.4); White Blood Count 17.2 K/mm3 (4.5-10.0)
[2024-12-14] MEDS: SODIUM CHLORIDE 0.9% IV 1,000 ML 999 ML IV CONT (20:40)
[2024-12-14] MEDS: cefTRIAXone 1 GM in SODIUM CHLORIDE 0.9% IV 50 ML 100 ML IVPB (20:41)
[2024-12-14 20:45] LABS: INR 1.1; Prothrombin Time 14.1 Seconds (11.1-14.7)
[2024-12-14 20:46] LABS: Partial Thromboplastin Time 26.1 Seconds (22.3-36.8)
[2024-12-14 21:02] LABS: Alanine Aminotransferase 19 U/L (6-35); Albumin Level 4.1 g/dL (3.5-5.1); Alkaline Phosphatase 68 U/L (38-126); Anion Gap 7 mmol/L (4-12); Aspartate Amino Transferase 34 U/L (14-36); Bilirubin,Total 1.0 mg/dL (0.2-1.3); Blood Urea Nitrogen 17 mg/dL (7-17); Calcium 9.3 mg/dL (8.4-10.2); Carbon Dioxide 23 mmol/L (22-30); Chloride 108 mmol/L (98-107); Estimated CRCL calculation 97 ml/min; Estimated Glomerular Filt Rate > 60; Glucose 119 mg/dL (65-110); Lipase 123 U/L (23-300); Potassium 4.0 mmol/L (3.4-5.0); Sodium 138 mmol/L (137-145); Total Protein 7.2 g/dL (6.3-8.2)
[2024-12-14 21:14] LABS: Troponin I < 0.012 ng/mL (0.000-0.034)
[2024-12-14] MEDS: metroNIDAZOLE 500 MG/ISO 100ML 500 MG/100 ML BAG 100 MG IVPB (21:46)
--- NOTE | 2024-12-14 21:51 | ECG_ITS ---
Test Date: 2024-12-14 21:58:44 Measurements Intervals Portal Rate: 94 P: 115 OH: 136 QRS: 137 QRSD: 101 T: 157 QT: 355 QTc: 446 Interpretive Statements SINUS RHYTHM ARM LEADS REVERSED [INVERTED P AND QRS IN I] NONSPECIFIC ST AND T-WAVE ABNORMALITY ABNORMAL ECG Electronically Signed On 12-15-2024 12:19:53 CDT by Vic Joyce M.D.
[2024-12-14 22:23] LABS: Troponin I < 0.012 ng/mL (0.000-0.034)
--- NOTE | 2024-12-14 22:36 | PM.IMHP ---
H&P: HPI History of Present Illness Date/Time: 12/14/24 22:36 Chief Complaint: Foul-smelling vaginal discharge Narrative: This patient is a 44-year-old female who is 16 days postop from a robotic assisted hysterectomy and bilateral salpingectomy. She had moderate to heavy vaginal discharge that was foul smelling today. There was accompanied by some abdominal pain after a bowel movement. She was asked to come to the emergency department. She was evaluated in emergency department and found to have a central defect in the vaginal cuff. There was pus within the vagina. This still strongly suggestive of a draining pelvic abscess. I examined the patient. There is a small defect between 2 sutures. The sutures are intact. There was pus that this small defect. Patient have agreed to perform exam under anesthesia were placed a drain and support the vaginal cuff with more suture. The patient understands the details of the procedure. The procedure has been explained in detail. She understands the risks. She understands that injuries may occur that result in hospitalization, more surgery, and severe illness. She understands risk of hemorrhage and infection. She denies any chest pain or shortness of breath. She denies any nausea, vomiting, fever, chills. Review of Systems Review of Systems: All systems reviewed & are unremarkable except as noted in HPI and below Constitutional: Constitutional: Denies chills, Denies fatigue, Denies fever(s) and Denies weakness Eyes: Eyes: Denies blurry vision, Denies change in vision, Denies loss of peripheral vision, Denies loss of vision, Denies other visual disturbances and Denies eye pain ENT: Denies vertigo, Denies dizziness, Denies hearing loss, Denies mouth pain, Denies nasal obstruction, Denies neck mass and Denies neck pain Cardiovascular: Cardiovascular: Denies chest pain, Denies diaphoresis, Denies syncope, Denies leg edema and Denies dyspnea Respiratory: Respiratory: Denies chest congestion, Denies cough, Denies hemoptysis, Denies dyspnea and Denies wheezing Gastrointestinal: Gastrointestinal: Denies abdominal pain, Denies constipation, Denies diarrhea, Denies nausea and Denies vomiting Genitourinary: Genitourinary: Denies hematuria, Denies change in libido, Denies nocturia, Denies genital lesions, Denies flank pain and Denies urinary urgency Musculoskeletal: Musculoskeletal: Denies abnormal gait, Denies back pain, Denies myalgias, Denies arthralgias, Denies joint swelling, Denies muscle weakness and Denies neck pain Integumentary/Breasts: Skin/Breast: Denies swelling, Denies breast pain, Denies breast mass, Denies dry skin, Denies nipple discharge, Denies unusual bruising and Denies jaundice Neurologic: Denies Neuro-related abnormal movements, Denies Abnormal speech present, Denies abnormal gait, Denies behavioral changes, Denies confusion, Denies vertigo, Denies dizziness, Denies syncope, Denies loss of vision, Denies memory loss, Denies convulsions and Denies weakness Psychiatric: Psychiatric: Denies abnormal sleep pattern, Denies behavioral changes, Denies change in libido, Denies confusion, Denies depression, Denies anhedonia and Denies memory loss Endocrine: Endocrine: Reports no additional endocrine complaints, Denies change in libido and Denies fatigue Hematologic/Lymphatic: Hematologic/Lymphatic: Reports no additional hematologic/lymphatic complaints Allergic/Immunologic: Allergic/Immunologic: Reports no additional allergic/immunologic complaints and Denies wheezing PMFSH Past Medical History Medical History Diabetes type 2, controlled GERD (gastroesophageal reflux disease) History of supraventricular tachycardia PCOS (polycystic ovarian syndrome) History of angina SVT (supraventricular tachycardia) with ablation 2007 Surgical History Surgical History History of gastric bypass H/O LEEP 2017 History of chemical tubal occlusion essure tubal occlusion approximately 2009 History of cholecystectomy Family History Family History Grandparent Acute myocardial infarction Diabetes mellitus History of blood clots Mother , Mother of coronary disease age 42 Acute myocardial infarction Hypertension Tobacco abuse disorder Father Hypertension Cerebrovascular accident Heart disease History of blood clots Sibling History of blood clots Hypertension Grandparent Diabetes mellitus Grandparent Colon cancer Sibling Hypertension Social History Social History Social History: Primary care physician: Dr. Aristides Hernandez Code status: Full code Smoking status: Never smoker Second hand tobacco smoke exposure: No Alcohol intake: never Drinks per week: 0 Alcohol use details: The patient drinks approximately 1 drink a year. Substance use: never Substance use type: does not use Living arrangements: with friend(s) Additional living arrangements comments: Patient lives with her 14-year-old daughter and 9-year-old autistic son. 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 Gender identity (if verbalized by the patient): Female Spiritual care concerns: No Meds Home Medications and Allergies Home Medications ?Medication ?Instructions ?Recorded ?Confirmed ?Type atorvastatin 40 mg tablet 40 mg PO DAILY 03/23/21 11/28/24 History cetirizine 10 mg tablet (Zyrtec) 10 mg PO DAILY 03/23/21 11/28/24 History azelastine 137 mcg (0.1 %) nasal 137 mcg intranasal Q12H PRN 11/20/24 11/28/24 History spray allergy symptoms famotidine 20 mg tablet 20 mg PO DAILY 11/20/24 11/28/24 History fluoxetine 10 mg capsule 10 mg PO DAILY 11/20/24 11/28/24 History linaclotide 145 mcg capsule 145 mcg PO DAILY 11/20/24 11/28/24 History (Linzess) metoprolol succinate 25 mg 12.5 mg PO DAILY 11/20/24 11/28/24 History tablet,extended release 24 hr tirzepatide 10 mg/0.5 mL 10 mg subcut WEEKLY 11/20/24 11/28/24 History subcutaneous pen injector (Jessica) hydrocodone 5 mg-acetaminophen 325 1 - 2 tablet PO Q6H PRN pain #25 11/29/24 Rx mg tablet tabs Allergies Allergy/AdvReac Type Severity Reaction Status Date / Time latex Allergy Mild Rash Verified 11/28/24 13:31 clarithromycin Allergy Unknown Hives Verified 11/28/24 13:31 metformin Allergy Unknown Rash Verified 11/28/24 13:31 Sulfa (Sulfonamide Allergy Unknown Hives Verified 11/28/24 13:31 Antibiotics) dermabond Allergy Intermediate Rash Uncoded 11/28/24 13:31 Vital Signs Vital Signs - 24 hr 12/14/24 19:33 12/14/24 21:20 Temperature 100.0 F H Pulse Rate 125 H Respiratory Rate 18 Blood Pressure 119/65 Pulse Oximetry 97 Oxygen Delivery Room Air Room Air Exam Const: General: cooperative, healthy appearing, comfortable and no acute distress Orientation/consciousness: oriented to person, oriented to place and oriented to time HENMT: Head: normal to inspection Ears: external ears normal Face/Nose/Sinus: Normal external nose present and normal facial exam Face and sinus: normal facial exam Eyes: General: appearance normal, both eyes and all related structures Neck: Neck: normal visual inspection, trachea midline and supple Resp: Auscultation: clear to auscultation bilaterally, no crackles, no rales, no rhonchi and no wheezes Cardio: Rate: regular rate Rhythm: regular rhythm Heart sounds: no click, no murmurs and no rubs GI: GI Palp: No abdominal tenderness, No Soft to palpation, No Tenderness to palpation present (GI) and No Palpable mass present Auscultation: normal bowel sounds : Speculum Exam - Vagina: other Other: The vaginal cuff was intact. There was a small defect at the central portion of the vaginal cuff where pus was egressing. Sutures were intact. Skin: General skin exam: normal color and no rashes or lesions noted Neuro: General: oriented to person, oriented to place and oriented to time Extrem: General: normal to inspection, no joint enlargement, no clubbing, cyanosis or edema, no pedal edema and no calf tenderness Psych: Appearance: grossly normal Mental Status: mental status grossly normal Speech and movement: Normal speech and movement present H&P: Results Labs Labs: Short CBC 12/14/24 Range/Units 20:25 WBC 17.2 H (4.5-10.0) K/mm3 Hgb 12.7 (12.0-15.0) g/dL Hct 39.9 (37.0-47.0) % Plt Count 406 H D (150-375) k/mm3 BMP 12/14/24 20:25 Sodium 138 Potassium 4.0 Chloride 108 H Carbon Dioxide 23 BUN 17 Creatinine 0.70 Glucose 119 H Calcium 9.3 Cardiac Enzymes 12/14/24 12/14/24 Range/Units 20:25 21:54 Troponin I < 0.012 < 0.012 (0.000-0.034) ng/mL Liver Function 12/14/24 Range/Units 20:25 Total Bilirubin 1.0 (0.2-1.3) mg/dL AST 34 (14-36) U/L ALT 19 (6-35) U/L Alkaline Phosphatase 68 (38-126) U/L Albumin 4.1 (3.5-5.1) g/dL Assessment and Plan Assessment and plan (1) Postoperative abscess of pelvis in female: Code(s): T81.49XA - Infection following a procedure, other surgical site, initial encounter; N73.9 - Female pelvic inflammatory disease, unspecified Status: Acute Plan 44-year-old female with postop pelvic abscess 16 days postop from total robotic hysterectomy. Proceed to exam under anesthesia tomorrow in the operating room with drain placement and revision of vaginal cuff. She understands risks, benefits, and alternatives. She has completed informed consent process is ready to proceed.
[2024-12-15] VITALS (26 sets, daily range): BP systolic 85–118; BP diastolic 35–65; PULSE 68–114; RESP 12–22; TEMP 36.2–37.3; O2SAT 95–100; BMI 32.6
[2024-12-15] MEDS: LACTATED RINGERS 1,000 ML 999 ML IV CONT (00:48)
[2024-12-15] MEDS: SODIUM CHLORIDE 0.9% IV 1,000 ML 125 ML IV CONT ×3 (01:34→22:24)
--- NOTE | 2024-12-15 01:35 | ADMGEN ---
This patient, Latanya Haynes, was admitted to Medical Room 253-01. Patient/family oriented to hospital policies and general routines including ID bracelet, bed and alarms, visiting hours, pain management, procedures, bathroom and other care routines, personal items, smoking policy, room service/diet, and visiting hours. Information on how to activate the Rapid Response Team has been discussed. Patient/Family are encouraged to report perceived risks to care and to ask questions if they do not understand what they are told or what they should do.
[2024-12-15 01:50] LABS: Troponin I < 0.012 ng/mL (0.000-0.034)
[2024-12-15] MEDS: metroNIDAZOLE 500 MG/ISO 100ML 500 MG/100 ML BAG 100 MG IVPB ×3 (05:52→22:08)
--- NOTE | 2024-12-15 08:45 | PC.NURSE ---
Report called to Kendra MEDRANO preop.
--- NOTE | 2024-12-15 08:55 | PC.NURSE ---
To OR via wheelchair.
--- NOTE | 2024-12-15 09:42 | WPDANESEPPF ---
Anes - Initial Pre Proc Eval Procedure: Operation Date: 12/15/24 11:00 Proposed Procedures p Diagnostic Laparoscopy Pos Lap - Lai Barrett MD Date/Time: 12/15/24 09:42 Surgeon: Lai Barrett MD Pre Op Diagnosis: Post op complication Patient Data Age: 44 Gender: F Height: 1.65 m Weight: 89 kg Last Vital Signs Temp 36.7 C 12/15/24 08:00 Pulse 85 12/15/24 08:04 Resp 16 12/15/24 08:19 BP 98/53 L 12/15/24 08:00 Pulse Ox 96 12/15/24 08:37 O2 Del Method Room Air 12/15/24 08:37 Allergies Allergy/AdvReac Type Severity Reaction Status Date / Time latex Allergy Mild Rash Verified 11/28/24 13:31 clarithromycin Allergy Unknown Hives Verified 11/28/24 13:31 metformin Allergy Unknown Rash Verified 11/28/24 13:31 Sulfa (Sulfonamide Allergy Unknown Hives Verified 11/28/24 13:31 Antibiotics) dermabond Allergy Intermediate Rash Uncoded 11/28/24 13:31 Home Medications ?Medication ?Instructions ?Recorded ?Confirmed ?Type atorvastatin 40 mg tablet 40 mg PO DAILY 03/23/21 12/15/24 History cetirizine 10 mg tablet (Zyrtec) 10 mg PO DAILY 03/23/21 12/15/24 History azelastine 137 mcg (0.1 %) nasal 137 mcg intranasal Q12H PRN 11/20/24 12/15/24 History spray allergy symptoms famotidine 20 mg tablet 20 mg PO DAILY 11/20/24 12/15/24 History linaclotide 145 mcg capsule 145 mcg PO DAILY 11/20/24 12/15/24 History (Linzess) metoprolol succinate 25 mg 12.5 mg PO DAILY 11/20/24 12/15/24 History tablet,extended release 24 hr Held on 12/15/24. Instructions: low BP tirzepatide 10 mg/0.5 mL 10 mg subcut WEEKLY 11/20/24 12/15/24 History subcutaneous pen injector (Mounjaro) calcium 600 mg capsule 600 mg PO DAILY 12/15/24 12/15/24 History fluoxetine 20 mg capsule (Prozac) 20 mg PO DAILY 12/15/24 12/15/24 History Laboratory Tests 12/14/24 12/14/24 12/15/24 20:25 21:54 01:23 WBC 17.2 H K/mm3 (4.5-10.0) RBC 4.20 M/mm3 (4.2-5.4) Hgb 12.7 g/dL (12.0-15.0) Hct 39.9 % (37.0-47.0) MCV 95.0 fl (80-100) MCH 30.2 pg (26-34) MCHC 31.8 L g/dl (32-36) RDW 15.7 H % (11.5-14.5) Plt Count 406 H D k/mm3 (150-375) MPV 10.0 fl (7.4-10.4) Immature Gran % (Auto) 0.5 % (0-0.5) Neut % (Auto) 78.0 H % (45.5-73.1) Lymph % (Auto) 12.2 L % (18.3-44.2) Plumas % (Auto) 7.1 % (2.6-8.5) Eos % (Auto) 1.8 % (0-4.4) Baso % (Auto) 0.4 % (0.2-1.2) Lymph # (Auto) 2.09 K/mm3 (0.9-3.2) [place] # (Auto) 1.2 H K/mm3 (0.1-0.6) Eos # (Auto) 0.3 K/mm3 (0-0.3) Baso # (Auto) 0.1 K/mm3 (0.0-0.1) Abs Immat Gran (auto) 0.09 H K/mm3 (0.00-0.031) Absolute Neuts (auto) 13.4 H K/mm3 (1.3-6.7) Absolute Nucleated RBC 0.000 K/mm3 (0.0-0.012) Nucleated RBC % 0.0 % (0.0-0.2) PT 14.1 Seconds (11.1-14.7) INR 1.1 APTT 26.1 Seconds (22.3-36.8) Sodium 138 mmol/L (137-145) Potassium 4.0 mmol/L (3.4-5.0) Chloride 108 H mmol/L (98-107) Carbon Dioxide 23 mmol/L (22-30) Anion Gap 7 mmol/L (4-12) BUN 17 mg/dL (7-17) Creatinine 0.70 mg/dL (0.7-1.0) Estim Creat Clear Calc 97 ml/min Estimated GFR > 60 (59 - ) Glucose 119 H mg/dL (65-110) POC Capillary Glucose Lactic Acid 0.9 mmol/L (0.7-2.0) Calcium 9.3 mg/dL (8.4-10.2) Total Bilirubin 1.0 mg/dL (0.2-1.3) AST 34 U/L (14-36) ALT 19 U/L (6-35) Alkaline Phosphatase 68 U/L (38-126) Troponin I < 0.012 ng/mL < 0.012 ng/mL < 0.012 ng/mL (0.000-0.034) (0.000-0.034) (0.000-0.034) Total Protein 7.2 g/dL (6.3-8.2) Albumin 4.1 g/dL (3.5-5.1) Lipase 123 U/L (23-300) 12/15/24 08:01 WBC RBC Hgb Hct MCV MCH MCHC RDW Plt Count MPV Immature Gran % (Auto) Neut % (Auto) Lymph % (Auto) [place]umas % (Auto) Eos % (Auto) Baso % (Auto) Lymph # (Auto) [place] # (Auto) Eos # (Auto) Baso # (Auto) Abs Immat Gran (auto) Absolute Neuts (auto) Absolute Nucleated RBC Nucleated RBC % PT INR APTT Sodium Potassium Chloride Carbon Dioxide Anion Gap BUN Creatinine Estim Creat Clear Calc Estimated GFR Glucose POC Capillary Glucose 73 mg/dl (65-105) Lactic Acid Calcium Total Bilirubin AST ALT Alkaline Phosphatase Troponin I Total Protein Albumin Lipase Patient hx anesthesia problems: none Family hx anesthesia problems: none Results Review: All pre-operative results and documents have been reviewed as part of the pre-operative evaluation. [facility] Past Medical History Medical History Diabetes type 2, controlled GERD (gastroesophageal reflux disease) History of supraventricular tachycardia PCOS (polycystic ovarian syndrome) History of angina SVT (supraventricular tachycardia) with ablation 2007 Surgical History Surgical History History of gastric bypass H/O LEEP 2017 History of chemical tubal occlusion essure tubal occlusion approximately 2009 History of cholecystectomy Family History Family History Grandparent Acute myocardial infarction Diabetes mellitus History of blood clots Mother , Mother of coronary disease age 42 Acute myocardial infarction Hypertension Tobacco abuse disorder Father Hypertension Cerebrovascular accident Heart disease History of blood clots Sibling History of blood clots Hypertension Grandparent Diabetes mellitus Grandparent Colon cancer Sibling Hypertension Social History Social History Social History: Primary care physician: Dr. Aristides Hernandez Code status: Full code Smoking status: Never smoker Second hand tobacco smoke exposure: No Alcohol intake: never Drinks per week: 0 Alcohol use details: The patient drinks approximately 1 drink a year. Substance use: current Substance use type: does not use Lack of Transportation: No Lack of Food: Never True Current Housing: I Have Housing Concerned About Future Housing: No Difficulty Paying Gas/Electric Bills: No Difficulty Paying for Meds: No Currently Unemployed: No Education: Master's Degree or Higher Difficulty w/ Childcare or Family Care: No Living arrangements: with friend(s) Additional living arrangements comments: Patient lives with her 14-year-old daughter and 9-year-old autistic son. 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 Gender identity (if verbalized by the patient): Female Spiritual care concerns: No Anes - Eval Final PreProcedure Day of Procedure 12/15/24 09:42 Patient weight: obese Heart: regular rate and rhythm Lungs: clear to auscultation Airway: Mallampati scale class II Neurological: alert and oriented Last oral intake: >/= 8 hours ASA classification: III Emergent: yes Anesthetic plan: proceed Anesthesia type and monitoring: general ETT and standard monitoring Results Review: All pre-operative results and documents have been reviewed as part of the pre-operative evaluation. Informed Consent: The patient's anesthetic plan and its attendant risks and benefits were discussed with the patient/family/POA. Questions were solicited and answers provided to the satisfaction of the patient/family/POA.
--- NOTE | 2024-12-15 09:51 | WPDHPUPDATE1 ---
History and Physical Update Update Date/Time: 12/15/24 09:51 History and Physical has been reviewed, including an updated exam of the patient. There are NO changes in the patient's condition. Risks, benefits, and alternatives have been discussed and questions answered. Patient agrees to proceed with procedure.
[2024-12-15] MEDS: LACTATED RINGERS 1,000 ML 30 ML IV CONT ×2 (10:34→10:54)
--- NOTE | 2024-12-15 10:47 | W.PM.PROC2 ---
Procedure Note - Detailed Date of Procedure 12/15/24 Pre-op Diagnosis Pelvic abscess, vaginal cuff abscess, surgical wound separation Post-op Diagnosis Same Procedure Performed Revision of vaginal cuff with drain placement. Surgeon Lai Barrett MD Anesthesia MAC Indications Postop pelvic abscess Findings Vaginal cuff abscess, disruption of the vaginal cuff healing, wound separation Description of Procedure Patient was taken the operating room. She was prepped and draped in dorsal lithotomy position after induction of MAC anesthesia. SPECT was placed in the vagina. The vaginal cuff was explored digitally. Abscess was opened and drained. Suction was used to act abscess. A drain was placed in the abscess. It was sutured into the vaginal cuff with 3-0 Vicryl. The vaginal cuff was then closed with 0 Vicryl in a running locked fashion. Patient tolerated procedure well. She is taking covered stable condition. Sponge lap needle counts were correct x2. Estimated Blood Loss 25 Drains Yes Packing No Pathology None sent Complications No immediate complications Condition Stable Disposition PACU
[2024-12-15] MEDS: fentaNYL CITRATE INJ (*CRX) 100 MCG/2 ML VIAL 25 MCG IV PUSH ×2 (10:50→11:26)
--- NOTE | 2024-12-15 11:45 | PC.NURSE ---
Returned from OR via wheelchair. Voiding without difficulty. Family at bedside.
[2024-12-15] MEDS: oxyCODONE HCL (*CRX) 5 MG TAB IR PO ×2 (16:19→22:13)
[2024-12-15] MEDS: cefTRIAXone 1 GM in SODIUM CHLORIDE 0.9% IV 50 ML 100 ML IVPB (20:36)
[2024-12-16] VITALS: BP 99/49; PULSE 83; PULSE 87; RESP 16; TEMP 36.4; O2SAT 96
[2024-12-16 04:00] VITALS: BP 96/45; PULSE 72; PULSE 75; RESP 14; TEMP 36.7; O2SAT 97
[2024-12-16] MEDS: metroNIDAZOLE 500 MG/ISO 100ML 500 MG/100 ML BAG 100 MG IVPB (05:39)
[2024-12-16] MEDS: oxyCODONE HCL (*CRX) 5 MG TAB IR PO (05:43)
[2024-12-16] MEDS: SODIUM CHLORIDE 0.9% IV 1,000 ML 125 ML IV CONT (06:19)
[2024-12-16 08:00] VITALS: BP 100/62; PULSE 70; RESP 18; TEMP 36.4; O2SAT 98
[2024-12-16 08:46] VITALS: BP 106/65; PULSE 91; RESP 16; TEMP 36.3; O2SAT 99
[2024-12-16 08:51] VITALS: PULSE 69; PULSE 91; RESP 16; O2SAT 99
[2024-12-16] MEDS: CALCIUM CARBONATE (OSCAL) 500 MG TABLET PO (08:51)
[2024-12-16] MEDS: FAMOTIDINE 20 MG TABLET PO (08:51)
[2024-12-16] MEDS: ATORVASTATIN 40 MG TABLET PO (08:51)
[2024-12-16] MEDS: LORATADINE 10 MG TABLET PO (08:51)
[2024-12-16] MEDS: LINACLOTIDE 145 MCG CAPSULE PO (08:51)
--- NOTE | 2024-12-16 09:41 | P.PNOB_ITS ---
OPERATING ROOM SURGICAL TECHNOLOGIST - A/P Assessment and plan (1) Postoperative abscess of pelvis in female: Code(s): T81.49XA - Infection following a procedure, other surgical site, initial encounter; N73.9 - Female pelvic inflammatory disease, unspecified Status: Acute Plan Postop day 1. For revision of vaginal cuff with drain placement. Evacuation pelvic abscess. Recovering normally. Doing well. Drainage present. Minimal drainage from the vagina. The drain is within the vagina. To discharge home on oral antibiotics. Stable. Resolving infection. Postoperative Procedures: Procedures Operation Date: 12/15/24 11:00 Actual Procedure Side Surgeon p Revision of Vaginal Cuff, EUA, Drain Placement Not Applicable Lai Barrett MD Postoperative day: 1 Postoperative status: doing well Postoperative plan: see orders Time Spent With Patient Time: Total time spent is greater than 50% in coordination of care (as documented) at patient's floor/unit and/or counseling patient: Time with patient: 15 - 25 minutes OPERATING ROOM SURGICAL TECHNOLOGIST- PN:[place] Post-Op Subjective Date/time seen: 12/16/24 09:41 Subjective: patient reports feeling better, patient has no complaints and pain is well controlled Exam 2 Const: General: healthy appearing, comfortable and no acute distress Resp: Auscultation: clear to auscultation bilaterally, no rales, no rhonchi and no wheezes Cardio: Rate: regular rate Heart sounds: no click, no murmurs and no rubs GI: Inspection: non-distended Auscultation: normal bowel sounds Extrem: General: normal to inspection, no pedal edema and no calf tenderness OPERATING ROOM SURGICAL TECHNOLOGIST - PN: Obj Data Vital Signs Vital Signs: Vital Signs - 24 hr 12/15/24 10:34 12/15/24 10:45 12/15/24 11:00 Temperature 97.7 F Pulse Rate 75 68 84 Respiratory Rate 13 16 17 Blood Pressure 85/44 L 90/43 L 87/50 L Pulse Oximetry 95 96 96 Oxygen Delivery Room Air Room Air Room Air 12/15/24 11:15 12/15/24 11:26 12/15/24 11:49 Temperature 98.3 F 97.9 F Pulse Rate 75 76 75 Respiratory Rate 18 16 18 Blood Pressure 96/51 L 86/48 L 91/44 L Pulse Oximetry 96 98 99 Oxygen Delivery Room Air Room Air 12/15/24 12:00 12/15/24 12:04 12/15/24 12:34 Temperature 98.1 F 98.3 F Pulse Rate 80 75 74 Respiratory Rate 16 18 Blood Pressure 108/64 102/60 Pulse Oximetry 98 98 Oxygen Delivery 12/15/24 13:34 12/15/24 16:00 12/15/24 16:03 Temperature 97.2 F L 97.9 F Pulse Rate 73 80 78 Respiratory Rate 18 18 Blood Pressure 118/60 104/60 Pulse Oximetry 100 98 Oxygen Delivery 12/15/24 16:30 12/15/24 20:00 12/15/24 20:00 Temperature Pulse Rate 78 78 74 Respiratory Rate 18 Blood Pressure Pulse Oximetry 98 Oxygen Delivery Room Air 12/15/24 20:00 12/15/24 20:01 12/16/24 00:00 Temperature 97.3 F L 97.6 F Pulse Rate 82 83 Respiratory Rate 14 16 Blood Pressure 90/35 L 98/52 L 99/49 L Pulse Oximetry 98 96 Oxygen Delivery 12/16/24 00:00 12/16/24 04:00 12/16/24 04:00 Temperature 98.1 F Pulse Rate 87 75 72 Respiratory Rate 14 Blood Pressure 96/45 L Pulse Oximetry 97 Oxygen Delivery 12/16/24 08:00 12/16/24 08:46 Temperature 97.6 F 97.4 F L Pulse Rate 70 91 Respiratory Rate 18 16 Blood Pressure 100/62 106/65 Pulse Oximetry 98 99 Oxygen Delivery Intake/Output Intake/Output: Intake & Output 12/13/24 12/14/24 12/15/24 12/16/24 23:59 23:59 23:59 23:59 Intake Total 1150 3053.5 1189.6 Balance 1150 3053.5 1189.6 Meds/Results Medications: Active Medications Generic Name Dose Route Start Last Admin Trade Name Freq PRN Reason Stop Dose Admin Atorvastatin Calcium 40 mg 12/16/24 09:00 12/16/24 08:51 Atorvastatin 40 Mg Tablet PO 40 mg DAILY AVERY Administration Azelastine HCl 1 spray 12/15/24 11:36 Azelastine Hcl Nasal 0.1% 137 Mcg/Spr 30 Ml Btl NASAL Q12H PRN allergy symptoms Calcium Carbonate 500 mg 12/16/24 09:00 12/16/24 08:51 Calcium Carbonate (Oscal) 500 Mg Tablet PO 500 mg QAM AVERY Administration Famotidine 20 mg 09/14/25 09:00 12/16/24 08:51 Famotidine 20 Mg Tablet PO 20 mg DAILY AVERY Administration Fentanyl Citrate 25 mcg 12/15/24 10:34 12/15/24 11:26 Fentanyl Citrate Inj (*Crx) 100 Mcg/2 Ml Vial IV PUSH 25 mcg Q2M PRN Administration Pain Fluoxetine HCl 20 mg 12/16/24 09:00 12/16/24 08:51 Fluoxetine Hcl 20 Mg Capsule PO 20 mg DAILY AVERY Administration Sodium Chloride 1,000 mls @ 125 mls/hr 12/14/24 23:45 12/16/24 06:19 Normal Saline Iv IV CONT 125 mls/hr .Q8H AVERY Administration Ceftriaxone Sodium 1 gm/ 50 mls @ 100 mls/hr 12/15/24 21:00 12/15/24 20:36 Sodium Chloride IVPB 100 mls/hr Q24H AVERY Administration Metronidazole 500 mg in 100 mls @ 100 mls/hr 12/15/24 06:00 12/16/24 05:39 Flagyl 500 Mg/Iso Soln 100 Ml IVPB 100 mls/hr Q8HR AVERY Administration Linaclotide 145 mcg 12/16/24 09:00 12/16/24 08:51 Linaclotide 145 Mcg Capsule PO 145 mcg DAILY AVERY Administration Loratadine 10 mg 12/16/24 09:00 12/16/24 08:51 Loratadine 10 Mg Tablet PO 10 mg QAM AVERY Administration Metoprolol Succinate 12.5 mg 12/16/24 09:00 12/16/24 08:52 Metoprolol Succinate Ext Rel 12.5 Mg Tabcr PO Not Given DAILY [facility] Morphine Sulfate 4 mg 12/14/24 23:57 Morphine Sulfate (*Crx) 4 Mg/Ml Inj IV PUSH Q2H PRN Pain Rated 7-10 Ondansetron HCl 4 mg 12/15/24 10:34 Ondansetron Inj 4 Mg/2 Ml Vial IV PUSH ONCE PRN Nausea Oxycodone HCl 5 mg 12/15/24 10:35 Oxycodone Hcl (*Crx) 5 Mg Tab Ir PO ONCE PRN Pain Oxycodone HCl 5 mg 12/15/24 14:35 12/16/24 05:43 Oxycodone Hcl (*Crx) 5 Mg Tab Ir PO 5 mg Q4H PRN Administration Pain Rated 7-10 Radiology Results: ITS Impressions Chest X-Ray 12/14/24 19:21 Impression: 1: Free intraperitoneal air, compatible with recent surgery per clinical history. Dr. Jesús Lynch discussed with Dr. Yamil De Dios at 12/14/2024 19:28 CDT. Labs 12/14/24 20:25 12/14/24 20:25 Labs: Laboratory Results - last 24 hr 12/15/24 12/15/24 12/15/24 10:43 12:10 16:32 POC Capillary Glucose 75 76 74 12/15/24 20:16 POC Capillary Glucose 123 H
--- NOTE | 2024-12-16 09:44 | PM.DS ---
DS: Admitting Diagnosis Discharge Date 12/16/2024 Admitting Diagnosis Postop pelvic abscess. DS: Discharge Diagnosis Discharge Diagnosis (1) Postoperative abscess of pelvis in female: Code(s): T81.49XA - Infection following a procedure, other surgical site, initial encounter; N73.9 - Female pelvic inflammatory disease, unspecified Status: Acute DS: Summary Hospital Course Hospital Course: 24-year-old female seen through the emergency department for foul vaginal discharge postoperative. Pelvic abscess was diagnosed. Hospital day 1 a drain was placed surgically and revision of vaginal cuff was performed. She was observed for another 24 hours and discharged home. She was recovering normally at that point. Time Spent with Patient Time attestation: Total time spent providing and/or coordinating discharge services: DS: Data Data Completed and Pending Labs on day of discharge: Labs from last 24 hours 12/15/24 12/15/24 12/15/24 20:16 16:32 12:10 POC Capillary Glucose 123 H 74 76 12/15/24 10:43 POC Capillary Glucose 75 Discharge Plan Discharge Attending physician on discharge: Lai Barrett Discharging Clinician: Lai Barrett Patient Disposition: Home Activity: pelvic rest Diet: regular Patient Instructions: Antibiotic Form Patient Language: Guyanese Stand Alone Forms: General Discharge Information Follow-up/Referrals: Lai Barrett MD [Physician, [facility]] Discharge Medications: New metronidazole 500 mg tablet 500 mg PO Q12H Qty: 20 0RF Continued atorvastatin 40 mg Tablet 40 mg PO DAILY cetirizine [Zyrtec] 10 mg Tablet 10 mg PO DAILY Mounjaro 10 mg/0.5 mL pen injector 10 mg SUBCUT WEEKLY Patient Comments: takes ON MONDAYS FOR DIABETES metoprolol succinate 25 mg tablet extended release 24 hr 12.5 mg PO DAILY famotidine 20 mg tablet 20 mg PO DAILY Linzess 145 mcg capsule 145 mcg PO DAILY azelastine 137 mcg (0.1 %) aerosol,spray 137 mcg NASAL Q12H PRN (Reason: allergy symptoms) Rx Instructions: administer into each nostril calcium 600 mg capsule 600 mg PO DAILY fluoxetine [Prozac] 20 mg capsule 20 mg PO DAILY estradiol 1 mg tablet 1 mg PO DAILY Date of admission: 12/14/24 23:57 Primary Care Provider: ElizabethAristides Admitting Provider: Lai Barrett Attending physician on admission: Lai Barrett Condition: Stable
== END 2024-12-16 11:45 | disposition home or self-care (01) ==
LOC: ANHED 12-15 00:07 → ANH2MED 12-15 00:20
PROVIDERS: Emergency Medicine; Admitting Provider Obstetrics & Gynecology; Emergency Provider Physician Assistant; PCP Family Medicine; Visit Provider Obstetrics & Gynecology
PROC: (CPT 49320; principal; 2024-12-15 11:00)
DX: N99.89 Other postprocedural complications and disorders of genitourinary system (principal); T81.31XA Disruption of external operation (surgical) wound, not elsewhere classified, initial encounter; N73.9 Female pelvic inflammatory disease, unspecified; Y83.8 Other surgical procedures as the cause of abnormal reaction of the patient, or of later complication, without mention of misadventure at the time of the procedure; E11.9 Type 2 diabetes mellitus without complications; K21.9 Gastro-esophageal reflux disease without esophagitis; Z98.84 Bariatric surgery status; Z90.710 Acquired absence of both cervix and uterus
CPT/HCPCS: 58999; 36415; 71046; 71275; 74177; 80053; 82948; 83605; 83690; 84484; 85025; 85610; 85730; 87040; 87070; 93005; 96365; 96366; 96367; 99285; A9270; G0378; J0696; J1836; J2250; J2405; J2704; J3010; J7030; J7120; Q9967